=== PATIENT | female | born 1995 | race Caucasian/White ===

== ENCOUNTER → 2019-08-25 16:00 | Outpatient (CLI) | payer OTHER, SELFPAY | PROVIDERS: Visit Provider Obstetrics & Gynecology | DX: Z12.4 Encounter for screening for malignant neoplasm of cervix (principal); Z11.3 Encounter for screening for infections with a predominantly sexual mode of transmission ==

== ENCOUNTER → 2020-02-11 13:24 | Outpatient (CLI) | payer OTHER, SELFPAY | PROVIDERS: Visit Provider Obstetrics & Gynecology | DX: E66.9 Obesity, unspecified (principal) | CPT/HCPCS: 36415; 84144 ==

== ENCOUNTER → 2020-04-28 14:48 | Outpatient (CLI) | payer OTHER, SELFPAY ==
[2020-05-01 03:06] LABS: Chlamydia By Nucleic Acid AMP Negative (Negative)
[2020-05-01 08:27] LABS: Gonococcus By Nucleic Acid AMP Negative (Negative)
== END ==
PROVIDERS: Visit Provider Obstetrics & Gynecology
DX: Z11.3 Encounter for screening for infections with a predominantly sexual mode of transmission (principal)
CPT/HCPCS: 87491; 87591

== ENCOUNTER → 2020-05-12 16:29 | Outpatient (CLI) | payer OTHER, SELFPAY ==
[2020-05-12 17:15] LABS: Color, Urine Yellow (Yellow); Glucose, Dipstick Normal (Normal); Ketone-Dipstick 15 mg/dl (Negative); Leukocyte Esterase-Dipstick Negative /ul (Negative); Nitrite-Dipstick Negative (Negative); Occult Blood-Urine Negative /ul (Negative); Protein-Dipstick Negative (Negative); Specific Gravity, Urine 1.005 (1.002-1.030); Urine Bilirubin Dipstick Negative (Negative); Urine Clarity Clear (Clear); Urine Urobilinogen Normal (Normal)
[2020-05-12 17:26] LABS: Absolute Lymphocyte Count 1.91 X10^3/uL (0.83-4.51); Absolute Neutrophil Count 6.8 X10^3/uL (2.0-7.7); Basophil# 0.03 X10^3/uL; Basophil% 0.3 % (0-1); Eosinophil# 0.02 X10^3/uL; Eosinophils% 0.2 % (0-5); Hematocrit 44.4 % (37-47); Hemoglobin 15.3 g/dL (12.0-15.0); Lymphocyte # 1.91 X10^3/ul (4.0); Lymphocyte % 20.1 % (19-41); Mean Corp Hgb Conc 34.5 g/dL (32-36); Mean Corpuscular Hgb 30.9 pg (27.0-32.0); Mean Corpuscular Volume 89.7 fL (81-99); Mean Platelet Vol. 11.2 fl (6.2-12.0); Monocyte# 0.66 X10^3/uL; NRBC Flagged by Analyzer 0 % (0-5); Neutrophil # 6.84 X10^3/uL (2.7-7.7); Neutrophil % 72.1 % (47-70); Platelet Count 373 K/mm3 (150-450); RBC Distribution Width CV 12.4 % (11.6-14.6); RBC Distribution Width SD 40.6 fl (35.1-43.9); Red Blood Count 4.95 M/mm3 (4.2-5.4); White Blood Count 9.5 K/mm3 (4.4-11.0)
[2020-05-12 17:29] LABS: Amphetamine Urine VISTA NEGATIVE (<1000 ng/mL); Barbiturate Urine VISTA NEGATIVE (< 200 ng/mL); Benzodiazepine Urine VISTA NEGATIVE (< 200 ng/mL); Cocaine Urine VISTA NEGATIVE (< 300 ng/mL); Ecstacy Urine VISTA NEGATIVE (< 500 ng/mL); Methadone Urine VISTA NEGATIVE (< 300 ng/mL); PCP Urine VISTA NEGATIVE (< 25 ng/mL); THC Urine VISTA NEGATIVE (< 50 ng/mL); Vista UDS pH Range 6
[2020-05-12 17:53] LABS: Thyroid Stim Hormone (TSH) 0.79 uIU/mL (0.358-3.74)
[2020-05-13 05:28] LABS: Prenatal RPR NONREACTIVE (NONREACTIVE)
[2020-05-13 11:12] LABS: HIV - WCH Non-Reactive (Nonreactive); Hepatitis B Surface Antigen Non-Reactive (Nonreactive); Hepatitis C Antibody Non-Reactive (Nonreactive); Rubella IgG 166.7 IU/mL
== END ==
PROVIDERS: Visit Provider Obstetrics & Gynecology
DX: Z34.81 Encounter for supervision of other normal pregnancy, first trimester (principal)
CPT/HCPCS: 36415; 80307; 81002; 84443; 85025; 86703; 86762; 86803; 87340

== ENCOUNTER → 2020-09-20 12:59 | Outpatient (CLI) | payer OTHER, SELFPAY ==
[2020-09-20 13:49] LABS: Hematocrit 39.3 % (37-47); Hemoglobin 14.1 g/dL (12.0-15.0); Mean Corp Hgb Conc 35.9 g/dL (32-36); Mean Corpuscular Hgb 33.3 pg (27.0-32.0); Mean Corpuscular Volume 92.7 fL (81-99); Mean Platelet Vol. 11.4 fl (6.2-12.0); Platelet Count 257 K/mm3 (150-450); RBC Distribution Width CV 13.2 % (11.6-14.6); RBC Distribution Width SD 43.4 fl (35.1-43.9); Red Blood Count 4.24 M/mm3 (4.2-5.4); White Blood Count 8.6 K/mm3 (4.4-11.0)
[2020-09-20 14:02] LABS: Glucose Challenge Gest 1H 50g 112 mg/dL (70-140)
== END ==
PROVIDERS: Visit Provider Student in an Organized Health Care Education/Training Program
DX: Z34.82 Encounter for supervision of other normal pregnancy, second trimester (principal)
CPT/HCPCS: 36415; 82950; 85027

== ENCOUNTER 2020-09-30 11:31 | Outpatient (CLI) | payer OTHER, SELFPAY ==
[2020-09-30 11:34] VITALS: BP 121/52; PULSE 102; RESP 18; TEMP 36.6; O2SAT 96; BMI 38.1
--- NOTE | 2020-09-30 11:54 | ED.DCSUM_ITS ---
History of Present Illness Chief Complaint: Fatigue Informant: Patient Onset: Days Current Severity: Mild Maximum Severity: Mild Narrative: Patient presents with increased fatigue and generalized weakness for the past 2 days. Patient is currently 29 weeks . She reportedly was seen by her TREASURY DIRECTOR this morning who wanted her evaluated. I am told that the OB triage unit would not see her without a Covid test so she was therefore sent to the emergency room. She denies fever or chills. She denies pain. She has felt normal movement. She denies urinary symptoms. Past Medical History - Allergies and Home Meds Allergies/Adverse Reactions: Allergies No Known Allergies Allergy (Verified 09/30/20 11:36) Primary Care Physician: [facility] Doctor,Out of [NON-STAFF] - Prior records reviewed: Yes Smoking Status: Never smoker Review of Systems General: Denies: Chills, Fever Eyes: Denies: Visual changes - bilaterally ENT: Denies: Bilateral ear pain Cardiovascular: Denies: Chest pain Respiratory: Denies: Dyspnea, Cough Gastrointestinal: Denies: Abdominal pain, Vomiting, Diarrhea Musculoskeletal: Denies: Swelling, Extremity Pain Skin: Denies: Rash Hematologic: Denies: Easy bruising, Easy bleeding Allergy: Denies: Uticaria Physical Exam Vital Signs/Narrative: Vital Signs Temp Pulse Resp BP Pulse Ox 09/30/20 11:34 98 F 102 H 18 121/52 H 96 Inital Vital Signs reviewed: Yes General: Well nourished, Well developed Head: Normocephalic Eyes: EOMI Neck: Supple Cardiovascular: Regular rate, Regular rhythm Respiratory: No distress, CTA bilaterally Abdomen: Soft, Nontender, Hypoactive bowel sounds Skin: Normal color Neurological: Alert, Oriented x3 Psychological: Normal affect Diagnostic/Tx/Re-eval 09/30/20 12:20 Mucosa - Nose SARS-CoV-2 Antigen (Rapid) - Final Laboratory Results 09/30/20 09/30/20 09/30/20 12:10 12:10 12:10 WBC 10.4 RBC 4.12 L Hgb 13.4 Hct 37.6 MCV 91.3 MCH 32.5 H MCHC 35.6 RDW Std Deviation 41.4 RDW Coeff of Valeri 12.7 Plt Count 255 MPV 11.0 Immature Gran % (Auto) 0.600 Neut % (Auto) 76.6 H Lymph % (Auto) 16.0 L Hendricks % (Auto) 6.0 Eos % (Auto) 0.6 Baso % (Auto) 0.2 Absolute Neuts (auto) 8.0 H Absolute Lymphs (auto) 1.67 Nucleated RBC % 0 Sodium 139 Potassium 3.5 Chloride 110 H Carbon Dioxide 24.0 Anion Gap 5 BUN 3 L Creatinine 0.43 L Estim Creat Clear Calc 205.26 Est GFR (MDRD) Af Amer 232 Est GFR (MDRD) Non-Af 192 BUN/Creatinine Ratio 6.9 L Glucose 89 Calcium 9.0 Total Bilirubin 0.50 Direct Bilirubin 0.15 AST 9 L ALT 23 Alkaline Phosphatase 111 Lactate Dehydrogenase Total Protein 6.6 Albumin 2.6 L Globulin 4.0 Urine Color Urine Clarity Urine pH Ur Specific [place] Urine Protein Urine Glucose (UA) Urine Ketones Urine Occult Blood Urine Nitrite Urine Bilirubin Urine Urobilinogen Ur Leukocyte Esterase Urine RBC Urine WBC Ur Squamous Epith Cells Urine Bacteria Urine Mucus U Random Total Protein Urine Creatinine 09/30/20 09/30/20 09/30/20 12:10 12:30 12:30 WBC RBC Hgb Hct MCV MCH MCHC RDW Std Deviation RDW Coeff of Valeri Plt Count MPV Immature Gran % (Auto) Neut % (Auto) Lymph % (Auto) Hendricks % (Auto) Eos % (Auto) Baso % (Auto) Absolute Neuts (auto) Absolute Lymphs (auto) Nucleated RBC % Sodium Potassium Chloride Carbon Dioxide Anion Gap BUN Creatinine Estim Creat Clear Calc Est GFR (MDRD) Af Amer Est GFR (MDRD) Non-Af BUN/Creatinine Ratio Glucose Calcium Total Bilirubin Direct Bilirubin AST ALT Alkaline Phosphatase Lactate Dehydrogenase 146 Total Protein Albumin Globulin Urine Color Yellow Urine Clarity Sl Cldy Urine pH 7.0 Ur Specific [place] 1.015 Urine Protein Negative Urine Glucose (UA) Normal Urine Ketones Negative Urine Occult Blood Negative Urine Nitrite Negative Urine Bilirubin Negative Urine Urobilinogen Normal Ur Leukocyte Esterase 25 H Urine RBC 0 SEEN Urine WBC 0-5 SEEN Ur Squamous Epith Cells 5-10 SEEN Urine Bacteria 2+ Urine Mucus 0 SEEN U Random Total Protein 21.2 H Urine Creatinine 134.00 - Medical Decision Making Lab work is reviewed. Blood pressure has been in the mid 120 systolic range while here in the emergency room. I did speak with Dr. Sparks who did asked the patient have a nonstress test. Now that the patient's Covid test is negative she should be able to go to OB triage for that. Patient will be given a liter of IV fluid and taken to OB triage for nonstress test. ED Disposition - Plan for ED Patient: Disposition: Home or Assisted Living Diagnosis: Fatigue Instructions: ED Weakness (Uncertain Cause) Referrals: [facility] Doctor,Out of [NON-STAFF] -
[2020-09-30 12:23] LABS: Absolute Lymphocyte Count 1.67 X10^3/uL (0.83-4.51); Basophil# 0.02 X10^3/uL; Basophil% 0.2 % (0-1); Eosinophil# 0.06 X10^3/uL; Eosinophils% 0.6 % (0-5); Hematocrit 37.6 % (37-47); Hemoglobin 13.4 g/dL (12.0-15.0); Lymphocyte # 1.67 X10^3/ul (4.0); Mean Corp Hgb Conc 35.6 g/dL (32-36); Mean Corpuscular Hgb 32.5 pg (27.0-32.0); Mean Corpuscular Volume 91.3 fL (81-99); Monocyte# 0.62 X10^3/uL; NRBC Flagged by Analyzer 0 % (0-5); Neutrophil # 7.99 X10^3/uL (2.7-7.7); Neutrophil % 76.6 % (47-70); Platelet Count 255 K/mm3 (150-450); RBC Distribution Width CV 12.7 % (11.6-14.6); RBC Distribution Width SD 41.4 fl (35.1-43.9); Red Blood Count 4.12 M/mm3 (4.2-5.4); White Blood Count 10.4 K/mm3 (4.4-11.0)
[2020-09-30 12:38] LABS: Mucous, Urine 0 SEEN /hpf (<or=2+); Red Blood Cells-Urine 0 SEEN /hpf (0-5)
[2020-09-30 12:39] LABS: Anion Gap 5 (5-15); BUN 3 mg/dL (7-18); BUN/Creat Ratio 6.9 RATIO (10-20); Chloride 110 mmol/L (98-107); Creatinine, Serum 0.43 mg/dL (0.55-1.02); EST Glomerular Filtration Rate 192 mL/min (>60); Est Glom Filt Rate - Afr Amer 232 mL/min (>60); Estimated Creatinine Clearance 205.26 ml/min; Glucose 89 mg/dL (74-106); Potassium 3.5 mmol/L (3.5-5.1); Sodium Level 139 mmol/L (136-145)
[2020-09-30 12:41] LABS: Glucose, Dipstick Normal (Normal); Ketone-Dipstick Negative (Negative); Leukocyte Esterase-Dipstick 25 /ul (Negative); Nitrite-Dipstick Negative (Negative); Occult Blood-Urine Negative /ul (Negative); Protein-Dipstick Negative (Negative); Specific Gravity, Urine 1.015 (1.002-1.030); Urine Bilirubin Dipstick Negative (Negative); Urine Urobilinogen Normal (Normal)
[2020-09-30 12:43] LABS: Color, Urine Yellow (Yellow); Urine Clarity Sl Cldy (Clear)
[2020-09-30 12:49] VITALS: BP 129/70; PULSE 104; RESP 16; O2SAT 97
[2020-09-30 12:49] LABS: Bacteria 2+ /hpf (None Seen); Squamous Epithelial Cells - UA 5-10 SEEN /hpf (5-10); White Blood Cells 0-5 SEEN /hpf (0-5)
[2020-09-30 12:55] LABS: AST(SGOT) 9 U/L (15-37); Alanine Aminotransfer ALT/SGPT 23 U/L (13-56); Albumin, Serum 2.6 g/dL (3.2-5.0); Alkaline Phosphatase 111 U/L (45-117); Bilirubin, Direct 0.15 mg/dL (0.00-0.30); LDH 146 U/L (84-246); Protein, Total 6.6 g/dL (6.4-8.2)
[2020-09-30 12:57] LABS: Protein, Urine (Random) 21.2 mg/dL (<11.9)
[2020-09-30] MEDS: 0.9% Normal Saline 1,000 ML 999 ML IV (13:45)
[2020-09-30 14:59] VITALS: BP 122/62; PULSE 89; RESP 16; O2SAT 97
[2020-09-30 15:19] VITALS: BP 133/71; PULSE 94; TEMP 36.9; O2SAT 97
--- NOTE | 2020-10-01 08:59 | OB.TRI.NOTE ---
History of Present Illness Date of Service: 09/30/20 Was patient seen by the physician?: No Reason For Visit: NAUSEA,WEAK,LIGHTHEADED/ NST Date of Service: 09/30/20 Final HARRY: 12/18/20 Final HARRY Source: LMP Gestational age: 28 Weeks and 6 Days History of Present Illness: Pt arrived to office with nausea and malaise. Instructed to go to [facility] for evaluation Allergies No Known Allergies Allergy (Verified 09/30/20 11:36) - Pertinent Past Medical History Medical History: Past Medical History (Last Reviewed 09/14/17 @ 09:50 by Ally Westbrook) Anxiety Surgical History: Past Surgical History (Last Updated 09/14/17 @ 09:49 by Ally Westbrook) [place] teeth extracted with molar extraction 10/31/14 Laboratory Studies: Laboratory Tests 09/30/20 09/30/20 09/30/20 Range/Units 12:30 12:30 12:10 WBC (4.4-11.0) K/mm3 RBC (4.2-5.4) M/mm3 Hgb (12.0-15.0) g/dL Hct (37-47) % MCV (81-99) fL MCH (27.0-32.0) pg MCHC (32-36) g/dL RDW Std Deviation (35.1-43.9) fl RDW Coeff of Valeri (11.6-14.6) % Plt Count (150-450) K/mm3 MPV (6.2-12.0) fl Immature Gran % (Auto) (0.0-0.9) % Neut % (Auto) (47-70) % Lymph % (Auto) (19-41) % [place] % (Auto) (0-10) % Eos % (Auto) (0-5) % Baso % (Auto) (0-1) % Absolute Neuts (auto) (2.0-7.7) X10^3/uL Absolute Lymphs (auto) (0.83-4.51) X10^3/uL Nucleated RBC % (0-5) % Sodium (136-145) mmol/L Potassium (3.5-5.1) mmol/L Chloride (98-107) mmol/L Carbon Dioxide (21.0-32.0) mmol/L Anion Gap (5-15) BUN (7-18) mg/dL Creatinine (0.55-1.02) mg/dL Estim Creat Clear Calc ml/min Est GFR (MDRD) Af Amer (>60) mL/min Est GFR (MDRD) Non-Af (>60) mL/min BUN/Creatinine Ratio (10-20) RATIO Glucose (74-106) mg/dL Calcium (8.5-10.1) mg/dL Total Bilirubin (0.20-1.00) mg/dL Direct Bilirubin (0.00-0.30) mg/dL AST (15-37) U/L ALT (13-56) U/L Alkaline Phosphatase (45-117) U/L Lactate Dehydrogenase 146 (84-246) U/L Total Protein (6.4-8.2) g/dL Albumin (3.2-5.0) g/dL Globulin (2.2-4.2) g/dL Urine Color Yellow (Yellow) Urine Clarity Sl Cldy (Clear) Urine pH 7.0 (5.0 - 8.0) Ur Specific [place] 1.015 (1.002-1.030) Urine Protein Negative (Negative) mg/dl Urine Glucose (UA) Normal (Normal) mg/dl Urine Ketones Negative (Negative) mg/dl Urine Occult Blood Negative (Negative) /ul Urine Nitrite Negative (Negative) Urine Bilirubin Negative (Negative) mg/dL Urine Urobilinogen Normal (Normal) mg/dl Ur Leukocyte Esterase 25 H (Negative) /ul Urine RBC 0 SEEN (0-5) /hpf Urine WBC 0-5 SEEN (0-5) /hpf Ur Squamous Epith Cells 5-10 SEEN (5-10) /hpf Urine Bacteria 2+ (None Seen) /hpf Urine Mucus 0 SEEN (<or=2+) /hpf U Random Total Protein 21.2 H (<11.9) mg/dL Urine Creatinine 134.00 (NO RANGE EST.) mg/dL 09/30/20 09/30/20 09/30/20 Range/Units 12:10 12:10 12:10 WBC 10.4 (4.4-11.0) K/mm3 RBC 4.12 L (4.2-5.4) M/mm3 Hgb 13.4 (12.0-15.0) g/dL Hct 37.6 (37-47) % MCV 91.3 (81-99) fL MCH 32.5 H (27.0-32.0) pg MCHC 35.6 (32-36) g/dL RDW Std Deviation 41.4 (35.1-43.9) fl RDW Coeff of Valeri 12.7 (11.6-14.6) % Plt Count 255 (150-450) K/mm3 MPV 11.0 (6.2-12.0) fl Immature Gran % (Auto) 0.600 (0.0-0.9) % Neut % (Auto) 76.6 H (47-70) % Lymph % (Auto) 16.0 L (19-41) % [place] % (Auto) 6.0 (0-10) % Eos % (Auto) 0.6 (0-5) % Baso % (Auto) 0.2 (0-1) % Absolute Neuts (auto) 8.0 H (2.0-7.7) X10^3/uL Absolute Lymphs (auto) 1.67 (0.83-4.51) X10^3/uL Nucleated RBC % 0 (0-5) % Sodium 139 (136-145) mmol/L Potassium 3.5 (3.5-5.1) mmol/L Chloride 110 H (98-107) mmol/L Carbon Dioxide 24.0 (21.0-32.0) mmol/L Anion Gap 5 (5-15) BUN 3 L (7-18) mg/dL Creatinine 0.43 L (0.55-1.02) mg/dL Estim Creat Clear Calc 205.26 ml/min Est GFR (MDRD) Af Amer 232 (>60) mL/min Est GFR (MDRD) Non-Af 192 (>60) mL/min BUN/Creatinine Ratio 6.9 L (10-20) RATIO Glucose 89 (74-106) mg/dL Calcium 9.0 (8.5-10.1) mg/dL Total Bilirubin 0.50 (0.20-1.00) mg/dL Direct Bilirubin 0.15 (0.00-0.30) mg/dL AST 9 L (15-37) U/L ALT 23 (13-56) U/L Alkaline Phosphatase 111 (45-117) U/L Lactate Dehydrogenase (84-246) U/L Total Protein 6.6 (6.4-8.2) g/dL Albumin 2.6 L (3.2-5.0) g/dL Globulin 4.0 (2.2-4.2) g/dL Urine Color (Yellow) Urine Clarity (Clear) Urine pH (5.0 - 8.0) Ur Specific [place] (1.002-1.030) Urine Protein (Negative) mg/dl Urine Glucose (UA) (Normal) mg/dl Urine Ketones (Negative) mg/dl Urine Occult Blood (Negative) /ul Urine Nitrite (Negative) Urine Bilirubin (Negative) mg/dL Urine Urobilinogen (Normal) mg/dl Ur Leukocyte Esterase (Negative) /ul Urine RBC (0-5) /hpf Urine WBC (0-5) /hpf Ur Squamous Epith Cells (5-10) /hpf Urine Bacteria (None Seen) /hpf Urine Mucus (<or=2+) /hpf U Random Total Protein (<11.9) mg/dL Urine Creatinine (NO RANGE EST.) mg/dL Physical Exam Vitals: Vital Signs Temp Pulse Resp BP Pulse Ox 98.4 F 94 16 133/71 H 97 09/30/20 15:19 09/30/20 15:19 09/30/20 14:59 09/30/20 15:19 09/30/20 15:19 NST - FHR Rate Baby A Baseline: 150 Variability:: Moderate Accelerations:: 10 x 10 Decelerations:: None NST Reactive:: Yes Uterine Activity:: quiet Impression/Plan Pt with negative COVID test and negative HELLP labs in the ER. Given IV hydration in ER. NST reactive. All reassuring. Okay to d/c home and follow up in office
== END 2020-09-30 15:45 | disposition home or self-care (01) ==
LOC: ED 13:36 → WPOUT 15:04 → WP 15:05
PROVIDERS: Emergency Medicine; PCP Family Medicine; Visit Provider Obstetrics & Gynecology
DX: O26.893 Other specified pregnancy related conditions, third trimester (principal); R11.0 Nausea; R42 Dizziness and giddiness; R53.1 Weakness; Z3A.28 28 weeks gestation of pregnancy
CPT/HCPCS: 59025; 59050; 80048; 80076; 81001; 82570; 83615; 84156; 85025; 87426; 99218; J7030; A4216; G0378

== ENCOUNTER 2020-10-29 20:35 | Outpatient (CLI) | payer OTHER, SELFPAY ==
[2020-10-29 20:43] VITALS: BMI 38.0
[2020-10-29 20:52] VITALS: BP 137/75; PULSE 104; TEMP 37.3; O2SAT 98
[2020-10-29 21:38] LABS: Bacteria 0 SEEN /hpf (None Seen); Mucous, Urine 0 SEEN /hpf (<or=2+); White Blood Cells 0 SEEN /hpf (0-5)
[2020-10-29 21:50] LABS: Color, Urine Yellow (Yellow); Glucose, Dipstick Normal (Normal); Ketone-Dipstick 50 mg/dl (Negative); Leukocyte Esterase-Dipstick 25 /ul (Negative); Nitrite-Dipstick Negative (Negative); Occult Blood-Urine 250 /ul (Negative); Protein-Dipstick 15 mg/dl (Negative); Specific Gravity, Urine 1.015 (1.002-1.030); Urine Bilirubin Dipstick Negative (Negative); Urine Clarity Sl. Cloudy (Clear); Urine Urobilinogen Normal (Normal); Urine pH 6.5 (5.0 - 8.0)
[2020-10-29 22:02] LABS: Red Blood Cells-Urine 50-100 SEEN /hpf (0-5); Squamous Epithelial Cells - UA 10-25 SEEN /hpf (5-10)
[2020-10-29 22:15] LABS: Fetal Fibronectin POSITIVE
--- NOTE | 2020-10-29 23:56 | OB.TRI.NOTE ---
- Problem List (1) False labor Status: Acute (2) 32 weeks gestation of Status: Acute History of Present Illness Date of Service: 10/29/20 Reason For Visit: RULE OUT LABOR Date of Service: 10/29/20 Final HARRY: 12/18/20 Final HARRY Source: US <20 weeks Gestational age: 32 Weeks and 6 Days History of Present Illness: 25yo G1 @ 32 6/7 weeks gestation presenting with painful contraction q6-7 minutes. Allergies No Known Allergies Allergy (Verified 10/29/20 20:44) - Pertinent Past Medical History Medical History: Past Medical History (Last Reviewed 09/14/17 @ 09:50 by Ally Westbrook) Anxiety Surgical History: Past Surgical History (Last Updated 09/14/17 @ 09:49 by Ally Westbrook) [place] teeth extracted with molar extraction 10/31/14 Laboratory Studies: Laboratory Tests 10/29/20 10/29/20 Range/Units 21:23 21:17 Urine Color Yellow (Yellow) Urine Clarity Sl. Cloudy (Clear) Urine pH 6.5 (5.0 - 8.0) Ur Specific [place] 1.015 (1.002-1.030) Urine Protein 15 H (Negative) mg/dl Urine Glucose (UA) Normal (Normal) mg/dl Urine Ketones 50 H (Negative) mg/dl Urine Occult Blood 250 H (Negative) /ul Urine Nitrite Negative (Negative) Urine Bilirubin Negative (Negative) mg/dL Urine Urobilinogen Normal (Normal) mg/dl Ur Leukocyte Esterase 25 H (Negative) /ul Urine RBC 50-100 SEEN (0-5) /hpf Urine WBC 0 SEEN (0-5) /hpf Ur Squamous Epith Cells 10-25 SEEN (5-10) /hpf Urine Bacteria 0 SEEN (None Seen) /hpf Urine Mucus 0 SEEN (<or=2+) /hpf Fibronectin POSITIVE H Physical Exam Vitals: Vital Signs Temp Pulse BP Pulse Ox 99.1 F 104 H 137/75 H 98 10/29/20 20:52 10/29/20 20:52 10/29/20 20:52 10/29/20 20:52 General: Alert, Oriented x3, Cooperative, No apparent distress HEENT: Atraumatic, Normocephalic Lungs: Normal air movement Abdomen: Soft, Non Tender, Gravid Neurological: Neuro grossly intact NST - FHR Rate Baby A Baseline: 140 Variability:: Moderate Accelerations:: 15 x 15 Decelerations:: None NST Reactive:: Yes FHR Category:: Category I Uterine Activity:: 0-09/26 Impression/Plan 25yo G1 @ 32 6/7wga with contractions -Patient observed over more than 2 hours time with pt reporting contractions spacing out to q15-20 min with PO hydration -FFN positive, thus TVUS performed with CL >=36mm with no funneling or shortening with Valsalva -SVE unchanged x 2 -U/A ?vaginal fluid contamination however blood and leuks present. Ucx sent. -Findings reviewed with pt, overall low risk < 5% for PTL given no cervical shortening (<30mm) thus steroid deferred -d/c home. PTL precautions reviewed. -f/u in office on 11/01 as scheduled Office Visits / Consults: [id number] OV L3 Est
== END 2020-10-29 23:40 | disposition home or self-care (01) ==
LOC: WPOUT 20:42 → OBT 20:43
PROVIDERS: PCP Family Medicine; Visit Provider Obstetrics & Gynecology
DX: O47.03 False labor before 37 completed weeks of gestation, third trimester (principal); Z3A.32 32 weeks gestation of pregnancy
CPT/HCPCS: 59025; 59050; 81001; 82731; 87086; 87088; 99218; G0378

== ENCOUNTER 2020-11-09 20:05 | Outpatient (CLI) | payer OTHER, SELFPAY ==
[2020-11-09 20:13] VITALS: BP 133/68; PULSE 115; TEMP 36.4; O2SAT 97
[2020-11-09 20:14] VITALS: BMI 38.3
--- NOTE | 2020-11-15 11:49 | PCM.PN.BLA ---
Progress Note 34/3w visit for decreased movement. Patient began feeling movement in triage. NST reactive. F/u in office. Kick counts reviewed.
== END 2020-11-09 21:50 | disposition home or self-care (01) ==
LOC: WPOUT 20:09 → OBT 20:10
PROVIDERS: PCP Family Medicine; Visit Provider Student in an Organized Health Care Education/Training Program
DX: O36.8130 Decreased fetal movements, third trimester, not applicable or unspecified (principal); Z3A.34 34 weeks gestation of pregnancy
CPT/HCPCS: 59025; 59050; 99218; G0378

== ENCOUNTER → 2020-11-25 10:32 | Outpatient (CLI) | payer OTHER, SELFPAY ==
[2020-11-09 20:14] VITALS: BMI 38.3
== END ==
PROVIDERS: PCP Family Medicine; Visit Provider Student in an Organized Health Care Education/Training Program
DX: Z36.85 Encounter for antenatal screening for Streptococcus B (principal)
CPT/HCPCS: 87077; 87081; 87186

== ENCOUNTER 2020-12-05 07:35 | Outpatient (CLI) | payer OTHER, SELFPAY ==
[2020-12-05 07:44] VITALS: BP 119/58; PULSE 94
[2020-12-05 07:45] VITALS: TEMP 36.6
[2020-12-05 07:48] VITALS: PULSE 88; O2SAT 98
[2020-12-05 07:52] VITALS: BMI 38.4
--- NOTE | 2020-12-05 09:59 | OB.TRI.NOTE ---
History of Present Illness Date of Service: 12/05/20 Was patient seen by the physician?: No Reason For Visit: RULE OUT LABOR Date of Service: 12/05/20 Final HARRY: 12/18/20 Final HARRY Source: US <20 weeks Gestational age: 38 Weeks and 1 Days History of Present Illness: 38+ week intrauterine presents with some contractions. Concerned that she may be in labor. Allergies No Known Allergies Allergy (Verified 11/09/20 20:16) - Pertinent Past Medical History Medical History: Past Medical History (Last Reviewed 09/14/17 @ 09:50 by Ally Westbrook) Anxiety Surgical History: Past Surgical History (Last Updated 09/14/17 @ 09:49 by Ally Westbrook) [place] teeth extracted with molar extraction 10/31/14 Physical Exam Vitals: Vital Signs Temp Pulse BP Pulse Ox 97.9 F 88 119/58 L 98 12/05/20 07:45 12/05/20 07:48 12/05/20 07:44 12/05/20 07:48 NST - FHR Rate Baby A NST Reactive:: Yes FHR Category:: Category I Impression/Plan 38+ week intrauterine with some false labor. No change after observation of the cervix. Reactive nonstress test. Recommend routine follow-up in the office later this week.
== END 2020-12-05 08:55 | disposition home or self-care (01) ==
LOC: WPOUT 07:36 → WP 07:36
PROVIDERS: PCP Family Medicine; Visit Provider Obstetrics & Gynecology
DX: O47.1 False labor at or after 37 completed weeks of gestation (principal); Z3A.38 38 weeks gestation of pregnancy
CPT/HCPCS: 59025; 59050; 99218; G0378

== ENCOUNTER 2020-12-05 22:50 | Outpatient (CLI) | payer OTHER, SELFPAY ==
[2020-12-05 07:52] VITALS: BMI 38.4
[2020-12-05 23:04] VITALS: BP 135/84; PULSE 93; TEMP 36.5; O2SAT 98
[2020-12-05 23:17] VITALS: BP 129/66; PULSE 90
[2020-12-05 23:19] VITALS: BMI 38.4
[2020-12-06 01:27] VITALS: BP 125/58; PULSE 91; TEMP 36.5; O2SAT 99
[2020-12-06] MEDS: morphine 10 MG/ML Syringe 8 MG IM (01:42)
[2020-12-06 04:29] VITALS: BP 140/71; PULSE 100
[2020-12-06 04:30] VITALS: BP 147/67; PULSE 99
[2020-12-06 04:31] VITALS: BP 145/65; PULSE 101
[2020-12-06 04:59] VITALS: BP 137/79; PULSE 113
--- NOTE | 2020-12-08 09:28 | OB.TRI.HP_ITS ---
History of Present Illness Date of Service: 12/06/20 Was patient seen by the physician?: No Reason For Visit: RULE OUT LABOR Date of Service: 12/06/20 Final HARRY: 12/18/20 Final HARRY Source: US <20 weeks Gestational age: 38 Weeks and 1 Days History of Present Illness: 38+ week intrauterine presents with some contractions. Concerned that she may be in labor. Allergies No Known Allergies Allergy (Verified 12/05/20 23:35) - Pertinent Past Medical History Medical History: Past Medical History (Last Reviewed 09/14/17 @ 09:50 by Ally Westbrook) Anxiety Surgical History: Past Surgical History (Last Updated 09/14/17 @ 09:49 by Ally Westbrook) [place] teeth extracted with molar extraction 10/31/14 Physical Exam Vitals: Vital Signs Temp Pulse BP Pulse Ox 97.7 F L 113 H 137/79 H 99 12/06/20 01:27 12/06/20 04:59 12/06/20 04:59 12/06/20 01:27 NST - FHR Rate Baby A NST Reactive:: Yes FHR Category:: Category I Impression/Plan 38+ week intrauterine with false labor. NST reactive. To return if labor symptoms increase.
== END 2020-12-06 06:50 | disposition home or self-care (01) ==
LOC: OBT 22:53 → WP 12-06 01:15
PROVIDERS: PCP Family Medicine; Referring Provider Obstetrics & Gynecology; Visit Provider Obstetrics & Gynecology
DX: O47.1 False labor at or after 37 completed weeks of gestation (principal); Z3A.38 38 weeks gestation of pregnancy
CPT/HCPCS: 59025; 59050; 96372; 99218; G0378

== ENCOUNTER 2020-12-09 19:50 | Outpatient (CLI) | payer OTHER, SELFPAY ==
[2020-12-09 20:17] VITALS: BP 135/81; PULSE 75; TEMP 36.7; O2SAT 98
[2020-12-09 20:21] VITALS: PULSE 86; O2SAT 93; O2SAT 99
[2020-12-09 20:22] VITALS: BP 135/76; PULSE 84; TEMP 36.9
[2020-12-09 20:31] VITALS: BP 135/81; PULSE 75
[2020-12-09 20:34] VITALS: BMI 38.8
[2020-12-09 21:06] LABS: ROM Internal Control Test YES-OK TO RESULT pt. (Internal QC); ROM Patient Test Negative (Negative)
[2020-12-10 00:34] VITALS: BP 129/80; PULSE 96
--- NOTE | 2020-12-15 08:34 | OB.TRI.NOTE ---
History of Present Illness Date of Service: 12/09/20 Was patient seen by the physician?: No Reason For Visit: RULE OUT LABOR Date of Service: 12/09/20 Final HARRY: 12/18/20 Final HARRY Source: US <20 weeks Gestational age: 38 Weeks and 5 Days History of Present Illness: 38+ week intrauterine presents with some contractions and leaking of fluid. Concerned that her water might be broke and that she might be in labor. Allergies No Known Allergies Allergy (Verified 12/09/20 20:34) - Pertinent Past Medical History Medical History: Past Medical History (Last Reviewed 09/14/17 @ 09:50 by Ally Westbrook) Anxiety Surgical History: Past Surgical History (Last Updated 09/14/17 @ 09:49 by Ally Westbrook) [place] teeth extracted with molar extraction 10/31/14 Laboratory Studies: Laboratory Tests 12/09/20 Range/Units 20:30 Vag Amniotic Fld Detect Negative (Negative) Physical Exam Vitals: Vital Signs Temp Pulse BP Pulse Ox 98.4 F 96 129/80 H 99 12/09/20 20:22 12/10/20 00:34 12/10/20 00:34 12/09/20 20:21 NST - FHR Rate Baby A NST Reactive:: Yes FHR Category:: Category I Impression/Plan 38+ week intrauterine with false labor. Rupture of membrane test negative. No cervical change after monitoring. Will discharge to home with routine labor instructions and follow-up in the office.
== END 2020-12-09 21:30 | disposition home or self-care (01) ==
LOC: WPOUT 19:58 → WP 20:03
PROVIDERS: PCP Family Medicine; Visit Provider Obstetrics & Gynecology
DX: O47.1 False labor at or after 37 completed weeks of gestation (principal); Z3A.38 38 weeks gestation of pregnancy
CPT/HCPCS: 59025; 59050; 84112; 99218; G0378

== ENCOUNTER 2020-12-13 07:40 | Outpatient (CLI) | payer OTHER, SELFPAY ==
[2020-12-13 08:12] VITALS: BP 131/64; PULSE 73
[2020-12-13 09:04] VITALS: BMI 38.5
--- NOTE | 2020-12-13 17:50 | OB.TRI.HP_ITS ---
History of Present Illness Date of Service: 12/13/20 Was patient seen by the physician?: No Reason For Visit: R/O LABOR Date of Service: 12/13/20 Final HARRY: 12/18/20 Final HARRY Source: US <20 weeks Gestational age: 39 Weeks and 2 Days History of Present Illness: Patient arrives to triage with contractions. One time with vomiting and one time with diarrhea at home Allergies No Known Allergies Allergy (Verified 12/09/20 20:34) - Pertinent Past Medical History Medical History: Past Medical History (Last Reviewed 09/14/17 @ 09:50 by Ally Westbrook) Anxiety Surgical History: Past Surgical History (Last Updated 09/14/17 @ 09:49 by Ally Westbrook) [place] teeth extracted with molar extraction 10/31/14 Physical Exam Vitals: Vital Signs Pulse BP 73 131/64 H 12/13/20 08:12 12/13/20 08:12 NST - FHR Rate Baby A Baseline: 130 Variability:: Moderate Accelerations:: 15 x 15 Decelerations:: None NST Reactive:: Yes Uterine Activity:: few contractions Impression/Plan Patient with contractions cervical exam unchanged from office x2, 2 hours apart. Was scheduled to get IV fluids but IV access was difficult to obtain, DC IV fluid order. Okay to discharge home with no signs of labor, labor precautions and follow-up at scheduled appointments.
== END 2020-12-13 10:40 | disposition home or self-care (01) ==
LOC: WPOUT 07:55 → WP 07:57
PROVIDERS: PCP Family Medicine; Visit Provider Student in an Organized Health Care Education/Training Program
DX: O47.1 False labor at or after 37 completed weeks of gestation (principal); Z3A.39 39 weeks gestation of pregnancy
CPT/HCPCS: 59025; 59050; 99218; G0378

== ENCOUNTER 2020-12-16 11:09 | Outpatient (CLI) | payer OTHER, SELFPAY ==
[2020-12-16] VITALS (8 sets, daily range): BP systolic 125–143; BP diastolic 63–81; PULSE 83–107; TEMP 37.1; O2SAT 97; BMI 39.2
[2020-12-16 12:14] LABS: Mucous, Urine 0 SEEN /hpf (<or=2+); Red Blood Cells-Urine 0 SEEN /hpf (0-5); White Blood Cells 0 SEEN /hpf (0-5)
[2020-12-16 12:18] LABS: Hemoglobin 14.3 g/dL (12.0-15.0); Mean Corpuscular Hgb 31.2 pg (27.0-32.0); Mean Corpuscular Volume 91.5 fL (81-99); Mean Platelet Vol. 11.7 fl (6.2-12.0); Platelet Count 258 K/mm3 (150-450); RBC Distribution Width CV 12.6 % (11.6-14.6); RBC Distribution Width SD 42.2 fl (35.1-43.9); Red Blood Count 4.59 M/mm3 (4.2-5.4); White Blood Count 8.2 K/mm3 (4.4-11.0)
[2020-12-16 12:23] LABS: Color, Urine Yellow (Yellow); Glucose, Dipstick Normal (Normal); Ketone-Dipstick Negative (Negative); Leukocyte Esterase-Dipstick Negative /ul (Negative); Nitrite-Dipstick Negative (Negative); Occult Blood-Urine Negative /ul (Negative); Protein-Dipstick Negative (Negative); Urine Bilirubin Dipstick Negative (Negative); Urine Clarity Sl. Cloudy (Clear); Urine Urobilinogen Normal (Normal)
[2020-12-16 12:32] LABS: AST(SGOT) 14 U/L (15-37); Alanine Aminotransfer ALT/SGPT 15 U/L (13-56); Creatinine, Serum 0.48 mg/dL (0.55-1.02); EST Glomerular Filtration Rate 170 mL/min (>60); Est Glom Filt Rate - Afr Amer 206 mL/min (>60); LDH 185 U/L (84-246); Uric Acid 4.5 mg/dL (2.6-6.0)
[2020-12-16 12:33] LABS: Squamous Epithelial Cells - UA 0-5 SEEN /hpf (5-10)
[2020-12-16 12:34] LABS: Bacteria 1+ /hpf (None Seen)
[2020-12-16 12:37] LABS: ALB/GLOB Ratio 0.6 RATIO (0.9-2.4); AST(SGOT) 13 U/L (15-37); Alanine Aminotransfer ALT/SGPT 15 U/L (13-56); Albumin, Serum 2.5 g/dL (3.2-5.0); Alkaline Phosphatase 234 U/L (45-117); Anion Gap 7 (5-15); BUN 4 mg/dL (7-18); BUN/Creat Ratio 8.4 RATIO (10-20); Chloride 108 mmol/L (98-107); Creatinine, Serum 0.48 mg/dL (0.55-1.02); EST Glomerular Filtration Rate 170 mL/min (>60); Est Glom Filt Rate - Afr Amer 206 mL/min (>60); Globulin 3.9 g/dL (2.2-4.2); Glucose 90 mg/dL (74-106); Protein, Total 6.4 g/dL (6.4-8.2); Sodium Level 139 mmol/L (136-145)
[2020-12-16 12:40] LABS: Protein, Urine (Random) 12.6 mg/dL (<11.9); Protein:Creat Ratio 219 mg/g CRE (0-200)
--- NOTE | 2020-12-23 07:38 | OB.TRI.NOTE ---
History of Present Illness Date of Service: 12/16/20 Was patient seen by the physician?: No Reason For Visit: R/O LABOR Date of Service: 12/16/20 Final HARRY: 12/18/20 Final HARRY Source: US <20 weeks Gestational age: 39 Weeks and 5 Days History of Present Illness: Patient arrives with elevated blood pressures in office. Allergies No Known Allergies Allergy (Verified 12/20/20 19:34) - Pertinent Past Medical History Medical History: Past Medical History (Last Reviewed 09/14/17 @ 09:50 by Ally Westbrook) Anxiety Surgical History: Past Surgical History (Last Updated 09/14/17 @ 09:49 by Ally Westbrook) [place] teeth extracted with molar extraction 10/31/14 Laboratory Studies: Laboratory Tests 12/16/20 12/16/20 12/16/20 Range/Units 12:05 12:05 12:05 WBC (4.4-11.0) K/mm3 RBC (4.2-5.4) M/mm3 Hgb (12.0-15.0) g/dL Hct (37-47) % MCV (81-99) fL MCH (27.0-32.0) pg MCHC (32-36) g/dL RDW Std Deviation (35.1-43.9) fl RDW Coeff of Valeri (11.6-14.6) % Plt Count (150-450) K/mm3 MPV (6.2-12.0) fl Sodium 139 (136-145) mmol/L Potassium 4.0 (3.5-5.1) mmol/L Chloride 108 H (98-107) mmol/L Carbon Dioxide 24.0 (21.0-32.0) mmol/L Anion Gap 7 (5-15) BUN 4 L (7-18) mg/dL Creatinine 0.48 L 0.48 L (0.55-1.02) mg/dL Estim Creat Clear Calc 190.50 190.50 ml/min Est GFR (MDRD) Af Amer 206 206 (>60) mL/min Est GFR (MDRD) Non-Af 170 170 (>60) mL/min BUN/Creatinine Ratio 8.4 L (10-20) RATIO Glucose 90 (74-106) mg/dL Uric Acid 4.5 (2.6-6.0) mg/dL Calcium 9.0 (8.5-10.1) mg/dL Total Bilirubin 0.50 (0.20-1.00) mg/dL AST 13 L 14 L (15-37) U/L ALT 15 15 (13-56) U/L Alkaline Phosphatase 234 H (45-117) U/L Lactate Dehydrogenase 185 (84-246) U/L Total Protein 6.4 (6.4-8.2) g/dL Albumin 2.5 L (3.2-5.0) g/dL Globulin 3.9 (2.2-4.2) g/dL Albumin/Globulin Ratio 0.6 L (0.9-2.4) RATIO Urine Color (Yellow) Urine Clarity (Clear) Urine pH (5.0 - 8.0) Ur Specific [place] (1.002-1.030) Urine Protein (Negative) mg/dl Urine Glucose (UA) (Normal) mg/dl Urine Ketones (Negative) mg/dl Urine Occult Blood (Negative) /ul Urine Nitrite (Negative) Urine Bilirubin (Negative) mg/dL Urine Urobilinogen (Normal) mg/dl Ur Leukocyte Esterase (Negative) /ul Urine RBC (0-5) /hpf Urine WBC (0-5) /hpf Ur Squamous Epith Cells (5-10) /hpf Urine Bacteria (None Seen) /hpf Urine Mucus (<or=2+) /hpf U Random Total Protein (<11.9) mg/dL Urine Creatinine (NO RANGE EST.) mg/dL Protein/Creatinin Ratio (0-200) mg/g CRE Blood Type A POSITIVE Antibody Screen NEGATIVE 12/16/20 12/16/20 12/16/20 Range/Units 12:05 12:00 12:00 WBC 8.2 (4.4-11.0) K/mm3 RBC 4.59 (4.2-5.4) M/mm3 Hgb 14.3 (12.0-15.0) g/dL Hct 42.0 (37-47) % MCV 91.5 (81-99) fL MCH 31.2 (27.0-32.0) pg MCHC 34.0 (32-36) g/dL RDW Std Deviation 42.2 (35.1-43.9) fl RDW Coeff of Valeri 12.6 (11.6-14.6) % Plt Count 258 (150-450) K/mm3 MPV 11.7 (6.2-12.0) fl Sodium (136-145) mmol/L Potassium (3.5-5.1) mmol/L Chloride (98-107) mmol/L Carbon Dioxide (21.0-32.0) mmol/L Anion Gap (5-15) BUN (7-18) mg/dL Creatinine (0.55-1.02) mg/dL Estim Creat Clear Calc ml/min Est GFR (MDRD) Af Amer (>60) mL/min Est GFR (MDRD) Non-Af (>60) mL/min BUN/Creatinine Ratio (10-20) RATIO Glucose (74-106) mg/dL Uric Acid (2.6-6.0) mg/dL Calcium (8.5-10.1) mg/dL Total Bilirubin (0.20-1.00) mg/dL AST (15-37) U/L ALT (13-56) U/L Alkaline Phosphatase (45-117) U/L Lactate Dehydrogenase (84-246) U/L Total Protein (6.4-8.2) g/dL Albumin (3.2-5.0) g/dL Globulin (2.2-4.2) g/dL Albumin/Globulin Ratio (0.9-2.4) RATIO Urine Color Yellow (Yellow) Urine Clarity Sl. Cloudy (Clear) Urine pH 8.0 (5.0 - 8.0) Ur Specific [place] 1.010 (1.002-1.030) Urine Protein Negative (Negative) mg/dl Urine Glucose (UA) Normal (Normal) mg/dl Urine Ketones Negative (Negative) mg/dl Urine Occult Blood Negative (Negative) /ul Urine Nitrite Negative (Negative) Urine Bilirubin Negative (Negative) mg/dL Urine Urobilinogen Normal (Normal) mg/dl Ur Leukocyte Esterase Negative (Negative) /ul Urine RBC 0 SEEN (0-5) /hpf Urine WBC 0 SEEN (0-5) /hpf Ur Squamous Epith Cells 0-5 SEEN (5-10) /hpf Urine Bacteria 1+ (None Seen) /hpf Urine Mucus 0 SEEN (<or=2+) /hpf U Random Total Protein 12.6 H (<11.9) mg/dL Urine Creatinine 57.50 (NO RANGE EST.) mg/dL Protein/Creatinin Ratio 219 H (0-200) mg/g CRE Blood Type Antibody Screen Physical Exam Vitals: Vital Signs Temp Pulse BP Pulse Ox 98.8 F 88 125/68 H 97 12/16/20 11:33 12/16/20 12:51 12/16/20 12:51 12/16/20 11:33 NST - FHR Rate Baby A Baseline: 125 Variability:: Moderate Accelerations:: 15 x 15 Decelerations:: None NST Reactive:: Yes Uterine Activity:: quiet Impression/Plan Patient with elevated blood pressures in office. Blood pressures in triage within normal limits. HELLP labs negative. Ruled out preeclampsia. Will discharge home to follow-up at scheduled appointments
== END 2020-12-16 12:55 | disposition home or self-care (01) ==
PROVIDERS: Student in an Organized Health Care Education/Training Program; PCP Family Medicine; Referring Provider Obstetrics & Gynecology; Visit Provider Obstetrics & Gynecology
DX: O47.1 False labor at or after 37 completed weeks of gestation (principal); Z3A.39 39 weeks gestation of pregnancy
CPT/HCPCS: 59025; 59050; 80053; 81001; 82565; 82570; 83615; 84156; 84450; 84460; 84550; 85027; 86850; 86900; 86901

== ENCOUNTER 2020-12-20 18:54 | Inpatient (IN) | payer OTHER, SELFPAY ==
[2020-12-16 12:06] VITALS: BMI 39.2
[2020-12-20] MEDS: Lactated Ringers 1,000 ML 50 ML IV (19:36)
[2020-12-20 19:38] VITALS: BMI 39.2
[2020-12-20 19:48] VITALS: PULSE 81; O2SAT 98
[2020-12-20 19:49] VITALS: BP 141/77; PULSE 85; TEMP 36.8
[2020-12-20 19:51] LABS: Absolute Lymphocyte Count 1.35 X10^3/uL (0.83-4.51); Absolute Neutrophil Count 9.3 X10^3/uL (2.0-7.7); Basophil# 0.01 X10^3/uL; Basophil% 0.1 % (0-1); Eosinophil# 0.06 X10^3/uL; Eosinophils% 0.5 % (0-5); Hematocrit 39.6 % (37-47); Hemoglobin 13.8 g/dL (12.0-15.0); Lymphocyte # 1.35 X10^3/ul (4.0); Lymphocyte % 11.8 % (19-41); Mean Corp Hgb Conc 34.8 g/dL (32-36); Mean Corpuscular Hgb 31.9 pg (27.0-32.0); Mean Corpuscular Volume 91.5 fL (81-99); Monocyte# 0.65 X10^3/uL; Monocyte% 5.7 % (0-10); NRBC Flagged by Analyzer 0 % (0-5); Neutrophil # 9.28 X10^3/uL (2.7-7.7); Neutrophil % 81.4 % (47-70); Platelet Count 276 K/mm3 (150-450); RBC Distribution Width CV 12.5 % (11.6-14.6); RBC Distribution Width SD 41.7 fl (35.1-43.9); Red Blood Count 4.33 M/mm3 (4.2-5.4); White Blood Count 11.4 K/mm3 (4.4-11.0)
[2020-12-20] MEDS: miSOPROStol 25 MCG TABLET VAGINAL (20:16)
[2020-12-21] VITALS (37 sets, daily range): BP systolic 117–198; BP diastolic 66–87; PULSE 73–109; TEMP 36.8–37.3; O2SAT 81–99
[2020-12-21] MEDS: miSOPROStol 25 MCG TABLET VAGINAL ×4 (00:18→12:35)
[2020-12-21] MEDS: Acetaminophen 500 MG Tablet PO ×4 (00:19→20:21)
--- NOTE | 2020-12-21 08:27 | HP.PCM_ITS ---
History and Physical Date of Admission: 12/21/20 HPI: 25-year-old G1, P0 at 40/3 weeks, HARRY 12/18/20 by LMP, admitted for term induction of labor. Denies regular contractions, leaking of fluid, vaginal bleeding. + FM This is complicated by: Obesity, history of depression had taken herself off of Celexa Obstetrical History G1 Past Medical History Depression, obesity Medications PNV Past Surgical History Laparoscopy, impacted wisdom tooth extraction Social History Tobacco use: Denies Alcohol use: Denies Illicit drug use: Denies Labs Blood type: A+ Rubella: Immune Hep B/C: neg/neg HIV: Negative RPR: Nonreactive GBS: Positive Allergies No known drug allergies Review of Systems General: alert and oriented HEENT: _denies change of vision Heart/lungs: _denies CP, SOB GI: _denies nausea, vomiting, dysuria, diarrhea MSK: _denies calf pain, tenderness Physical Exam Vital Signs Temp Pulse BP Pulse Ox 12/21/20 07:22 76 136/72 H 12/21/20 07:21 98 12/21/20 07:18 98.3 F 76 136/72 H 98 12/21/20 04:20 98.6 F 12/21/20 04:19 92 147/72 H 99 12/21/20 00:13 85 137/76 H 12/21/20 00:10 98.5 F 85 159/69 H 98 General: a&o x3, NAD HEENT: normocephalic, atraumatic Cardio: no JVD Resp: no increased work in breathing Abdomen: soft, gravid, nontender Extremities: _minimal-moderate edema CE: cl/th/high per RN FHT: 135/mod valeri/+accel/no decel [place]: rare Labs Laboratory Results - last 24 hr 12/20/20 12/20/20 19:35 19:35 WBC 11.4 H RBC 4.33 Hgb 13.8 Hct 39.6 MCV 91.5 MCH 31.9 MCHC 34.8 RDW Std Deviation 41.7 RDW Coeff of Valeri 12.5 Plt Count 276 MPV 12.0 Immature Gran % (Auto) 0.500 Neut % (Auto) 81.4 H Lymph % (Auto) 11.8 L [place] % (Auto) 5.7 Eos % (Auto) 0.5 Baso % (Auto) 0.1 Absolute Neuts (auto) 9.3 H Absolute Lymphs (auto) 1.35 Nucleated RBC % 0 Blood Type A POSITIVE Antibody Screen NEGATIVE Assessment & Plan 25-year-old G1, P0 at 40/3 weeks, HARRY 12/18/20 by LMP, admitted for term induction of labor. This is complicated by: Obesity, history of depression had taken herself off of Celexa Admit to L&D - Routine labor orders - cytotec induction - GBS positive. To start PCN when switching to pitocin. - CEFM - Anesthesia to see
[2020-12-21] MEDS: Oxytocin 30 units/NS 500 ml 30 UNITS/500 ML IV.SOLN IV (13:52)
[2020-12-21] MEDS: Lactated Ringers 1,000 ML 50 ML IV (13:57)
[2020-12-21] MEDS: Ondansetron 4 MG/2 ML Vial IV (18:03)
--- NOTE | 2020-12-21 18:30 | PN_ITS ---
Progress Note Patient seen and examined. Uncomfortable with contractions but able to rest between. Reports throbbing headache at the top of her skull, no vision changes, normal chest pain shortness of breath, no right upper quadrant pain. Cranial nerves grossly intact, patellar reflexes 1/4, no clonus. Patient was up on birthing ball and had elevated blood pressure with repeat shortly after return to bed. Since that time blood pressures have been in the 130s/80s. She has had occasional 140 systolic blood pressures throughout the labor process. We will get preeclampsia labs at this time. No need for IV medications or magnesium at this time as blood pressures have improved since being back in bed. Discussed possibility of magnesium with patient and her . Patient okay to get epidural at any time she desires. Will be moving patient room to room 14 so that portable monitors work better. All questions answered. heart rate: 135/moderate variability/+ accelerations/negative sign decelerations [place]:q1-3 Plan: cat I tracing, continue titrating pitocin. Pre-e labs, Start PCN for GBS prophylaxis STROKE Vital Signs/Narrative: Vital Signs Temp Pulse BP Pulse Ox 12/21/20 18:18 89 139/84 H 12/21/20 18:03 91 139/73 H 12/21/20 17:49 80 164/76 H 12/21/20 17:32 87 98 12/21/20 17:31 82 198/86 H 12/21/20 17:29 99.2 F H 12/21/20 16:27 88 153/74 H 97 12/21/20 15:34 88 138/71 H 97 12/21/20 15:33 98.3 F
[2020-12-21 19:04] LABS: Bacteria 0 SEEN /hpf (None Seen); Mucous, Urine 0 SEEN /hpf (<or=2+); Red Blood Cells-Urine 0 SEEN /hpf (0-5)
[2020-12-21 19:18] LABS: Protein, Urine (Random) 11.9 mg/dL (<11.9); Protein:Creat Ratio 195 mg/g CRE (0-200)
[2020-12-21 19:23] LABS: Color, Urine Yellow (Yellow); Glucose, Dipstick Normal (Normal); Ketone-Dipstick 5 mg/dl (Negative); Leukocyte Esterase-Dipstick Negative /ul (Negative); Nitrite-Dipstick Negative (Negative); Occult Blood-Urine Negative /ul (Negative); Protein-Dipstick Negative (Negative); Specific Gravity, Urine 1.005 (1.002-1.030); Urine Bilirubin Dipstick Negative (Negative); Urine Clarity Clear (Clear); Urine Urobilinogen Normal (Normal)
[2020-12-21 19:30] LABS: ALB/GLOB Ratio 0.6 RATIO (0.9-2.4); AST(SGOT) 15 U/L (15-37); Alanine Aminotransfer ALT/SGPT 19 U/L (13-56); Albumin, Serum 2.5 g/dL (3.2-5.0); Alkaline Phosphatase 246 U/L (45-117); Anion Gap 6 (5-15); BUN 5 mg/dL (7-18); BUN/Creat Ratio 9.4 RATIO (10-20); Calcium,Total 9.1 mg/dL (8.5-10.1); Chloride 108 mmol/L (98-107); Creatinine, Serum 0.53 mg/dL (0.55-1.02); EST Glomerular Filtration Rate 150 mL/min (>60); Est Glom Filt Rate - Afr Amer 182 mL/min (>60); Estimated Creatinine Clearance 172.53 ml/min; Glucose 80 mg/dL (74-106); LDH 181 U/L (84-246); Potassium 3.9 mmol/L (3.5-5.1); Protein, Total 6.5 g/dL (6.4-8.2); Sodium Level 137 mmol/L (136-145)
[2020-12-21 19:38] LABS: Renal Epithelial Cells 0-5 SEEN /hpf (0-5); Squamous Epithelial Cells - UA 0-5 SEEN /hpf (5-10); White Blood Cells 0-5 SEEN /hpf (0-5)
[2020-12-22] VITALS (55 sets, daily range): BP systolic 113–166; BP diastolic 55–87; PULSE 78–157; RESP 18; TEMP 36.4–37.6; O2SAT 95–99
[2020-12-22] MEDS: Lactated Ringers 500 ML 999 ML IV (00:38)
[2020-12-22] MEDS: proCHLORPERazine 10 MG/2 ML Vial IV ×2 (01:14→08:31)
[2020-12-22] MEDS: fentaNYL-bupivacaine (epidural) 100 ML BAG EPIDURAL ×3 (01:35→11:12)
[2020-12-22 02:59] LABS: ROM Internal Control Test YES-OK TO RESULT pt. (Internal QC)
[2020-12-22 03:00] LABS: ROM Patient Test POSITIVE (Negative)
[2020-12-22] MEDS: Lactated Ringers 1,000 ML 200 ML IV ×2 (03:25→09:38)
[2020-12-22] MEDS: Ondansetron 4 MG/2 ML Vial IV ×2 (08:01)
[2020-12-22] MEDS: Mag Hydrox/Al Hydrox/Simeth 30 ML UDC PO (08:08)
--- NOTE | 2020-12-22 09:03 | PCM.PN.OB ---
Subjective: Pain well controlled with epidural in place. Cervix now 4 cm. Adequate contractions. Occasional variable deceleration but reassuring heart tones. - Physical Exam Vitals/I&O's: Vital Signs Temp Pulse BP Pulse Ox 98.9 F 109 H 132/72 H 97 12/22/20 08:05 12/22/20 08:05 12/22/20 08:05 12/22/20 08:05 Weight: 265 lb 3.2 oz Body Mass Index (BMI) 39.2 Intake and Output for Last 24 Hours 12/20/20 12/21/20 12/22/20 23:59 23:59 23:59 Intake Total 1544.30 / 1594.30 1458.50 / 1458.50 Output Total 850 / 850 Balance 1544.30 / 1594.30 608.50 / 608.50 Microbiology Past 72 Hours 12/20/20 19:50 Mucosa - Nose SARS-CoV-2 Antigen (Rapid) - Final Laboratory Results 12/21/20 18:40: Urine Color Yellow, Urine Clarity Clear, Urine pH 7.0, Ur Specific [place] 1.005, Urine Protein Negative, Urine Glucose (UA) Normal, Urine Ketones 5 H, Urine Occult Blood Negative, Urine Nitrite Negative, Urine Bilirubin Negative, Urine Urobilinogen Normal, Ur Leukocyte Esterase Negative, Urine RBC 0 SEEN, Urine WBC 0-5 SEEN, Ur Squamous Epith Cells 0-5 SEEN, Ur Renal Epithelial Cell 0-5 SEEN, Urine Bacteria 0 SEEN, Urine Mucus 0 SEEN 12/21/20 18:40: U Random Total Protein 11.9 H, Urine Creatinine 60.90, Protein/Creatinin Ratio 195 12/21/20 18:40: Sodium 137, Potassium 3.9, Chloride 108 H, Carbon Dioxide 23.0, Anion Gap 6, BUN 5 L, Creatinine 0.53 L, Estim Creat Clear Calc 172.53, Est GFR (MDRD) Af Amer 182, Est GFR (MDRD) Non-Af 150, BUN/Creatinine Ratio 9.4 L, Glucose 80, Calcium 9.1, Total Bilirubin 0.70, AST 15, ALT 19, Alkaline Phosphatase 246 H, Lactate Dehydrogenase 181, Total Protein 6.5, Albumin 2.5 L, Globulin 4.0, Albumin/Globulin Ratio 0.6 L 12/22/20 02:51: Vag Amniotic Fld Detect POSITIVE H Current Medications Acetaminophen (Acetaminophen 500 Mg Tablet) 500 - 1,000 mg PO Q6H PRN PRN PRN Reason: Pain Score 1-3 Last Admin: 12/21/20 20:21 Dose: 1,000 mg Documented by: Al Hydroxide/Mg Hydroxide (Mag Hydrox/Al Hydrox/Simeth 30 Ml Udc) 15 - 30 ml PO Q4H PRN PRN PRN Reason: INDIGESTION Last Admin: 12/22/20 08:08 Dose: 30 ml Documented by: Citric Acid/Sodium Citrate (Sodium Citrate/Citric Acid 30 Ml Udc) 30 ml PO X1 PRN PRN Reason: Section Ephedrine Sulfate (Ephedrine Sulfate 50 Mg/Ml Ampul) 10 mg IV Q10M PRN PRN Reason: hypotension Ephedrine Sulfate (Ephedrine Sulfate 50 Mg/Ml Ampul) 10 mg IM Q30M PRN PRN Reason: hypotension Ephedrine Sulfate (Ephedrine Sulfate 50 Mg/Ml Ampul) 10 mg IV Q10M PRN PRN Reason: hypotension Ephedrine Sulfate (Ephedrine Sulfate 50 Mg/Ml Ampul) 10 mg IM Q30M PRN PRN Reason: hypotension Fentanyl Citrate (Fentanyl 100 Mcg/2 Ml Ampul) 25 - 50 mcg IV Q2H PRN PRN PRN Reason: Pain Score 4-10 Fentanyl/Bupivacaine/Sodium Chlor (Fentanyl-Bupivacaine (Epidural) 100 Ml Bag) 0 ml EPIDURAL UD [facility]; Protocol Last Admin: 12/22/20 05:46 Dose: 100 ml Documented by: Lactated Ringer's () 500 mls @ 999 mls/hr IV .Q31M PRN PRN Reason: Epidural Last Infusion: 12/22/20 01:09 Dose: Infused Documented by: Lactated Ringer's () 500 mls @ 999 mls/hr IV .Q31M PRN PRN Reason: Corrective Measures Lactated Ringer's () 1,000 mls @ 50 mls/hr IV .Q20H [facility] Last Infusion: 12/22/20 04:41 Dose: 200 mls/hr Documented by: Oxytocin/Sodium Chloride () 30 units in 500 mls @ 2 mls/hr IV .Q250H [facility] Last Infusion: 12/22/20 07:30 Dose: 18 mls/hr Documented by: Penicillin G Potassium/Dextrose (Penicillin G Potassium) 3 mu in 50 mls @ 100 mls/hr IV Q4H [facility] Last Infusion: 12/22/20 08:28 Dose: Infused Documented by: Nalbuphine HCl (Nalbuphine 10 Mg/Ml Ampul) 5 mg IV Q3H PRN PRN PRN Reason: ITCHING Nalbuphine HCl (Nalbuphine 10 Mg/Ml Ampul) 5 mg IV Q3H PRN PRN PRN Reason: ITCHING Naloxone HCl (Naloxone 0.4 Mg/Ml Syringe) 0.02 mg IV Q1M PRN PRN Reason: RR <10 and pt unresponsive Naloxone HCl (Naloxone 0.4 Mg/Ml Syringe) 0.02 mg IV Q1M PRN PRN Reason: RR <10 and pt unresponsive Ondansetron HCl (Ondansetron 4 Mg/2 Ml Vial) 4 mg IV Q4H PRN PRN PRN Reason: NAUSEA Last Admin: 12/22/20 08:01 Dose: 4 mg Documented by: Prochlorperazine Edisylate (Prochlorperazine 10 Mg/2 Ml Vial) 10 mg IV Q6H PRN PRN PRN Reason: NAUSEA Last Admin: 12/22/20 08:31 Dose: 10 mg Documented by: Sodium Chloride (0.9% Saline Lock 10 Ml Syringe) 10 - 40 ml IV X1 PRN PRN Reason: SALINE FLUSH Medical Necessity - Tobacco Use Smoking Status: Never smoker Assessment/Plan All Active Problems (Last Reviewed 09/14/17 @ 09:50 by Ally Westbrook) Fatigue (Acute) False labor (Acute) 32 weeks gestation of (Acute) Radiculopathy of lumbar region (Acute) Other tear of medial meniscus, current injury, left knee, initial encounter (Acute)
[2020-12-22] MEDS: Oxytocin 30 units/NS 500 ml 30 UNITS/500 ML IV.SOLN 334 UNITS IV (14:58)
[2020-12-22] MEDS: Methylergonovine 0.2 MG/ML Ampul IM (15:00)
[2020-12-22] MEDS: miSOPROStol 200 MCG Tablet 1000 MCG RC (15:04)
[2020-12-22] MEDS: Carboprost Tromethamine 250 MCG/ML Ampul IM (15:06)
--- NOTE | 2020-12-22 15:26 | PCM.OPRPT ---
Vaginal Delivery Maternal Presentation: Elective Induction Method of Induction: Pitocin, Amniotomy, Cytotec Amniotic Membrane Rupture Type: Artificial Amniotic Fluid Description: Clear Final HARRY: 12/18/20 Final HARRY Source: US <20 weeks Gestational age: 40 Weeks and 4 Days Date of Procedure: 12/22/20 Pre-Operative Diagnosis: IUP Post-Operative Diagnosis: IUP Surgery/ Procedure Performed: Spontaneous Vaginal Delivery Type of Anesthesia: Epidural Description of Procedure: Spontaneous vaginal delivery of a viable male with Apgars of 8/9 from an occiput anterior presentation with clear amniotic fluid and normal three-vessel placenta. Cord around the neck x1 loose. No episiotomy or laceration. Sponges okay. Patient had uterine atony with resultant hemorrhage of approximately 1000 cc relieved with IV Pitocin, IM Methergine, IM Hemabate, rectal Cytotec at 1000 mg, examination of the cervix and vagina for tears (none noted) , and gentle banjo curette of the uterus with minimal tissue noted. Delivery physician: Sylvain Jones MD. Presentation: Vertex Placental Delivery Description: Spontaneous Placenta Disposition: [facility] Cord Vessel Description: 3 Vessels Cord Entanglement: Around neck x 1, loose Estimated Blood Loss: 1000 cc A gender: Male (1 minute): 8 (5 minute): 9 Episiotomy Description: None Laceration: None Medications given after delivery: IV Pitocin, IM Methergin, IM Hemabate, - - Cytotec per rectum Complications: - - hemorrhage due to uterine atony
--- NOTE | 2020-12-22 15:30 | DCINST_ITS ---
<Sylvain Jones - Last Filed: 12/22/20 15:30> Discharge Diet: No Restrictions Discharge Activity: May Shower, May Take a Tub Bath May resume sexual activity in: 4-6 weeks Additional Activity Instructions:: Nothing in the vagina for 4-6 weeks. You may return to work/school in 6 weeks. Call your doctor if you observe: Fever of 101 or Higher, Inability to urinate, Inability to have a bowel movement, Using more than one pad per hour Additional Instructions: If you experience any of the following, contact your healthcare provider. * Bleeding that soaks a pad every hour for 2 hours * Fever 100.4 or higher * Unrelieved incision or abdominal pain * Swelling, redness, discharge or bleeding from your incision or episiotomy site * Your incision begins to separate * Problems urinating (including inability to urinate or burning while urinating). * Visual changes * Severe headache * Flu-like symptoms * Pain or redness in one of both of your breasts * Pain, warmth, tenderness or swelling in your legs, especially the calf area * Frequent nausea and vomiting * Symptoms of depression or anxiety If you experience any of the following, call 911 or go to the nearest Emergency Room. * Chest pain * Problems breathing * Seizure activity * Partial or complete paralysis of a body part, slurred speech, weakness or drooping of the face, or a sudden inability to walk or hold your balance Allergies/Adverse Reactions: Allergies No Known Allergies Allergy (Verified 12/20/20 19:34) Medications to take at Discharge [id number]/Iron/Folic/Dha [ Formula-Dha Softgel] 1 tab PO DAILY 09/30/20 Ondansetron [Zofran Odt] 4 mg PO Q8H PRN PRN 12/13/20 Calcium Carbonate [Tums] 200 mg PO PRN PRN 12/20/20 Famotidine [Pepcid] 20 mg PO DAILY 12/20/20 Please Follow Up With: Liz Sparks, - [phone] When: Call to make an appointment with your doctor in 6 weeks. Primary Care Physician: Tressa Shannon PA-C [Primary Care Provider] - Test Results: Test results from this visit will be discussed in further detail at your follow- up appointment, if applicable. <Liz Sparks - Last Filed: 12/23/20 07:35> Additional Instructions: If you experience any of the following, contact your healthcare provider. * Bleeding that soaks a pad every hour for 2 hours * Fever 100.4 or higher * Unrelieved incision or abdominal pain * Swelling, redness, discharge or bleeding from your incision or episiotomy site * Your incision begins to separate * Problems urinating (including inability to urinate or burning while urinating). * Visual changes * Severe headache * Flu-like symptoms * Pain or redness in one of both of your breasts * Pain, warmth, tenderness or swelling in your legs, especially the calf area * Frequent nausea and vomiting * Symptoms of depression or anxiety If you experience any of the following, call 911 or go to the nearest Emergency Room. * Chest pain * Problems breathing * Seizure activity * Partial or complete paralysis of a body part, slurred speech, weakness or drooping of the face, or a sudden inability to walk or hold your balance When: 1 week nurse visit for BP check Test Results: Test results from this visit will be discussed in further detail at your follow- up appointment, if applicable.
[2020-12-22] MEDS: Cefazolin 2 GM in 0.9% Normal Saline 100 ML IV (16:06)
[2020-12-22] MEDS: Ibuprofen 600 MG Tablet PO (16:07)
[2020-12-23] VITALS (9 sets, daily range): BP systolic 118–148; BP diastolic 56–65; PULSE 100–124; RESP 16–18; TEMP 36.7–37.1; O2SAT 98
[2020-12-23] MEDS: 0.9% Saline Lock 10 ML Syringe IV (04:39)
[2020-12-23 05:01] LABS: Hematocrit 28.3 % (37-47); Hemoglobin 9.7 g/dL (12.0-15.0); Mean Corp Hgb Conc 34.3 g/dL (32-36); Mean Corpuscular Hgb 31.4 pg (27.0-32.0); Mean Corpuscular Volume 91.6 fL (81-99); Mean Platelet Vol. 11.6 fl (6.2-12.0); Platelet Count 240 K/mm3 (150-450); RBC Distribution Width CV 12.5 % (11.6-14.6); RBC Distribution Width SD 41.6 fl (35.1-43.9); Red Blood Count 3.09 M/mm3 (4.2-5.4); White Blood Count 13.8 K/mm3 (4.4-11.0)
[2020-12-23] MEDS: Ibuprofen 600 MG Tablet PO (05:01)
--- NOTE | 2020-12-23 07:33 | PCM.PN.OB ---
Subjective: day 1. Feeling well. Lochia minimal. Breast-feeding. - Physical Exam Vitals/I&O's: Vital Signs Temp Pulse Resp BP Pulse Ox 98.3 F 118 H 18 148/65 H 98 12/23/20 04:34 12/23/20 04:36 12/23/20 04:34 12/23/20 04:36 12/23/20 04:34 Oxygen Delivery Method Room Air Weight: 120.293 kg Body Mass Index (BMI) 39.2 Intake and Output for Last 24 Hours 12/21/20 12/22/20 12/23/20 23:59 23:59 23:59 Intake Total 1544.30 / 1594.30 4099.57 / 4099.57 Output Total 1550 / 1550 Balance 1544.30 / 1594.30 2549.57 / 2549.57 General: Alert, Oriented x3, No apparent distress HEENT: Atraumatic, Normocephalic Neck: Supple Lungs: Clear to auscultation, Normal air movement Cardiovascular: Regular rate Abdomen: Soft - Uterus 2 cm below umbilicus Extremities: Edema - +1 pedal edema Neurological: Cranial nerves II-XII grossly intact Psych/Mental Status: Normal Affect, Appropriate Microbiology Past 72 Hours 12/20/20 19:50 Mucosa - Nose SARS-CoV-2 Antigen (Rapid) - Final Laboratory Results 12/23/20 04:49: WBC 13.8 H, RBC 3.09 L, Hgb 9.7 L, Hct 28.3 L, MCV 91.6, MCH 31.4, MCHC 34.3, RDW Std Deviation 41.6, RDW Coeff of Valeri 12.5, Plt Count 240, MPV 11.6 Current Medications Acetaminophen (Acetaminophen 500 Mg Tablet) 1,000 mg PO Q8H PRN PRN PRN Reason: Pain Score 1-3 Bisacodyl (Bisacodyl 10 Mg Suppository) 10 mg RC UD PRN PRN Reason: If no BM Dibucaine (Dibucaine 30 Gm Tube) 1 applic TOPICAL TID PRN PRN; Protocol PRN Reason: Discomfort Famotidine (Famotidine 20 Mg Tablet) 20 mg PO DAILY [facility]UREANO Hydrocortisone (Hydrocortisone 2.5% Crm) 1 applic TOPICAL TID PRN PRN; Protocol PRN Reason: Discomfort Ibuprofen (Ibuprofen 600 Mg Tablet) 600 mg PO Q6H PRN PRN PRN Reason: Pain Score 1-3 Last Admin: 12/23/20 05:01 Dose: 600 mg Documented by: Measles/Mumps/Rubella Vaccine Live (Measles,Mumps&Rubella Vaccine 0.5 Ml Vial) 0.5 ml SC .ONCE ONE Stop: 12/23/20 10:01 Last Admin: 12/22/20 18:39 Dose: Not Given Documented by: Methylergonovine Maleate (Methylergonovine 0.2 Mg/Ml Ampul) 0.2 mg IM X1 PRN PRN Reason: Excess bleeding/uterine atony Last Admin: 12/22/20 15:00 Dose: 0.2 mg Documented by: Ondansetron HCl (Ondansetron 4 Mg/2 Ml Vial) 4 mg IV Q4H PRN PRN PRN Reason: Nausea Oxycodone HCl (Oxycodone 5 Mg Tablet) 5 - 10 mg PO Q4H PRN PRN PRN Reason: Pain Score 4-10 Senna/Docusate Sodium (Senna/Docusate Sodium 1 Tablet) 1 - 2 tablet PO DAILY PRN PRN PRN Reason: Constipation Simethicone (Simethicone 80 Mg Tablet) 80 mg PO PCHS PRN PRN Reason: Indigestion/Stomach pain Sodium Chloride (0.9% Saline Lock 10 Ml Syringe) 5 - 15 ml IV UD PRN PRN Reason: SALINE FLUSH Last Admin: 12/23/20 04:39 Dose: 6 ml Documented by: Zolpidem Tartrate (Zolpidem Tartrate 5 Mg Tablet) 5 mg PO QHS PRN PRN PRN Reason: Insomnia Medical Necessity - Tobacco Use Smoking Status: Never smoker Assessment/Plan All Active Problems (Last Reviewed 09/14/17 @ 09:50 by Ally Westbrook) Fatigue (Acute) False labor (Acute) 32 weeks gestation of (Acute) Radiculopathy of lumbar region (Acute) Other tear of medial meniscus, current injury, left knee, initial encounter (Acute) 25-year-old day 1 status post . Complicated by hemorrhage. Acute blood loss anemia secondary to delivery. Iron 3 times weekly at home. Breast-feeding, should see today. Encouraged follow-up after discharge. Desires home-going today. 1 week follow-up with nurse for blood pressure check.
[2020-12-23] MEDS: Famotidine 20 MG Tablet PO (10:10)
== END 2020-12-23 17:20 | disposition home or self-care (01) | DRG 806 ==
PROVIDERS: Admitting Provider Obstetrics & Gynecology; PCP Family Medicine; Referring Provider Student in an Organized Health Care Education/Training Program; Visit Provider Obstetrics & Gynecology
DX: O69.81X0 Labor and delivery complicated by cord around neck, without compression, not applicable or unspecified (principal); O72.1 Other immediate postpartum hemorrhage; Z37.0 Single live birth; O99.214 Obesity complicating childbirth; E66.9 Obesity, unspecified; O99.824 Streptococcus B carrier state complicating childbirth; O76 Abnormality in fetal heart rate and rhythm complicating labor and delivery; Z3A.40 40 weeks gestation of pregnancy
CPT/HCPCS: 59025; 59050; 80053; 81001; 82570; 83615; 84112; 84156; 85025; 85027; 86850; 86900; 86901; 87426; 99218; J7120; A4216; G0378; J2405

== ENCOUNTER → 2020-12-28 11:58 | Outpatient (CLI) | payer OTHER, SELFPAY ==
[2020-12-20 19:38] VITALS: BMI 39.2
[2020-12-28 14:05] LABS: Hematocrit 31.5 % (37-47); Hemoglobin 10.6 g/dL (12.0-15.0); Mean Corp Hgb Conc 33.7 g/dL (32-36); Mean Corpuscular Hgb 31.4 pg (27.0-32.0); Mean Corpuscular Volume 93.2 fL (81-99); Mean Platelet Vol. 10.6 fl (6.2-12.0); Platelet Count 468 K/mm3 (150-450); RBC Distribution Width CV 12.8 % (11.6-14.6); RBC Distribution Width SD 43.1 fl (35.1-43.9); Red Blood Count 3.38 M/mm3 (4.2-5.4); White Blood Count 7.4 K/mm3 (4.4-11.0)
[2020-12-28 14:09] LABS: ALB/GLOB Ratio 0.7 RATIO (0.9-2.4); AST(SGOT) 14 U/L (15-37); Alanine Aminotransfer ALT/SGPT 28 U/L (13-56); Alkaline Phosphatase 203 U/L (45-117); Anion Gap 6 (5-15); BUN 7 mg/dL (7-18); Calcium,Total 9.2 mg/dL (8.5-10.1); Chloride 106 mmol/L (98-107); Creatinine, Serum 0.64 mg/dL (0.55-1.02); EST Glomerular Filtration Rate 122 mL/min (>60); Est Glom Filt Rate - Afr Amer 148 mL/min (>60); Globulin 4.3 g/dL (2.2-4.2); Glucose 105 mg/dL (74-106); LDH 191 U/L (84-246); Potassium 3.6 mmol/L (3.5-5.1); Protein, Total 7.3 g/dL (6.4-8.2); Sodium Level 137 mmol/L (136-145)
== END ==
PROVIDERS: PCP Family Medicine; Visit Provider Obstetrics & Gynecology
DX: O16.5 Unspecified maternal hypertension, complicating the puerperium (principal)
CPT/HCPCS: 36415; 80053; 83615; 85027

== ENCOUNTER → 2021-02-01 | Outpatient (CLI) | payer OTHER, SELFPAY | END | disposition home or self-care (01) | LOC: LABSPEC 15:18 | PROVIDERS: PCP Family Medicine; Visit Provider Obstetrics & Gynecology | DX: Z12.4 Encounter for screening for malignant neoplasm of cervix (principal) | CPT/HCPCS: 88175; G0145 ==

== ENCOUNTER 2024-05-04 14:50 | Outpatient (CLI) | payer OTHER, SELFPAY ==
[2024-05-04] VITALS (7 sets, daily range): BP systolic 118–139; BP diastolic 60–93; PULSE 74–90; RESP 16; TEMP 37.1; BMI 40.3
--- NOTE | 2024-05-04 16:23 | OB.TRI.NOTE ---
HPI - General General Date of Service: 05/04/24 HPI Narrative GENE KEN, is a 28 F who presents at 27w1d with complaint of lower back pain. Woke up with headache, some blurry vision but no scotoma. No RUQ abdominal pain. Having lower back pain that is more constant. No contractions, lof, or vaginal bleeding. No urinary complaints. PFSH PFSH Medical History (Updated 05/04/24 @ 17:38 by Nahomi Bellamy CNM) Anxiety Home Medications ?Medication ?Instructions ?Recorded ?Last Taken ?Type vit no.116-iron 28 1 tab PO DAILY Check with primary 09/30/20 05/03/24 History mg-folic acid 800 mcg-dha 200 mg doctor capsule sertraline 50 mg tablet mg 05/04/24 05/03/24 22:00 History 50 mg Allergy/AdvReac Type Severity Reaction Status Date / Time No Known Allergies Allergy Verified 05/04/24 15:31 Family History (Updated 09/14/17 @ 09:50 by Ally Westbrook) Grandfather Myocardial infarction Grandmother Myocardial infarction Surgical History (Updated 09/14/17 @ 09:49 by Ally Westbrook) [place] teeth extracted Social History Smoking Status: Never smoker History Elective abortions Hx Para 0 Spontaneous abortions Hx # Term Pregnancies Ectopic pregnancies Hx # Pregnancies Multiple births # of living children Physical Exam Const alert and oriented x3 General Appearance: cooperative Orientation / Consciousness: awake, oriented to person, oriented to place and oriented to time Exam Limitations: no limitations HEENT normocephalic Head and Scalp: normal to inspection, normocephalic and atraumatic Face and Sinus: normal facial exam Eyes General Eye: normal appearance of both eyes Neck full ROM Chest Chest: symmetrical chest wall rise Resp normal respiratory effort and normal air movement Auscultation: clear to auscultation bilaterally Cardio regular rate, regular rhythm, S1 normal heart sound, S2 normal heart sound, no murmurs, no rub, no gallops and no clicks GI normal to inspection, nondistended, normoactive bowel sounds and non-tender appearance of the vagina normal Bladder / Kidney Exam: no CVA tenderness Back/Spine normal ROM Extremity normal to inspection and full ROM Skin no rashes or lesions noted Neuro oriented x3, CN's II-XII intact bilaterally and moves all extremities Sensorium / Orientation: awake, alert and oriented to person Motor Exam: clonus absent Deep Tendon Reflexes: Rt Patellar (L4): 2+ and Lt Patellar (L4): 2+ NST FHR Rate Baby A Baseline: 150 Variability:: Moderate Accelerations:: 15 x 15 Decelerations:: None NST Reactive:: Yes Uterine Activity:: None Assessment & Plan (1) 27 weeks gestation of : (2) Back pain affecting : (3) Elevated blood pressure reading without diagnosis of hypertension: PLAN: Plan 1) BP mildly elevated, Preeclampsia labs normal 2) No signs of PTL 3) D/C home and follow up outpatient
[2024-05-04 16:45] LABS: Bacteria 0 SEEN /hpf (None Seen); Mucous, Urine 0 SEEN /hpf (<or=2+); Red Blood Cells-Urine 0 SEEN /hpf (0-5); White Blood Cells 0 SEEN /hpf (0-5)
[2024-05-04 16:46] LABS: Hemoglobin 13.6 g/dL (12.0-15.0); Mean Corp Hgb Conc 34.9 g/dL (32-36); Mean Corpuscular Hgb 31.8 pg (27.0-32.0); Mean Corpuscular Volume 91.1 fL (81-99); Mean Platelet Vol. 10.8 fl (6.2-12.0); Platelet Count 271 K/mm3 (150-450); RBC Distribution Width CV 12.7 % (11.6-14.6); RBC Distribution Width SD 42.1 fl (35.1-43.9); Red Blood Count 4.28 M/mm3 (4.2-5.4); White Blood Count 9.7 K/mm3 (4.4-11.0)
[2024-05-04 16:48] LABS: Color, Urine Yellow (Yellow); Glucose, Dipstick Normal (Normal); Ketone-Dipstick 15 mg/dl (Negative); Leukocyte Esterase-Dipstick Negative /ul (Negative); Nitrite-Dipstick Negative (Negative); Occult Blood-Urine Negative /ul (Negative); Protein-Dipstick Negative (Negative); Urine Bilirubin Dipstick Negative (Negative); Urine Clarity Sl. Cloudy (Clear); Urine Urobilinogen Normal (Normal); Urine pH 6.5 (5.0 - 8.0)
[2024-05-04 16:56] LABS: Protein, Urine (Random) 14.6 mg/dL (<11.9); Protein:Creat Ratio 153 mg/g CRE (0-200)
[2024-05-04 17:01] LABS: AST(SGOT) 12 U/L (15-37); Alanine Aminotransfer ALT/SGPT 20 U/L (13-56); Creatinine, Serum 0.36 mg/dL (0.55-1.02); EST Glomerular Filtration Rate 231 mL/min (>60); Est Glom Filt Rate - Afr Amer 279 mL/min (>60); Estimated Creatinine Clearance 333.66 ml/min; Uric Acid 3.5 mg/dL (2.6-6.0)
[2024-05-04 17:03] LABS: Squamous Epithelial Cells - UA 5-10 SEEN /hpf (5-10)
== END 2024-05-04 17:40 | disposition home or self-care (01) ==
LOC: WPOUT 14:59 → WP 14:59
PROVIDERS: PCP Family Medicine; Referring Provider Advanced Practice Midwife; Visit Provider Advanced Practice Midwife
DX: O99.891 Other specified diseases and conditions complicating pregnancy (principal); M54.50 Low back pain, unspecified; Z3A.27 27 weeks gestation of pregnancy; O99.342 Other mental disorders complicating pregnancy, second trimester; F41.9 Anxiety disorder, unspecified; Z79.899 Other long term (current) drug therapy; R03.0 Elevated blood-pressure reading, without diagnosis of hypertension
CPT/HCPCS: 59050; 81001; 82565; 82570; 84156; 84450; 84460; 84550; 85027; 87086; 87088; 99221; G0378

== ENCOUNTER 2024-06-09 17:00 | Outpatient (CLI) | payer OTHER, SELFPAY ==
[2024-05-07 07:20] VITALS: RESP 16; TEMP 37.2
[2024-06-09 17:20] VITALS: BMI 41.0
[2024-06-09 17:26] VITALS: BP 122/69; PULSE 101; RESP 18; TEMP 36.8
[2024-06-09 17:34] VITALS: PULSE 100; O2SAT 97
[2024-06-09] MEDS: Lactated Ringers 1,000 ML 999 ML IV (18:00)
[2024-06-09 18:09] LABS: Absolute Lymphocyte Count 1.71 X10^3/uL (0.83-4.51); Absolute Neutrophil Count 8.3 X10^3/uL (2.0-7.7); Basophil# 0.02 X10^3/uL; Basophil% 0.2 % (0-1); Eosinophil# 0.07 X10^3/uL; Eosinophils% 0.6 % (0-5); Hematocrit 37.5 % (37-47); Hemoglobin 12.9 g/dL (12.0-15.0); Lymphocyte # 1.71 X10^3/ul (0.83-4.51); Lymphocyte % 15.8 % (19-41); Mean Corp Hgb Conc 34.4 g/dL (32-36); Mean Corpuscular Hgb 30.8 pg (27.0-32.0); Mean Corpuscular Volume 89.5 fL (81-99); Mean Platelet Vol. 10.9 fl (6.2-12.0); Monocyte# 0.68 X10^3/uL; Monocyte% 6.3 % (0-10); NRBC Flagged by Analyzer 0 % (0-5); Neutrophil # 8.29 X10^3/uL (2.7-7.7); Neutrophil % 76.5 % (47-70); Platelet Count 281 K/mm3 (150-450); RBC Distribution Width CV 12.6 % (11.6-14.6); RBC Distribution Width SD 40.7 fl (35.1-43.9); Red Blood Count 4.19 M/mm3 (4.2-5.4); White Blood Count 10.8 K/mm3 (4.4-11.0)
[2024-06-09 18:30] LABS: ALB/GLOB Ratio 0.6 RATIO (0.9-2.4); AST(SGOT) 10 U/L (15-37); Alanine Aminotransfer ALT/SGPT 14 U/L (13-56); Albumin, Serum 2.5 g/dL (3.2-5.0); Alkaline Phosphatase 118 U/L (45-117); Anion Gap 7 (5-15); BUN 3 mg/dL (7-18); BUN/Creat Ratio 5.5 RATIO (10-20); Calcium,Total 9.3 mg/dL (8.5-10.1); Chloride 108 mmol/L (98-107); Creatinine, Serum 0.55 mg/dL (0.55-1.02); EST Glomerular Filtration Rate 142 mL/min (>60); Est Glom Filt Rate - Afr Amer 172 mL/min (>60); Estimated Creatinine Clearance 220.62 ml/min; Globulin 3.9 g/dL (2.2-4.2); Glucose 108 mg/dL (74-106); Potassium 3.2 mmol/L (3.5-5.1); Protein, Total 6.4 g/dL (6.4-8.2); Sodium Level 137 mmol/L (136-145)
--- NOTE | 2024-06-09 18:37 | OB.TRI.NOTE ---
HPI - General HPI Narrative GENE KEN, is a 28 F who presents 32w2d sent from office with tachycardia on NST. Positive for Covid about a week ago. Dry cough, afebrile, no other complaints. Feels she is staying hydrated. Good movement, no cramping, contractions, vaginal bleeding, or other concerns. Maternal Data Information HARRY Calculator Estimated Delivery Date Method Current WG Current Estimate 08/02/24 Manual 33w 3d Gestational age: 32w2d PFSH PFSH Medical History (Updated 06/13/24 @ 20:54 by Renu Moore CNM) Anxiety Home Medications ?Medication ?Instructions ?Recorded ?Last Taken ?Type vit no.116-iron 28 1 tab PO DAILY Check with primary 09/30/20 06/13/24 08:00 History mg-folic acid 800 mcg-dha 200 mg doctor 1 tab capsule sertraline 50 mg tablet 50 mg PO DAILY 05/04/24 06/12/24 21:00 History 50 mg acetaminophen 500 mg capsule 1,000 mg PO Q6H PRN pain headache 06/13/24 06/16/24 08:00 History famotidine 20 mg tablet (Acid 20 mg PO DAILY 06/13/24 06/13/24 08:00 History Controller) 20 mg ondansetron HCl 8 mg tablet 4 mg (1/2 x 8 mg) PO Q8H PRN PRN 06/13/24 Unknown Rx NAUSEA #30 tabs Allergy/AdvReac Type Severity Reaction Status Date / Time No Known Allergies Allergy Verified 06/16/24 15:10 Family History (Updated 09/14/17 @ 09:50 by Ally Westbrook) Grandfather Myocardial infarction Grandmother Myocardial infarction Surgical History (Updated 09/14/17 @ 09:49 by Ally Westbrook) [place] teeth extracted Social History Smoking Status: Never smoker History Elective abortions Hx Para 0 Spontaneous abortions Hx # Term Pregnancies Ectopic pregnancies Hx # Pregnancies Multiple births # of living children NST FHR Rate Baby A Baseline: 155 Variability:: Moderate Accelerations:: 15 x 15 Decelerations:: Variable NST Reactive:: Yes Uterine Activity:: None Assessment & Plan (1) COVID-19 affecting in third trimester: (2) tachycardia: PLAN: Plan 1) Afebrile, vitals stable 2) Labs overall normal 3) K 3.2, Kdur 20meq PO once 4) 1 Liter LR 5) Prolonged monitoring, tachycardia resolved 6) D/C home, follow up outpatient.
[2024-06-09 18:47] LABS: Mucous, Urine 0 SEEN /hpf (<or=2+); Red Blood Cells-Urine 0 SEEN /hpf (0-5)
[2024-06-09] MEDS: Potassium Chloride Oral Tablet 20 MEQ PO (18:51)
[2024-06-09 18:54] LABS: Color, Urine Yellow (Yellow); Glucose, Dipstick Normal (Normal); Ketone-Dipstick 5 mg/dl (Negative); Leukocyte Esterase-Dipstick 25 /ul (Negative); Nitrite-Dipstick Negative (Negative); Occult Blood-Urine Negative /ul (Negative); Protein-Dipstick 15 mg/dl (Negative); Specific Gravity, Urine 1.015 (1.002-1.030); Urine Bilirubin Dipstick Negative (Negative); Urine Clarity Clear (Clear); Urine Urobilinogen Normal (Normal)
[2024-06-09 19:15] LABS: Squamous Epithelial Cells - UA 10-25 SEEN /hpf (5-10); White Blood Cells 0-5 SEEN /hpf (0-5)
[2024-06-09 19:16] LABS: Renal Epithelial Cells 0-5 SEEN /hpf (0-5)
[2024-06-09 19:35] VITALS: BP 137/64; PULSE 95; RESP 16; TEMP 36.7; O2SAT 99
[2024-06-09 19:37] VITALS: BP 137/64; PULSE 101
== END 2024-06-09 21:00 | disposition home or self-care (01) ==
LOC: WPOUT 17:14 → WP 17:15
PROVIDERS: PCP Family Medicine; Referring Provider Advanced Practice Midwife; Visit Provider Advanced Practice Midwife
DX: O98.513 Other viral diseases complicating pregnancy, third trimester (principal); O99.343 Other mental disorders complicating pregnancy, third trimester; U07.1 COVID-19; F41.9 Anxiety disorder, unspecified; Z3A.33 33 weeks gestation of pregnancy; Z79.899 Other long term (current) drug therapy
CPT/HCPCS: 96365; 59025; 59050; 80053; 81001; 85025; 87077; 87086; 87088; 87186; 99221; J7120; G0378

== ENCOUNTER 2024-06-13 17:45 | Outpatient (CLI) | payer OTHER, SELFPAY ==
--- NOTE | 2024-06-13 18:04 | OB.TRI.NOTE ---
HPI - General HPI Narrative GENE KEN, is a 29 Fat 32.6 weeks gestation who presents to triage with nausea, diarrhea and back pain. She is recently recovered from COVID. Maternal Data Information HARRY Calculator Estimated Delivery Date Method Current WG Current Estimate 08/02/24 Manual 32w 6d PFSH PFSH Medical History (Updated 06/13/24 @ 20:54 by Renu Moore CNM) Anxiety Home Medications ?Medication ?Instructions ?Recorded ?Last Taken ?Type vit no.116-iron 28 1 tab PO DAILY Check with primary 09/30/20 06/13/24 08:00 History mg-folic acid 800 mcg-dha 200 mg doctor 1 tab capsule sertraline 50 mg tablet 50 mg PO DAILY 05/04/24 06/12/24 21:00 History 50 mg metoclopramide HCl 5 mg tablet 5 mg PO DAILY 06/09/24 06/13/24 08:00 History (Reglan) 5 mg acetaminophen 500 mg capsule 1,000 mg PO Q6H PRN pain headache 06/13/24 06/13/24 12:00 History 1,000 mg famotidine 20 mg tablet (Acid 20 mg PO DAILY 06/13/24 06/13/24 08:00 History Controller) 20 mg Allergy/AdvReac Type Severity Reaction Status Date / Time No Known Allergies Allergy Verified 06/13/24 18:10 Family History (Updated 09/14/17 @ 09:50 by Ally Westbrook) Grandfather Myocardial infarction Grandmother Myocardial infarction Surgical History (Updated 09/14/17 @ 09:49 by Ally Westbrook) [place] teeth extracted Social History Smoking Status: Never smoker History Elective abortions Hx Para 0 Spontaneous abortions Hx # Term Pregnancies Ectopic pregnancies Hx # Pregnancies Multiple births # of living children ROS Eyes Eyes: Denies blurry vision Cardiovascular Cardiovascular: Reports none; Denies chest pain at rest, chest pain with activity or dizziness Respiratory/Chest Respiratory/Chest: Denies cough or dyspnea Gastrointestinal Gastrointestinal: Reports none and other; Denies diarrhea or vomiting Genitourinary Genitourinary: Denies dysuria Musculoskeletal Musculoskeletal: Reports none Integumentary Integumentary: Reports none; Denies rash Neurologic Neurologic: Denies dizziness, headache(s) or other visual disturbances Psychiatric Psychiatric: Reports none Physical Exam Const alert and no apparent distress General Appearance: cooperative Orientation / Consciousness: awake Exam Limitations: no limitations HEENT normocephalic Eyes General Eye: normal appearance of both eyes Neck full ROM Chest inspection of chest normal Resp normal respiratory effort and normal air movement Effort and Inspection: symmetric chest movement Auscultation: clear to auscultation bilaterally Cardio regular rate GI soft to palpation, non-tender and non-distended Inspection: and other Back/Spine normal ROM Extremity full ROM, normal capillary refill and no calf tenderness Skin no rashes or lesions noted Neuro oriented x3 and CN's II-XII intact bilaterally Psych mental status grossly normal NST FHR Rate Baby A Baseline: 155 Variability:: Moderate Accelerations:: 15 x 15 Decelerations:: None NST Reactive:: Yes Uterine Activity:: 1-3 palpate mild and relaxed in between Assessment & Plan (1) Nausea: (2) Diarrhea: (3) Back pain affecting : (4) Uterine cramping: (5) Dehydration during : PLAN: Plan Start IV and give 1000 liter bolus Zofran 4 mg PO x 1 now CE- closed CBC/ CMP and UA show dehydration Discussed above assessment and findings with Dr. Lala- Will give patient another 1000 liter fluid bolus and sent home with PO Zofran Patient to follow up with PCP/Urgent care as needed
[2024-06-13 18:08] VITALS: BP 145/69; PULSE 81
[2024-06-13 18:09] VITALS: BP 133/60; PULSE 87; RESP 16; TEMP 36.3; O2SAT 97
[2024-06-13 18:13] VITALS: BMI 42.0
[2024-06-13] MEDS: Lactated Ringers 1,000 ML 999 ML IV ×2 (18:26→20:42)
[2024-06-13 18:43] LABS: Absolute Lymphocyte Count 1.65 X10^3/uL (0.83-4.51); Absolute Neutrophil Count 7.2 X10^3/uL (2.0-7.7); Basophil# 0.02 X10^3/uL; Basophil% 0.2 % (0-1); Eosinophil# 0.07 X10^3/uL; Eosinophils% 0.7 % (0-5); Hematocrit 38.9 % (37-47); Hemoglobin 13.2 g/dL (12.0-15.0); Lymphocyte # 1.65 X10^3/ul (0.83-4.51); Lymphocyte % 16.8 % (19-41); Mean Corp Hgb Conc 33.9 g/dL (32-36); Mean Corpuscular Hgb 30.8 pg (27.0-32.0); Mean Corpuscular Volume 90.9 fL (81-99); Mean Platelet Vol. 11.1 fl (6.2-12.0); Monocyte# 0.81 X10^3/uL; Monocyte% 8.2 % (0-10); NRBC Flagged by Analyzer 0 % (0-5); Neutrophil # 7.24 X10^3/uL (2.7-7.7); Neutrophil % 73.5 % (47-70); Platelet Count 295 K/mm3 (150-450); RBC Distribution Width CV 12.7 % (11.6-14.6); RBC Distribution Width SD 41.4 fl (35.1-43.9); Red Blood Count 4.28 M/mm3 (4.2-5.4); White Blood Count 9.9 K/mm3 (4.4-11.0)
[2024-06-13 18:58] LABS: ALB/GLOB Ratio 0.6 RATIO (0.9-2.4); AST(SGOT) 14 U/L (15-37); Alanine Aminotransfer ALT/SGPT 19 U/L (13-56); Albumin, Serum 2.6 g/dL (3.2-5.0); Alkaline Phosphatase 124 U/L (45-117); Anion Gap 5 (5-15); BUN 3 mg/dL (7-18); BUN/Creat Ratio 6.5 RATIO (10-20); Calcium,Total 9.3 mg/dL (8.5-10.1); Chloride 110 mmol/L (98-107); Creatinine, Serum 0.46 mg/dL (0.55-1.02); EST Glomerular Filtration Rate 172 mL/min (>60); Est Glom Filt Rate - Afr Amer 208 mL/min (>60); Estimated Creatinine Clearance 265.07 ml/min; Glucose 85 mg/dL (74-106); Potassium 3.4 mmol/L (3.5-5.1); Protein, Total 6.6 g/dL (6.4-8.2); Sodium Level 140 mmol/L (136-145)
[2024-06-13 19:32] VITALS: RESP 22; TEMP 36.6; O2SAT 98
[2024-06-13 19:33] VITALS: BP 131/73; PULSE 79
[2024-06-13 19:53] LABS: Color, Urine Yellow (Yellow); Glucose, Dipstick Normal (Normal); Ketone-Dipstick Negative (Negative); Leukocyte Esterase-Dipstick Negative /ul (Negative); Nitrite-Dipstick Negative (Negative); Occult Blood-Urine Negative /ul (Negative); Protein-Dipstick Negative (Negative); Urine Bilirubin Dipstick Negative (Negative); Urine Clarity Clear (Clear); Urine Urobilinogen Normal (Normal)
[2024-06-13] MEDS: Ondansetron ODT 4 MG Tablet PO (21:15)
== END 2024-06-13 22:00 | disposition home or self-care (01) ==
LOC: WPOUT 17:50 → WP 17:51
PROVIDERS: PCP Family Medicine; Referring Provider Advanced Practice Midwife; Visit Provider Advanced Practice Midwife
DX: O99.891 Other specified diseases and conditions complicating pregnancy (principal); O99.343 Other mental disorders complicating pregnancy, third trimester; O99.283 Endocrine, nutritional and metabolic diseases complicating pregnancy, third trimester; R11.0 Nausea; F41.9 Anxiety disorder, unspecified; R19.7 Diarrhea, unspecified; M54.9 Dorsalgia, unspecified; E86.0 Dehydration; Z79.899 Other long term (current) drug therapy; Z3A.32 32 weeks gestation of pregnancy; Z86.16 Personal history of COVID-19
CPT/HCPCS: 96365; 96366; 36415; 59025; 59050; 80053; 81002; 85025; 99221; J7120; G0378

== ENCOUNTER 2024-06-16 14:20 | Outpatient (CLI) | payer OTHER, SELFPAY ==
[2024-06-16 14:41] VITALS: BP 131/76; PULSE 85; RESP 16; TEMP 37.1
[2024-06-16 15:11] VITALS: BMI 41.7
[2024-06-16 15:58] LABS: Fetal Fibronectin Negative; Record Kit Lot#, fFN A4033
--- NOTE | 2024-06-17 01:23 | OB.TRI.NOTE ---
HPI - General General Date of Service: 06/16/24 HPI Narrative GENE KEN, is a 29 F who presents at 33w3d for complaints of contractions. Seen in office this morning for follow up L&D visit. Irregular contractions no closer together than every 30 minutes. Started to have contractions more frequent every 15minutes and uncomfortable, presented to labor and delivery. Maternal Data Information HARRY Calculator Estimated Delivery Date Method Current WG Current Estimate 08/02/24 Manual 33w 3d PFSH PFS Medical History (Updated 06/17/24 @ 01:26 by Nahomi Bellamy CNM) Anxiety Home Medications ?Medication ?Instructions ?Recorded ?Last Taken ?Type vit no.116-iron 28 1 tab PO DAILY Check with primary 09/30/20 06/13/24 08:00 History mg-folic acid 800 mcg-dha 200 mg doctor 1 tab capsule sertraline 50 mg tablet 50 mg PO DAILY 05/04/24 06/12/24 21:00 History 50 mg acetaminophen 500 mg capsule 1,000 mg PO Q6H PRN pain headache 06/13/24 06/16/24 08:00 History famotidine 20 mg tablet (Acid 20 mg PO DAILY 06/13/24 06/13/24 08:00 History Controller) 20 mg ondansetron HCl 8 mg tablet 4 mg (1/2 x 8 mg) PO Q8H PRN PRN 06/13/24 Unknown Rx NAUSEA #30 tabs Allergy/AdvReac Type Severity Reaction Status Date / Time No Known Allergies Allergy Verified 06/16/24 15:10 Family History (Updated 09/14/17 @ 09:50 by Ally Westbrook) Grandfather Myocardial infarction Grandmother Myocardial infarction Surgical History (Updated 09/14/17 @ 09:49 by Ally Westbrook) [place] teeth extracted Social History Smoking Status: Never smoker History Elective abortions Hx Para 0 Spontaneous abortions Hx # Term Pregnancies Ectopic pregnancies Hx # Pregnancies Multiple births # of living children NST FHR Rate Baby A Baseline: 145 Variability:: Moderate Accelerations:: 15 x 15 Decelerations:: Variable NST Reactive:: Yes Uterine Activity:: Irregular every 2-3 minutes then to every 15 minutes Assessment & Plan (1) Uterine cramping: (2) 33 weeks gestation of : PLAN: Plan 1) Cervical exam unchanged, contractions decreased in frequency 2) FFN negative 3) No signs of labor, D/C home
== END 2024-06-16 17:45 | disposition home or self-care (01) ==
LOC: WPOUT 14:23 → WP 14:23
PROVIDERS: PCP Family Medicine; Referring Provider Advanced Practice Midwife; Visit Provider Advanced Practice Midwife
DX: O99.891 Other specified diseases and conditions complicating pregnancy (principal); N94.89 Other specified conditions associated with female genital organs and menstrual cycle; Z79.899 Other long term (current) drug therapy; Z3A.33 33 weeks gestation of pregnancy
CPT/HCPCS: 59025; 59050; 82731; 99221; G0378

== ENCOUNTER 2024-06-28 21:38 | Outpatient (CLI) | payer OTHER, SELFPAY ==
[2024-06-28 21:40] VITALS: BP 147/80; PULSE 90; RESP 16; TEMP 36.8; O2SAT 97; BMI 42.5
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
--- NOTE | 2024-06-28 22:27 | RAD_ITS ---
INDICATION: injury -- shield for EXAMINATION/TECHNIQUE: X-RAY - LEFT XR Knee 3 Views 3 VIEWS COMPARISON: FINDINGS: SOFT TISSUES: No soft tissue swelling or gas. No radiopaque foreign body. BONES/JOINTS: No acute fracture or subluxation.. Normal alignment. Preservation of the joint space.. No sclerotic or destructive changes observed. RAD/Knee 3 Views IMPRESSION: Negative. Electronically Signed: Anirudh Lopez DO at 23:04 EDT ,
[2024-06-28 22:32] VITALS: BP 156/65; PULSE 86; RESP 16; TEMP 36.6; O2SAT 98
[2024-06-28 22:42] VITALS: BP 143/77; PULSE 93
[2024-06-28 22:50] LABS: Absolute Lymphocyte Count 1.97 X10^3/uL (0.83-4.51); Absolute Neutrophil Count 8.1 X10^3/uL (2.0-7.7); Basophil# 0.03 X10^3/uL; Basophil% 0.3 % (0-1); Eosinophil# 0.07 X10^3/uL; Eosinophils% 0.6 % (0-5); Hematocrit 39.4 % (37-47); Hemoglobin 13.3 g/dL (12.0-15.0); Lymphocyte # 1.97 X10^3/ul (0.83-4.51); Lymphocyte % 17.8 % (19-41); Mean Corp Hgb Conc 33.8 g/dL (32-36); Mean Corpuscular Hgb 30.7 pg (27.0-32.0); Monocyte# 0.78 X10^3/uL; Monocyte% 7.1 % (0-10); NRBC Flagged by Analyzer 0 % (0-5); Neutrophil # 8.14 X10^3/uL (2.7-7.7); Neutrophil % 73.7 % (47-70); Platelet Count 309 K/mm3 (150-450); RBC Distribution Width CV 12.5 % (11.6-14.6); RBC Distribution Width SD 41.3 fl (35.1-43.9); Red Blood Count 4.33 M/mm3 (4.2-5.4); White Blood Count 11.1 K/mm3 (4.4-11.0)
[2024-06-28] MEDS: LACTATED RINGERS 500 ML 999 ML IV (23:00)
[2024-06-28 23:02] LABS: Prothrombin Time (Protime)PT. 13.5 SECONDS (11.7-14.9)
[2024-06-28 23:03] LABS: Partial Thromboplast Time 28.4 Seconds (24.1-36.2)
[2024-06-28 23:04] LABS: Fibrinogen 497 mg/dl (203-444)
[2024-06-28 23:08] LABS: ALB/GLOB Ratio 0.7 RATIO (0.9-2.4); AST(SGOT) 12 U/L (15-37); Alanine Aminotransfer ALT/SGPT 12 U/L (13-56); Albumin, Serum 2.7 g/dL (3.2-5.0); Alkaline Phosphatase 160 U/L (45-117); Anion Gap 7 (5-15); BUN 6 mg/dL (7-18); Calcium,Total 9.9 mg/dL (8.5-10.1); Chloride 106 mmol/L (98-107); EST Glomerular Filtration Rate 127 mL/min (>60); Est Glom Filt Rate - Afr Amer 154 mL/min (>60); Estimated Creatinine Clearance 204.55 ml/min; Globulin 4.1 g/dL (2.2-4.2); Glucose 83 mg/dL (74-106); Potassium 3.5 mmol/L (3.5-5.1); Protein, Total 6.8 g/dL (6.4-8.2); Sodium Level 140 mmol/L (136-145)
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
[2024-06-28 23:16] LABS: ROM Internal Control Test YES-OK TO RESULT pt. (Internal QC); ROM Patient Test Negative (Negative)
[2024-06-28 23:20] VITALS: BP 142/69; PULSE 85
[2024-06-28 23:25] LABS: Syphilis Antibodies Non-reactive
[2024-06-28] MEDS: Betamethasone/Betamethasone 30 MG/5 ML Vial 12 MG IM (23:27)
[2024-06-28] MEDS: Metoclopramide 10 MG/2 ML Vial 5 MG IV (23:34)
[2024-06-28] MEDS: Ondansetron 4 MG/2 ML Vial IV (23:34)
[2024-06-28] MEDS: LACTATED RINGERS 500 ML 100 ML IV (23:40)
[2024-06-28 23:44] VITALS: BMI 42.6
[2024-06-29] MEDS: Acetaminophen 500 MG Tablet 1000 MG PO (00:56)
[2024-06-29 01:09] LABS: Protein, Urine (Random) 7.6 mg/dL (<11.9); Protein:Creat Ratio 190 mg/g CRE (0-200)
[2024-06-29 03:13] VITALS: BP 137/61; PULSE 94; RESP 16; TEMP 36.9; O2SAT 95
[2024-06-29 03:21] LABS: Absolute Lymphocyte Count 1.06 X10^3/uL (0.83-4.51); Absolute Neutrophil Count 11.9 X10^3/uL (2.0-7.7); Basophil# 0.02 X10^3/uL; Basophil% 0.1 % (0-1); Eosinophil# 0.03 X10^3/uL; Eosinophils% 0.2 % (0-5); Hematocrit 36.2 % (37-47); Hemoglobin 12.3 g/dL (12.0-15.0); Lymphocyte # 1.06 X10^3/ul (0.83-4.51); Lymphocyte % 7.8 % (19-41); Mean Corpuscular Hgb 30.6 pg (27.0-32.0); Monocyte# 0.41 X10^3/uL; NRBC Flagged by Analyzer 0 % (0-5); Neutrophil # 11.93 X10^3/uL (2.7-7.7); Neutrophil % 88.3 % (47-70); Platelet Count 298 K/mm3 (150-450); RBC Distribution Width CV 12.4 % (11.6-14.6); RBC Distribution Width SD 40.5 fl (35.1-43.9); Red Blood Count 4.02 M/mm3 (4.2-5.4); White Blood Count 13.5 K/mm3 (4.4-11.0)
[2024-06-29 03:31] LABS: International Normalized Ratio 1.1; Prothrombin Time (Protime)PT. 13.7 SECONDS (11.7-14.9)
[2024-06-29 03:32] LABS: Fibrinogen 440 mg/dl (203-444)
== END 2024-06-29 04:00 | disposition home or self-care (01) ==
LOC: ED 22:31 → WPOUT 22:34 → WP 22:35
PROVIDERS: Emergency Provider Emergency Medicine; PCP Family Medicine; Visit Provider Obstetrics & Gynecology
DX: O47.03 False labor before 37 completed weeks of gestation, third trimester (principal); O99.891 Other specified diseases and conditions complicating pregnancy; R03.0 Elevated blood-pressure reading, without diagnosis of hypertension; Z79.899 Other long term (current) drug therapy; Z3A.35 35 weeks gestation of pregnancy
CPT/HCPCS: 96365; 96375 ×2; 96376 ×2; 36415; 59025; 59050; 73562; 76815; 80053; 82570; 84112; 84156; 84550; 85025; 85384; 85610; 85730; 86780; 96372; 99221; 99284; J7120; G0378; J0702; J2405

== ENCOUNTER 2024-07-08 23:55 | Outpatient (CLI) | payer OTHER, SELFPAY ==
[2024-07-09] VITALS (15 sets, daily range): BP systolic 130–160; BP diastolic 67–76; PULSE 93–118; O2SAT 98; BMI 42.3
[2024-07-09 01:35] LABS: Color, Urine Yellow (Yellow); Glucose, Dipstick Normal (Normal); Ketone-Dipstick Negative (Negative); Leukocyte Esterase-Dipstick Negative /ul (Negative); Nitrite-Dipstick Negative (Negative); Occult Blood-Urine Negative /ul (Negative); Protein-Dipstick Negative (Negative); Urine Bilirubin Dipstick Negative (Negative); Urine Clarity Sl. Cloudy (Clear); Urine Urobilinogen Normal (Normal)
[2024-07-09 01:52] LABS: Protein:Creat Ratio 200 mg/g CRE (0-200)
[2024-07-09 02:15] LABS: Hematocrit 36.3 % (37-47); Mean Corp Hgb Conc 35.8 g/dL (32-36); Mean Corpuscular Hgb 31.9 pg (27.0-32.0); Mean Corpuscular Volume 89.2 fL (81-99); Mean Platelet Vol. 11.2 fl (6.2-12.0); Platelet Count 303 K/mm3 (150-450); RBC Distribution Width CV 12.4 % (11.6-14.6); RBC Distribution Width SD 40.6 fl (35.1-43.9); Red Blood Count 4.07 M/mm3 (4.2-5.4); White Blood Count 11.8 K/mm3 (4.4-11.0)
[2024-07-09 02:30] LABS: AST(SGOT) 11 U/L (15-37); Alanine Aminotransfer ALT/SGPT 16 U/L (13-56); Creatinine, Serum 0.55 mg/dL (0.55-1.02); EST Glomerular Filtration Rate 141 mL/min (>60); Est Glom Filt Rate - Afr Amer 170 mL/min (>60); Estimated Creatinine Clearance 222.38 ml/min; Uric Acid 3.9 mg/dL (2.6-6.0)
[2024-07-09] MEDS: Acetaminophen 500 MG Tablet 1000 MG PO (04:53)
[2024-07-09] MEDS: Metoclopramide 5 MG TABLET PO (04:53)
--- NOTE | 2024-07-10 08:30 | OB.TRI.NOTE ---
HPI - General General Date of Admission: 07/08/24 Date of Service: 07/08/24 Chief Complaint: contractions HPI Narrative GENE KEN, is a 29 F 2 para 1 who presented on 07/08/2024 at 36-3/7 gestational weeks complaining contractions. She also was found to have some elevated blood pressure. Maternal Data Information HARRY Calculator Estimated Delivery Date Method Current WG Current Estimate 08/02/24 Manual 36w 5d PFSH PFSH Medical History (Updated 07/10/24 @ 08:[address] Evelyn Rushing MD) Polyhydramnios Endometriosis Cysts of both ovaries Anxiety Home Medications ?Medication ?Instructions ?Recorded ?Last Taken ?Type vit no.116-iron 28 1 tab PO DAILY Check with primary 09/30/20 06/13/24 08:00 History mg-folic acid 800 mcg-dha 200 mg doctor 1 tab capsule sertraline 50 mg tablet 50 mg PO DAILY 05/04/24 07/08/24 22:00 History famotidine 20 mg tablet (Acid 20 mg PO DAILY 06/13/24 06/13/24 08:00 History Controller) 20 mg metoclopramide HCl 5 mg tablet 5 mg PO DAILY 07/09/24 07/08/24 08:00 History (Reglan) Allergy/AdvReac Type Severity Reaction Status Date / Time No Known Allergies Allergy Verified 07/09/24 00:34 Family History Grandfather Myocardial infarction Grandmother Myocardial infarction Surgical History [place] teeth extracted Social History Smoking Status: Never smoker History Elective abortions Hx Para 1 Spontaneous abortions Hx # Term Pregnancies Ectopic pregnancies Hx # Pregnancies Multiple births # of living children NST FHR Rate Baby A Baseline: 145 Variability:: Moderate Accelerations:: 15 x 15 Decelerations:: None NST Reactive:: Yes Uterine Activity:: irreg ctxs Assessment & Plan (1) Threatened labor: PLAN: No evidence of active labor. Patient was discharged home to return as needed. Follow-up in the office as scheduled or as needed. No evidence of preeclampsia. Gestational hypertension diagnosed. Monitor for signs or symptoms of preeclampsia. (2) High-risk in third trimester: (3) 36 weeks gestation of : (4) Gestational hypertension:
== END 2024-07-09 05:48 | disposition home or self-care (01) ==
LOC: WPOUT 23:57 → WP 23:57
PROVIDERS: PCP Family Medicine; Referring Provider Obstetrics & Gynecology; Visit Provider Obstetrics & Gynecology
DX: O47.03 False labor before 37 completed weeks of gestation, third trimester (principal); O99.343 Other mental disorders complicating pregnancy, third trimester; F41.9 Anxiety disorder, unspecified; Z3A.36 36 weeks gestation of pregnancy; Z79.899 Other long term (current) drug therapy
CPT/HCPCS: 36415; 59025; 59050; 81002; 82565; 82570; 84156; 84450; 84460; 84550; 85027; 99221; G0378

== ENCOUNTER 2024-07-10 19:25 | Inpatient (IN) | payer OTHER, SELFPAY ==
[2024-07-10] VITALS (23 sets, daily range): BP systolic 91–143; BP diastolic 51–102; PULSE 84–120; RESP 16–20; TEMP 36.3–36.7; O2SAT 90–99; BMI 41.8
--- OUTSIDE RECORDS SUMMARY | 2024-07-10 19:18 | XMS RPT_ITS | CCD ---
Author Organization [facility] CliniSyar Care Team Providers Care Muck Farmer Name Role Phone Unavailable Primary Care Provider Unavailabl e HILLS, DAYO Primary Care Unavailable ALTO, DAYO Admitting Unavailable HILLS, DAYO Attending Unavailable HILLS, DAYO Consulting Unavailable PROVIDER, UNKNOWN Consulting Unavailable ALTO, DAYO Consulting Unavailable MIRELES, DAYO CNM Admitting Unavailable MIRELES, DAYO CNM Attending Unavailable MIRELES, DAYO CNM Primary Care Unavailable PROVIDER, UNKNOWN Consulting Unavailable ALTO, DAYO Consulting Unavailable SENA GARCIA DO Admitting Unavailable DIDSENA CASILLAS DO Attending Unavailable SENA GARCIA DO Primary Care Unavailable ALTO, DAYO Referring Unavailable PROVIDER, UNKNOWN Consulting Unavailable ZULEYKAMARY Admitting Unavailable ZULEYKA, MARY Bush Attending Unavailable ZULEYKA, MARY Rachelle Primary Care Unavailable ALTO, DAYO Referring Unavailable HILLS, DAYO Consulting Unavailable PROVIDER, UNKNOWN Consulting Unavailable ALTO, DAYO Primary Care Unavailable ALTO, DAYO Admitting Unavailable HILLS, DAYO Attending Unavailable HILLS, DAYO Consulting Unavailable PROVIDER, UNKNOWN Consulting Unavailable FOURNIER, JER Admitting Unavailable FOURNIER, JER Attending Unavailable FOURNIER, JER Primary Care Unavailable HILLS, DAYO Consulting Unavailable PROVIDER, UNKNOWN Consulting Unavailable Unavailable Primary Care Provider Unavailabl e CATIE MUNOZ Referring Unavail able TRESSA LE Attending Unavailable SELF Referring Unavailable KARL ROMEO Attending Unavailable SELF Referring Unavailable KARL ROMEO Referring Unavailable HAELMIRA SANTILLAN Referring Unavailable SELF Referring Unavailable DORI WALKER Attending Unavailable SELF Referring Unavailable DORI WALKER Referring Unavailable CATIE MUNOZ Referring Unavail able TRESSA LE Attending Unavailable KARL ROMEO Referring Unavailable ELMIRA SCHMITZ Attending Unavailable SELF Referring Unavailable JOSE RAPHAEL Attending Unavailable KARL ROMEO Referring Unavailable HAURYELMIRA Attending Unavailable KARL ROMEO Referring Unavailable HAURY, ELMIRA Attending Unavailable SELF Referring Unavailable PLOTTS, RENU Attending Unavailable PLOTTS, RENU Referring Unavailable PLOTTS, RENU Referring Unavailable CATIE MUNOZ Attending Unavail able PLOTTS, RENU Referring Unavailable HAURY, ELMIRA Attending Unavailable SELF Referring Unavailable DORI WALKER Attending Unavailable SELF Referring Unavailable HAURY, ELMIRA Referring Unavailable SELF Referring Unavailable TRESSA LE Attending Unavailable HAURY, ELMIRA Attending Unavailable HAURY, ELMIRA Referring Unavailable NESRINIVAS SMITH, CATIE Attending Unavail able SELF Referring Unavailable HAURY, ELMIRA Referring Unavailable BELLAMY, NAHOMI Attending Unavailable BELLAMY, NAHOMI Attending Unavailable Medications Current Medications Medication Drug Class(es) Dates Sig (Normalized) Sig (Original) acetaminophen 325 mg / butalbital 50 mg / caffeine 40 mg oral tablet (2 sources) Barbiturate, Central Nervous System Stimulant, Methylxanthine Start: 04-15-2024 End: 05-15-2024 take 1 tablet by mouth every six hours as needed for headache acetaminophen 325 mg-caffeine 40 mg-butalbital 50 mg (FIORICET) per tablet Indications: 24 weeks gestation of , Obesity affecting in second trimester, unspecified obesity type , Encounter for supervision of high risk in second trimester, antepartum , Headache in , antepartum, second trimester Take 1 tablet by mouth every 6 hours as needed for headache for up to 30 days. 30 tablet 1 04/15/2024 05/15/2024 Active betamethasone 3 mg/ml / betamethasone acetate 3 mg/ml injectable suspension (3 sources) Corticosteroid Start: 06-30-2024 End: 07-02-2024 12 mg, INTRAMUSCULAR, EVERY 24 HOURS, 2 doses, First dose on Sun06/30/24 at 1200, Last dose on Sun07/01/24 at 1200, Protect From Light. metoclopramide 5 mg oral tablet (20 sources) Dopamine-2 Receptor Antagonist Start: 04-15-2024 take 1 tablet by mouth every six hours as needed metoclopramide HCl (REGLAN) 5 mg tablet Take 1 tablet by mouth four times a day as needed (headache or nausea). 30 tablet 1 04/15/2024 Active Start: 03-12-2024 End: 03-20-2024 take 1 tablet by mouth four times daily metoclopramide HCl (REGLAN) 5 mg tablet Take 1 tablet by mouth four times daily for 30 doses. 30 tablet 1 03/12/2024 03/20/2024 Active Iphyahcg-Bt-Ybv-Fe-FA tab (20 sources) Start: 07-17-2023 take 1 tablet by mouth once daily Iqhckauz-Da-Wxw-Fe-FA tab Take 1 tablet by mouth once daily. 07/17/2023 Active Start: 07-17-2023 take 1 tablet by demond th once daily Fbidwtks-Lg-Ntq-Fe-FA tab Take 1 tablet by mouth once daily. 0 07/17/2023 Active Comment on above: Take 1 tablet by demond th once daily. sertraline 50 mg oral tablet (20 sources) Serotonin Reuptake Inhibitor take 1 tablet by mouth once daily sertraline (ZOLOFT) 50 mg tablet Take 50 mg by mouth once daily. Active Comment on above: Take 50 mg by mouth once daily. Completed/Discontinued Medications Medication Drug Class(es) Dates Sig (Normalized) Sig (Original) 24 hr buPROPion hydrochloride 300 mg extended release oral tablet (2 sources) Aminoketone End: 12-20-2023 take 1 tablet by mouth once daily buPROPion XL (WELLBUTRIN XL) 300 mg 24 hr tablet Take 300 mg by mouth once daily. 0 12/20/2023 Discontinued (Course of therapy completed) Comment on above: Take 300 mg by mouth once daily. fexofenadine (5 sources) Histamine-1 Receptor Antagonist End: 02-13-2024 fexofenadine HCl (DEVIN ORAL) Take by mouth. 0 02/13/2024 Discontinued fexofenadine HCl (DEVIN ORAL) Take by mouth. 0 Active Comment on above: Take by mouth. letrozole 2.5 mg oral tablet (2 sources) Aromatase Inhibitor Start: 11-27-2023 End: 12-20-2023 letrozole (FEMARA) 2.5 mg tablet Take 1 tablet by mouth once daily. Days 3-7 of menstrual cycle. 5 tablet 0 11/27/2023 12/20/2023 Discontinued (Course of therapy completed) Start: 07-17-2023 letrozole (FEM MAREN) 2.5 mg tablet Take 1 tablet by mouth once daily. Days 3-7 of menstrual cycle. 5 tablet 0 07/17/2023 Active Comment on above: Take 1 tablet by demond th once daily. Days 3-7 of menstrual cycle. promethazine hydrochloride 12.5 mg oral tablet (2 sources) Phenothiazine Start: 02-25-20 End: 03-12-20 take 1 tablet by mouth every six hours as needed promethazine (PHENERGAN) 12.5 mg tablet Indications: Nausea and vomiting during Take 1 tablet by mouth every 6 hours as needed. 6 tablet 0 02/25/2024 03/12/2024 Discontinued (Course of therapy completed) Problems Active Problems Problem Classification Problem Date Documented Date Episodic/Chronic Anxiety disorders (20 sources) Mixed anxiety and depressive disorder; Translations: [Anxiety disorder, unspecified] Onset: 12-20-2023 12-20-2023 Chronic Bacterial infection; unspecified site (19 sources) Bacteria present; Translations: [Streptococcus, group B, as the cause of diseases classified elsewhere] Onset: 06-12-2024 06-12-2024 Episodic Early or threatened labor (1 source) Premature uterine contraction; Translations: [False labor before 37 completed weeks of gestation, unspecified trimester] 06-30-2024 Episodic Female infertility (1 source) Anovulation; Translations: [Female infertility associated with anovulation] 07-17-2023 Chronic Headache; including migraine (1 source) Headache; including migraine; Translations: [Headache in , antepartum, second trimester] Onset: 04-15-2024 Immunizations and screening for infectious disease (2 sources) Vaccination needed; Translations: [Encounter for immunization] 05-12-2024 Episodic Menstrual disorders (1 source) Amenorrhea, unspecified; Translations: [Amenorrhea, unspecified] Onset: 08-21-2023 Chronic Mood disorders (1 source) Mood disorders; Translations: [Anxiety and depression] Onset: 12-20-2023 Nutritional deficiencies (1 source) Vitamin D deficiency, unspecified; Translations: [Vitamin D deficiency, unspecified] Onset: 03-07-2024 Chronic Other complications of (20 sources) Maternal obesity complicating , childbirth and the puerperium, antepartum; Translations: [Obesity complicating , first trimester] Onset: 12-20-2023 12-20-2023 Chronic Other complications of (2 sources) Obesity; Translations: [Obesity complicating , unspecified trimester] 01-16-2024 Chronic Other complications of (1 source) Obesity complicating , third trimester; Translations: [Obesity affecting in third trimester, unspecified obesity type] Onset: 05-12-2024 Chronic Other complications of (1 source) Obesity complicating , second trimester; Translations: [Obesity affecting in second trimester, unspecified obesity type] Onset: 02-13-2024 Chronic Other complications of (1 source) Obesity complicating , unspecified trimester; Translations: [Obesity in ] Onset: 03-12-2024 Chronic Other complications of (20 sources) High risk ; Translations: [Supervision of high risk , unspecified, second trimester] Onset: 12-20-2023 02-13-2024 Episodic Other complications of (10 sources) Nausea and vomiting; Translations: [Vomiting of , unspecified] Onset: 02-13-2024 02-13-2024 Episodic Other complications of (17 sources) Disease caused by 2019-nCoV; Translations: [Other viral diseases complicating , third trimester] Onset: 06-09-2024 06-09-2024 Episodic Other complications of (11 sources) tachycardia affecting management of mother; Translations: [Maternal care for abnormalities of the heart rate or rhythm, unspecified trimester, not applicable or unspecified] Onset: 06-23-2024 06-23-2024 Episodic Other complications of (13 sources) Swelling of lower limb; Translations: [Gestational edema, third trimester] Onset: 06-23-2024 06-23-2024 Episodic Other complications of (1 source) Gestational edema, third trimester; Translations: [Swelling of lower extremity during in third trimester] Onset: 06-23-2024 Episodic Other complications of (1 source) Supervision of high risk , unspecified, third trimester; Translations: [Encounter for supervision of high risk in third trimester, antepartum] Onset: 06-30-2024 Episodic Other complications of (1 source) Other viral diseases complicating , third trimester; Translations: [COVID-19 affecting in third trimester] Onset: 06-09-2024 Episodic Other complications of (1 source) Supervision of high risk , unspecified, second trimester; Translations: [Encounter for supervision of high risk in second trimester, antepartum] Onset: 04-15-2024 Episodic Other complications of (1 source) Other specified related conditions, second trimester; Translations: [Headache in , antepartum, second trimester] Onset: 04-15-2024 Episodic Other endocrine disorders (1 source) Polycystic ovary syndrome; Translations: [Polycystic ovarian syndrome] 07-17-2023 Chronic Other female genital disorders (1 source) Vaginal discharge; Translations: [Other specified noninflammatory disorders of vagina] 06-20-2024 Episodic Other female genital disorders (1 source) Other specified noninflammatory disorders of vagina; Translations: [Vaginal discharge] Onset: 06-20-2024 Episodic Other screening for suspected conditions (not mental disorders or infectious disease) (4 sources) Patient encounter status; Translations: [Encounter for screening for nuchal translucency] 01-16-2024 Episodic Polyhydramnios and other problems of amniotic cavity (20 sources) Polyhydramnios; Translations: [Polyhydramnios, third trimester, not applicable or unspecified] Onset: 06-23-2024 06-23-2024 Episodic Residual codes; unclassified (1 source) Gestation period, 7 weeks; Translations: [Less than 8 weeks gestation of ] 12-13-2023 Episodic Residual codes; unclassified (2 sources) Gestation period, 11 weeks; Translations: [11 weeks gestation of ] 01-16-2024 Episodic Residual codes; unclassified (1 source) Gestation period, 15 weeks; Translations: [15 weeks gestation of ] 02-13-2024 Episodic Residual codes; unclassified (1 source) Gestation period, 19 weeks; Translations: [19 weeks gestation of ] 03-12-2024 Episodic Residual codes; unclassified (1 source) Gestation period, 21 weeks; Translations: [21 weeks gestation of ] 03-27-2024 Episodic Residual codes; unclassified (1 source) Gestation period, 24 weeks; Translations: [24 weeks gestation of ] 04-15-2024 Episodic Residual codes; unclassified (1 source) Gestation period, 28 weeks; Translations: [28 weeks gestation of ] 05-12-2024 Episodic Residual codes; unclassified (1 source) Gestation period, 30 weeks; Translations: [30 weeks gestation of ] 05-26-2024 Episodic Residual codes; unclassified (1 source) Gestation period, 32 weeks; Translations: [32 weeks gestation of ] 06-09-2024 Episodic Residual codes; unclassified (3 sources) Gestation period, 33 weeks; Translations: [33 weeks gestation of ] 06-16-2024 Episodic Residual codes; unclassified (2 sources) Gestation period, 34 weeks; Translations: [34 weeks gestation of ] 06-23-2024 Episodic Residual codes; unclassified (3 sources) Gestation period, 35 weeks; Translations: [35 weeks gestation of ] 06-30-2024 Episodic Residual codes; unclassified (2 sources) Gestation period, 36 weeks; Translations: [36 weeks gestation of ] 07-07-2024 Episodic Residual codes; unclassified (1 source) 35 weeks gestation of ; Translations: [35 weeks gestation of ] Onset: 07-03-2024 Episodic Residual codes; unclassified (1 source) 34 weeks gestation of ; Translations: [34 weeks gestation of ] Onset: 06-30-2024 Episodic Residual codes; unclassified (1 source) 33 weeks gestation of ; Translations: [33 weeks gestation of ] Onset: 06-20-2024 Episodic Residual codes; unclassified (1 source) 32 weeks gestation of ; Translations: [32 weeks gestation of ] Onset: 06-09-2024 Episodic Residual codes; unclassified (1 source) 30 weeks gestation of ; Translations: [30 weeks gestation of ] Onset: 05-26-2024 Episodic Residual codes; unclassified (1 source) 28 weeks gestation of ; Translations: [28 weeks gestation of ] Onset: 05-12-2024 Episodic Residual codes; unclassified (1 source) 24 weeks gestation of ; Translations: [24 weeks gestation of ] Onset: 04-15-2024 Episodic Unclassified (20 sources) [facility] - COMMON Onset: 12-13-2023 12-13-2023 Unclassified (20 sources) Education - [place] Onset: 12-13-2023 12-13-2023 Viral infection (1 source) COVID-19; Translations: [COVID-19 affecting in third trimester] Onset: 06-09-2024 Past or Other Problems Problem Classification Problem Date Documented Da te Episodic/Chronic Abdominal pain (1 source) Unspecified abdominal pain; Translations: [Unspecified abdominal pain] Onset: 12-27-2023 Episodic Other aftercare (20 sources) 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; Translations: [detention (current) use of aromatase inhibitors] Onset: 12-20-2023 12-20-2023 Episodic Other complications of (20 sources) Headache; Translations: [Other specified related conditions, second trimester] Onset: 02-13-2024 02-13-2024 Episodic Other complications of (19 sources) Vomiting of , unspecified; Translations: [Unspecified vomiting of , unspecified as to episode of care or not applicable] Onset: 02-13-2024 02-13-2024 Episodic Other and delivery including normal (20 sources) Normal ; Translations: [Encounter for supervision of normal first , first trimester] Onset: 12-20-2023 12-13-2023 Episodic Residual codes; unclassified (1 source) Less than 8 weeks gestation of ; Translations: [7 weeks gestation of ] Onset: 12-20-2023 Episodic Results Test Name Value Interpretation Reference Range Facil ity Biophysical profile.melecio dy movement USon 07-07-2024 [facility] Radiology Study observation (narrative) [facility] URINE OB DIP B/Oon Glucose Ql (U) Negative Neg mg/dL [facility] Interpretation and review of laboratory results Normal [facility] Protein.monoclonal (U) [Mass/Vol] Negative Neg mg/dL [facility] CBC panel Auto (Bld)on 07-03 Erythrocyte distribution width (RBC) [Ratio] 12.4 % 11.5 - 15.0 % [facility] Hematocrit (Bld) [Volume fraction] 39.5 % 36.0 - 46.0 % [facility] Hemoglobin (Bld) [Mass/Vol] 13.4 g/dL 11.5 - 15.5 g/dL [facility] Interpretation and review of laboratory results Abnormal [facility] MCH (RBC) [Entitic mass] 30.9 pg 26.0 - 34.0 pg [facility] MCHC (RBC) [Mass/Vol] 33.9 g/dL 30.5 - 36.0 g/dL [facility] MCV (RBC) [Entitic vol] 91.2 fL 80.0 - 100.0 fL [facility] Nucleated RBC (Bld) [#/Vol] NINF [facility] Platelet mean volume (Bld) [Entitic vol] 11.6 fL 9.0 - 12.7 fL [facility] Platelets (Bld) [#/Vol] 324 10*3/uL [facility] RBC (Bld) [#/Vol] 4.33 10*6/uL 3.90 - 5.20 m/uL [facility] WBC (Bld) [#/Vol] 11.10 10*3/uL [facility] Erythrocyte distribution width (RBC) [Ratio] 12.4 % Normal 11.5-15.0 [place] Comment on above: Order Comment: Speci men Type: BLOOD SPECIMEN Ordering Facility: [facility] Address: [address] [place] [address] Performed By: #### 5 195-3, 29723-3, 26308-5 #### [facility] CLIA [id number] [address] [place] [address] [place] Hematocrit (Bld) [Volume fraction] 39.5 % Normal 36.0-46.0 [place] Comment on above: Order Comment: Speci men Type: BLOOD SPECIMEN Ordering Facility: [facility] Address: [address] [place] [address] Performed By: #### 5 195-3, 44969-1, 83888-3 #### [facility] CLIA [id number] [address] [place] [address] [place] Hemoglobin (Bld) [Mass/Vol] 13.4 g/dL Normal 11.5-15.5 [place] Comment on above: Order Comment: Speci men Type: BLOOD SPECIMEN Ordering Facility: [facility] Address: [address] [place] [address] Performed By: #### 5 195-3, 96008-8, 58954-5 #### [facility] CLIA [id number] [address] [place] [address] [place] MCH (RBC) [Entitic mass] 30.9 pg Normal 26.0-34.0 [place] Comment on above: Order Comment: Speci men Type: BLOOD SPECIMEN Ordering Facility: [facility] Address: [address] [place] [address] Performed By: #### 5 195-3, 13856-6, 51022-9 #### [facility] CLIA [id number] [address] [place] [address] [place] MCHC (RBC) [Mass/Vol] 33.9 g/dL Normal 30.5-36.0 [place] Comment on above: Order Comment: Speci men Type: BLOOD SPECIMEN Ordering Facility: [facility] Address: [address] [place] [address] Performed By: #### 5 195-3, 38047-8, 02381-7 #### [facility] CLIA [id number] [address] [place] [address] [place] MCV (RBC) [Entitic vol] 91.2 fL Normal 80.0-100.0 [place] Comment on above: Order Comment: Speci men Type: BLOOD SPECIMEN Ordering Facility: [facility] Address: [address] [place] [address] Performed By: #### 5 195-3, 27376-1, 82489-4 #### [facility] CLIA [id number] [address] [place] [address] [place] Nucleated RBC (Bld) [#/Vol] 10*3/uL Normal <0.01 [place] Comment on above: Order Comment: Speci men Type: BLOOD SPECIMEN Ordering Facility: [facility] Address: [address] [place] [address] Performed By: #### 5 195-3, 43397-0, 15074-6 #### [facility] CLIA [id number] [address] [place] [address] [place] Platelet mean volume (Bld) [Entitic vol] 11.6 fL Normal 9.0-12.7 [place] Comment on above: Order Comment: Speci men Type: BLOOD SPECIMEN Ordering Facility: [facility] Address: [address] [place] [address] Performed By: #### 5 195-3, 29084-5, 38037-5 #### [facility] CLIA [id number] [address] [place] [address] [place] Platelets (Bld) [#/Vol] 324 10*3/uL Normal 150-400 [place] Comment on above: Order Comment: Speci men Type: BLOOD SPECIMEN Ordering Facility: [facility] Address: [address] [place] [address] Performed By: #### 5 195-3, 86328-9, 68972-8 #### [facility] CLIA [id number] [address] [place] [address] [place] RBC (Bld) [#/Vol] 4.33 10*6/uL Normal 3.90-5.20 [facility] Comment on above: Order Comment: Speci men Type: BLOOD SPECIMEN Ordering Facility: [facility] Address: [address] [place] [address] Performed By: #### 5 195-3, 29701-2, 30347-2 #### [facility] CLIA [id number] [address] [place] [address] [place] WBC (Bld) [#/Vol] 11.10 10*3/uL High 3.70-11.00 [facility] Comment on above: Order Comment: Speci men Type: BLOOD SPECIMEN Ordering Facility: [facility] Address: [address] [place] [address] Performed By: #### 5 195-3, 01074-9, 74366-2 #### [facility] CLIA [id number] [address] [place] [address] [place] CREATININE BLDon 07-03-2024 Creatinine [Mass/Vol] 0.46 mg/dL Low 0.58-0.96 [place] Comment on above: Order Comment: Tejas marquez Type: BLOOD SPECIMEN Ordering Facility: [facility] Address: [address] [place] [address] Performed By: #### 5 195-3, 39302-8, 83693-4 #### [facility] CLIA [id number] [address] [place] [address] [place] Creatinine and Glomerular filtration rate.predicted panel (S/P/Bld) 135 mL/min/1.73m??? Normal >=60 [place] Comment on above: Order Comment: Tejas marquez Type: BLOOD SPECIMEN Ordering Facility: [facility] Address: [address] [place] [address] Result Comment: Suri mated Glomerular Filtration Rate (eGFR) is calculated using the 2020 CKD-EPI creatinine equation. This equation utilizes serum creatinine, sex, and age as parameters. The creatinine assay has traceable calibration to isotope dilution-mass spectrometry. Refer to KDIGO guidelines for clinical interpretation. In patients with unstable renal function, e.g. those with acute kidney injury, the eGFR may not accurately reflect actual GFR. Performed By: #### 5 195-3, 13631-1, 68752-7 #### [facility] CLIA [id number] [address] [place] [address] [place] Hepatic function 2000 panelo n 07-03-2024 Albumin [Mass/Vol] 3.3 g/dL Low 3.9-4.9 [facility] Comment on above: Order Comment: Tejas marquez Type: BLOOD SPECIMEN Ordering Facility: [facility] Address: [address] [place] [address] Performed By: #### 5 195-3, 68335-9, 65807-1 #### [facility] CLIA [id number] [address] [place] [address] [place] ALP [Catalytic activity/Vol] 139 U/L High 34-123 [place] Comment on above: Order Comment: Speci men Type: BLOOD SPECIMEN Ordering Facility: [facility] Address: [address] [place] [address] Performed By: #### 5 195-3, 72542-6, 49455-6 #### [facility] CLIA [id number] [address] [place] [address] [place] ALT [Catalytic activity/Vol] 13 U/L Normal 7-38 [place] Comment on above: Order Comment: Speci men Type: BLOOD SPECIMEN Ordering Facility: [facility] Address: [address] [place] [address] Performed By: #### 5 195-3, 70540-6, 83022-6 #### [facility] CLIA [id number] [address] [place] [address] [place] AST [Catalytic activity/Vol] 15 U/L Normal 13-35 [place] Comment on above: Order Comment: Speci men Type: BLOOD SPECIMEN Ordering Facility: [facility] Address: [address] [place] [address] Performed By: #### 5 195-3, 87749-1, 41807-4 #### [facility] CLIA [id number] [address] [place] [address] [place] Bilirubin [Mass/Vol] 0.3 mg/dL Normal 0.2-1.3 [place] Comment on above: Order Comment: Speci men Type: BLOOD SPECIMEN Ordering Facility: [facility] Address: [address] [place] [address] Performed By: #### 5 195-3, 80415-8, 66634-2 #### [facility] CLIA [id number] [address] [place] [address] [place] Bilirubin.conjugate d [Mass/Vol] mg/dL Normal <0.2 [place] Comment on above: Order Comment: Speci men Type: BLOOD SPECIMEN Ordering Facility: [facility] Address: [address] [place] [address] Performed By: #### 5 195-3, 30271-7, 87963-8 #### [facility] CLIA [id number] [address] [place] [address] [place] Protein [Mass/Vol] 6.3 g/dL Normal 6.3-8.0 [facility] Comment on above: Order Comment: Speci men Type: BLOOD SPECIMEN Ordering Facility: [facility] Address: [address] [place] [address] Performed By: #### 5 195-3, 51892-3, 32173-9 #### [facility] CLIA [id number] [address] [place] [address] [place] Prot/Creat Uron 07-03-2024 Protein/Creatinine (U) [Mass ratio] 0.17 mg/mg High <0.15 [place] Comment on above: Order Comment: Speci men Type: BLOOD SPECIMEN Ordering Facility: [facility] Address: [address] [place] [address] Result Comment: Adul t Proteinuria Categories: <0.15 mg/mg is considered normal to mildly increased 0.15 - 0.50 mg/mg is considered moderately increased >0.50 mg/mg is considered severely increased KDIGO. (2013). KDIGO 2012 Clinical Practice Guideline for the Evaluation and Management of Chronic Kidney Disease. Official Journal of the International Society of Nephrology, 3(1), 1-150. Performed By: #### 5 195-3, 22160-0, 18829-7 #### [facility] CLIA [id number] [address] [place] [address] [place] Protein/Creatinine (U) [Mass ratio]on 07-03-2024 Creatinine (U) [Mass/Vol] 29.5 mg/dL Normal 20.0-300.0 [place] Comment on above: Order Comment: Speci men Type: BLOOD SPECIMEN Ordering Facility: [facility] Address: [address] [place] [address] Performed By: #### 5 195-3, 74496-7, 47588-1 #### [facility] CLIA [id number] [address] [place] [address] [place] Protein (U) [Mass/Vol] 5 mg/dL Normal 0-20 [place] Comment on above: Order Comment: Speci men Type: BLOOD SPECIMEN Ordering Facility: [facility] Address: [address] [place] [address] Performed By: #### 5 195-3, 06293-5, 57613-9 #### [facility] CLIA [id number] [address] [place] [address] [place] URINE OB DIP B/Oon 4 Glucose Ql (U) Negative Neg mg/dL [facility] Interpretation and review of laboratory results Normal [facility] Protein.monoclonal (U) [Mass/Vol] Negative Neg mg/dL [facility] Urate SerPl-mCncon 4 Urate [Mass/Vol] 3.5 mg/dL Normal 2.5-6.6 [facility] Comment on above: Order Comment: Speci men Type: BLOOD SPECIMEN Ordering Facility: [facility] Address: [address] [place] [address] Performed By: #### 5 195-3, 63064-9, 16578-4 #### [facility] CLIA [id number] [address] [place] [address] [place] Biophysical profile.melecio dy movement USon 06-30-2024 [facility] Radiology Study observation (narrative) [facility] URINE OB DIP B/Oon 4 Glucose Ql (U) Negative Neg mg/dL [facility] Protein.monoclonal (U) [Mass/Vol] Negative Neg mg/dL [facility] CNPNon 06-26-2024 CNPN Telephone (OBGYWM) ---- GINGER KEN ([id number]) 1995 F Date Time Provider Department 06/26/24 RENU MOORE OBGYW During your visit today, we recorded the following information about you: Shellie Alcantar RN 06/26/2024 2:09 PM Signed Patient 34w5d calling with concerns of multiple symptoms and not feeling well. Since yesterday patient has had a headache. She took Tylenol at 8 am and at 1 pm and it has not helped at all. Patient has had stomach cramps and diarrhea since yesterday. Pain is noted on her right side from her hip to the bottom of her rib cage along with back ache. Patient is extremely nauseated but has not vomited. Patient states she is drinking water, but not eating much. Denies any fever, bleeding, leaking or decreased FM. She currently rates her pain at a 6 out of 10. 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 Please address. ALIYA Coello Courtney, APRN.CNM 06/26/2024 2:15 PM Signed Symptoms similar to flu/virus. She was seen in office yesterday. Please continue to increase hydration, add in electrolytes. Take Tylenol Extra Strength 1000 mg every 8 hours and rest. Keep scheduled appointment. JIMMY Dent Trisha, RN 06/26/2024 2:32 PM Signed Patient notified. Jennifer Saavedra RN Allergies As of Date: 06/26/2024 (No Known Allergies) Date Reviewed: 06/25/2024 Reviewed by: Elmira Schmitz APRN.CNP - Fully Assessed Reason for Visit: ob concerns [Other] Prescriptions as of 06/26/2024 - metoclopramide HCl (REGLAN) 5 mg tablet Take 1 tablet by mouth four times a day as needed (headache or nausea). - sertraline (ZOLOFT) 50 mg tablet Take 50 mg by mouth once daily. - Flacttdp-Mi-Gks-Fe- FA tab Take 1 tablet by mouth once daily. Problem List As Of Date 06/26/2024 Noted Resolved Supervision of high risk in third tri*12/20/2023 Use of letrozole (Femara) [Z79.811] 12/20/2023 Obesity affecting in third trimester *12/20/2023 Anxiety and depression [F41.9, F32.A] 12/20/2023 Nausea and vomiting during [O21.9] 02/13/2024 headache in second trimester [O26.892*02/13/2024 COVID-19 affecting in third trimester* Group beta Strep positive [B95.1] 06/12/2024 Antepartum tachycardia affecting care of *06/23/2024 Swelling of lower extremity during in*06/23/2024 Polyhydramnios in third trimester [O40.3XX0] 06/23/2024 Polyhydramnios affecting in third tri*06/23/2024 Encounter Status:Closed by RENU MOORE on 06/26/24 Normal [facility] 06-25-2024 CNCO Letter Text Normal [place] URINE OB DIP B/Oon 4 Glucose Ql (U) Negative Neg mg/dL [facility] Interpretation and review of laboratory results Normal [facility] Protein.monoclonal (U) [Mass/Vol] Negative Neg mg/dL [facility] 06-23-2024 CNCO Letter Text Normal [place] Examination level ultrasound on 06-23-2024 [facility] Radiology Study observation (narrative) [facility] URINE OB DIP B/Oon 4 Glucose Ql (U) Negative Neg mg/dL [facility] Interpretation and review of laboratory results Normal [facility] Protein.monoclonal (U) [Mass/Vol] nge Neg mg/dL [facility] CNPNon 06-20-2024 CNPN Telephone (OBGYWM) ---- GINGER KEN ([id number]) 1995 F Date Time Provider Department 06/20/24 TRESSA LE During your visit today, we recorded the following information about you: Onel Hogan MA 06/20/2024 1:17 PM Signed Received FMLA paperwork for patients . MARISELA Maldonado Morgan, MA 06/20/2024 2:54 PM Signed FMLA paperwork completed and on providers desk for signature. MARISELA Maldonado Morgan, MA 06/23/2024 1:27 PM Signed FMLA papers completed and picked up by patient at her appointment on 06/20. Onel Hogan MA Allergies As of Date: 06/20/2024 (No Known Allergies) Date Reviewed: 06/20/2024 Reviewed by: Sharla Lopez MA - Fully Assessed Reason for Visit: FMLA Paperwork [4185] Prescriptions as of 06/23/2024 - metoclopramide HCl (REGLAN) 5 mg tablet Take 1 tablet by mouth four times a day as needed (headache or nausea). - sertraline (ZOLOFT) 50 mg tablet Take 50 mg by mouth once daily. - Yzoymmsr-Qm-Kry-Fe- FA tab Take 1 tablet by mouth once daily. Problem List As Of Date 06/20/2024 Noted Resolved Supervision of high risk in third tri*12/20/2023 Use of letrozole (Femara) [Z79.811] 12/20/2023 Obesity affecting in third trimester *12/20/2023 Anxiety and depression [F41.9, F32.A] 12/20/2023 Nausea and vomiting during [O21.9] 02/13/2024 headache in second trimester [O26.892*02/13/2024 COVID-19 affecting in third trimester* Group beta Strep positive [B95.1] 06/12/2024 Encounter Status:Closed by ONEL HOGAN on 06/23/24 [facility] 06-16-2024 CNPN Telephone (OBGYWM) ---- GINGER KEN ([id number]) 1995 F Date Time Provider Department 06/16/24 NAHOMI BELLAMY OBGYWM During your visit today, we recorded the following information about you: Jennifer Saavedra RN 06/16/2024 2:02 PM Signed 33w2d Patient calling with update. Stated contractions went from about every 30 minutes this morning to every 16 minutes the last 1-2 hours. Unable to walk or talk through them. No bleeding or leaking fluid. Good movement. I spoke to BROCK and she advised to have patient go to [facility] since she just saw her in office this morning already. Patient and [facility] notified. Jennifer Saavedra RN Allergies As of Date: 06/16/2024 (No Known Allergies) Date Reviewed: 06/16/2024 Reviewed by: Onel Hogan MA - Fully Assessed Reason for Visit: Contractions [1575] Prescriptions as of 06/16/2024 - metoclopramide HCl (REGLAN) 5 mg tablet Take 1 tablet by mouth four times a day as needed (headache or nausea). - sertraline (ZOLOFT) 50 mg tablet Take 50 mg by mouth once daily. - Qpssylen-Wu-Phh-Fe- FA tab Take 1 tablet by mouth once daily. Problem List As Of Date 06/16/2024 Noted Resolved Supervision of high risk in third tri*12/20/2023 Use of letrozole (Femara) [Z79.811] 12/20/2023 Obesity affecting in third trimester *12/20/2023 Anxiety and depression [F41.9, F32.A] 12/20/2023 Nausea and vomiting during [O21.9] 02/13/2024 headache in second trimester [O26.892*02/13/2024 COVID-19 affecting in third trimester* 4 Group beta Strep positive [B95.1] 06/12/2024 Encounter Status:Closed by JENNIFER SAAVEDRA on 06/16/24 Normal [place] UA DIP, URINE (POC)on 2023 BILIRUBIN UA (POCT) Negative Negative [facility] CLARITY UA (POCT) Clear [facility] COLOR UA (POCT) Yellow [facility] GLUCOSE UA (POCT) Negative Negative mg/dL [facility] Hemoglobin Ql (U) Negative Negative [facility] KETONE UA (POCT) Negative Negative mg/dL [facility] LEUKOCYTES UA (POCT) Negative Negative [facility] NITRITE UA (POCT) Negative Negative [facility] PH UA (POCT) 7.0 4.5 - 8.0 [facility] Protein Ql (U) Negative Negative mg/dL [facility] SPECIFIC GRAVITY UA (POCT) 1.015 1.005 - 1.030 [facility] UROBILINOGEN UA (POCT) 0.2 Normal E.U./dL [facility] Location:[facility], [address] , [place], [address] [facility] POINT OF CARE [facility] 06-09-2024 KWASI Telephone (OBGYWM) ---- GINGER KEN ([id number]) 1995 F Date Time Provider Department 06/09/24 ELMIRA SCHMITZ During your visit today, we recorded the following information about you: Elmira Schmitz APRN.CNP 06/09/2024 4:48 PM Signed Patient going to [facility] for further eval after appt today. Please call her tomorrow to get her scheduled for a growth and OB visit next week. Needs weekly NSTs rest of after that. ELMER Mobley Trisha, RN 06/10/2024 9:58 AM Signed Left message for patient to call office. ALIYA Bedoya Lindsey, RN 06/12/2024 10:34 AM Signed Urine culture results with sensitivities from [facility] to provider to review. ALIYA Coello Emily, APRN.CNP 06/12/2024 11:08 AM Signed If no availability, can schedule growth out 1-2 weeks. Recommend at least weekly NST starting at 32 weeks. Have not received C+S Elmira Schmitz APRN.Elmira Dillard APRN.CNP 06/12/2024 11:40 AM Signed [place] count low, is patient symptomatic with urinary symptoms? If so, recommend treatment ELMER Mobley Jennifer, RN 06/12/2024 12:03 PM Addendum Left message for patient to call the office. See messages below. If patient needs after 3:00 PM for US there is a 3:30 PM on 06/25 (placed on hold). Patient will need NST and visit next week if she can't do the US on 06/18. Please inquire if she is still having urinary symptoms. ALIYA Arana Jennifer, RN 06/12/2024 2:34 PM Signed Patient returned call. Scheduled patient 06/18 for NST and OB visit. 06/25 for Growth US. Does patient need an office visit this day? She's scheduled on 06/23 already and we would just move it if needed. She is not having any urinary symptoms. ALIYA Arana Emily, APRN.CNP 06/13/2024 1:41 PM Signed Can move OB appointment to be on 06/25 with growth ELMER Mobley Emily, APRN.CNP 06/13/2024 1:42 PM Signed If no urinary symptoms, will not treat at this time. [facility] C+S to Olvin Bellamy's desk ELMER Mobley Trisha, RN 06/13/2024 3:45 PM Signed Left message for patient to call office. See both notes below. Moved her 06/23 appt to 06/25 after her u/s. ALIYA Bedoya Annalee, LPN 06/13/2024 4:03 PM Signed Ob patient is 32w6d and c/o lower back pain and cramping that began yesterday and started to lose mucus plug on Sunday. Lose stools began on Sunday. Baby is active. Denies Lof, no VB. Patient is at work at 4:30 pm. Can leave a detailed message. Jose Raphael MD 06/13/2024 4:12 PM Signed If needs seen should go to [facility]. She can try to rest AND hydrate to see if symtoms improve. MD Jay Grullon Tara, RN 06/13/2024 4:35 PM Signed Pt denies dysuria. Advised to go to [facility] if feeling need to be seen/if feeling dehydrated from loose stools, decreased movement, if leaking fluid/vaginal bleeding. Advised to stay hydrated and rest and Pt voiced understanding. Aware of appts changed. Denies additional questions/concerns. ALIYA Murray Jessica, APRN.RYAN 06/16/2024 8:16 AM Signed I can see patient today for repeat culture and follow up how she is doing. May just treat based on symptoms. Can she come at 1030 please. Thanks, Nahomi Bellamy APRN.Tressa Bajwa RN 06/16/2024 8:21 AM Signed Left message for patient to call office. ALIYA Arana Lindsey, RN 06/16/2024 9:14 AM Signed Patient called back and appointment given for today. Shellie Alcantar RN Allergies As of Date: 06/09/2024 (No Known Allergies) Date Reviewed: 06/09/2024 Reviewed by: Elmira Schmitz APRN.VIDEOGAME DESIGNER - Fully Assessed Reason for Visit: Appointment [186] Prescriptions as of 06/16/2024 - metoclopramide HCl (REGLAN) 5 mg tablet Take 1 tablet by mouth four times a day as needed (headache or nausea). - sertraline (ZOLOFT) 50 mg tablet Take 50 mg by mouth once daily. - Fzfxhrdt-Yy-Etn-Fe- FA tab Take 1 tablet by mouth once daily. Problem List As Of Date 06/09/2024 Noted Resolved Supervision of high risk in third tri*12/20/2023 Use of letrozole (Femara) [Z79.811] 12/20/2023 Obesity affecting in third trimester *12/20/2023 Anxiety and depression [F41.9, F32.A] 12/20/2023 Nausea and vomiting during [O21.9] 02/13/2024 headache in second trimester [O26.892*02/13/2024 COVID-19 affecting in third trimester* Encounter Status:Closed by CHUCK ESPAÑA on 06/13/24 Normal [place] URINE OB DIP B/OOrdered By: Zahra David on 06-09-2024 Glucose Ql (U) Negative Neg mg/dL [facility] Interpretation and review of laboratory results Normal [facility] Protein.monoclonal (U) [Mass/Vol] trace Neg mg/dL [facility] CBC W Auto Differential pane l (Bld)on 05-12-2024 Basophils (Bld) [#/Vol] 10*3/uL Normal <0.11 [place] Comment on above: Order Comment: Speci men Type: BLOOD SPECIMEN Ordering Facility: [facility] Address: [address] [place] [address] Performed By: #### 5 195-3, 68823-6, 18388-2 #### [facility] CLIA [id number] [address] [place] [address] [place] Basophils/100 WBC (Bld) 0.2 % Normal [place] Comment on above: Order Comment: Speci men Type: BLOOD SPECIMEN Ordering Facility: [facility] Address: [address] [place] [address] Performed By: #### 5 195-3, 77613-8, 64105-9 #### [facility] CLIA [id number] [address] [place] [address] [place] Differential cell count method Nom (Bld) Auto Normal [place] Comment on above: Order Comment: Speci men Type: BLOOD SPECIMEN Ordering Facility: [facility] Address: [address] [place] [address] Performed By: #### 5 195-3, 58058-3, 68185-6 #### [facility] CLIA [id number] [address] [place] [address] [place] Eosinophils (Bld) [#/Vol] 0.07 10*3/uL Normal <0.46 [place] Comment on above: Order Comment: Speci men Type: BLOOD SPECIMEN Ordering Facility: [facility] Address: [address] [place] [address] Performed By: #### 5 195-3, 64107-2, 04316-2 #### [facility] CLIA [id number] [address] [place] [address] [place] Eosinophils/100 WBC (Bld) 0.7 % Normal [place] Comment on above: Order Comment: Speci men Type: BLOOD SPECIMEN Ordering Facility: [facility] Address: [address] [place] [address] Performed By: #### 5 195-3, 26961-4, 02304-1 #### [facility] CLIA [id number] [address] [place] [address] [place] Erythrocyte distribution width (RBC) [Ratio] 12.5 % Normal 11.5-15.0 [place] Comment on above: Order Comment: Speci men Type: BLOOD SPECIMEN Ordering Facility: [facility] Address: [address] [place] [address] Performed By: #### 5 195-3, 71897-6, 28543-9 #### [facility] CLIA [id number] [address] [place] [address] [place] Hematocrit (Bld) [Volume fraction] 38.6 % Normal 36.0-46.0 [place] Comment on above: Order Comment: Speci men Type: BLOOD SPECIMEN Ordering Facility: [facility] Address: [address] [place] [address] Performed By: #### 5 195-3, 11060-3, 02558-5 #### [facility] CLIA [id number] [address] [place] [address] [place] Hemoglobin (Bld) [Mass/Vol] 13.7 g/dL Normal 11.5-15.5 [place] Comment on above: Order Comment: Speci men Type: BLOOD SPECIMEN Ordering Facility: [facility] Address: [address] [place] [address] Performed By: #### 5 195-3, 12971-8, 34701-5 #### [facility] CLIA [id number] [address] [place] [address] [place] Immature granulocytes (Bld) [#/Vol] 0.06 10*3/uL Normal <0.10 [place] Comment on above: Order Comment: Speci men Type: BLOOD SPECIMEN Ordering Facility: [facility] Address: [address] [place] [address] Performed By: #### 5 195-3, 64402-5, 93623-9 #### [facility] CLIA [id number] [address] [place] [address] [place] Immature granulocytes/100 WBC (Bld) 0.6 % Normal [place] Comment on above: Order Comment: Speci men Type: BLOOD SPECIMEN Ordering Facility: [facility] Address: [address] [place] [address] Performed By: #### 5 195-3, 85780-7, 71100-0 #### [facility] CLIA [id number] [address] [place] [address] [place] Lymphocytes (Bld) [#/Vol] 1.47 10*3/uL Normal 1.00-4.00 [place] Comment on above: Order Comment: Speci men Type: BLOOD SPECIMEN Ordering Facility: [facility] Address: [address] [place] [address] Performed By: #### 5 195-3, 17392-6, 42975-8 #### [facility] CLIA [id number] [address] [place] [address] [place] Lymphocytes/100 WBC (Bld) 14.2 % Normal [place] Comment on above: Order Comment: Speci men Type: BLOOD SPECIMEN Ordering Facility: [facility] Address: [address] [place] [address] Performed By: #### 5 195-3, 35305-9, 72650-8 #### [facility] CLIA [id number] [address] [place] [address] [place] MCH (RBC) [Entitic mass] 31.8 pg Normal 26.0-34.0 [place] Comment on above: Order Comment: Speci men Type: BLOOD SPECIMEN Ordering Facility: [facility] Address: [address] [place] [address] Performed By: #### 5 195-3, 55570-8, 32009-5 #### [facility] CLIA [id number] [address] [place] [address] [place] MCHC (RBC) [Mass/Vol] 35.5 g/dL Normal 30.5-36.0 [place] Comment on above: Order Comment: Speci men Type: BLOOD SPECIMEN Ordering Facility: [facility] Address: [address] [place] [address] Performed By: #### 5 195-3, 20477-5, 09152-2 #### [facility] CLIA [id number] [address] [place] [address] [place] MCV (RBC) [Entitic vol] 89.6 fL Normal 80.0-100.0 [place] Comment on above: Order Comment: Speci men Type: BLOOD SPECIMEN Ordering Facility: [facility] Address: [address] [place] [address] Performed By: #### 5 195-3, 26074-0, 72469-7 #### [facility] CLIA [id number] [address] [place] [address] [place] Monocytes (Bld) [#/Vol] 0.58 10*3/uL Normal <0.87 [place] Comment on above: Order Comment: Speci men Type: BLOOD SPECIMEN Ordering Facility: [facility] Address: [address] [place] [address] Performed By: #### 5 195-3, 80479-3, 97516-4 #### [facility] CLIA [id number] [address] [place] [address] [place] Monocytes/100 WBC (Bld) 5.6 % Normal [place] Comment on above: Order Comment: Speci men Type: BLOOD SPECIMEN Ordering Facility: [facility] Address: [address] [place] [address] Performed By: #### 5 195-3, 31222-2, 08448-4 #### [facility] CLIA [id number] [address] [place] [address] [place] Neutrophils (Bld) [#/Vol] 8.15 10*3/uL High 1.45-7.50 [place] Comment on above: Order Comment: Speci men Type: BLOOD SPECIMEN Ordering Facility: [facility] Address: [address] [place] [address] Performed By: #### 5 195-3, 63135-4, 52072-0 #### [facility] CLIA [id number] [address] [place] [address] [place] Neutrophils/100 WBC (Bld) 78.7 % Normal [place] Comment on above: Order Comment: Speci men Type: BLOOD SPECIMEN Ordering Facility: [facility] Address: [address] [place] [address] Performed By: #### 5 195-3, 09582-5, 03606-6 #### [facility] CLIA [id number] [address] [place], [place] [id number] [place] Nucleated RBC (Bld) [#/Vol] 10*3/uL Normal <0.01 [place] Comment on above: Order Comment: Speci men Type: BLOOD SPECIMEN Ordering Facility: [facility] Address: [address] [place] [address] Performed By: #### 5 195-3, 78053-2, 79724-9 #### [facility] CLIA [id number] [address] [place] [address] [place] Nucleated RBC/100 WBC (Bld) [Ratio] 0.0 /100 WBC Normal [place] Comment on above: Order Comment: Speci men Type: BLOOD SPECIMEN Ordering Facility: [facility] Address: [address] [place] [address] Performed By: #### 5 195-3, 49305-7, 21995-0 #### [facility] CLIA [id number] [address] [place] [address] [place] Platelet mean volume (Bld) [Entitic vol] 10.7 fL Normal 9.0-12.7 [place] Comment on above: Order Comment: Speci men Type: BLOOD SPECIMEN Ordering Facility: [facility] Address: [address] [place] [address] Performed By: #### 5 195-3, 47257-2, 93418-8 #### [facility] CLIA [id number] [address] [place] [address] [place] Platelets (Bld) [#/Vol] 290 10*3/uL Normal 150-400 [place] Comment on above: Order Comment: Speci men Type: BLOOD SPECIMEN Ordering Facility: [facility] Address: [address] [place] [address] Performed By: #### 5 195-3, 43900-2, 20234-0 #### [facility] CLIA [id number] [address] [place] [address] [place] RBC (Bld) [#/Vol] 4.31 10*6/uL Normal 3.90-5.20 [facility] Comment on above: Order Comment: Speci men Type: BLOOD SPECIMEN Ordering Facility: [facility] Address: [address] [place] [address] Performed By: #### 5 195-3, 46654-1, 90722-9 #### [facility] CLIA [id number] [address] [place] [address] [place] WBC (Bld) [#/Vol] 10.35 10*3/uL Normal 3.70-11.00 [facility] Comment on above: Order Comment: Speci men Type: BLOOD SPECIMEN Ordering Facility: [facility] Address: [address] [place] [address] Performed By: #### 5 195-3, 16304-7, 05642-2 #### [facility] CLIA [id number] [address] [place] [address] [place] GESTATIONAL GLUCOSE SCREEN, 1-HOUR, 50 GRAM, NON-FASTINGon 05-12-2024 Glucose [Mass/Vol] 107 mg/dL Normal 74-134 [facility] Comment on above: Order Comment: Speci men Type: BLOOD SPECIMEN Ordering Facility: [facility] Address: [address] [place] [address] Result Comment: [facility] Congress of Obstetricians and Gynecologists (Mayer/Richy) guidelines state a gestational diabetes mellitus positive screen is made, in women not previously diagnosed with overt diabetes, when the 1 hr plasma glucose level is equal to or above 140 mg/dL. The [facility] [employer] and [facility] [place] recommends a 135 mg/dL cutoff. Performed By: #### 5 195-3, 55760-2, 53346-0 #### [facility] CLIA [id number] [address] [place] [address] [place] Reagin and Treponema pallidu m IgG and IgM [Interp]on 05-12-2024 T. pallidum IgG+IgM IA Ql (S) Non-Reactive Normal Nonreactive [place] Comment on above: Order Comment: Speci men Type: BLOOD SPECIMEN Ordering Facility: [facility] Address: [address] [place] [address] Performed By: #### 5 195-3, 66116-6, 95203-5 #### [facility] CLIA [id number] [address] [place] [address] [place] Reagin+T pallidum IgG+IgM Se rPl-Impon 05-12-2024 Reagin and Treponema pallidum IgG and IgM [Interp] Cannot exclude recent Treponemal infection if specimen collected within 7-10 days after appearance of suspect lesions or 2-3 weeks after an exposure. Clinical correlation is required. Normal [place] Comment on above: Order Comment: Speci men Type: BLOOD SPECIMEN Ordering Facility: [facility] Address: [address] [place] [address] Performed By: #### 5 195-3, 50046-9, 15103-0 #### [facility] CLIA [id number] [address] [place] [address] [place] CBC W Auto Differential pane l (Bld)on 04-17-2024 Basophils (Bld) [#/Vol] 10*3/uL Normal <0.11 [place] Comment on above: Order Comment: Speci men Type: BLOOD SPECIMEN Ordering Facility: [facility] Address: [address] [place] [address] Performed By: #### 5 195-3, 10721-3, 73905-3 #### [facility] CLIA [id number] [address] [place] [address] [place] Basophils/100 WBC (Bld) 0.2 % Normal [place] Comment on above: Order Comment: Speci men Type: BLOOD SPECIMEN Ordering Facility: [facility] Address: [address] [place], [place] [id number] Performed By: #### 5 195-3, 09706-3, 46275-4 #### [facility] CLIA [id number] [address] [place] [address] [place] Differential cell count method Nom (Bld) Auto Normal [place] Comment on above: Order Comment: Speci men Type: BLOOD SPECIMEN Ordering Facility: [facility] Address: [address] [place] [address] Performed By: #### 5 195-3, 31272-2, 69609-7 #### [facility] CLIA [id number] [address] [place] [address] [place] Eosinophils (Bld) [#/Vol] 0.10 10*3/uL Normal <0.46 [place] Comment on above: Order Comment: Speci men Type: BLOOD SPECIMEN Ordering Facility: [facility] Address: [address] [place] [address] Performed By: #### 5 195-3, 21793-2, 87783-7 #### [facility] CLIA [id number] [address] [place] [address] [place] Eosinophils/100 WBC (Bld) 0.9 % Normal [place] Comment on above: Order Comment: Speci men Type: BLOOD SPECIMEN Ordering Facility: [facility] Address: [address] [place] [address] Performed By: #### 5 195-3, 06781-4, 73510-0 #### [facility] CLIA [id number] [address] [place] [address] [place] Erythrocyte distribution width (RBC) [Ratio] 13.1 % Normal 11.5-15.0 [place] Comment on above: Order Comment: Speci men Type: BLOOD SPECIMEN Ordering Facility: [facility] Address: [address] [place] [address] Performed By: #### 5 195-3, 36221-7, 33865-6 #### [facility] CLIA [id number] [address] [place] [address] [place] Hematocrit (Bld) [Volume fraction] 40.2 % Normal 36.0-46.0 [place] Comment on above: Order Comment: Speci men Type: BLOOD SPECIMEN Ordering Facility: [facility] Address: [address] [place] [address] Performed By: #### 5 195-3, 09605-0, 74071-3 #### [facility] CLIA [id number] [address] [place] [address] [place] Hemoglobin (Bld) [Mass/Vol] 13.6 g/dL Normal 11.5-15.5 [place] Comment on above: Order Comment: Speci men Type: BLOOD SPECIMEN Ordering Facility: [facility] Address: [address] [place] [address] Performed By: #### 5 195-3, 50799-3, 39681-2 #### [facility] CLIA [id number] [address] [place] [address] [place] Immature granulocytes (Bld) [#/Vol] 0.05 10*3/uL Normal <0.10 [place] Comment on above: Order Comment: Speci men Type: BLOOD SPECIMEN Ordering Facility: [facility] Address: [address] [place] [address] Performed By: #### 5 195-3, 45637-4, 58684-9 #### [facility] CLIA [id number] [address] [place] [address] [place] Immature granulocytes/100 WBC (Bld) 0.5 % Normal [place] Comment on above: Order Comment: Speci men Type: BLOOD SPECIMEN Ordering Facility: [facility] Address: [address] [place] [address] Performed By: #### 5 195-3, 30258-3, 69353-2 #### [facility] CLIA [id number] [address] [place] [address] [place] Lymphocytes (Bld) [#/Vol] 1.92 10*3/uL Normal 1.00-4.00 [place] Comment on above: Order Comment: Speci men Type: BLOOD SPECIMEN Ordering Facility: [facility] Address: [address] [place] [address] Performed By: #### 5 195-3, 19669-4, 52985-9 #### [facility] CLIA [id number] [address] [place] [address] [place] Lymphocytes/100 WBC (Bld) 17.8 % Normal [place] Comment on above: Order Comment: Speci men Type: BLOOD SPECIMEN Ordering Facility: [facility] Address: [address] [place] [address] Performed By: #### 5 195-3, 42775-3, 15150-2 #### [facility] CLIA [id number] [address] [place] [address] [place] MCH (RBC) [Entitic mass] 31.9 pg Normal 26.0-34.0 [place] Comment on above: Order Comment: Speci men Type: BLOOD SPECIMEN Ordering Facility: [facility] Address: [address] [place] [address] Performed By: #### 5 195-3, 38260-2, 91228-2 #### [facility] CLIA [id number] [address] [place] [address] [place] MCHC (RBC) [Mass/Vol] 33.8 g/dL Normal 30.5-36.0 [place] Comment on above: Order Comment: Speci men Type: BLOOD SPECIMEN Ordering Facility: [facility] Address: [address] [place] [address] Performed By: #### 5 195-3, 05592-1, 39205-7 #### [facility] CLIA [id number] [address] [place] [address] [place] MCV (RBC) [Entitic vol] 94.1 fL Normal 80.0-100.0 [place] Comment on above: Order Comment: Speci men Type: BLOOD SPECIMEN Ordering Facility: [facility] Address: [address] [place] [address] Performed By: #### 5 195-3, 49824-2, 93275-8 #### [facility] CLIA [id number] [address] [place] [address] [place] Monocytes (Bld) [#/Vol] 0.76 10*3/uL Normal <0.87 [place] Comment on above: Order Comment: Speci men Type: BLOOD SPECIMEN Ordering Facility: [facility] Address: [address] [place] [address] Performed By: #### 5 195-3, 12134-3, 21416-8 #### [facility] CLIA [id number] [address] [place] [address] [place] Monocytes/100 WBC (Bld) 7.1 % Normal [place] Comment on above: Order Comment: Speci men Type: BLOOD SPECIMEN Ordering Facility: [facility] Address: [address] [place] [address] Performed By: #### 5 195-3, 88713-2, 25228-8 #### [facility] CLIA [id number] [address] [place] [address] [place] Neutrophils (Bld) [#/Vol] 7.92 10*3/uL High 1.45-7.50 [place] Comment on above: Order Comment: Speci men Type: BLOOD SPECIMEN Ordering Facility: [facility] Address: [address] [place] [address] Performed By: #### 5 195-3, 67952-1, 89261-7 #### [facility] CLIA [id number] [address] [place] [address] [place] Neutrophils/100 WBC (Bld) 73.5 % Normal [place] Comment on above: Order Comment: Speci men Type: BLOOD SPECIMEN Ordering Facility: [facility] Address: [address] [place] [address] Performed By: #### 5 195-3, 06064-4, 21309-9 #### [facility] CLIA [id number] [address] [place] [address] [place] Nucleated RBC (Bld) [#/Vol] 10*3/uL Normal <0.01 [place] Comment on above: Order Comment: Speci men Type: BLOOD SPECIMEN Ordering Facility: [facility] Address: [address] [place] [address] Performed By: #### 5 195-3, 43247-7, 22756-6 #### [facility] CLIA [id number] [address] [place] [address] [place] Nucleated RBC/100 WBC (Bld) [Ratio] 0.0 /100 WBC Normal [place] Comment on above: Order Comment: Speci men Type: BLOOD SPECIMEN Ordering Facility: [facility] Address: [address] [place] [address] Performed By: #### 5 195-3, 47591-5, 71246-7 #### [facility] CLIA [id number] [address] [place] [address] [place] Platelet mean volume (Bld) [Entitic vol] 11.5 fL Normal 9.0-12.7 [place] Comment on above: Order Comment: Speci men Type: BLOOD SPECIMEN Ordering Facility: [facility] Address: [address] [place] [address] Performed By: #### 5 195-3, 95603-0, 05302-0 #### [facility] CLIA [id number] [address] [place] [address] [place] Platelets (Bld) [#/Vol] 292 10*3/uL Normal 150-400 [place] Comment on above: Order Comment: Speci men Type: BLOOD SPECIMEN Ordering Facility: [facility] Address: [address] [place] [address] Performed By: #### 5 195-3, 92205-0, 98464-2 #### [facility] CLIA [id number] [address] [place] [address] [place] RBC (Bld) [#/Vol] 4.27 10*6/uL Normal 3.90-5.20 [facility] Comment on above: Order Comment: Speci men Type: BLOOD SPECIMEN Ordering Facility: [facility] Address: [address] [place] [address] Performed By: #### 5 195-3, 47142-6, 09241-4 #### [facility] CLIA [id number] [address] [place] [address] [place] WBC (Bld) [#/Vol] 10.77 10*3/uL Normal 3.70-11.00 [facility] Comment on above: Order Comment: Speci men Type: BLOOD SPECIMEN Ordering Facility: [facility] Address: [address] [place] [address] Performed By: #### 5 195-3, 37629-4, 91062-4 #### [facility] CLIA [id number] [address] [place] [address] [place] Comprehensive metabolic 2000 panelon 04-17-2024 Albumin [Mass/Vol] 3.8 g/dL Low 3.9-4.9 [facility] Comment on above: Order Comment: Speci men Type: BLOOD SPECIMEN Ordering Facility: [facility] Address: [address] [place] [address] Performed By: #### 2 4323-8 #### [facility] CLIA [id number] [address] [place] [address] [place] ALP [Catalytic activity/Vol] 80 U/L Normal 34-123 [place] Comment on above: Order Comment: Speci men Type: BLOOD SPECIMEN Ordering Facility: [facility] Address: [address] [place] [id number] Performed By: #### 2 4323-8 #### [facility] CLIA [id number] [address] [place] [address] [place] ALT [Catalytic activity/Vol] 12 U/L Normal 7-38 [place] Comment on above: Order Comment: Speci men Type: BLOOD SPECIMEN Ordering Facility: [facility] Address: [address] [place] [address] Performed By: #### 2 4323-8 #### [facility] CLIA [id number] [address] [place] [address] [place] Anion gap [Moles/Vol] 15 mmol/L Normal 8-15 [place] Comment on above: Order Comment: Speci men Type: BLOOD SPECIMEN Ordering Facility: [facility] Address: [address] [place] [address] Performed By: #### 2 4323-8 #### [facility] CLIA [id number] [address] [place] [address] [place] AST [Catalytic activity/Vol] 15 U/L Normal 13-35 [place] Comment on above: Order Comment: Speci men Type: BLOOD SPECIMEN Ordering Facility: [facility] Address: [address] [id number] Performed By: #### 2 4323-8 #### [facility] CLIA [id number] [address] [place] [address] [place] Bilirubin [Mass/Vol] 0.2 mg/dL Normal 0.2-1.3 [place] Comment on above: Order Comment: Speci men Type: BLOOD SPECIMEN Ordering Facility: [facility] Address: [address] [id number] Performed By: #### 2 4323-8 #### [facility] CLIA [id number] [address] [place] [address] [place] Calcium [Mass/Vol] 10.0 mg/dL Normal 8.5-10.2 [facility] Comment on above: Order Comment: Speci men Type: BLOOD SPECIMEN Ordering Facility: [facility] Address: [address] [place] [address] Performed By: #### 2 4323-8 #### [facility] CLIA [id number] [address] [place] [address] [place] Chloride [Moles/Vol] 103 mmol/L Normal 98-107 [place] Comment on above: Order Comment: Speci men Type: BLOOD SPECIMEN Ordering Facility: [facility] Address: [address] [place] [address] Performed By: #### 2 4323-8 #### [facility] CLIA [id number] [address] [place] [address] [place] CO2 [Moles/Vol] 19 mmol/L Low 22-30 [place] Comment on above: Order Comment: Speci men Type: BLOOD SPECIMEN Ordering Facility: [facility] Address: [address] [place] [address] Performed By: #### 2 4323-8 #### [facility] CLIA [id number] [address] [place] [address] [place] Creatinine [Mass/Vol] 0.66 mg/dL Normal 0.58-0.96 [place] Comment on above: Order Comment: Speci men Type: BLOOD SPECIMEN Ordering Facility: [facility] Address: [address] [place] [address] Performed By: #### 2 4323-8 #### [facility] CLIA [id number] [address] [place] [address] [place] Creatinine and Glomerular filtration rate.predicted panel (S/P/Bld) 124 mL/min/1.73m??? Normal >=60 [place] Comment on above: Order Comment: Tejas marquez Type: BLOOD SPECIMEN Ordering Facility: [facility] Address: [address] [place] [address] Result Comment: Suri mated Glomerular Filtration Rate (eGFR) is calculated using the 2020 CKD-EPI creatinine equation. This equation utilizes serum creatinine, sex, and age as parameters. The creatinine assay has traceable calibration to isotope dilution-mass spectrometry. Refer to KDIGO guidelines for clinical interpretation. In patients with unstable renal function, e.g. those with acute kidney injury, the eGFR may not accurately reflect actual GFR. Performed By: #### 2 4323-8 #### [facility] CLIA [id number] [address] [place] [address] [place] Glucose [Mass/Vol] 66 mg/dL Low 74-99 [facility] Comment on above: Order Comment: Tejas marquez Type: BLOOD SPECIMEN Ordering Facility: [facility] Address: [address] [place] [address] Result Comment: The [place] Diabetes Association (ADA) provides guidance for cutoff values for fasting glucose and random glucose. The ADA defines fasting as no caloric intake for at least 8 hours. Fasting plasma glucose results between 100 to 125 mg/dL indicate increased risk for diabetes (prediabetes). Fasting plasma glucose results greater than or equal to 126 mg/dL meet the criteria for diagnosis of diabetes. In the absence of unequivocal hyperglycemia, results should be confirmed by repeat testing. In a patient with classic symptoms of hyperglycemia or hyperglycemic crisis, random plasma glucose results greater than or equal to 200 mg/dL meet the criteria for diagnosis of diabetes. Reference: Standards of Medical Care in Diabetes 2016, [place] Diabetes Association. Diabetes Care. 2016.39(Suppl 1). Performed By: #### 2 4323-8 #### [facility] CLIA [id number] [address] [place] [address] [place] Potassium [Moles/Vol] 4.3 mmol/L Normal 3.7-5.1 [place] Comment on above: Order Comment: Tejas marquez Type: BLOOD SPECIMEN Ordering Facility: [facility] Address: [address] [place] [address] Performed By: #### 2 4323-8 #### [facility] CLIA [id number] [address] [place] [address] [place] Protein [Mass/Vol] 6.6 g/dL Normal 6.3-8.0 [facility] Comment on above: Order Comment: Speci men Type: BLOOD SPECIMEN Ordering Facility: [facility] Address: [address] [place] [address] Performed By: #### 2 4323-8 #### [facility] CLIA [id number] [address] [place] [address] [place] Sodium [Moles/Vol] 137 mmol/L Normal 136-144 [facility] Comment on above: Order Comment: Speci men Type: BLOOD SPECIMEN Ordering Facility: [facility] Address: [address] [place] [address] Performed By: #### 2 4323-8 #### [facility] CLIA [id number] [address] [place] [address] [place] Urea nitrogen [Mass/Vol] 5 mg/dL Low 7-21 [place] Comment on above: Order Comment: Speci men Type: BLOOD SPECIMEN Ordering Facility: [facility] Address: [address] [place] [address] Performed By: #### 2 4323-8 #### [facility] CLIA [id number] [address] [place] [address] [place] Prot/Creat Uron 04-17-2024 Protein/Creatinine (U) [Mass ratio] mg/g Normal <0.15 [place] Comment on above: Order Comment: Speci men Type: BLOOD SPECIMEN Ordering Facility: [facility] Address: [address] [place] [address] Result Comment: Adul t Proteinuria Categories: <0.15 mg/mg is considered normal to mildly increased 0.15 - 0.50 mg/mg is considered moderately increased >0.50 mg/mg is considered severely increased KDIGO. (2013). KDIGO 2012 Clinical Practice Guideline for the Evaluation and Management of Chronic Kidney Disease. Official Journal of the International Society of Nephrology, 3(1), 1-150. Performed By: #### 5 195-3, 62666-8, 49719-4 #### [facility] CLIA [id number] [address] [place] [address] [place] Protein/Creatinine (U) [Mass ratio]on 04-17-2024 Creatinine (U) [Mass/Vol] 79.2 mg/dL Normal 20.0-300.0 [place] Comment on above: Order Comment: Speci men Type: BLOOD SPECIMEN Ordering Facility: [facility] Address: [address] [place] [address] Performed By: #### 5 195-3, 32519-4, 75147-9 #### [facility] CLIA [id number] [address] [place] [address] [place] Protein (U) [Mass/Vol] mg/dL Normal 0-20 [place] Comment on above: Order Comment: Speci men Type: BLOOD SPECIMEN Ordering Facility: [facility] Address: [address] [place] [address] Performed By: #### 5 195-3, 56940-8, 31571-4 #### [facility] CLIA [id number] [address] [place] [address] [place] Examination level ultrasound on 03-27-2024 [facility] Radiology Study observation (narrative) [facility] Thomas 03-13-2024 CNPN Telephone (OBGYWM) ---- GINGER KEN ([id number]) 1995 F Date Time Provider Department 03/13/24 KARL ROMEOGYWJayme During your visit today, we recorded the following information about you: Tressa Packer RN 03/13/2024 4:13 PM Signed ----- Message from Karl Romeo MD sent at 03/13/2024 3:30 PM EDT ----- Anatomy ultrasound reviewed. No abnormalities identified. F/u scan as recommended in 2-3 weeks please contact her to schedule. Please place copy in ob chart. MD Birdie Wade Jennifer, RN 03/13/2024 4:14 PM Signed Left message for patient to call office. ALIYA Arana Jennifer, RN 03/17/2024 3:55 PM Signed Patient notified. Appointment given. Tressa Packer RN Allergies As of Date: 03/13/2024 (No Known Allergies) Date Reviewed: 03/12/2024 Reviewed by: Shaniqua Ferrell MA - Fully Assessed Reason for Visit: Future Appointment [256] Results [95] Prescriptions as of 03/17/2024 - metoclopramide HCl (REGLAN) 5 mg tablet Take 1 tablet by mouth four times daily for 30 doses. - sertraline (ZOLOFT) 50 mg tablet Take 50 mg by mouth once daily. - Amecfrmg-Uf-Wuz-Fe- FA tab Take 1 tablet by mouth once daily. Problem List As Of Date 03/13/2024 Noted Resolved Encounter for care in second trimester* 4 Use of letrozole (Femara) [Z79.811] 12/20/2023 Obesity affecting in second trimester* 4 Anxiety and depression [F41.9, F32.A] 12/20/2023 Nausea and vomiting during [O21.9] 02/13/2024 headache in second trimester [O26.892*02/13/2024 Encounter Status:Closed by TRESSA PACKER on 03/17/24 Normal [place] BB ABO RHon 02-02-2024 ABO A Normal [facility] Comment on above: Performed By: #### 2 27497 #### [facility],[address] [place], [place] [id number] ABO and Rh group Nom (Bld) Normal [facility] Comment on above: Result Comment: BLOO D GROUP Performed By: #### 2 62920 #### [facility],[address] [place] [address] Rh Nom (Bld) Positive Normal [facility] Comment on above: Performed By: #### 2 01589 #### [facility],[address] [place] [address] CBC + DIFFon 02-02-2024 Baso # 0.03 x10EE3/UL Normal 0.00 - 0.10 [facility] Comment on above: Performed By: #### 2 07632 #### [facility],[address] [place], [place] [id number] Basophils/100 WBC (Bld) 0.3 % Normal 0.0 - 2.0 [facility] Comment on above: Performed By: #### 2 97711 #### [facility],[address] [place] [address] CBC + DIFF Normal [facility] Comment on above: Result Comment: CBC- COMPLETE BLOOD COUNT Performed By: #### 2 78850 #### [facility],[address] [place] [address] 46130 EO # 0.06 x10EE3/UL Normal 0.00 - 0.50 [facility] Comment on above: Performed By: #### 2 76399 #### [facility],[address] [place] [address] 29981 Eosinophils/100 WBC (Bld) 0.6 % Normal 0.0 - 7.0 [facility] Comment on above: Performed By: #### 2 62331 #### [facility],[address] [place], [place] [phone] Erythrocyte distribution width (RBC) [Ratio] 12.7 % Normal 12.0 - 15.6 [facility] Comment on above: Performed By: #### 2 88477 #### [facility],[address] [place] [address] 08649 Hematocrit (Bld) [Volume fraction] 45.9 % Normal 34.0 - 46.0 [facility] Comment on above: Performed By: #### 2 18134 #### [facility],[address] [place] [address] 19723 Hemoglobin (Bld) [Mass/Vol] 16.2 g/dL High 12.0 - 16.0 [facility] Comment on above: Performed By: #### 2 02633 #### [facility],[address] [place] [address] 33993 Lymph # 2.05 x10EE3/UL Normal 0.80 - 2.80 [facility] Comment on above: Performed By: #### 2 07498 #### [facility],[address] [place] [address] 89808 Lymphocytes/100 WBC (Bld) 20.6 % Normal 20.0 - 45.0 [facility] Comment on above: Performed By: #### 2 80348 #### [facility],[address] [place] [address] 05429 MANUAL DIFF N/A Normal [facility] Comment on above: Performed By: #### 2 60000 #### [facility],[address] [place] [address] 21230 MCH (RBC) [Entitic mass] 32 pg Normal 27 - 33 [facility] Comment on above: Performed By: #### 2 66214 #### [facility],[address] [place] [address] 59408 MCHC 35 X10 3 Normal 32 - 36 [facility] Comment on above: Performed By: #### 2 23387 #### [facility],[address] [place] [address] 53049 MCV (RBC) [Entitic vol] 91 fL Normal 80 - 99 [facility] Comment on above: Performed By: #### 2 81211 #### [facility],[address] [place] [address] 79751 Blair # 0.61 x10EE3/UL Normal 0.20 - 1.00 [facility] Comment on above: Performed By: #### 2 41386 #### [facility],[address] [place] [address] 98434 MONOS % 6.2 % Normal 0.0 - 10.0 [facility] Comment on above: Performed By: #### 2 03131 #### [facility],[address] [place] [address] 34602 Morphology Alex (Bld) [Interp] N/A Normal [facility] Comment on above: Performed By: #### 2 41829 #### [facility],[address] [place] [address] 41919 Neut # 7.21 x10EE3/UL High 1.50 - 7.10 [facility] Comment on above: Performed By: #### 2 30894 #### [facility],[address] [place] [address] 06695 Neutrophils/100 WBC (Bld) 72.3 % Normal 46.0 - 76.0 [facility] Comment on above: Performed By: #### 2 52267 #### [facility],[address] [place] [address] 00909 PLATELET 294 x10EE3/UL Normal 150 - 450 [facility] Comment on above: Performed By: #### 2 04462 #### [facility],[address] [place] [address] 02042 Platelet mean volume (Bld) [Entitic vol] 9.5 fL Normal 6.6 - 10.5 [facility] Comment on above: Result Comment: AUTO MATED DIFFERENTIAL Performed By: #### 2 20484 #### [facility],[address] [place] [address] 81156 RBC 5.06 x 10EE6/UL Normal 4.10 - 5.30 [facility] Comment on above: Performed By: #### 2 44236 #### [facility],[address] [place] [address] 86122 WBC 10.0 x 10EE3/UL Normal 4.5 - 10.8 [facility] Comment on above: Performed By: #### 2 52240 #### [facility],[address] [place] [address] 12796 CMP with eGFRon 02-02-2024 AGE 28 years Normal [facility] Comment on above: Performed By: #### 2 36962 #### [facility],[address] [place] [address] 79369 Albumin [Mass/Vol] 3.3 g/dL Low 3.4 - 5.0 [facility] Comment on above: Performed By: #### 2 83845 #### [facility],[address] [place] [address] 56957 Albumin/Globulin [Mass ratio] 0.9 {ratio} Normal 0.9 - 1.6 [facility] Comment on above: Performed By: #### 2 67692 #### [facility],[address] [place] [address] 67623 ALK PHOS 76 U/L Normal 46 - 116 [facility] Comment on above: Performed By: #### 2 16691 #### [facility],[address] [place] [address] 49998 ALT [Catalytic activity/Vol] 22 U/L Normal 16 - 63 [facility] Comment on above: Performed By: #### 2 65388 #### [facility],[address] [place] [address] 00548 Anion gap [Moles/Vol] 16 mmol/L Normal 10 - 20 [facility] Comment on above: Performed By: #### 2 18228 #### [facility],[address] [place] [address] 90845 AST [Catalytic activity/Vol] 12 U/L Low 13 - 39 [facility] Comment on above: Performed By: #### 2 68029 #### [facility],[address] [place] [address] 35279 B/C RATIO 14 ratio Normal 0 - 30 [facility] Comment on above: Performed By: #### 2 23072 #### [facility],[address] [place] [address] 33509 Bilirubin [Mass/Vol] 0.6 mg/dL Normal 0.2 - 1.0 [facility] Comment on above: Performed By: #### 2 98540 #### [facility],[address] [place] [address] 86321 Calcium [Mass/Vol] 9.3 mg/dL Normal 8.5 - 10.1 [facility] Comment on above: Performed By: #### 2 83715 #### [facility],[address] [place] [address] 66566 Chloride [Moles/Vol] 104 mmol/L Normal 98 - 107 [facility] Comment on above: Performed By: #### 2 02364 #### [facility],[address] [place] [address] 28159 CMP with eGFR Normal [facility] Comment on above: Result Comment: COMP REHENSIVE METABOLIC PANEL Performed By: #### 2 51008 #### [facility],[address] [place] [address] 46145 CO2 [Moles/Vol] 23.6 mmol/L Normal 21.0 - 32.0 [facility] Comment on above: Performed By: #### 2 35788 #### [facility],[address] [place] [address] 11447 Creatinine [Mass/Vol] 0.56 mg/dL Normal 0.55 - 1.02 [facility] Comment on above: Performed By: #### 2 85563 #### [facility],[address] [place] [address] 81794 GFR/1.73 sq M.predicted among non-blacks MDRD (S/P/Bld) [Vol rate/Area] mL/min/{1.73_m2} Normal 60 - 999 [facility] Comment on above: Performed By: #### 2 27354 #### [facility],[address] [place] [address] Result Comment: ACCO RDING TO THE NATIONAL KIDNEY DISEASE EDUCATION PROGRAM(NKDE), A NORMAL eGFR IS A VALUE GREATER THAN OR EQUAL TO 60 ML/MIN/1.73 SQ METERS. CHRONIC KIDNEY DISEASE: <60mL/MIN/1.73 SQ METERS KIDNEY FAILURE: <15mL/MIN/1.73 SQ METERS THIS TEST SHOULD ONLY BE USED FOR PATIENTS 18 YEARS OF AGE AND OLDER. Globulin (S) [Mass/Vol] 3.5 g/dL Normal 1.5 - 3.8 [facility] Comment on above: Performed By: #### 2 63390 #### [facility],[address] [place] [address] Glucose [Mass/Vol] 79 mg/dL Normal 74 - 106 [facility] Comment on above: Performed By: #### 2 86948 #### [place] [id number] Potassium [Moles/Vol] 3.8 mmol/L Normal 3.5 - 5.1 [facility] Comment on above: Performed By: #### 2 88990 #### [facility],[address] [place], [place] [phone] Protein [Mass/Vol] 6.8 g/dL Normal 6.4 - 8.2 [facility] Comment on above: Performed By: #### 2 13290 #### [address] [address] Sodium [Moles/Vol] 140 mmol/L Normal 136 - 145 [facility] Comment on above: Performed By: #### 2 18278 #### [facility],[address] [place] [address] 11409 Urea nitrogen [Mass/Vol] 8 mg/dL Normal 7 - 18 [facility] Comment on above: Performed By: #### 2 90683 #### [facility],[address] [place] [address] 85777 PREG SERUM QUANTon HCG QUANTITATIVE 94900 mIU/mL High 0 - 6 [facility] Comment on above: Result Comment: Refe rennavid Range: Male: <5 Female: Non: <5 1 - 7 days : 5 - 50 1 - 2 weeks: 50 - 500 2 - 3 weeks: 100 - 5000 3 - 4 weeks: 500 - 10,000 4 - 5 weeks: 1000 - 50,000 5 - 6 weeks: 10,000 - 100,000 6 - 8 weeks: 15,000 - 200,000 2 - 3 months: 10,000 - 100,000 2ND TRIMESTER 3000-50,000 3RD TRIMESTER 1000-50,000 Performed By: #### 2 36368 #### [facility],[address] [place], [place] [phone] URINALYSIS WITH MICROSCOPYon 02-02-2024 Amorphous NONE Normal [facility] Comment on above: Performed By: #### 2 48883 #### [facility],[address] [place] [address] 53575 Bacteria NONE Normal [facility] Comment on above: Performed By: #### 2 71602 #### [facility],[address] [place] [address] 39585 Bilirubin Ql (U) Negative Normal NORMAL: NEGATIVE [facility] Comment on above: Performed By: #### 2 05173 #### [facility],[address] [place] [address] 48187 Casts NONE Normal [facility] Comment on above: Performed By: #### 2 35503 #### [facility],[address] [place] [address] 78707 Clarity (U) clear Normal NORMAL: CLEAR [facility] Comment on above: Performed By: #### 2 24345 #### [facility],[address] [place] [address] 03792 Color (U) yellow Normal NORMAL: YELLOW [facility] Comment on above: Performed By: #### 2 90923 #### [facility],[address] [place] [address] 57910 Crystals LM Nom (Urine sed) NONE Normal [facility] Comment on above: Performed By: #### 2 12585 #### [facility],[address] [place] [address] 64891 Epi Cells FEW Normal [facility] Comment on above: Performed By: #### 2 54054 #### [facility],[address] [place] [address] 33613 Glucose Ql (U) NORM Normal NORMAL: NORMAL [facility] Comment on above: Performed By: #### 2 09045 #### [facility],[address] [place] [address] 61682 Hemoglobin Ql (U) Negative Normal NORMAL: NEGATIVE [facility] Comment on above: Performed By: #### 2 68631 #### [facility],[address] [place] [address] 54410 Ketone Negative Normal NORMAL: NEGATIVE [facility] Comment on above: Performed By: #### 2 37579 #### [facility],[address] [place] [address] 56630 Leukocytes Negative Normal NORMAL: NEGATIVE [facility] Comment on above: Result Comment: URIN E MICROSCOPIC Performed By: #### 2 29449 #### [facility],[address] [place] [address] 76887 Mucous NONE Normal [facility] Comment on above: Performed By: #### 2 95076 #### [facility],[address] [place] [address] 03756 Nitrite Ql (U) Negative Normal NORMAL: NEGATIVE [facility] Comment on above: Performed By: #### 2 71098 #### [facility],[address] [place] [address] pH (U) 6 [pH] Normal NORMAL: 5.0-8.0 [facility] Comment on above: Performed By: #### 2 40741 #### [facility],[address] [place] [address] Protein Ql (U) 15 Abnormal NORMAL: NEGATIVE [facility] Comment on above: Performed By: #### 2 82437 #### [facility],[address] [place] [address] Rbc 0-5 Normal 0-3 / hpf [facility] Comment on above: Performed By: #### 2 58388 #### [facility],[address] [place] [address] Sp Marks 1.020 Normal NORMAL: 1.010-1.030 [facility] Comment on above: Performed By: #### 2 88464 #### [facility],[address] [place] [address] Specimen Type R Normal [facility] Comment on above: Performed By: #### 2 87646 #### [facility],[address] [place] [address] URINALYSIS WITH MICROSCOPY Normal [facility] Comment on above: Result Comment: URIN ALYSIS Performed By: #### 2 66385 #### [facility],[address] [place] [address] Urobilinog NORM Normal NORMAL: NORMAL [facility] Comment on above: Performed By: #### 2 68934 #### [facility],[address] [place] [address] Wbc 1-5 Normal 0-5 / hpf [facility] Comment on above: Performed By: #### 2 92442 #### [facility],[address] [place] [address] Yeast NONE Normal [facility] Comment on above: Performed By: #### 2 21745 #### [facility],[address] OB INITIAL< 14 WEEKS; 1st GESTATIONon 02-02-2024 US OB INITIAL< 14 WEEKS; 1st GESTATION [facility] [address] [place], [place] [address] Patient: GINGER KEN Phone#: : [phone] Age: 28 Gender: F Pt. Type: ER Account: [id number] Location: [facility] Ordering: MARY GARDINER Exam Date: 02/02/2024/19:26 Family Phys: DAYO CEBALLOS Charge Code: 175331 Physician: [place] Order #: [id number] Dose#: PROCEDURE: OB INITIAL <14 WEEKS ULTRASOUND, TRANSABDOMINAL COMPARISON: None this . INDICATIONS: Threatened AB. TECHNIQUE: Transabdominal pelvic ultrasound examinations were performed. FINDINGS: GESTATIONAL SAC: Present and normal appearing. POLE: Present and normal appearing. Apollo-rump length measuring 7.0 cm, 13 weeks 1 day YOLK SAC: Not visualized CARDIAC ACTIVITY: Present. 169-175 beats per minute UTERUS: Normal. ADNEXAE/OVARIES: Not visualized CUL-DE-SAC: Normal. CLINICAL AGE: 14 weeks 0 days, estimated date of delivery 08/02/2024. SONOGRAPHIC AGE: 13 weeks 1 day, estimated date of delivery 08/08/2024. PLACENTA: Anterior AMNIOTIC FLUID VOLUME: Normal for age. OTHER: Negative. CONCLUSION: Single live intrauterine gestation measuring 13 weeks 1 day with estimated date of delivery of 08/08/2024 Dictated by: Sheila Dumont MD on 02/03/2024 at 0:49 Approved by: Sheila Dumont MD on 02/03/2024 at 0:52 Normal [facility] CBC panel Auto (Bld)on 01-15 Erythrocyte distribution width (RBC) [Ratio] 12.1 % Normal 11.5-15.0 [place] Comment on above: Order Comment: Speci men Type: BLOOD SPECIMEN Ordering Facility: [facility] Address: [address] [place] [address] Performed By: #### 5 195-3, 60935-3, 65870-0 #### [facility] CLIA [id number] [address] [place] [address] [place] Hematocrit (Bld) [Volume fraction] 43.3 % Normal 36.0-46.0 [place] Comment on above: Order Comment: Speci men Type: BLOOD SPECIMEN Ordering Facility: [facility] Address: [address] [place] [address] Performed By: #### 5 195-3, 60598-3, 89777-4 #### [facility] CLIA [id number] [address] [place] [address] [place] Hemoglobin (Bld) [Mass/Vol] 15.4 g/dL Normal 11.5-15.5 [place] Comment on above: Order Comment: Speci men Type: BLOOD SPECIMEN Ordering Facility: [facility] Address: [address] [place] [address] Performed By: #### 5 195-3, 55851-6, 83637-5 #### [facility] CLIA [id number] [address] [place] [address] [place] MCH (RBC) [Entitic mass] 31.2 pg Normal 26.0-34.0 [place] Comment on above: Order Comment: Speci men Type: BLOOD SPECIMEN Ordering Facility: [facility] Address: [address] [place] [address] Performed By: #### 5 195-3, 60389-1, 99570-6 #### [facility] CLIA [id number] [address] [place] [address] [place] MCHC (RBC) [Mass/Vol] 35.6 g/dL Normal 30.5-36.0 [place] Comment on above: Order Comment: Speci men Type: BLOOD SPECIMEN Ordering Facility: [facility] Address: [address] [place] [address] Performed By: #### 5 195-3, 63611-8, 94366-7 #### [facility] CLIA [id number] [address] [place] [address] [place] MCV (RBC) [Entitic vol] 87.7 fL Normal 80.0-100.0 [place] Comment on above: Order Comment: Speci men Type: BLOOD SPECIMEN Ordering Facility: [facility] Address: [address] [place] [address] Performed By: #### 5 195-3, 63602-1, 54255-1 #### [facility] CLIA [id number] [address] [place] [address] [place] Nucleated RBC (Bld) [#/Vol] 10*3/uL Normal <0.01 [place] Comment on above: Order Comment: Speci men Type: BLOOD SPECIMEN Ordering Facility: [facility] Address: [address] [place] [address] Performed By: #### 5 195-3, 52049-9, 43236-5 #### [facility] CLIA [id number] [address] [place] [address] [place] Platelet mean volume (Bld) [Entitic vol] 10.8 fL Normal 9.0-12.7 [place] Comment on above: Order Comment: Speci men Type: BLOOD SPECIMEN Ordering Facility: [facility] Address: [address] [place] [address] Performed By: #### 5 195-3, 94449-7, 48075-2 #### [facility] CLIA [id number] [address] [place] [address] [place] Platelets (Bld) [#/Vol] 334 10*3/uL Normal 150-400 [place] Comment on above: Order Comment: Speci men Type: BLOOD SPECIMEN Ordering Facility: [facility] Address: [address] [place] [address] Performed By: #### 5 195-3, 78529-3, 19475-1 #### [facility] CLIA [id number] [address] [place] [address] [place] RBC (Bld) [#/Vol] 4.94 10*6/uL Normal 3.90-5.20 [facility] Comment on above: Order Comment: Speci men Type: BLOOD SPECIMEN Ordering Facility: [facility] Address: [address] [place] [address] Performed By: #### 5 195-3, 91300-1, 50469-1 #### [facility] CLIA [id number] [address] [place] [address] [place] WBC (Bld) [#/Vol] 6.70 10*3/uL Normal 3.70-11.00 [facility] Comment on above: Order Comment: Speci men Type: BLOOD SPECIMEN Ordering Facility: [facility] Address: [address] [place] [address] Performed By: #### 5 195-3, 63903-0, 57703-3 #### [facility] CLIA [id number] [address] [place] [address] [place] nuchal translucency me asured by USon 01-16-2024 Indication First trimester screening Obesity, BMI >30 Impression REMOTE READ 1. Single, live, intrauterine . 2. Apollo rump length measurement is consistent with the established gestational age. 3. No gross abnormalities are noted. 4. The nuchal translucency measurement appears within normal limits at 1 mm. Maternal Structures: Left Ovary: Size 23 mm x 20 mm x 20 mm Recommendations Return for anatomy ultrasound Maternal Assessment Height 175 cm Height (ft) 5 ft Height (in) 9 in Physical Exam Initial weight (lb) 271 lb Initial BMI 40.02 kg/m Maternal assessment other: 2 Para 1 Method Transabdominal ultrasound examination Bond . Number of fetuses: 1 Dating LMP on: 10/27/2023 Cycle: regular cycle GA by LMP 11 w + 4 d HARRY by LMP: 08/02/2024 GA by prior assessment 11 w + 4 d HARRY by prior assessment: 08/02/2024 Ultrasound examination on: 01/16/2024 GA by U/S based upon: CRL GA by U/S 11 w + 4 d HARRY by U/S: 08/02/2024 Assigned: based on ultrasound (CRL), selected on 12/20/2023 Assigned GA 11 w + 2 d Assigned HARRY: 08/04/2024 General Evaluation Cardiac activity present Placenta: anterior Cord vessels: 3 vessel cord Amniotic fluid: normal amount Biometry Standard FHR 172 bpm CRL 47.5 mm 11w 4d 50% Hadlock NT 1.00 mm Anatomy The following structures appear normal: Cranium. Face. Abdominal wall. Stomach. Bladder. Arms. Legs. Maternal Structures Uterus / Cervix Uterus: Visualized Uterus length 97 mm Uterus width 86 mm Uterus height 70 mm Uterus Vol 305.1 cm Ovaries / Tubes / Adnexa Rt ovary: Not visualized Lt ovary: Visualized Lt ovary D1 23 mm Lt ovary D2 20 mm Lt ovary D3 20 mm Lt ovary Vol 4.8 cm Performed By: Shellie Monroe RDMS, RVT Read By: Natalya Louise M.D. MATERNAL MEDICINE [facility] Radiology Study observation (narrative) [facility] HBV surface Ag Ser Qlon 05- HBV surface Ag Ql (S) Negative Normal Negative [place] Comment on above: Order Comment: Speci men Type: BLOOD SPECIMEN Ordering Facility: [facility] Address: [address] [place] [address] Performed By: #### 5 195-3, 10823-6, 04130-5 #### [facility] CLIA [id number] [address] [place] [address] [place] HCV Ab Ser Qlon 01-16-2024 HCV Ab Ql (S) Negative Normal Negative [place] Comment on above: Order Comment: Speci men Type: BLOOD SPECIMEN Ordering Facility: [facility] Address: [address] [place] [address] Result Comment: The result suggests no evidence of active infection with Hepatitis C virus. Should recent infection be suspected, repeat testing may be considered 4-6 weeks after this draw. Performed By: #### 5 195-3, 35087-6, 93148-3 #### [facility] CLIA [id number] [address] [place] [address] [place] HIV 1+2 Ab IA Qlon 4 HIV 1 and 2 Ab IA.rapid Nom (S/P/Bld) Normal [place] Comment on above: Order Comment: Speci men Type: BLOOD SPECIMEN Ordering Facility: [facility] Address: [address] [place] [address] Result Comment: Test not indicated. Performed By: #### 5 195-3, 10839-5, 05735-1 #### [facility] CLIA [id number] 57 [place] [address] OF [facility] HIV 1+2 Ab+HIV1 p24 Ag IA Ql Non-Reactive Normal Nonreactive [place] Comment on above: Order Comment: Speci men Type: BLOOD SPECIMEN Ordering Facility: [facility] Address: [address] [place] [address] Performed By: #### 5 195-3, 86270-6, 85374-8 #### [facility] CLIA [id number] [address] [place] [address] [place] HIV immunoassay testing algorithm interpretation (S/P/Bld) [Interp] Normal [place] Comment on above: Order Comment: Speci men Type: BLOOD SPECIMEN Ordering Facility: [facility] Address: [address] [place] [address] Result Comment: No e vidence of HIV-1 or HIV-2 infection. Should recent infection be suspected, repeat testing may be considered 2-3 weeks after this draw. [place] Rev. Code 3701.243(E): This information has been disclosed to you from confidential records protected from disclosure by state law. ???You shall make no further disclosure of this information without the specific, written, and informed release of the individual to whom it pertains or as otherwise permitted by state law. A general authorization for the release of medical or other information is not sufficient for the purpose of the release of HIV test results or diagnoses. Performed By: #### 5 195-3, 00321-9, 45026-5 #### [facility] CLIA [id number] [address] [place] [address] OF [facility] HbA1c (Bld)on 01-16-2024 Average glucose Estimated from glycated hemoglobin (Bld) [Mass/Vol] 85 mg/dL Normal [place] Comment on above: Order Comment: Speci men Type: BLOOD SPECIMEN Ordering Facility: [facility] Address: [address] [place] [address] Result Comment: eAG: (Estimated average glucose) is a calculated value from HgbA1c and is motor vehicle field representative of the average blood glucose level in the last 2-3 month period. Performed By: #### 2 4323-8 #### [facility] CLIA [id number] [address] [place] [address] OF [facility] HbA1c (Bld) [Mass fraction] 4.6 % Normal 4.3-5.6 [place] Comment on above: Order Comment: Richii alma Type: BLOOD SPECIMEN Ordering Facility: [facility] Address: [address] [place] [address] Result Comment: Amer [place] Diabetes Association guidelines indicate that patients with HgbA1c in the range 5.7-6.4% are at increased risk for development of diabetes, and intervention by lifestyle modification may be beneficial. HgbA1c greater or equal to 6.5% is considered diagnostic of diabetes. Performed By: #### 2 4323-8 #### [facility] CLIA [id number] [address] [place] [address] OF [place] RUBELLA IGG ANTIBODYon 01-15 RUBELLA IGG AB, QUAL Positive Normal Positive [place] Comment on above: Order Comment: Tejas marquez Type: BLOOD SPECIMEN Ordering Facility: [facility] Address: [address] [place] [address] Result Comment: The result suggests recent or past exposure to Rubella virus or history of Rubella vaccination. Positive result may also be seen due to presence of passively-transferred antibodies. Please correlate with patient's history. Performed By: #### 5 195-3, 32851-2, 81195-0 #### [facility] CLIA [id number] [address] [place] [address] [place] Reagin and Treponema pallidu m IgG and IgM [Interp]on 01-16-2024 T. pallidum IgG+IgM IA Ql (S) Non-Reactive Normal Nonreactive [place] Comment on above: Order Comment: Speci men Type: BLOOD SPECIMEN Ordering Facility: [facility] Address: [address] [place] [address] Performed By: #### 5 195-3, 06763-5, 41326-1 #### [facility] CLIA [id number] [address] [place] [address] [place] Reagin+T pallidum IgG+IgM Se rPl-Impon 01-16-2024 Reagin and Treponema pallidum IgG and IgM [Interp] Cannot exclude recent Treponemal infection if specimen collected within 7-10 days after appearance of suspect lesions or 2-3 weeks after an exposure. Clinical correlation is required. Normal [place] Comment on above: Order Comment: Speci men Type: BLOOD SPECIMEN Ordering Facility: [facility] Address: [address] [place] [address] Performed By: #### 5 195-3, 13946-7, 01270-6 #### [facility] CLIA [id number] [address] [place] [address] [place] TYPE + SCREEN PRENATALon ABO A Normal [place] Comment on above: Order Comment: Speci men Type: BLOOD SPECIMEN Ordering Facility: [facility] Address: [address] [place] [address] Performed By: #### 5 195-3, 13534-1, 80662-2 #### [facility] CLIA [id number] [address] [place] [address] [place] HISTORICAL AB SCR STATUS Negative Normal [place] Comment on above: Order Comment: Speci men Type: BLOOD SPECIMEN Ordering Facility: [facility] Address: [address] [place] [address] Performed By: #### 5 195-3, 92542-5, 74347-2 #### [facility] CLIA [id number] [address] [place] [address] [place] Rh Nom (Bld) Positive Normal [place] Comment on above: Order Comment: Speci men Type: BLOOD SPECIMEN Ordering Facility: [facility] Address: [address] [place] [address] Performed By: #### 5 195-3, 44827-7, 70222-9 #### [facility] CLIA [id number] [address] [place] [address] [place] TYPE AND SCREEN EXPIRATION 01/19/2024 23:59 Normal [place] Comment on above: Order Comment: Speci men Type: BLOOD SPECIMEN Ordering Facility: [facility] Address: [address] [place] [address] Performed By: #### 5 195-3, 31400-8, 55760-2 #### [facility] CLIA [id number] [address] [place] [address] [place] Bacteria Ur Culton Bacteria identified Cx Nom (U) ORGANISM ID: 1 <10,000 CFU/ml Normal urogenital flako Normal [place] Comment on above: Performed By: #### 2 4323-8 #### [facility] CLIA [id number] [address] [place] [address] [place] C. trachomatis+N. gonorrhoea e DNA MAKEDA+probe Ql (Unsp spec)on 12-20-2023 C. trachomatis rRNA MAKEDA+probe Ql (Unsp spec) Negative Negative for Chlamydia trachomatis by amplificaton [facility] N. gonorrhoeae rRNA MAKEDA+probe Ql (Unsp spec) Negative Negative for Neisseria gonorrhoeae by amplification [facility] C. trachomatis rRNA MAKEDA+probe Ql (Unsp spec) Negative Normal Negative for Chlamydia trachomatis by amplificaton [place] Comment on above: Order Comment: Speci men Type: BLOOD SPECIMEN Ordering Facility: [facility] Address: [address] [place] [address] Performed By: #### 5 195-3, 58098-8, 09132-2 #### [facility] CLIA [id number] [address] [place] [address] N. gonorrhoeae rRNA MAKEDA+probe Ql (Unsp spec) Negative Normal Negative for Neisseria gonorrhoeae by amplification [place] Comment on above: Order Comment: Speci men Type: BLOOD SPECIMEN Ordering Facility: [facility] Address: [address] [place] [address] Performed By: #### 5 195-3, 21732-6, 04983-3 #### [facility] CLIA [id number] [address] [place] [address] [place] POC MAIL LIST PROCESSOR ULTRASOUNDon 12-20-19 24 [facility] PROGESTERONE [CCL]on 023 Progesterone 14.7 ng/mL Normal See comment [facility] Comment on above: Result Comment: Mens trual Cycle Progesterone Reference Ranges: Follicular: <1.0 ng/mL Ovulation: <12.1 ng/mL Luteal: 1.8 to 23.9 ng/mL. Progesterone Reference Ranges vary by gestational period: First Trimester: 11.0 to 44.3 ng/mL Second Trimester: 25.4 to 83.3 ng/mL Third Trimester: 58.7 to 214 ng/mL Post menopausal Progesterone: <0.5 ng/mL Reference: 1. Progesterone (Progesterone III) [package insert V 1.0 Moroccan]. [employer], [place], [place]. June 2015. [facility] [address] [place] [address] Chalino Golden III, M.D. [id number] Performed By: #### 2 83145 #### [facility],[address] [place] [address] Progest SerPl-Excela Healthon 023 Progesterone [Mass/Vol] 14.7 ng/mL Normal See comment [place] Comment on above: Order Comment: Speci men Type: BLOOD SPECIMEN Ordering Facility: [facility] Address: [address] [place] [address] Result Comment: Mens trual Cycle Progesterone Reference Ranges: Follicular: <1.0 ng/mL Ovulation: <12.1 ng/mL Luteal: 1.8 to 23.9 ng/mL. Progesterone Reference Ranges vary by gestational period: First Trimester: 11.0 to 44.3 ng/mL Second Trimester: 25.4 to 83.3 ng/mL Third Trimester: 58.7 to 214 ng/mL Post menopausal Progesterone: <0.5 ng/mL Reference: 1. Progesterone (Progesterone III) [package insert V 1.0 Moroccan]. [employer], [place], [place]. June 2015. Performed By: #### 5 195-3, 87751-0, 09561-6 #### [facility] CLIA [id number] [address] [place] [address] [place] URINEon 07-21-2023 Beta HCG ( test) Ql (U) Negative Normal NEGATIVE [facility] Comment on above: Performed By: #### 2 80821 #### [facility],[address] [place] [address] EXTERNAL QC DONE? YES Normal [facility] Comment on above: Performed By: #### 2 66439 #### [facility],[address] [place] [address] INTERNAL QC PASS Normal [facility] Comment on above: Performed By: #### 2 53186 #### [facility],[address] [place] [address] CBC + DIFFon 07-20-2023 Baso # 0.10 x10EE3/UL Normal 0.00 - 0.10 [facility] Comment on above: Performed By: #### 2 69889 #### [place] [address]1004 Basophils/100 WBC (Bld) 0.6 % Normal 0.0 - 2.0 [facility] Comment on above: Performed By: #### 2 34142 #### [facility],[address] [place] [address] CBC + DIFF Normal [facility] Comment on above: Result Comment: CBC- COMPLETE BLOOD COUNT Performed By: #### 2 04613 #### [facility],[address] [place] [address] EO # 0.10 x10EE3/UL Normal 0.00 - 0.50 [facility] Comment on above: Performed By: #### 2 61921 #### [facility],[address] [place] [address] Eosinophils/100 WBC (Bld) 0.9 % Normal 0.0 - 7.0 [facility] Comment on above: Performed By: #### 2 30628 #### [facility],[address] [place] [address] Erythrocyte distribution width (RBC) [Ratio] 12.4 % Normal 12.0 - 15.6 [facility] Comment on above: Performed By: #### 2 10232 #### [facility],[address] [place] [address] Hematocrit (Bld) [Volume fraction] 42.1 % Normal 34.0 - 46.0 [facility] Comment on above: Performed By: #### 2 45218 #### [facility],[address] [place] [address] Hemoglobin (Bld) [Mass/Vol] 14.5 g/dL Normal 12.0 - 16.0 [facility] Comment on above: Performed By: #### 2 60748 #### [facility],[address] [place] [address] Lymph # 2.20 x10EE3/UL Normal 0.80 - 2.80 [facility] Comment on above: Performed By: #### 2 35814 #### [facility],[address] [place] [address] Lymphocytes/100 WBC (Bld) 23.1 % Normal 20.0 - 45.0 [facility] Comment on above: Performed By: #### 2 60768 #### [facility],[address] [place] [address] MANUAL DIFF N/A Normal [facility] Comment on above: Performed By: #### 2 11100 #### [facility],[address] [place] [address] MCH (RBC) [Entitic mass] 31 pg Normal 27 - 33 [facility] Comment on above: Performed By: #### 2 58664 #### [facility],[address] [place] [address] MCHC 35 X10 3 Normal 32 - 36 [facility] Comment on above: Performed By: #### 2 72334 #### [facility],[address] [place] [address] MCV (RBC) [Entitic vol] 90 fL Normal 80 - 99 [facility] Comment on above: Performed By: #### 2 56732 #### [facility],[address] [place] [address] Blair # 0.60 x10EE3/UL Normal 0.20 - 1.00 [facility] Comment on above: Performed By: #### 2 55315 #### [facility],[address] [place] [address] MONOS % 6.5 % Normal 0.0 - 10.0 [facility] Comment on above: Performed By: #### 2 10428 #### [facility],[address] [place], [place] [address] Morphology Alex (Bld) [Interp] N/A Normal [facility] Comment on above: Performed By: #### 2 99145 #### [facility],[address] [place] [address] Neut # 6.50 x10EE3/UL Normal 1.50 - 7.10 [facility] Comment on above: Performed By: #### 2 28423 #### [facility],[address] [place] [address] 39218 Neutrophils/100 WBC (Bld) 68.9 % Normal 46.0 - 76.0 [facility] Comment on above: Performed By: #### 2 64873 #### [facility],[address] [place] [address] 61287 PLATELET 321 x10EE3/UL Normal 150 - 450 [facility] Comment on above: Performed By: #### 2 91609 #### [facility],[address] [place] [address] 85931 Platelet mean volume (Bld) [Entitic vol] 9.0 fL Normal 6.6 - 10.5 [facility] Comment on above: Result Comment: AUTO MATED DIFFERENTIAL Performed By: #### 2 84499 #### [facility],[address] [place] [address] 54188 RBC 4.66 x 10EE6/UL Normal 4.10 - 5.30 [facility] Comment on above: Performed By: #### 2 44355 #### [facility],[address] [place] [address] 53089 WBC 9.5 x 10EE3/UL Normal 4.5 - 10.8 [facility] Comment on above: Performed By: #### 2 68439 #### [facility],[address] [place] [address] 95187 CMP with eGFRon 07-20-2023 AGE 28 years Normal [facility] Comment on above: Performed By: #### 2 12009 #### [facility],[address] [place] [address] 72057 Albumin [Mass/Vol] 3.3 g/dL Low 3.4 - 5.0 [facility] Comment on above: Performed By: #### 2 66582 #### [facility],[address] [place] [address] 43410 Albumin/Globulin [Mass ratio] 1.0 {ratio} Normal 0.9 - 1.6 [facility] Comment on above: Performed By: #### 2 72365 #### [facility],[address] [place] [address] 75077 ALK PHOS 94 U/L Normal 46 - 116 [facility] Comment on above: Performed By: #### 2 20292 #### [facility],[address] [place] [address] 85904 ALT [Catalytic activity/Vol] 37 U/L Normal 14 - 59 [facility] Comment on above: Performed By: #### 2 86251 #### [facility],[address] [place] [address] 00387 Anion gap [Moles/Vol] 10 mmol/L Normal 10 - 20 [facility] Comment on above: Performed By: #### 2 83780 #### [facility],[address] [place] [address] 48604 AST [Catalytic activity/Vol] 14 U/L Normal 13 - 39 [facility] Comment on above: Performed By: #### 2 11798 #### [facility],[address] [place] [address] 44548 B/C RATIO 6 ratio Normal 0 - 30 [facility] Comment on above: Performed By: #### 2 79334 #### [facility],[address] [place] [address] 71103 Bilirubin [Mass/Vol] 0.4 mg/dL Normal 0.2 - 1.0 [facility] Comment on above: Performed By: #### 2 91231 #### [facility],[address] [place] [address] 40324 Calcium [Mass/Vol] 8.4 mg/dL Low 8.5 - 10.1 [facility] Comment on above: Performed By: #### 2 80404 #### [facility],[address] [place] [address] 96558 Chloride [Moles/Vol] 104 mmol/L Normal 98 - 107 [facility] Comment on above: Performed By: #### 2 99961 #### [facility],[address] [place] [address] 92313 CMP with eGFR Normal [facility] Comment on above: Result Comment: COMP REHENSIVE METABOLIC PANEL Performed By: #### 2 99648 #### [facility],[address] [place] [address] 64691 CO2 [Moles/Vol] 28.7 mmol/L Normal 21.0 - 32.0 [facility] Comment on above: Performed By: #### 2 65071 #### [facility],[address] [place] [address] 44380 Creatinine [Mass/Vol] 0.68 mg/dL Normal 0.55 - 1.02 [facility] Comment on above: Performed By: #### 2 13349 #### [facility],[address] [place] [address] 60320 GFR/1.73 sq M.predicted among non-blacks MDRD (S/P/Bld) [Vol rate/Area] mL/min/{1.73_m2} Normal 60 - 999 [facility] Comment on above: Performed By: #### 2 07276 #### [facility],[address] [place], [place] [address] Result Comment: ACCO RDING TO THE NATIONAL KIDNEY DISEASE EDUCATION PROGRAM(NKDE), A NORMAL eGFR IS A VALUE GREATER THAN OR EQUAL TO 60 ML/MIN/1.73 SQ METERS. CHRONIC KIDNEY DISEASE: <60mL/MIN/1.73 SQ METERS KIDNEY FAILURE: <15mL/MIN/1.73 SQ METERS THIS TEST SHOULD ONLY BE USED FOR PATIENTS 18 YEARS OF AGE AND OLDER. Globulin (S) [Mass/Vol] 3.3 g/dL Normal 1.5 - 3.8 [facility] Comment on above: Performed By: #### 2 09382 #### [facility],[address] [place] [address] 25718 Glucose [Mass/Vol] 78 mg/dL Normal 74 - 106 [facility] Comment on above: Performed By: #### 2 25079 #### [facility],[address] [place] [address] 35958 Potassium [Moles/Vol] 3.4 mmol/L Low 3.5 - 5.1 [facility] Comment on above: Performed By: #### 2 68833 #### [facility],[address] [place] [address] 79477 Protein [Mass/Vol] 6.6 g/dL Normal 6.4 - 8.2 [facility] Comment on above: Performed By: #### 2 66114 #### [facility],[address] [place] [address] 09195 Sodium [Moles/Vol] 139 mmol/L Normal 136 - 145 [facility] Comment on above: Performed By: #### 2 45124 #### [facility],[address] [place] [address] 66469 Urea nitrogen [Mass/Vol] 4 mg/dL Low 7 - 18 [facility] Comment on above: Performed By: #### 2 71240 #### [facility],[address] [place] [address] 16092 CORONAVIRUS (SARS) ANTIGEN T THOon 07-20-2023 EXTERNAL QC DONE? YES Normal [facility] Comment on above: Performed By: #### 2 20790 #### [facility],[address] [place] [address] 45266 INTERNAL CONTROL PASS Normal [facility] Comment on above: Performed By: #### 2 41461 #### [facility],[address] [place] [address] 48966 SARS ANTIGEN Negative Normal NORMAL: NEGATIVE [facility] Comment on above: Performed By: #### 2 07636 #### [facility],[address] [place], [place] [address] SEND TO ? NO Normal [facility] Comment on above: Result Comment: SARS -CoV-2 THIS TEST IS BEING USED UNDER THE FDA EUA PROCEDURE. THIS ASSAY HAS BEEN VALIDATED AT [facility] FOR USE WITH NASAL AND NASOPHARYNGEAL SWAB SPECIMENS. INTERPRETIVE DATA TEST RESULTS SHOULD ALWAYS BE CONSIDERED IN THE CONTEXT OF CLINICAL OBSERVATIONS AND EPIDEMIOLOGICAL DATA IN MAKING FINAL DIAGNOSIS AND PATIENT MANAGEMENT DECISIONS. PATIENT MANAGEMENT SHOULD FOLLOW CURRENT CDC GUIDELINES. THE STEPHAN SARS ANTIGEN LORE DOES NOT DIFFERENTIATE BETWEEN SARS-CoV & SARS-CoV-2. A POSITIVE TEST RESULT INDICATES THE PRESENCE OF SARS-CoV-2 NUCLEOCAPSID PROTEIN ANTIGEN, AND THE PATIENT IS INFECTED WITH THE VIRUS AND PRESUMED TO BE CONTAGIOUS. A NEGATIVE TEST RESULT FOR THIS TEST MEANS THAT SARS-CoV-2 NUCLEOCAPSID PROTEIN ANTIGEN WAS NOT PRESENT IN THE SPECIMEN ABOVE THE LIMIT OF DETECTION. HOWEVER, A NEGATIVE RESULT DOES NOT RULE OUT COVID-19 AND SHOULD NOT BE USED THE SOLE BASIS FOR TREATMENT OR PATIENT MANAGEMENT DECISIONS. A NEGATIVE RESULT DOES NOT EXCLUDE THE POSSIBILITY OF COVID-19. NEGATIVE RESULTS, FROM PATIENTS WITH SYMPTOM ONSET BEYOND FIVE DAYS, SHOULD BE TREATED PRESUMPTIVE AND CONFIRMATION WITH A MOLECULAR ASSAY, IF NECESSARY, FOR PATIENT MANAGEMENT, MAY BE PERFORMED. WHEN DIAGNOSTIC TESTING IS NEGATIVE, THE POSSIBLILTY OF A FALSE NEGATIVE RESULT SHOULD BE CONSIDERED IN THE CONTEXT OF A PATIENT'S RECENT EXPOSURES AND THE PRESENCE OF CLINICAL SIGNS AND SYMPTOMS CONSISTENT WITH COVID-19. THE POSSIBILITY OF A FALSE NEGATIVE RESULT SHOULD ESPECIALLY BE CONSIDERED IF THE PATIENT'S RECENT EXPOSURES OR CLINICAL PRESENTATION INDICATE THAT COVID-19 IS LIKELY, AND DIAGNOSTIC TESTS FOR OTHER CAUSES OF ILLNESS (e.g., OTHER RESPIRATORY ILLNESS) ARE NEGATIVE. IF COVID-19 IS STILL SUSPECTED BASED ON EXPOSURE HISTORY TOGETHER WITH OTHER CLINICAL FINDINGS, RE-TESTING SHOULD BE CONSIDERED BY HEALTHCARE PROVIDERS IN CONSULTATION WITH PUBLIC HEALTH AUTHORITIES. Performed By: #### 2 27645 #### [place] [id number] CT ABDOMEN/PELVIS [facility] 2022 CT ABDOMEN/PELVIS [place] [address] Patient: SUELLENGINGER Phone#: : [phone] Age: 28 Gender: F Pt. Type: ER Account: [id number] Location: 052 Ordering: MARY ZULEYKA Exam Date: 07/20/202319:35 Family Phys: DAYO CEBALLOS Charge Code: [id number] Physician: [place] Order #: [id number] Dose#: [id number] PROCEDURE: CT ABDOMEN/PELVIS WITH CONTRAST COMPARISON: [facility], CT, ABDOMEN/PELVIS W CON, 03/05/2018, 21:04. INDICATIONS: Abdominal pain. TECHNIQUE: After obtaining the patient's consent, CT images were created with non-ionic intravenous contrast material. All CT scans at this facility use dose modulation, iterative reconstruction, and/or weight based dosing when appropriate to reduce radiation dose to as low as reasonably achievable. IV CONTRAST: Omnipaque 350,80ml TOTAL DOSE: 35.20 CTDIvol(mGy) FINDINGS: LIVER: Normal. No enlargement, atrophy, abnormal density, or significant focal lesion. BILIARY: Gallbladder is present PANCREAS: Normal. No lesion, fluid collection, ductal dilatation, or atrophy. SPLEEN: Normal. No enlargement or focal lesion. KIDNEYS: Kidneys enhance and excrete contrast symmetrically. No hydronephrosis. ADRENALS: Normal. No mass or enlargement. AORTA/VASCULAR: No aortic aneurysm. RETROPERITONEUM: Normal. No mass or adenopathy. BOWEL/MESENTERY: No bowel obstruction or dilatation. No significant stool burden. Appendix is unremarkable in size. ABDOMINAL WALL: Fat containing umbilical hernia URINARY BLADDER: Normal. No visible focal wall thickening, lesion, or calculus. PELVIC NODES: Normal. No adenopathy. PELVIC ORGANS: Uterus is present. No adnexal mass BONES: Normal. No bony lesion or fracture. LUNG BASES: There is a right lower lobe infiltrate. OTHER: Negative. Continued Report - Page 2 of 2 Patient: GINGER KEN Phone#: : [phone] Age: 28 Gender: F Pt. Type: ER Account: [id number] Location: 052 Ordering: [facility] Exam Date: 07/20/2023/19:35 Family Phys: DAYO CEBALLOS Charge Code: [id number] Physician: [place] Order #: [id number] Dose#: 35.20 CONCLUSION: Right lower lobe infiltrate/pneumoni a Dictated by: Sheila Dumont MD on 07/21/2023 at 15:16 Approved by: Sheila Dumont MD on 07/21/2023 at 15:23 Normal [facility] LIPASEon 07-20-2023 Lipase [Catalytic activity/Vol] 49.0 U/L Low 73.0 - 393 [facility] Comment on above: Performed By: #### 2 15242 #### [facility],[address] [place] [address] URINALYSISon 07-20-2023 Bilirubin Ql (U) Negative Normal NORMAL: NEGATIVE [facility] Comment on above: Performed By: #### 2 74024 #### [facility],[address] [place] [address] Clarity (U) clear Normal NORMAL: CLEAR [facility] Comment on above: Performed By: #### 2 [id number] #### [facility],[address] [place] [address] Color (U) yellow Normal NORMAL: YELLOW [facility] Comment on above: Performed By: #### 2 [id number] #### [facility],[address] [place] [id number] Glucose Ql (U) NORM Normal NORMAL: NORMAL [facility] Comment on above: Performed By: #### 2 [id number] #### [facility],[address] [place] [id number] Hemoglobin Ql (U) Negative Normal NORMAL: NEGATIVE [facility] Comment on above: Performed By: #### 2 [id number] #### [facility],[address] [place] [address] Ketone Negative Normal NORMAL: NEGATIVE [facility] Comment on above: Performed By: #### 2 79912 #### [facility],[address] [place] [address] 06372 Leukocytes Negative Normal NORMAL: NEGATIVE [facility] Comment on above: Performed By: #### 2 09369 #### [facility],[address] [place] [address] Nitrite Ql (U) Negative Normal NORMAL: NEGATIVE [facility] Comment on above: Performed By: #### 2 14171 #### [facility],[address] [place] [address] pH (U) 6.5 [pH] Normal NORMAL: 5.0-8.0 [facility] Comment on above: Performed By: #### 2 [id number] #### [facility],[address] [place], [place] [id number] Protein Ql (U) Negative Normal NORMAL: NEGATIVE [facility] Comment on above: Performed By: #### 2 [id number] #### [facility],[address] [place] [address] Sp Marks 1.015 Normal NORMAL: 1.010-1.030 [facility] Comment on above: Performed By: #### 2 00005 #### [facility],[address] [place] [address] Specimen Type UNSPECIFIED Normal [facility] Comment on above: Performed By: #### 2 66969 #### [facility],[address] [place] [address] Urinalysis dipstick W Reflex Microscopic panel (U) NOT INDICATED Normal [facility] Comment on above: Performed By: #### 2 27926 #### [facility],[address] [place], [place] [id number] Urobilinog NORM Normal NORMAL: NORMAL [facility] Comment on above: Performed By: #### 2 [id number] #### [facility],[address] [place], [place] [id number] CNOVon 07-17-2023 CNOV Office Visit (OBGYWM) ---- GINGER KEN ([id number]) 1995 F Date Time Provider Department 07/17/23 3:10 PM JOSE RAPHAEL OBGYWM During your visit today, we recorded the following information about you: Blood pressure Weight Height Last Period 132/80 115.3 kg 1.753 m 07/05/23 Jose Raphael MD 07/17/2023 4:08 PM Signed Ginger Ken is a 28 year old [id number] female who presents for problem visit as a new patient referral from [facility]-STOCK DRIVER for family planning discussion and care. HPI: (Flex) and Ginger have been thinking of having another child. Ginger has PCOS and has had to take ovulation-inducing medications prior to conceiving her first child, her son, 2.5 years ago. Hx of anxiety and depression, currently on Wellbutrin 300 mg. Hx of Vitamin D deficiency, felt that the supplementation made her more fatigued so discontinued approx 1 month ago. Last vitamin D 27.4 on 03/06. Was taking 50,000 Ius weekly PO. OB History One , had cyst on umbilical cord which self-resolved. Was induced but not for medical necessity, no hx of preeclampsia, GDM. 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 Previously on Depo shot which helped w/ pain management. Currently having cycles of approx 26 days, she is bleeding for 5 days with onset of bleeding occurring one week earlier than in the past. Some menstrual pain noted. TEACHING PROVIDER (Physician/PA/ADDICTION PSYCHIATRIST) NOTE OF PERSONAL INVOLVEMENT IN CARE: I have personally seen and examined the patient and performed the medical decision-making components. I have reviewed the Medical Student's documentation and verified the findings in the note as written. Any additions or changes are noted in bold/italics. Signature: Jose Raphael Date: 07/17/2023 Time: 4:05 PM Sales And Service Specialist History LMP: 07/05/2023, Having periods Age at Menarche: Age at First : Age at Menopause: Sales And Service Specialist History Comments: Sexual Activity: Yes; Male Contraception: None PAST MEDICAL HISTORY Diagnosis Date Anxiety and depression Endometriosis PCOS (polycystic ovarian syndrome) PAST SURGICAL HISTORY Procedure Laterality Date PAST SURGICAL HISTORY OF 2019 Laparoscopy for Endometriosis at [facility] FAMILY HISTORY Problem Relation Age of Onset [place] Disease Mother Diabetes Father Hypertension Sister Social History Tobacco Use Smoking status: Never Smokeless tobacco: Never Vaping Use Vaping Use: Never used Substance Use Topics Alcohol use: Yes Comment: occasionally Drug use: Never Current Outpatient Medications Medication Sig buPROPion XL (WELLBUTRIN XL) 300 mg 24 hr tablet Take 300 mg by mouth once daily. fexofenadine HCl (DEVIN ORAL) Take by mouth. No current facility-administer ed medications for this visit. Allergies As of Date: 07/17/2023 (No Known Allergies) Fully Assessed 07/17/2023 REVIEW OF SYSTEMS Gen: Endorses fatigue, hx of Vitamin D deficiency Abdomen: No bloating, early satiety, indigestion, or increased flatulence. No abdominal pain, nausea, vomiting, diarrhea, or constipation. Bladder: No dysuria, gross hematuria, urinary frequency, urinary urgency, or incontinence. Breast: No breast lumps, nipple d/c, overlying skin changes, redness or skin retraction. Expanded ROS: N/A Allergies and current medication updated:Yes EXAM: BP 132/80 Ht 5' 9 (1.75m) Wt 254 lb 3.2 oz (115.3kg) LMP 07/05/2023 BMI 37.52 kg/(m2). GENERAL: pleasant, female in no apparent distress ASSESSMENT AND PLAN: 28yo female with anovulation Discussed R/B/A of options and patient wishes to proceed with letrozole. Use reviewed in detail AND all questions answered. Will check a day 21 progesterone level. Advised on preconception folic acid supplementation and patient will take PNV for at least 1 month before starting letrozole. Patient will discussed vitamin D supplementation with her pcp. She also reports thyroid AND diabetes screening with her pcp within the last year. Medical Decision Making: Problems: Low: Stable chronic illness Data: Unique test(s) ordered: 1 Risk: Moderate: Drug management Medical Decision Making Level: 3 - Low MD Spike Grullon Karmon, MD 07/17/2023 3:39 PM Signed LETROZOLE (Femara) INSTRUCTIONS Letrozole: 1 tablet(s) a day, cycle days 3-7 Note: 1st day of full flow is cycle day 1 Have sexual intercourse approximately every other day for 1 week beginning cycle day 11 You don't need temperature charts or LH predictor kits because normal cycle lengths indicate ovulatory cycles. Call office if: cycles longer than 35 days Side effects of Letrozole may include: acne headache hot flushes leg cramps nausea If side effects are severe, alternative medications may be available. Letrozole has a 5% chance of multiple pr (more content not included)... Normal [place] SARS CoV 2 RNA(COVID 19), QU ALITATIVE [facility] 06-13-2020 SARS CoV 2 RNA NOT DETECTED Normal NOT DETECTED [facility] Comment on above: Result Comment: A Not Detected (negative) test result for this test means that SARS- CoV-2 RNA was not present in the specimen above the limit of detection. A negative result does not rule out the possibility of COVID-19 and should not be used as the sole basis for treatment or patient management decisions. If COVID-19 is still suspected, based on exposure history together with other clinical findings, re-testing should be considered in consultation with public health authorities. Laboratory test results should always be considered in the context of clinical observations and epidemiological data in making a final diagnosis and patient management decisions. Please review the Fact Sheets and FDA authorized labeling available for health care providers and patients using the following websites: https://www.AdAdapted.com/home/Covid-19/HCP/NAAT/fact-sheet 2 https://www.[employer].Global Weather/home/Covid-19/Patients/NAAT/ fact-sheet2 This test has been authorized by the FDA under an Emergency Use Authorization (EUA) for use by authorized laboratories. Due to the current public health emergency, [facility] is receiving a high volume of samples from a wide variety of swabs and media for COVID-19 testing. In order to serve patients during this public health crisis, samples from appropriate clinical sources are being tested. Negative test results derived from specimens received in non-commercially manufactured viral collection and transport media, or in media and sample collection kits not yet authorized by FDA for COVID-19 testing should be cautiously evaluated and the patient potentially subjected to extra precautions such as additional clinical monitoring, including collection of an additional specimen. Methodology: Nucleic Acid Amplification Test (NAAT) includes PCR or TMA Additional information about COVID-19 can be found at the [employer] website: www.BeneChill.com/Covid19. Performed By: #### 3 [id number] #### [facility] [address] [facility], [address] [place] [id number] Medical Education Manager: Jalen Williamson MD SARS CoV 2 RNA(COVID 19), CAS [place] 02-07-2020 SARS CoV 2 RNA NOT DETECTED Normal NOT DETECTED [facility] Comment on above: Result Comment: A Not Detected (negative) test result for this test means that SARS- CoV-2 RNA was not present in the specimen above the limit of detection. A negative result does not rule out the possibility of COVID-19 and should not be used as the sole basis for treatment or patient management decisions. If COVID-19 is still suspected, based on exposure history together with other clinical findings, re-testing should be considered in consultation with public health authorities. Laboratory test results should always be considered in the context of clinical observations and epidemiological data in making a final diagnosis and patient management decisions. Please review the Fact Sheets and FDA authorized labeling available for health care providers and patients using the following websites: https://www.AdAdapted.com/home/Covid-19/HCP/NAAT/fact-sheet 2 https://www.[employer].Global Weather/home/Covid-19/Patients/NAAT/ fact-sheet2 This test has been authorized by the FDA under an Emergency Use Authorization (EUA) for use by authorized laboratories. Due to the current public health emergency, [facility] is receiving a high volume of samples from a wide variety of swabs and media for COVID-19 testing. In order to serve patients during this public health crisis, samples from appropriate clinical sources are being tested. Negative test results derived from specimens received in non-commercially manufactured viral collection and transport media, or in media and sample collection kits not yet authorized by FDA for COVID-19 testing should be cautiously evaluated and the patient potentially subjected to extra precautions such as additional clinical monitoring, including collection of an additional specimen. Methodology: Nucleic Acid Amplification Test (NAAT) includes PCR or TMA Additional information about COVID-19 can be found at the [employer] website: www.BeneChill.com/Covid19. Performed By: #### 3 [id number] #### [facility] [address] [facility], [address] [place] [address] Medical Education Manager: Jalen Williamson MD .GFRon 07-12-2018 GFR >60 Normal [facility] ([place]) Comment on above: Result Comment: GFR Population mean for , Non- Americans Ages 20-29 = 116 mL/min/1.73 sq.m. Ages 30-39 = 107 mL/min/1.73 sq.m. Ages 40-49 = 99 mL/min/1.73 sq.m. Ages 50-59 = 93 mL/min/1.73 sq.m. Ages 60-69 = 85 mL/min/1.73 sq.m. Ages 70+ = 75 mL/min/1.73 sq.m.Chronic Kidney Disease: Less than 60 mL/min/1.73 square metersEnd Stage Renal Disease: Less than 15 mL/min/1.73 square meters Performed By: #### C MP, GFR, LIPID ####[address] [address] GFR Non- >60 Normal [facility] ([place]) Comment on above: Result Comment: GFR Population mean for , Non- Americans Ages 20-29 = 116 mL/min/1.73 sq.m. Ages 30-39 = 107 mL/min/1.73 sq.m. Ages 40-49 = 99 mL/min/1.73 sq.m. Ages 50-59 = 93 mL/min/1.73 sq.m. Ages 60-69 = 85 mL/min/1.73 sq.m. Ages 70+ = 75 mL/min/1.73 sq.m.Chronic Kidney Disease: Less than 60 mL/min/1.73 square metersEnd Stage Renal Disease: Less than 15 mL/min/1.73 square meters Performed By: #### C MP, GFR, LIPID ####[address] [address] CMPon 07-12-2018 Albumin/Globulin mass ratio 1.1 {ratio} Normal 0.9-1.6 [facility] ([place]) Comment on above: Performed By: #### C MP, GFR, LIPID ####[address] [address] ALP enzyme act/vol 110 U/L Normal 38-126 [facility] ([place]) Comment on above: Performed By: #### C MP, GFR, LIPID ####[place] [address] ALT enzyme act/vol 34 U/L Normal 10-49 [facility] ([place]) Comment on above: Performed By: #### C MP, GFR, LIPID ####[place] [address] Bili Total 0.4 mg/dL Normal 0.2-1.2 [facility] ([place]) Comment on above: Performed By: #### C MP, GFR, LIPID ####[place] [address] Creatinine mass conc 0.71 mg/dL Normal 0.50-1.20 [facility] ([place]) Comment on above: Performed By: #### C MP, GFR, LIPID ####[place] [address] Globulin Calculated mass conc (S) 3.6 G/dL Normal 1.5-3.8 [facility] ([place]) Comment on above: Performed By: #### C MP, GFR, LIPID ####[place] [address] Protein mass conc 7.7 G/dL Normal 6.0-8.5 [facility] ([place]) Comment on above: Performed By: #### C MP, GFR, LIPID ####[place] [address] Urea nitrogen/Creatinine mass ratio 11.3 ratio Normal 10.0-22.0 [facility] ([place]) Comment on above: Performed By: #### C MP, GFR, LIPID ####[place] [address] Albumin mass conc 4.1 G/dL Normal 3.2-4.8 [facility] ([place]) Comment on above: Performed By: #### C MP, GFR, LIPID ####[place] [address] AST enzyme act/vol 16 U/L Normal 8-34 [facility] ([place]) Comment on above: Performed By: #### C MP, GFR, LIPID ####[address] [address] Calcium mass conc 9.6 mg/dL Normal 8.4-10.1 [facility] ([place]) Comment on above: Performed By: #### C MP, GFR, LIPID ####[address] [address] Chloride molar conc 108 mmol/L Normal 98-110 [facility] ([place]) Comment on above: Performed By: #### C MP, GFR, LIPID ####[address] [address] CO2 molar conc 24 mmol/L Normal 22-32 [facility] ([place]) Comment on above: Performed By: #### C MP, GFR, LIPID ####[place] [address] Electrolyte Balance 9.0 mEq/L Normal 4.0-15.0 [facility] ([place]) Comment on above: Performed By: #### C MP, GFR, LIPID ####[place] [address] Glucose mass conc 82 mg/dL Normal 70-110 [facility] ([place] Comment on above: Performed By: #### C MP, GFR, LIPID ####[place] [address] Potassium molar conc 4.2 mmol/L Normal 3.5-5.0 [facility] ([place] Comment on above: Performed By: #### C MP, GFR, LIPID ####[place] [address] Sodium molar conc 141 mmol/L Normal 136-145 [facility] ([place] Comment on above: Performed By: #### C MP, GFR, LIPID ####[place] [address] Urea nitrogen mass conc 8.0 mg/dL Normal 8.0-22.0 [facility] ([place]) Comment on above: Performed By: #### C MP, GFR, LIPID ####[facility] [place] [address] LIPIDon 07-12-2018 Cholesterol in HDL mass conc 41 mg/dL Normal 40-59 [facility] ([place]) Comment on above: Order Comment: killb uck savings Result Comment: HDL Reference Interval:Less than 40 Low - high risk60 or above Optimal/lowers risk Performed By: #### C MP, GFR, LIPID ####[place] [id number] [place] [address] Cholesterol in LDL mass conc 77 mg/dL Normal 0-129 [facility] ([place]) Comment on above: Order Comment: killb uck savings Result Comment: LDL is a calculated result and requires a 12-hr fast.LDL Reference Interval:Less than 100 [id number] Near or above -366 Borderline high [id number] High [id number] and above Very high risk Performed By: #### C MP, GFR, LIPID ####[address] [address] Cholesterol mass conc 131 mg/dL Normal 50-199 [facility] ([place]) Comment on above: Order Comment: killb uck savings Result Comment: Chol esterol Reference Interval:Less than 200 [id number] Borderline high [id number] and above High risk Performed By: #### C MP, GFR, LIPID ####[place] [id number] [place] [address] Triglyceride mass conc 63 mg/dL Normal 3-149 [facility] ([place]) Comment on above: Order Comment: killb uck savings Result Comment: Trig lyceride Reference Interval:Less than 150 [id number] Borderline high [id number] High [id number] or higher Very high risk Performed By: #### C MP, GFR, LIPID ####[facility] [place] [address] Vital Signs Date Time Vital Sign Value Performing Clinician Facility 07-07-2024 11:16040 Body mass index (BMI) [Ratio] 41.79 kg/m2 Nahomi Bellamy APRN.CNM Work Phone: [facility] 07-07-2024 11:16040 Body weight 128.37 kg Nahomi Bellamy APRN.CNM Work Phone: [facility] 07-07-2024 11:16-0400 Diastolic blood pressure 76 mm[Hg] Nahomi Bellamy ADDICTION PSYCHIATRIST.CNM Work Phone: [facility] 07-07-2024 11:16-0400 Systolic blood pressure 124 mm[Hg] Nahomi Bellamy ADDICTION PSYCHIATRIST.CNM Work Phone: [facility] 07-03-2024 15:10-0400 Body mass index (BMI) [Ratio] 42.53 kg/m2 Dori Walker MD Work Phone: [facility] 07-03-2024 15:10-0400 Body weight 130.64 kg Dori Walker MD Work Phone: [facility] 07-03-2024 15:10-0400 Diastolic blood pressure 82 mm[Hg] Dori Walker MD Work Phone: [facility] 07-03-2024 15:10-0400 Systolic blood pressure 131 mm[Hg] Dori Walker MD Work Phone: [facility] 06-30-2024 11:19-0400 Body mass index (BMI) [Ratio] 41.64 kg/m2 Catie Smith MD Work Phone: [facility] 06-30-2024 11:19-0400 Body weight 127.91 kg Catie Smith MD Work Phone: [facility] 06-30-2024 11:19-0400 Diastolic blood pressure 82 mm[Hg] Catie Smith MD Work Phone: [facility] 06-30-2024 11:19-0400 Systolic blood pressure 130 mm[Hg] Catie Smith MD Work Phone: [facility] 06-25-2024 10:47-0400 Body mass index (BMI) [Ratio] 42.12 kg/m2 Elmira Schmitz APRN.VIDEOGAME DESIGNER Work Phone: [facility] 06-25-2024 10:47-0400 Body weight 129.37 kg Elmira Haury ADDICTION PSYCHIATRIST.VIDEOGAME DESIGNER Work Phone: [facility] 06-25-2024 10:47-0400 Diastolic blood pressure 76 mm[Hg] Elmira Haury ADDICTION PSYCHIATRIST.VIDEOGAME DESIGNER Work Phone: [facility] 06-25-2024 10:47-0400 Systolic blood pressure 122 mm[Hg] Elmira Haury ADDICTION PSYCHIATRIST.VIDEOGAME DESIGNER Work Phone: [facility] 06-23-2024 08:29-0400 Body mass index (BMI) [Ratio] 41.64 kg/m2 Elmira Haury ADDICTION PSYCHIATRIST.VIDEOGAME DESIGNER Work Phone: [facility] 06-23-2024 08:29-0400 Body weight 127.91 kg Elmira Haury ADDICTION PSYCHIATRIST.VIDEOGAME DESIGNER Work Phone: [facility] 06-23-2024 08:29-0400 Diastolic blood pressure 74 mm[Hg] Elmira Haury ADDICTION PSYCHIATRIST.VIDEOGAME DESIGNER Work Phone: [facility] 06-23-2024 08:29-0400 Systolic blood pressure 122 mm[Hg] Elmira Haury ADDICTION PSYCHIATRIST.VIDEOGAME DESIGNER Work Phone: [facility] 06-20-2024 16:08-0400 Body mass index (BMI) [Ratio] 41.94 kg/m2 Dori Walker MD Work Phone: [facility] 06-20-2024 16:08-0400 Body weight 128.82 kg Dori Walker MD Work Phone: [facility] 06-20-2024 16:08-0400 Diastolic blood pressure 74 mm[Hg] Dori Walker MD Work Phone: [facility] 06-20-2024 16:08-0400 Systolic blood pressure 122 mm[Hg] Dori Walker MD Work Phone: [facility] 06-18-2024 15:30-0400 Body mass index (BMI) [Ratio] 41.88 kg/m2 Tressa Le MD Work Phone: [facility] 06-18-2024 15:30-0400 Body weight 128.64 kg Tressa Le MD Work Phone: [facility] 06-18-2024 15:30-0400 Diastolic blood pressure 83 mm[Hg] Tressa Le MD Work Phone: [facility] 06-18-2024 15:30-0400 Systolic blood pressure 138 mm[Hg] Tressa Le MD Work Phone: [facility] 06-16-2024 10:38-0400 Body mass index (BMI) [Ratio] 41.64 kg/m2 Nahomi Bellamy ADDICTION PSYCHIATRIST.CNM Work Phone: [facility] 06-16-2024 10:38-0400 Body weight 127.91 kg Nahomi Bellamy ADDICTION PSYCHIATRIST.CNM Work Phone: [facility] 06-16-2024 10:38-0400 Diastolic blood pressure 72 mm[Hg] Naohmi Bellamy ADDICTION PSYCHIATRIST.CNM Work Phone: [facility] 06-16-2024 10:38-0400 Systolic blood pressure 120 mm[Hg] Nahomi Bellamy ADDICTION PSYCHIATRIST.CNM Work Phone: [facility] 06-09-2024 16:46-0400 Heart rate 96 /min Elmira Schmitz APRN.VIDEOGAME DESIGNER Work Phone: [facility] 06-09-2024 15:56-0400 Body mass index (BMI) [Ratio] 40.91 kg/m2 Elmira Schmitz APRN.VIDEOGAME DESIGNER Work Phone: [facility] 06-09-2024 15:56-0400 Body temperature 98.29 [degF] Elmira Schmitz APRN.VIDEOGAME DESIGNER Work Phone: [facility] Comment on above: oral no tylenol/motrin with viist 06-09-2024 15:56-0400 Body weight 125.65 kg Elmira Schmitz APRN.VIDEOGAME DESIGNER Work Phone: [facility] 06-09-2024 15:56-0400 Diastolic blood pressure 70 mm[Hg] Elmira Schmitz APRN.VIDEOGAME DESIGNER Work Phone: [facility] 06-09-2024 15:56-0400 Respiratory rate 18 /min Elmira Haury ADDICTION PSYCHIATRIST.VIDEOGAME DESIGNER Work Phone: [facility] 06-09-2024 15:56-0400 SaO2% (BldA) [Mass fraction] 96 % Elmira Haury ADDICTION PSYCHIATRIST.VIDEOGAME DESIGNER Work Phone: [facility] 06-09-2024 15:56-0400 Systolic blood pressure 129 mm[Hg] Elmira Haury ADDICTION PSYCHIATRIST.VIDEOGAME DESIGNER Work Phone: [facility] 05-26-2024 15:55-0400 Diastolic blood pressure 78 mm[Hg] Elmira Haury ADDICTION PSYCHIATRIST.VIDEOGAME DESIGNER Work Phone: [facility] 05-26-2024 15:55-0400 Systolic blood pressure 124 mm[Hg] Elmira Haury ADDICTION PSYCHIATRIST.VIDEOGAME DESIGNER Work Phone: [facility] 05-12-2024 13:23-0400 Body mass index (BMI) [Ratio] 40.32 kg/m2 Elmira Haury ADDICTION PSYCHIATRIST.VIDEOGAME DESIGNER Work Phone: [facility] 05-12-2024 13:23-0400 Body weight 123.83 kg Elmira Haury ADDICTION PSYCHIATRIST.VIDEOGAME DESIGNER Work Phone: [facility] 05-12-2024 13:23-0400 Diastolic blood pressure 66 mm[Hg] Elmira Haury ADDICTION PSYCHIATRIST.VIDEOGAME DESIGNER Work Phone: [facility] - [facility] 05-12-2024 13:23-0400 Systolic blood pressure 110 mm[Hg] Elmira Haury ADDICTION PSYCHIATRIST.VIDEOGAME DESIGNER Work Phone: [facility] 04-15-2024 16:30-0400 Body mass index (BMI) [Ratio] 40.76 kg/m2 Karl Romeo MD Work Phone: [facility] 04-15-2024 16:30-0400 Body weight 125.19 kg Karl Romeo MD Work Phone: [facility] 04-15-2024 16:30-0400 Diastolic blood pressure 74 mm[Hg] Karl Romeo MD Work Phone: [facility] 04-15-2024 16:30-0400 Systolic blood pressure 128 mm[Hg] Karl Romeo MD Work Phone: [facility] 03-12-2024 11:28-0400 Body mass index (BMI) [Ratio] 38.84 kg/m2 Tressa Le MD Work Phone: [facility] 03-12-2024 11:28-0400 Body weight 119.3 kg Tressa Le MD Work Phone: [facility] 03-12-2024 11:28-0400 Diastolic blood pressure 74 mm[Hg] Tressa Le MD Work Phone: [facility] 03-12-2024 11:28-0400 Systolic blood pressure 124 mm[Hg] Tressa Le MD Work Phone: [facility] 02-13-2024 15:44-0400 Body mass index (BMI) [Ratio] 39.72 kg/m2 Elmira Haury ADDICTION PSYCHIATRIST.VIDEOGAME DESIGNER Work Phone: [facility] 02-13-2024 15:44-0400 Body weight 122.02 kg Elmira Haury ADDICTION PSYCHIATRIST.VIDEOGAME DESIGNER Work Phone: [facility] 02-13-2024 15:44-0400 Diastolic blood pressure 72 mm[Hg] Elmira Haury ADDICTION PSYCHIATRIST.VIDEOGAME DESIGNER Work Phone: [facility] 02-13-2024 15:44-0400 Systolic blood pressure 122 mm[Hg] Elmira Haury ADDICTION PSYCHIATRIST.VIDEOGAME DESIGNER Work Phone: [facility] 01-16-2024 09:36-0400 Body mass index (BMI) [Ratio] 38.9 kg/m2 Catie Smith MD Work Phone: [facility] 01-16-2024 09:36-0400 Body weight 119.48 kg Catie Smith MD Work Phone: [facility] 01-16-2024 09:36-0400 Diastolic blood pressure 78 mm[Hg] Catie Smith MD Work Phone: [facility] 01-16-2024 09:36-0400 Systolic blood pressure 110 mm[Hg] Catie Smith MD Work Phone: [facility] 12-20-2023 08:46-0400 Body height 175.3 cm Renu Plotts ADDICTION PSYCHIATRIST.CNM Work Phone: [facility] 12-20-2023 08:46-0400 Body weight 122.92 kg Renu Plotts ADDICTION PSYCHIATRIST.CNM Work Phone: [facility] 12-20-2023 08:46-0400 Diastolic blood pressure 66 mm[Hg] Renu Plotts ADDICTION PSYCHIATRIST.CNM Work Phone: [facility] 12-20-2023 08:46-0400 Systolic blood pressure 118 mm[Hg] Renu Plotts ADDICTION PSYCHIATRIST.CNM Work Phone: [facility] 07-17-2023 15:11-0400 Body height 175.3 cm Jose Raphael MD Work Phone: [facility] 07-17-2023 15:11-0400 Body weight 115.3 kg Jose Raphael MD Work Phone: [facility] 07-17-2023 15:11-0400 Diastolic blood pressure 80 mm[Hg] Jose Raphael MD Work Phone: [facility] 07-17-2023 15:11-0400 Systolic blood pressure 132 mm[Hg] oJse Raphale MD Work Phone: [facility] Encounters Encounter Date Encounter Type Care Provider Facility Start: 07-07-2024 End: 07-07-2024 ambulatory ELMIRA SCHMITZ Facility:[facility] Start: 07-07-2024 End: 07-07-2024 Patient encounter procedure 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 [employer] Work Phone: Maternal Medicine Comment on above: Polyhydramnios in th ird trimester complication, single or unspecified fetus (Primary Dx); Obesity affecting in third trimester, unspecified obesity type; 36 weeks gestation of Encounter for superv ision of high risk in third trimester, antepartum (Primary Dx); 36 weeks gestation of ; Polyhydramnios affecting in third trimester; Obesity affecting in third trimester, unspecified obesity type; Group beta Strep positive; Anxiety and depression Start: 07-03-2024 End: 07-03-2024 [facility] Start: 07-03-2024 End: 07-03-2024 Patient encounter procedure Dori Walker MD Work Phone: OB/Gynecology Comment on above: Polyhydramnios affec ting in third trimester (Primary Dx); Encounter for supervision of high risk in third trimester, antepartum; Swelling of lower extremity during in third trimester; Obesity affecting in third trimester, unspecified obesity type; 35 weeks gestation of ; Group beta Strep positive Start: 07-03-2024 End: 07-03-2024 ambulatory DORI WALKER Facility:[facility] Start: 06-30-2024 End: 06-30-2024 [facility] Start: 06-30-2024 End: 06-30-2024 Patient encounter procedure 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 [facility] Work Phone: Maternal Medicine Comment on above: Polyhydramnios in th ird trimester complication, single or unspecified fetus (Primary Dx); Obesity affecting in third trimester, unspecified obesity type; 35 weeks gestation of Encounter for superv ision of high risk in third trimester, antepartum (Primary Dx); Swelling of lower extremity during in third trimester; Polyhydramnios affecting in third trimester; Obesity affecting in third trimester, unspecified obesity type; contractions; Supervision of high risk in third trimester; Need for influenza vaccination; 35 weeks gestation of Start: 06-26-2024 End: 06-26-2024 Telephone encounter Renu Moore APRN.CNM Work Phone: OB/Gynecology Comment on above: ob concerns Start: 06-25-2024 End: 06-25-2024 ambulatory ELMIRA SCHMITZ Facility:[facility] Start: 06-25-2024 End: 06-25-2024 Patient encounter procedure Elmira Nadir MCLEOD.VIDEOGAME DESIGNER Work Phone: OB/Gynecology Comment on above: Encounter for superv ision of high risk in third trimester, antepartum (Primary Dx); 34 weeks gestation of ; Obesity affecting in third trimester, unspecified obesity type; Polyhydramnios affecting in third trimester Start: 06-23-2024 End: 06-23-2024 ambulatory KARL ROMEO Facility:[facility] Start: 06-23-2024 End: 06-23-2024 Patient encounter procedure Elmira Schmitz SHANI.VIDEOGAME DESIGNER Work Phone: OB/Gynecology Comment on above: Encounter for superv ision of high risk in third trimester, antepartum (Primary Dx); 34 weeks gestation of ; Obesity affecting in third trimester, unspecified obesity type; Group beta Strep positive; Antepartum tachycardia affecting care of mother; Swelling of lower extremity during in third trimester; Polyhydramnios in third trimester complication, single or unspecified fetus Encounter for ultras ound to check growth (Primary Dx); Obesity affecting in second trimester, unspecified obesity type; Polyhydramnios in third trimester complication, single or unspecified fetus Start: 06-20-2024 End: 06-20-2024 Patient encounter procedure Dori Walker MD Work Phone: OB/Gynecology Comment on above: Vaginal discharge (P rimary Dx); 33 weeks gestation of ; Obesity affecting in third trimester, unspecified obesity type; Encounter for supervision of high risk in third trimester, antepartum Start: 06-20-2024 End: 06-20-2024 ambulatory DORI WALKER Facility:[facility] Start: 06-20-2024 End: 06-23-2024 Telephone encounter Tressa Le MD Work Phone: OB/Gynecology Comment on above: FMLA Paperwork Start: 06-18-2024 End: 06-18-2024 Patient encounter procedure Tressa Le MD Work Phone: OB/Gynecology Comment on above: 33 weeks gestation o f (Primary Dx); Obesity affecting in third trimester, unspecified obesity type Start: 06-18-2024 End: 06-18-2024 ambulatory TRESSA LE Facility:[facility] Start: 06-16-2024 End: 06-16-2024 Telephone encounter Nahomi Bellamy APRN.CNM Work Phone: OB/Gynecology Comment on above: Contractions Start: 06-16-2024 End: 06-16-2024 ambulatory NAHOMI BELLAMY Facility:[facility] Start: 06-16-2024 End: 06-16-2024 Patient encounter procedure Nahomi Bellamy APRN.CNJayme Work Phone: OB/Gynecology Comment on above: Encounter for superv ision of high risk in third trimester, antepartum (Primary Dx); Obesity affecting in third trimester, unspecified obesity type; 33 weeks gestation of ; Group beta Strep positive Start: 06-09-2024 End: 06-09-2024 Patient encounter procedure Elmira Schmitz APRN.VIDEOGAME DESIGNER Work Phone: OB/Gynecology Comment on above: Encounter for superv ision of high risk in third trimester, antepartum (Primary Dx); 32 weeks gestation of ; Obesity affecting in third trimester, unspecified obesity type; COVID-19 affecting in third trimester Start: 06-09-2024 End: 06-09-2024 ambulatory ELMIRA SCHMITZ Facility:[facility] Start: 06-09-2024 End: 06-13-2024 Telephone encounter Elmira Schmitz APRN.VIDEOGAME DESIGNER Work Phone: OB/Gynecology Comment on above: Appointment Start: 06-03-2024 End: 06-03-2024 ambulatory [facility] Start: 05-26-2024 End: 05-26-2024 ambulatory ELMIRA SCHMITZ Facility:[facility] Start: 05-26-2024 End: 05-26-2024 Patient encounter procedure Elmira Schmitz APRN.VIDEOGAME DESIGNER Work Phone: OB/Gynecology Comment on above: Encounter for superv ision of high risk in third trimester, antepartum (Primary Dx); 30 weeks gestation of ; Obesity affecting in third trimester, unspecified obesity type; Anxiety and depression; Supervision of high risk in third trimester Start: 05-12-2024 End: 05-12-2024 Patient encounter procedure Elmira Schmitz ADDICTION PSYCHIATRISTPerlitaVIDEOGAME DESIGNER Work Phone: OB/Gynecology Comment on above: Encounter for superv ision of high risk in third trimester, antepartum (Primary Dx); 28 weeks gestation of ; Obesity affecting in third trimester, unspecified obesity type; Anxiety and depression; Need for vaccination; Supervision of high risk in third trimester Start: 05-12-2024 End: 05-12-2024 ambulatory ELMIRA SCHMITZ Facility:[facility] Start: 05-12-2024 End: 05-12-2024 ambulatory KARL ROMEO Facility:[facility] Start: 04-17-2024 End: 04-17-2024 ambulatory KARL ROMEO Facility:[facility] Start: 04-15-2024 End: 04-15-2024 ambulatory KARL ROMEO Facility:[facility] Start: 04-15-2024 End: 04-15-2024 Patient encounter procedure Karl Romeo MD Work Phone: OB/Gynecology Comment on above: Encounter for superv ision of high risk in second trimester, antepartum (Primary Dx); 24 weeks gestation of ; Obesity affecting in second trimester, unspecified obesity type; Headache in , antepartum, second trimester Start: 03-27-2024 End: 03-27-2024 ambulatory KARL ROMEO Facility:[facility] Start: 03-27-2024 End: 03-27-2024 Patient encounter procedure 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 [place] [facility] Work Phone: OB/Gynecology Comment on above: Encounter for follow -up ultrasound of anatomy (Primary Dx); Obesity affecting in second trimester, unspecified obesity type; 21 weeks gestation of Start: 03-13-2024 Orders Only Karl farley MD Work Phone: OB/Gynecology Comment on above: Encounter for superv ision of high risk in second trimester, antepartum (Primary Dx); Obesity affecting in second trimester, unspecified obesity type Future Appointment; Results Start: 03-12-2024 End: 03-12-2024 ambulatory CATIE SMITH Facility:[facility] Start: 03-12-2024 End: 03-12-2024 Patient encounter procedure 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 [place] [facility] Work Phone: OB/Gynecology Comment on above: Encounter for anatomic survey (Primary Dx); Encounter for supervision of other normal in second trimester; Obesity in Encounter for superv ision of high risk in second trimester, antepartum (Primary Dx); Nausea and vomiting during ; Obesity affecting in second trimester, unspecified obesity type; 19 weeks gestation of Start: 03-07-[address] [facility] Start: 02-25-2024 ambulatory Jose Phelps Work Phone: OB/Gynecology Comment on above: Nausea Start: 02-13-2024 End: 02-13-2024 ambulatory ELMIRA SCHMITZ Facility:[facility] Start: 02-13-2024 End: 02-13-2024 Patient encounter procedure Elmira Schmitz APRN.CNP Work Phone: OB/Gynecology Comment on above: Encounter for superv ision of high risk in second trimester, antepartum (Primary Dx); 15 weeks gestation of ; Obesity affecting in second trimester, unspecified obesity type; headache in second trimester; Nausea and vomiting during Start: 02-02-2024 End: 02-02-2024 Emergency department patient visit [facility] Start: 01-16-2024 End: 01-16-2024 ambulatory RENU MOORE Facility:[facility] Start: 01-16-2024 End: 01-16-2024 Patient encounter procedure Catie Smith MD Work Phone: OB/Gynecology Comment on above: Obesity in (Primary Dx); Encounter for supervision of normal first in first trimester; Anxiety and depression; Encounter for supervision of other normal in second trimester; Encounter for care in first trimester of first ; 11 weeks gestation of Encounter for (NT) n uchal translucency scan (Primary Dx); 11 weeks gestation of Start: 12-27-2023 [facility] Start: 12-20-2023 End: 12-20-2023 ambulatory RENUJÚNIOR MOORE Facility:[facility] Start: 12-20-2023 End: 12-20-2023 Patient encounter procedure Renu Moore JIMMY Work Phone: OB/Gynecology Comment on above: 7 weeks gestation of (Primary Dx); Encounter for supervision of normal first in first trimester; Use of letrozole (Femara); with uncertain dates, antepartum; Encounter for care in first trimester of first ; Obesity affecting in first trimester, unspecified obesity type; Anxiety and depression Start: 08-21-2023 End: 08-21-2023 ambulatory [facility] Start: 07-20-2023 End: 07-20-2023 Emergency department patient visit MARY Bush ZULEYKA [facility] Start: 07-17-2023 End: 07-17-2023 ambulatory JOSE RAPHAEL Facility:[facility] Start: 07-17-2023 End: 07-17-2023 Patient encounter procedure Jose Raphael MD Work Phone: OB/Gynecology Comment on above: Anovulation (Primary Dx); PCOS (polycystic ovarian syndrome) Procedures Date Procedure Procedure Detail Performing Clinician Start: 07-07-2024 biophysical pr ofile non-stress testing Elmira Schmitz APRN.VIDEOGAME DESIGNER Work Phone: Start: 07-07-2024 Urnls dip stick/tabl et rgnt non-auto w/o micrscp Nahomi Bellamy APRN.CNM Work Phone: Start: 07-03-2024 Urnls dip stick/tabl et rgnt non-auto w/o micrscp Dori Walker MD Work Phone: Start: 06-30-2024 RSV VACCINE, BIVALEN T (ABRYSVO) Catie Smith MD Work Phone: Start: 06-30-2024 biophysical pr ofile non-stress testing Elmira Schmitz APRN.VIDEOGAME DESIGNER Work Phone: Start: 06-30-2024 Urnls dip stick/tabl et rgnt non-auto w/o micrscp Catie Smith MD Work Phone: Start: 06-25-2024 Urnls dip stick/tabl et rgnt non-auto w/o micrscp Tressa Le MD Work Phone: Start: 06-23-2024 Us preg uterus after 1st trimest 09/17 gestation Karl Romeo MD Work Phone: Start: 06-23-2024 Urnls dip stick/tabl et rgnt non-auto w/o micrscp Elmira Schmitz ADDICTION PSYCHIATRIST.VIDEOGAME DESIGNER Work Phone: Start: 06-16-2024 Urnls dip stick/tabl et rgnt auto w/o microscopy Nahomi Bellamy ADDICTION PSYCHIATRIST.CNM Work Phone: Start: 06-09-2024 Urnls dip stick/tabl et rgnt non-auto w/o micrscp Elmira Schmitz ADDICTION PSYCHIATRIST.VIDEOGAME DESIGNER Work Phone: Start: 03-27-2024 Us preg uterus after 1st trimest 09/17 gestation Karl Romeo MD Work Phone: Start: 01-16-2024 Antibody screen CATIE SMITH Comment on above: Order Comment: Speci men Type: BLOOD SPECIMEN Ordering Facility: [facility] Address: [address] [place] [address] Performed By: #### 5 [id number], [id number] #### [facility] CLIA [id number] [address] [place] [address] [place] Start: 01-16-2024 Us nuchal translucency 1st gestation Renu Moore ADDICTION PSYCHIATRIST.CNM Work Phone: Start: 12-20-2023 Iadna chlamydia trachomatis amplified probe tq Renu Moore ADDICTION PSYCHIATRIST.CNM Work Phone: Start: 12-20-2023 Us uterus l imited /> fetuses Renu Moore ADDICTION PSYCHIATRIST.CNM Work Phone: Start: 07-20-2023 Urinalysis DAYO HERNANDEZ Comment on above: Result Comment: URIN ALYSIS Performed By: #### [id number] #### [facility],[address] [place] [id number] Plan of Treatment Date Care Activity Detail Author Start: 05-12-2034 Urine microalbumin profile DTaP,Tdap,Td Vaccine (8 - Td or Tdap) [facility] Start: 11-24-2030 Urine microalbumin profile DTaP,Tdap,Td Vaccine (7 - Td or Tdap) [facility] Start: 07-18-2024 End: 07-18-2024 Patient encounter procedure Maternal Medicine Comment on above: BPP OB Start: 07-17-2024 End: 07-17-2024 Patient encounter procedure OB/Gynecology Comment on above: NST NST/OB Start: 07-16-2024 End: 07-16-2024 Patient encounter procedure Maternal Medicine Comment on above: BPP GULSHAN/BPP Start: 07-14-2024 End: 07-14-2024 Patient encounter procedure 07/14/2024 11:30 AM EDT Routine Office Visit Maternal Medicine [address] [place] [address] BPP Maternal Medicine Comment on above: BPP Start: 07-10-2024 End: 07-10-2024 Patient encounter procedure OB/Gynecology Comment on above: nst NST/OB Start: 07-09-2024 End: 07-09-2024 Patient encounter procedure OB/Gynecology Comment on above: GULSHAN/BPP nst Start: 07-07-2024 End: 07-07-2024 Patient encounter procedure OB/Gynecology Comment on above: GULSHAN/BPP BPP Start: 07-03-2024 End: 07-03-2024 Patient encounter procedure OB/Gynecology Comment on above: OB BPP only NST NST/OB Start: 07-03-2024 End: 10-02-2024 CREATININE BLD [facility] Comment on above: Expected: 07/03/2024 , Expires: 10/02/2024 Start: 07-03-2024 End: 10-02-2024 Hepatic function 2000 panel - Serum or Plasma [facility] Comment on above: Expected: 07/03/2024 , Expires: 10/02/2024 Start: 07-03-2024 End: 10-02-2024 Protein/Creatinine [Mass Ratio] in Urine [facility] Work Phone: Comment on above: Expected: 07/03/2024 , Expires: 10/02/2024 Start: 07-03-2024 End: 10-02-2024 Urate [Mass/volume] in Serum or Plasma [facility] Comment on above: Expected: 07/03/2024 , Expires: 10/02/2024 Start: 07-01-2024 End: 07-01-2024 Nursing evaluation of patient and report 07/01/2024 11:00 AM EDT Nurse Visit OB/Gynecology [address] [place] [id number] Wstr, Nurse Automotive Generator 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 [facility] [address] [place] [address] [facility] OB/Gynecology Comment on above: [facility] Start: 06-30-2024 End: 06-30-2024 Patient encounter procedure OB/Gynecology Comment on above: OB BPP only Start: 06-25-2024 End: 06-25-2024 Patient encounter procedure Maternal Medicine Comment on above: Growth OB Obesity affecting pr egnancy in third trimester, unspecified obesity type [O99.213] Start: 06-25-2024 End: 06-25-2024 Patient encounter procedure 06/25/2024 10:30 AM EDT Routine Office Visit OB/Gynecology [address] [place] [id number] Tressa Le MD [address] [place] [address] OB OB/Gynecology Comment on above: OB Start: 06-23-2024 End: 06-23-2024 Patient encounter procedure OB/Gynecology Comment on above: OB Growth Start: 06-18-2024 End: 06-18-2024 Patient encounter procedure OB/Gynecology Comment on above: NST OB/NST Start: 06-09-2024 End: 06-09-2024 Patient encounter procedure 06/09/2024 3:45 PM EDT Routine Office Visit OB/Gynecology [address] [place] [address] Elmira Schmitz, SHANI.VIDEOGAME DESIGNER [address] [place] [address] OB OB/Gynecology Comment on above: OB Start: 06-07-2024 RSV Vaccine (1 - Ris k 1-dose series) RSV Vaccine (1 - Risk 1-dose series) [facility] Start: 05-26-2024 End: 05-26-2024 Patient encounter procedure 05/26/2024 3:45 PM EDT Routine Office Visit OB/Gynecology [address] [place] [address] Elmira Schmitz APRN.VIDEOGAME DESIGNER [address] [place] [address] OB/$25 copay OB/Gynecology Comment on above: OB/$25 copay Start: 05-18-2024 Covid-19 Vaccine ( season) Covid-19 Vaccine ( season) [facility] Start: 05-18-2024 Covid-19 Vaccine ( season) Covid-19 Vaccine ( season) [facility] Start: 05-18-2024 Influenza vaccination Influenza Vacc ine (#1) [facility] Start: 04-15-2024 End: 07-15-2024 CBC W Auto Differential panel - Blood COMPLETE BLOOD COUNT AND DIFFERENTIAL Lab Routine 24 weeks gestation of Obesity affecting in second trimester, unspecified obesity type Encounter for supervision of high risk in second trimester, antepartum Expected: 04/15/2024, Expires: 07/15/2024 [facility] Comment on above: Expected: 04/15/2024 , Expires: 07/15/2024 Start: 04-15-2024 End: 07-15-2024 Comprehensive metabolic 2000 panel - Serum or Plasma COMPREHENSIVE METABOLIC PANEL Lab Routine 24 weeks gestation of Obesity affecting in second trimester, unspecified obesity type Headache in , antepartum, second trimester Expected: 04/15/2024, Expires: 07/15/2024 [facility] Comment on above: Expected: 04/15/2024 , Expires: 07/15/2024 Start: 04-15-2024 End: 07-15-2024 GESTATIONAL GLUCOSE SCREEN, 1-HOUR, 50 GRAM, NON-FASTING GESTATIONAL GLUCOSE SCREEN, 1-HOUR, 50 GRAM, NON-FASTING Lab Routine 24 weeks gestation of Obesity affecting in second trimester, unspecified obesity type Encounter for supervision of high risk in second trimester, antepartum Expected: 04/15/2024, Expires: 07/15/2024 [facility] Work Phone: Comment on above: Expected: 04/15/2024 , Expires: 07/15/2024 Start: 04-15-2024 End: 07-15-2024 Protein/Creatinine [Mass Ratio] in Urine PROTEIN / CREATININE RATIO Lab Routine 24 weeks gestation of Obesity affecting in second trimester, unspecified obesity type Headache in , antepartum, second trimester Expected: 04/15/2024, Expires: 07/15/2024 [facility] Comment on above: Expected: 04/15/2024 , Expires: 07/15/2024 Start: 04-15-2024 End: 07-15-2024 SYPHILIS TOTAL W/REFLEX SYPHILIS TOTAL W/REFLEX Lab Routine 24 weeks gestation of Obesity affecting in second trimester, unspecified obesity type Encounter for supervision of high risk in second trimester, antepartum Expected: 04/15/2024, Expires: 07/15/2024 [facility] Comment on above: Expected: 04/15/2024 , Expires: 07/15/2024 Start: 04-09-2024 End: 04-09-2024 Patient encounter procedure 04/09/2024 11:10 AM EDT Routine Office Visit OB/Gynecology [address] [place] [address] Karl Romeo MD [address] [place] [address] [phone] (Work) OB OB/Gynecology Comment on above: OB Start: 03-27-2024 End: 03-27-2024 Patient encounter procedure 03/27/2024 1:30 PM EDT Routine Office Visit OB/Gynecology [address] [place] [address] Anatomy f/u OB/Gynecology Comment on above: Anatomy f/u Start: 03-12-2024 End: 03-12-2025 OBSTETRIC ULTRASOUND WHI OBSTETRIC ULTRASOUND WHI Anc Imaging Routine Obesity in Encounter for anatomic survey Expected: 03/12/2024, Expires: 03/12/2025 [facility] Work Phone: Comment on above: Expected: 03/12/2024 , Expires: 03/12/2025 Start: 03-12-2024 End: 03-12-2024 Patient encounter procedure OB/Gynecology Comment on above: Anatomy OB Start: 02-13-2024 End: 02-13-2024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 SCREENINGS The [facility] offers sequential screenings for women who are interested in screenings for chromosomal abnormalities and certain defects during a . The sequential screen combines ultrasound and blood tests to determine the risk of chromosomal abnormalities, including Down's Syndrome (Trisomy 21) and Trisomy 18, as well as open neural tube defects including spina bifida. Ultrasound examination is performed between 11 weeks and 13 weeks gestational age. Blood tests are drawn after the ultrasound and again later in the between 15 and 21 weeks gestational age. Please let your physician know if you are interested in this testing. It will require an appointment with our heat treatment technician. This is not an ultrasound performed by a physician in our office during a routine visit. SIGNS AND SYMPTOMS OF LABOR 1. Contractions every 10 minutes or more often 2. Clear, pink, or brownish fluid (water) leaking from vagina 3. Feeling that baby is pushing down, pressure 4. Low, dull backache 5. Cramps that feel like a period 6. Cramps with or without diarrhea If you notice any of the above symptoms, contact our office at [phone] and ask to speak with a nurse. After hours, you can call doctors registry at [phone] OR call [facility] at [phone] and ask to have the doctor banking consultant paged. If you consider this an emergency, dial 9-1-9 or go to your nearest emergency department. NEED HELP? Are you dealing with a violent or abusive relationship? Are you a victim of rape or sexual assult? Call [facility] [place] [facility] 24 hour Crisis Hotline: 544.461.6668 or 733-936-8762. MANUAL Your Guide to a Healthy manual is now on-line. Visit [email or web address] to download your free copy documented in this encounter [facility] 06-20-2024 Telephone encounter Note FMLA paperwork completed and on providers desk for signature. Onel Hogan MA [facility] 06-20-2024 Telephone encounter Note Received [facility] paperwork for patients . Onel Hogan MA [facility] 06-18-2024 Progress note Formatting of t his note might be different from the original. S: Ginger Ken is a 29 year old female who presents at 08/02/2024, Alternate HARRY Entry for a routine visit. Denies headache, visual changes, chest pain, shortness of breath, vaginal bleeding, leakage of fluid, or dysuria. Feeling well, no complaints. Good movement, No contractions O: See flow sheet Gen: No apparent distress Abd: Gravid, nontender Reactive NST ASSESSMENT/PLAN: 1. 33 weeks gestation of - ICD9: V22.2, ICD10: Z3A.33 (primary diagnosis) 2. Obesity affecting in third trimester, unspecified obesity type - ICD9: 649.13, ICD10: O99.213 NST weekly Tressa Le MD [facility] 06-18-2024 Miscellaneous Notes S: Ginger Ken is a 29 year old female who presents at 08/02/2024, Alternate HARRY Entry for a routine visit. Denies headache, visual changes, chest pain, shortness of breath, vaginal bleeding, leakage of fluid, or dysuria. Feeling well, no complaints. Good movement, No contractions O: See flow sheet Gen: No apparent distress Abd: Gravid, nontender Reactive NST ASSESSMENT/PLAN: 1. 33 weeks gestation of - ICD9: V22.2, ICD10: Z3A.33 (primary diagnosis) 2. Obesity affecting in third trimester, unspecified obesity type - ICD9: 649.13, ICD10: O99.213 NST weekly Tressa Le MD documented in this encounter [facility] 06-18-2024 Note HNO ID: [id number] Author: TRESSA LE MD Service: ? Author Type: Physician Type: Progress Notes Filed: 06/18/2024 21:05 Note Text: NST SUMMARY PROVIDER ASSESSMENT AND INTERPRETATION Indications for NST: Obesity Baseline: 150 Variability: Moderate Accelerations: Present 15 X 15 Decelerations: None Interpretation: Category I SIGNATURE: Tressa Le MD [place] 06-18-2024 History of Presen t illness Narrative NST SUMMARY PROVIDER ASSESSMENT AND INTERPRETATION Indications for NST: Obesity Baseline: 150 Variability: Moderate Accelerations: Present 15 X 15 Decelerations: None Interpretation: Category I SIGNATURE: Tressa Le MD documented in this encounter [facility] 06-18-2024 Instructions Sharla Lopez MA - 06/18/2024 3:30 PM EDT SEQUENTIAL SCREENINGS The [facility] offers sequential screenings for women who are interested in screenings for chromosomal abnormalities and certain defects during a . The sequential screen combines ultrasound and blood tests to determine the risk of chromosomal abnormalities, including Down's Syndrome (Trisomy 21) and Trisomy 18, as well as open neural tube defects including spina bifida. Ultrasound examination is performed between 11 weeks and 13 weeks gestational age. Blood tests are drawn after the ultrasound and again later in the between 15 and 21 weeks gestational age. Please let your physician know if you are interested in this testing. It will require an appointment with our heat treatment technician. This is not an ultrasound performed by a physician in our office during a routine visit. SIGNS AND SYMPTOMS OF LABOR 1. Contractions every 10 minutes or more often 2. Clear, pink, or brownish fluid (water) leaking from vagina 3. Feeling that baby is pushing down, pressure 4. Low, dull backache 5. Cramps that feel like a period 6. Cramps with or without diarrhea If you notice any of the above symptoms, contact our office at [phone] and ask to speak with a nurse. After hours, you can call doctors registry at [phone] OR call [facility] at [phone] and ask to have the doctor banking consultant paged. If you consider this an emergency, dial [phone] or go to your nearest emergency department. NEED HELP? Are you dealing with a violent or abusive relationship? Are you a victim of rape or sexual assult? Call [facility] ([place] 24 hour Crisis Hotline: 635.284.8686 or 546-838-9811. MANUAL Your Guide to a Healthy manual is now on-line. Visit [email or web address] to download your free copy documented in this encounter [facility] 06-16-2024 Telephone encounter Note 33w2d Patient calling with update. Stated contractions went from about every 30 minutes this morning to every 16 minutes the last 1-2 hours. Unable to walk or talk through them. No bleeding or leaking fluid. Good movement. I spoke to BROCK and she advised to have patient go to L&D since she just saw her in office this morning already. Patient and L&D notified. Jennifer Saavedra RN [facility] 06-16-2024 Miscellaneous Notes 33w2d Patient calling with update. Stated contractions went from about every 30 minutes this morning to every 16 minutes the last 1-2 hours. Unable to walk or talk through them. No bleeding or leaking fluid. Good movement. I spoke to BROCK and she advised to have patient go to L&D since she just saw her in office this morning already. Patient and L&D notified. Jennifer Saavedra RN documented in this encounter [facility] 06-16-2024 Progress note Formatting of t his note might be different from the original. BROCK-S: Ginger Ken is a 29 year old female who presents at 33w2d with HARRY:08/02/2024, Alternate HARRY Entry for a problem visit. Denies headache, visual changes, chest pain, shortness of breath, vaginal bleeding, leakage of fluid, or dysuria. Seen in L&D for tachycardia on 06/09/24. D/C home and urine culture showed positive GBS. Patient with complaints end of last week. Brought in today for repeat culture and exam. Denies any cramping today, bleeding, frequent contractions or back pain other than musculoskeletal. O: See flow sheet Gen: No apparent distress Abd: Gravid, nontender,no CVAT ASSESSMENT/PLAN: 1. Encounter for supervision of high risk in third trimester, antepartum 2. Obesity affecting in third trimester, unspecified obesity type 3. 33 weeks gestation of 4. Group beta Strep positive -Repeat ua and negative. No treatment at this time, asymptomatic Keep visit as scheduled PTL precautions reviewed and when to call Nahomi Bellamy APRN.CNM [facility] 06-16-2024 Miscellaneous Notes BROCK-S: Ginger Ken is a 29 year old female who presents at 33w2d with HARRY:08/02/2024, Alternate HARRY Entry for a problem visit. Denies headache, visual changes, chest pain, shortness of breath, vaginal bleeding, leakage of fluid, or dysuria. Seen in L&D for tachycardia on 06/09/24. D/C home and urine culture showed positive GBS. Patient with complaints end of last week. Brought in today for repeat culture and exam. Denies any cramping today, bleeding, frequent contractions or back pain other than musculoskeletal. O: See flow sheet Gen: No apparent distress Abd: Gravid, nontender,no CVAT ASSESSMENT/PLAN: 1. Encounter for supervision of high risk in third trimester, antepartum 2. Obesity affecting in third trimester, unspecified obesity type 3. 33 weeks gestation of 4. Group beta Strep positive -Repeat ua and negative. No treatment at this time, asymptomatic Keep visit as scheduled PTL precautions reviewed and when to call Nahomi Bellamy APRN.CNM documented in this encounter [facility] 06-16-2024 Instructions Onel Hogan MA - 06/16/2024 10:35 AM EDT SEQUENTIAL SCREENINGS The [facility] offers sequential screenings for women who are interested in screenings for chromosomal abnormalities and certain defects during a . The sequential screen combines ultrasound and blood tests to determine the risk of chromosomal abnormalities, including Down's Syndrome (Trisomy 21) and Trisomy 18, as well as open neural tube defects including spina bifida. Ultrasound examination is performed between 11 weeks and 13 weeks gestational age. Blood tests are drawn after the ultrasound and again later in the between 15 and 21 weeks gestational age. Please let your physician know if you are interested in this testing. It will require an appointment with our heat treatment technician. This is not an ultrasound performed by a physician in our office during a routine visit. SIGNS AND SYMPTOMS OF LABOR 1. Contractions every 10 minutes or more often 2. Clear, pink, or brownish fluid (water) leaking from vagina 3. Feeling that baby is pushing down, pressure 4. Low, dull backache 5. Cramps that feel like a period 6. Cramps with or without diarrhea If you notice any of the above symptoms, contact our office at [phone] and ask to speak with a nurse. After hours, you can call doctors registry at [phone] OR call [facility] at [phone] and ask to have the doctor banking consultant paged. If you consider this an emergency, dial 9-1-5 or go to your nearest emergency department. NEED HELP? Are you dealing with a violent or abusive relationship? Are you a victim of rape or sexual assult? Call [facility] ([place]) 24 hour Crisis Hotline: 253.993.4819 or 632-582-2874. MANUAL Your Guide to a Healthy manual is now on-line. Visit [email or web address] to download your free copy documented in this encounter [facility] 06-13-2024 Telephone encounter Note Pt denies dysuria. Advised to go to L&D if feeling need to be seen/if feeling dehydrated from loose stools, decreased movement, if leaking fluid/vaginal bleeding. Advised to stay hydrated and rest and Pt voiced understanding. Aware of appts changed. Denies additional questions/concerns. Chuck España RN [facility] 06-13-2024 Miscellaneous Notes Pt denies dysuria. Advised to go to L&D if feeling need to be seen/if feeling dehydrated from loose stools, decreased movement, if leaking fluid/vaginal bleeding. Advised to stay hydrated and rest and Pt voiced understanding. Aware of appts changed. Denies additional questions/concerns. Chuck España RN If needs seen should go to L&D. She can try to rest & hydrate to see if symtoms improve. Jose Raphael MD Ob patient is 32w6d and c/o lower back pain and cramping that began yesterday and started to lose mucus plug on Sunday. Lose stools began on Sunday. Baby is active. Denies Lof, no VB. Patient is at work at 4:30 pm. Can leave a detailed message. Left message for patient to call office. See both notes below. Moved her 06/23 appt to 06/25 after her u/s. Jennifer Saavedra RN If no urinary symptoms, will not treat at this time. [facility] C+S to Olvin Bellamy's desk Elmira Schmitz APRN.CNP Can move OB appointment to be on 06/25 with growth Elmira Schmitz APRN.CNP Patient returned call. Scheduled patient 06/18 for NST and OB visit. 06/25 for Growth US. Does patient need an office visit this day? She's scheduled on 06/23 already and we would just move it if needed. She is not having any urinary symptoms. Tressa Packer RN Left message for patient to call the office. See messages below. If patient needs after 3:00 PM for US there is a 3:30 PM on 06/25 (placed on hold). Patient will need NST and visit next week if she can't do the US on 06/18. Please inquire if she is still having urinary symptoms. rTessa Packer RN [place] count low, is patient symptomatic with urinary symptoms? If so, recommend treatment Elmira Schmitz APRN.CNP If no availability, can schedule growth out 1-2 weeks. Recommend at least weekly NST starting at 32 weeks. Have not received C+S Elmira Schmitz APRN.CNP Urine culture results with sensitivities from [facility] to provider to review. Shellie Alcantar RN Left message for patient to call office. Jennifer Saavedra RN Patient going to L+D for further eval after appt today. Please call her tomorrow to get her scheduled for a growth and OB visit next week. Needs weekly NSTs rest of after that. Elmira Schmitz APRN.VIDEOGAME DESIGNER documented in this encounter [facility] 06-13-2024 Telephone encounter Note If needs seen should go to L&D. She can try to rest & hydrate to see if symtoms improve. Jose Raphael MD [facility] 06-13-2024 Telephone encounter Note Ob patient is 32w6d and c/o lower back pain and cramping that began yesterday and started to lose mucus plug on Sunday. Lose stools began on Sunday. Baby is active. Denies Lof, no VB. Patient is at work at 4:30 pm. Can leave a detailed message. [facility] 06-13-2024 Telephone encounter Note Left message for patient to call office. See both notes below. Moved her 06/23 appt to 06/25 after her u/s. Jennifer Saavedra RN [facility] 06-13-2024 Telephone encounter Note If no urinary symptoms, will not treat at this time. [facility] C+S to Olvin Bellamy's desk Elmira Schmitz APRN.CNP [facility] 06-13-2024 Telephone encounter Note Can move OB appointment to be on 06/25 with growth Elmira Schmitz APRN.CNP [facility] 06-12-2024 Telephone encounter Note Patient returned call. Scheduled patient 06/18 for NST and OB visit. 06/25 for Growth US. Does patient need an office visit this day? She's scheduled on 06/23 already and we would just move it if needed. She is not having any urinary symptoms. Tressa Packer RN [facility] 06-12-2024 Telephone encounter Note Left message for patient to call the office. See messages below. If patient needs after 3:00 PM for US there is a 3:30 PM on 06/25 (placed on hold). Patient will need NST and visit next week if she can't do the US on 06/18. Please inquire if she is still having urinary symptoms. Tressa Packer RN [facility] 06-12-2024 Telephone encounter Note [place] count low, is patient symptomatic with urinary symptoms? If so, recommend treatment Elmira Schmitz APRN.CNP [facility] 06-12-2024 Telephone encounter Note If no availability, can schedule growth out 1-2 weeks. Recommend at least weekly NST starting at 32 weeks. Have not received C+S Elmira Schmitz APRN.CNP [facility] 06-12-2024 Telephone encounter Note Urine culture results with sensitivities from [facility] to provider to review. Shellie Alcantar RN [facility] 06-10-2024 Telephone encounter Note Left message for patient to call office. Jennifer Saavedra RN [facility] 06-09-2024 Telephone encounter Note Patient going to L+D for further eval after appt today. Please call her tomorrow to get her scheduled for a growth and OB visit next week. Needs weekly NSTs rest of after that. Elmira Schmitz APRN.CNP [facility] 06-09-2024 Note HNO ID: [id number] Author: ELMIRA SCHMITZ APRN.CNP Service: ? Author Type: Nurse Practitioner Type: Procedures Filed: 06/09/2024 16:58 Note Text: NST SUMMARY PROVIDER ASSESSMENT AND INTERPRETATION Indications for NST: Obesity Baseline: 160 Variability: Moderate Accelerations: Present 15 X 15 Decelerations: None Interpretation: Cat 2. - sending to L+D for further eval SIGNATURE: Elmira Schmitz APRN.CNP [place] 06-09-2024 Procedure note NST SUMMARY PROVIDER ASSESSMENT AND INTERPRETATION Indications for NST: Obesity Baseline: 160 Variability: Moderate Accelerations: Present 15 X 15 Decelerations: None Interpretation: Cat 2. - sending to L+D for further eval SIGNATURE: Elmira Schmitz APRN.CNP [facility] 06-09-2024 Procedure note NST SUMMARY PROVIDER ASSESSMENT AND INTERPRETATION Indications for NST: Obesity Baseline: 160 Variability: Moderate Accelerations: Present 15 X 15 Decelerations: None Interpretation: Cat 2. - sending to L+D for further eval SIGNATURE: Elmira Schmitz APRN.CNP documented in this encounter [facility] 06-09-2024 Miscellaneous Notes EH - S: Ginger is a 28 year old female who presents at 32w2d for a routine visit. Feeling movement. Denies headache, visual changes, chest pain, shortness of breath, vaginal bleeding, leakage of fluid, or dysuria. O: See flow sheet Gen: No apparent distress Abd: Gravid, nontender ASSESSMENT/PLAN: 1. Encounter for supervision of high risk in third trimester, antepartum - ICD9: V23.9, ICD10: O09.93 (primary diagnosis) - Has COVID - Denies fever - Report staying hydrated 2. 32 weeks gestation of - ICD9: V22.2, ICD10: Z3A.32 3. Obesity affecting in third trimester, unspecified obesity type - ICD9: 649.13, ICD10: O99.213 - Pre BMI 40 - Plan for growth and then weekly NSTs starting at 32 weeks. - NST reveals tachycardia today. Reviewed with provider banking consultant, Olvin Bellamy CNM, who is sending patient to L+D for fluids and further monitoring. RTO next week for growth and OB visit. Elmira Schmitz APRN.MARIAH documented in this encounter [facility] 06-09-2024 Progress note Formatting of t his note might be different from the original. EH - S: Ginger is a 28 year old female who presents at 32w2d for a routine visit. Feeling movement. Denies headache, visual changes, chest pain, shortness of breath, vaginal bleeding, leakage of fluid, or dysuria. O: See flow sheet Gen: No apparent distress Abd: Gravid, nontender ASSESSMENT/PLAN: 1. Encounter for supervision of high risk in third trimester, antepartum - ICD9: V23.9, ICD10: O09.93 (primary diagnosis) - Has COVID - Denies fever - Report staying hydrated 2. 32 weeks gestation of - ICD9: V22.2, ICD10: Z3A.32 3. Obesity affecting in third trimester, unspecified obesity type - ICD9: 649.13, ICD10: O99.213 - Pre BMI 40 - Plan for growth and then weekly NSTs starting at 32 weeks. - NST reveals tachycardia today. Reviewed with provider banking consultant, Olvin Bellamy CNM, who is sending patient to L+D for fluids and further monitoring. RTO next week for growth and OB visit. Elmira Schmitz APRN.VIDEOGAME DESIGNER [facility] 06-09-2024 Instructions Zahra David LPN - 06/09/2024 3:44 PM EDT SEQUENTIAL SCREENINGS The [facility] offers sequential screenings for women who are interested in screenings for chromosomal abnormalities and certain defects during a . The sequential screen combines ultrasound and blood tests to determine the risk of chromosomal abnormalities, including Down's Syndrome (Trisomy 21) and Trisomy 18, as well as open neural tube defects including spina bifida. Ultrasound examination is performed between 11 weeks and 13 weeks gestational age. Blood tests are drawn after the ultrasound and again later in the between 15 and 21 weeks gestational age. Please let your physician know if you are interested in this testing. It will require an appointment with our heat treatment technician. This is not an ultrasound performed by a physician in our office during a routine visit. SIGNS AND SYMPTOMS OF LABOR 1. Contractions every 10 minutes or more often 2. Clear, pink, or brownish fluid (water) leaking from vagina 3. Feeling that baby is pushing down, pressure 4. Low, dull backache 5. Cramps that feel like a period 6. Cramps with or without diarrhea If you notice any of the above symptoms, contact our office at [phone] and ask to speak with a nurse. After hours, you can call [facility] at [phone] OR call [facility] at [phone] and ask to have the doctor banking consultant paged. If you consider this an emergency, dial or go to your nearest emergency department. NEED HELP? Are you dealing with a violent or abusive relationship? Are you a victim of rape or sexual assult? Call [facility] ([facility] 24 hour Crisis Hotline: 621.413.8608 or 045-604-5073. MANUAL Your Guide to a Healthy manual is now on-line. Visit [email or web address] to download your free copy documented in this encounter [facility] 05-26-2024 Instructions Zahra David LPN - 05/26/2024 3:52 PM EDT SEQUENTIAL SCREENINGS The [facility] offers sequential screenings for women who are interested in screenings for chromosomal abnormalities and certain defects during a . The sequential screen combines ultrasound and blood tests to determine the risk of chromosomal abnormalities, including Down's Syndrome (Trisomy 21) and Trisomy 18, as well as open neural tube defects including spina bifida. Ultrasound examination is performed between 11 weeks and 13 weeks gestational age. Blood tests are drawn after the ultrasound and again later in the between 15 and 21 weeks gestational age. Please let your physician know if you are interested in this testing. It will require an appointment with our heat treatment technician. This is not an ultrasound performed by a physician in our office during a routine visit. SIGNS AND SYMPTOMS OF LABOR 1. Contractions every 10 minutes or more often 2. Clear, pink, or brownish fluid (water) leaking from vagina 3. Feeling that baby is pushing down, pressure 4. Low, dull backache 5. Cramps that feel like a period 6. Cramps with or without diarrhea If you notice any of the above symptoms, contact our office at [phone] and ask to speak with a nurse. After hours, you can call [facility] at [phone] OR call [facility] at [phone] and ask to have the doctor banking consultant paged. If you consider this an emergency, dial 9-1 or go to your nearest emergency department. NEED HELP? Are you dealing with a violent or abusive relationship? Are you a victim of rape or sexual assult? Call [facility] ([place]) 24 hour Crisis Hotline: 852.446.8725 or 119-695-5030. MANUAL Your Guide to a Healthy manual is now on-line. Visit [email or web address] to download your free copy documented in this encounter [facility] 05-26-2024 Miscellaneous Notes EH - S: Ginger is a 28 year old female who presents at 30w2d for a routine visit. Feeling movement. Denies headache, visual changes, chest pain, shortness of breath, vaginal bleeding, leakage of fluid, or dysuria. Feeling well, no complaints. O: See flow sheet Gen: No apparent distress Abd: Gravid, nontender, S=D ASSESSMENT/PLAN: 1. Encounter for supervision of high risk in third trimester, antepartum - ICD9: V23.9, ICD10: O09.93 (primary diagnosis) - Nausea controlled - Birthing preference sheet scanned into chart 2. 30 weeks gestation of - ICD9: V22.2, ICD10: Z3A.30 - Reviewed 28 week labs 3. Obesity affecting in third trimester, unspecified obesity type - ICD9: 649.13, ICD10: O99.213 - Pre BMI 40 - Plan for growth and then weekly NSTs starting at 32 weeks. 4. Anxiety and depression - ICD9: 300.00, 311, ICD10: F41.9, F32.A - Mood stable on 50 mg of Zoloft PTL precautions and kick counts reviewed. RTO in 2 weeks or sooner as needed. Elmira Schmitz APRN.MARIAH documented in this encounter [facility] 05-26-2024 Progress note Formatting of t his note might be different from the original. EH - S: Ginger is a 28 year old female who presents at 30w2d for a routine visit. Feeling movement. Denies headache, visual changes, chest pain, shortness of breath, vaginal bleeding, leakage of fluid, or dysuria. Feeling well, no complaints. O: See flow sheet Gen: No apparent distress Abd: Gravid, nontender, S=D ASSESSMENT/PLAN: 1. Encounter for supervision of high risk in third trimester, antepartum - ICD9: V23.9, ICD10: O09.93 (primary diagnosis) - Nausea controlled - Birthing preference sheet scanned into chart 2. 30 weeks gestation of - ICD9: V22.2, ICD10: Z3A.30 - Reviewed 28 week labs 3. Obesity affecting in third trimester, unspecified obesity type - ICD9: 649.13, ICD10: O99.213 - Pre BMI 40 - Plan for growth and then weekly NSTs starting at 32 weeks. 4. Anxiety and depression - ICD9: 300.00, 311, ICD10: F41.9, F32.A - Mood stable on 50 mg of Zoloft PTL precautions and kick counts reviewed. RTO in 2 weeks or sooner as needed. Elmira Schmitz APRN.VIDEOGAME DESIGNER [facility] 05-12-2024 Miscellaneous Notes EH - S: Ginger is a 28 year old female who presents at 28w2d for a routine visit. Feeling movement. Denies headache, visual changes, chest pain, shortness of breath, vaginal bleeding, leakage of fluid, or dysuria. Struggling with persistent cough since becoming . O: See flow sheet Gen: No apparent distress Abd: Gravid, nontender, S=D ASSESSMENT/PLAN: 1. Encounter for supervision of high risk in third trimester, antepartum - ICD9: V23.9, ICD10: O09.93 (primary diagnosis) - Planning for Depo - Safe medications to take during list provided. Recommend follow up with PCP for persistent cough. 2. 28 weeks gestation of - ICD9: V22.2, ICD10: Z3A.28 - 1 hour GCT, CBC, and RPR today - Rh positive - TDAP today - LARC form reviewed and signed. Declines. - Depression screen negative - Opioid screen negative - plan form discussed and given to Ginger Obesity affecting in third trimester, unspecified obesity type - ICD9: 649.13, ICD10: O99.213 - Pre BMI 40 - Plan for growth and then weekly NSTs starting at 32 weeks. Anxiety and depression - ICD9: 300.00, 311, ICD10: F41.9, F32.A - Mood stable on Zoloft PTL precautions and kick counts reviewed. RTO in 2 weeks or sooner as needed. Elmira Schmitz APRN.MARIAH documented in this encounter [facility] 05-12-2024 Progress note Formatting of t his note might be different from the original. EH - S: Ginger is a 28 year old female who presents at 28w2d for a routine visit. Feeling movement. Denies headache, visual changes, chest pain, shortness of breath, vaginal bleeding, leakage of fluid, or dysuria. Struggling with persistent cough since becoming . O: See flow sheet Gen: No apparent distress Abd: Gravid, nontender, S=D ASSESSMENT/PLAN: 1. Encounter for supervision of high risk in third trimester, antepartum - ICD9: V23.9, ICD10: O09.93 (primary diagnosis) - Planning for Depo - Safe medications to take during list provided. Recommend follow up with PCP for persistent cough. 2. 28 weeks gestation of - ICD9: V22.2, ICD10: Z3A.28 - 1 hour GCT, CBC, and RPR today - Rh positive - TDAP today - LARC form reviewed and signed. Declines. - Depression screen negative - Opioid screen negative - plan form discussed and given to Ginger Obesity affecting in third trimester, unspecified obesity type - ICD9: 649.13, ICD10: O99.213 - Pre BMI 40 - Plan for growth and then weekly NSTs starting at 32 weeks. Anxiety and depression - ICD9: 300.00, 311, ICD10: F41.9, F32.A - Mood stable on Zoloft PTL precautions and kick counts reviewed. RTO in 2 weeks or sooner as needed. Elmira Haury, ADDICTION PSYCHIATRIST.VIDEOGAME DESIGNER [facility] 05-12-2024 Note HNO ID: [id number] Author: ONEL HOGAN MA Service: ? Author Type: Cotton Farmer Type: Progress Notes Filed: 05/12/2024 14:45 Note Text: Patient identified by name and date of . Ginger Ken presents today for a vaccination of Tdap. Patient denies an allergy to latex: yes Patient denies a severe (life-threatening) allergy to a previous dose of Tdap, DTP, DTaP, DT or Td vaccine. Yes Patient denies history of epilepsy or neurological problems: Yes Patient is afebrile and denies being moderately or severely ill: Yes Patient denies history of Guillain-Erath Syndrome (a severe paralytic illness): Yes Tdap Adacel injection was given without incident. See immunizations for details of immunizations administered today. VIS sheet provided: Yes Provider Elmira Schmitz APRN, CNP was present in office at time of injection. Onel Hogan MA [place] 05-12-2024 History of Presen t illness Narrative Patient identified by name and date of . Ginger Ken presents today for a vaccination of Tdap. Patient denies an allergy to latex: yes Patient denies a severe (life-threatening) allergy to a previous dose of Tdap, DTP, DTaP, DT or Td vaccine. Yes Patient denies history of epilepsy or neurological problems: Yes Patient is afebrile and denies being moderately or severely ill: Yes Patient denies history of Guillain-Erath Syndrome (a severe paralytic illness): Yes Tdap Adacel injection was given without incident. See immunizations for details of immunizations administered today. VIS sheet provided: Yes Provider Elmira Schmitz APRN, CNP was present in office at time of injection. Onel Hogan MA documented in this encounter [facility] 05-12-2024 Instructions Onel Hogan MA - 05/12/2024 1:23 PM EDT SEQUENTIAL SCREENINGS The [facility] offers sequential screenings for women who are interested in screenings for chromosomal abnormalities and certain defects during a . The sequential screen combines ultrasound and blood tests to determine the risk of chromosomal abnormalities, including Down's Syndrome (Trisomy 21) and Trisomy 18, as well as open neural tube defects including spina bifida. Ultrasound examination is performed between 11 weeks and 13 weeks gestational age. Blood tests are drawn after the ultrasound and again later in the between 15 and 21 weeks gestational age. Please let your physician know if you are interested in this testing. It will require an appointment with our heat treatment technician. This is not an ultrasound performed by a physician in our office during a routine visit. SIGNS AND SYMPTOMS OF LABOR 1. Contractions every 10 minutes or more often 2. Clear, pink, or brownish fluid (water) leaking from vagina 3. Feeling that baby is pushing down, pressure 4. Low, dull backache 5. Cramps that feel like a period 6. Cramps with or without diarrhea If you notice any of the above symptoms, contact our office at [phone] and ask to speak with a nurse. After hours, you can call [facility] at [phone] OR call [facility] at [phone] and ask to have the doctor banking consultant paged. If you consider this an emergency, dial 9-2-9 or go to your nearest emergency department. NEED HELP? Are you dealing with a violent or abusive relationship? Are you a victim of rape or sexual assult? Call [facility] ([place]) 24 hour Crisis Hotline: 297.250.2606 or 839-347-3042. MANUAL Your Guide to a Healthy manual is now on-line. Visit [email or web address] to download your free copy documented in this encounter [facility] 04-15-2024 Progress note Formatting of t his note might be different from the original. RR- VB No. LOF No. CTXS No. Movement: present. Other c/o: MERCEDES intermittent. Tried dark room and reglan and helps some but still bothersome. Medication list reviewed. Physical Exam See Flow Sheet Abd: soft, nontender, gravid Ext: edema: 1+, symetrical: Yes, DTRS: 2+, clonus: Absent A/P 24w3d Estimated Date of Delivery: 08/02/24 Labs: 28 weeks next visit MERCEDES, no evidence of preeclampsia clinically but check labs maternal obesity and trouble staying awake at night, trial fioricet c/o excessive sleepiness/drowsiness at work, sleeps 8+ hrs. does snore, does feel rested when she wakes up. Will order sleep study as this may be contributing to MERCEDES as well f/u in 4 weeks or prn neck circumference 46 cm Karl Romeo M.D. [facility] 04-15-2024 Miscellaneous Notes RR- VB No. LOF No. CTXS No. Movement: present. Other c/o: MERCEDES intermittent. Tried dark room and reglan and helps some but still bothersome. Medication list reviewed. Physical Exam See Flow Sheet Abd: soft, nontender, gravid Ext: edema: 1+, symetrical: Yes, DTRS: 2+, clonus: Absent A/P 24w3d Estimated Date of Delivery: 08/02/24 Labs: 28 weeks next visit MERCEDES, no evidence of preeclampsia clinically but check labs maternal obesity and trouble staying awake at night, trial fioricet c/o excessive sleepiness/drowsiness at work, sleeps 8+ hrs. does snore, does feel rested when she wakes up. Will order sleep study as this may be contributing to MERCEDES as well f/u in 4 weeks or prn neck circumference 46 cm Karl Romeo M.D. documented in this encounter [facility] 04-15-2024 Instructions Shaniqua Ferrell MA - 04/15/2024 4:30 PM EDT SEQUENTIAL SCREENINGS The [facility] offers sequential screenings for women who are interested in screenings for chromosomal abnormalities and certain defects during a . The sequential screen combines ultrasound and blood tests to determine the risk of chromosomal abnormalities, including Down's Syndrome (Trisomy 21) and Trisomy 18, as well as open neural tube defects including spina bifida. Ultrasound examination is performed between 11 weeks and 13 weeks gestational age. Blood tests are drawn after the ultrasound and again later in the between 15 and 21 weeks gestational age. Please let your physician know if you are interested in this testing. It will require an appointment with our heat treatment technician. This is not an ultrasound performed by a physician in our office during a routine visit. SIGNS AND SYMPTOMS OF LABOR 1. Contractions every 10 minutes or more often 2. Clear, pink, or brownish fluid (water) leaking from vagina 3. Feeling that baby is pushing down, pressure 4. Low, dull backache 5. Cramps that feel like a period 6. Cramps with or without diarrhea If you notice any of the above symptoms, contact our office at [phone] and ask to speak with a nurse. After hours, you can call [employer] registry at [phone] OR call [facility] at [phone] and ask to have the doctor banking consultant paged. If you consider this an emergency, dial 2-8-0 or go to your nearest emergency department. NEED HELP? Are you dealing with a violent or abusive relationship? Are you a victim of rape or sexual assult? Call [facility] [place] ([facility] 24 hour Crisis Hotline: 891.432.7326 or 096-991-5965. MANUAL Your Guide to a Healthy manual is now on-line. Visit [email or web address] to download your free copy documented in this encounter [facility] 03-27-2024 Note Indication Follow-up evaluation to complete anatomic survey Impression - Single, live, intrauterine . - Amniotic fluid volume is normal amount with an MVP of 6.2 cm. - The placenta is anterior. - No malformations visualized on anatomic survey completion as detailed below. Recommendations Growth at 32 weeks Maternal Assessment Height 175 cm Height (ft) 5 ft Height (in) 9 in Physical Exam Initial weight (lb) 271 lb Initial BMI 40.02 kg/m Maternal assessment other: 2 Para 1 Growth Overview Exam date GA BPD (mm) HC (mm) AC (mm) FL (mm) HL (mm) EFW (g) 03/12/2024 19w 4d 46.2 67% 170.9 53% 148.9 65% 32.5 82% 29.6 57% 329 71% Method Transabdominal ultrasound examination. View: Adequate visualization Bond . Number of fetuses: 1 Dating LMP on: 10/27/2023 Cycle: regular cycle GA by LMP 21 w + 5 d HARRY by LMP: 08/02/2024 GA by prior assessment 21 w + 5 d HARRY by prior assessment: 08/02/2024 Assigned: based on stated HARRY, selected on 03/12/2024 Assigned GA 21 w + 5 d Assigned HARRY: 08/02/2024 General Evaluation Cardiac activity present. FHR 161 bpm. movements: present. Presentation: cephalic Placenta: Placental site: anterior Umbilical cord: Cord vessels: 3 vessel cord Amniotic fluid: Amount of AF: normal amount. MVP 6.2 cm Anatomy Lateral ventricles: normal Cavum septi pellucidi: normal Cerebellum: normal Cisterna magna: normal Head / Neck Vermis: normal 4-chamber view: normal RVOT view: normal LVOT view: normal 3-vessel view: normal Heart / Thorax Aortic arch view: normal Ductal arch view: normal SVC: normal IVC: normal Diaphragm: normal Stomach: normal Kidneys: normal Bladder: normal Cervical spine: normal Thoracic spine: normal Lumbar spine: normal Sacral spine: normal Lt hand: normal Lt fingers: normal Lt upper leg: normal Lt lower leg: normal sex: male Wants to know sex: yes Maternal Structures Uterus / Cervix Cervical length 32.6 mm Performed By: Shellie Monroe RDMS, RVT Read By: Natalya Louise M.D. [facility] 03-17-2024 Telephone encounter Note Patient notified. Appointment given. Tressa Packer RN [facility] 03-17-2024 Miscellaneous Notes Patient notified. Appointment given. Tressa Packer RN Left message for patient to call office. Tressa Packer RN ----- Message from Karl Romeo MD sent at 03/13/2024 3:30 PM EDT ----- Anatomy ultrasound reviewed. No abnormalities identified. F/u scan as recommended in 2-3 weeks please contact her to schedule. Please place copy in ob chart. Karl Romeo MD documented in this encounter [facility] 03-13-2024 Telephone encounter Note Left message for patient to call office. Tressa Packer RN [facility] 03-13-2024 Telephone encounter Note ----- Message from Karl Romeo MD sent at 03/13/2024 3:30 PM EDT ----- Anatomy ultrasound reviewed. No abnormalities identified. F/u scan as recommended in 2-3 weeks please contact her to schedule. Please place copy in ob chart. Karl Romeo MD [facility] 03-12-2024 Progress note Formatting of t his note might be different from the original. S: Ginger Ken is a 28 year old female who presents at 08/02/2024, Alternate HARRY Entry for a routine visit. Denies headache, visual changes, chest pain, shortness of breath, vaginal bleeding, leakage of fluid, or dysuria. Feeling well, no complaints. Still with nausea and vomiting. OTC medications not helping. Does have a hx of headache pre . Discussed reglan to help with both. O: See flow sheet Gen: No apparent distress Abd: Gravid, nontender Anatomy today. No issue on prelim ASSESSMENT/PLAN: 1. Encounter for supervision of high risk in second trimester, antepartum - ICD9: V23.9, ICD10: O09.92 (primary diagnosis) 2. Nausea and vomiting during - ICD9: 643.90, ICD10: O21.9 Reglan prn 3. Obesity affecting in second trimester, unspecified obesity type - ICD9: 649.13, ICD10: O99.212 4. 19 weeks gestation of - ICD9: V22.2, ICD10: Z3A.19 Tressa Le MD [facility] 03-12-2024 Miscellaneous Notes S: Ginger Ken is a 28 year old female who presents at 08/02/2024, Alternate HARRY Entry for a routine visit. Denies headache, visual changes, chest pain, shortness of breath, vaginal bleeding, leakage of fluid, or dysuria. Feeling well, no complaints. Still with nausea and vomiting. OTC medications not helping. Does have a hx of headache pre . Discussed reglan to help with both. O: See flow sheet Gen: No apparent distress Abd: Gravid, nontender Anatomy today. No issue on prelim ASSESSMENT/PLAN: 1. Encounter for supervision of high risk in second trimester, antepartum - ICD9: V23.9, ICD10: O09.92 (primary diagnosis) 2. Nausea and vomiting during - ICD9: 643.90, ICD10: O21.9 Reglan prn 3. Obesity affecting in second trimester, unspecified obesity type - ICD9: 649.13, ICD10: O99.212 4. 19 weeks gestation of - ICD9: V22.2, ICD10: Z3A.19 Tressa Le MD documented in this encounter [facility] 03-12-2024 Instructions Shaniqua Ferrell MA - 03/12/2024 11:27 AM EDT SEQUENTIAL SCREENINGS The [facility] offers sequential screenings for women who are interested in screenings for chromosomal abnormalities and certain defects during a . The sequential screen combines ultrasound and blood tests to determine the risk of chromosomal abnormalities, including Down's Syndrome (Trisomy 21) and Trisomy 18, as well as open neural tube defects including spina bifida. Ultrasound examination is performed between 11 weeks and 13 weeks gestational age. Blood tests are drawn after the ultrasound and again later in the between 15 and 21 weeks gestational age. Please let your physician know if you are interested in this testing. It will require an appointment with our heat treatment technician. This is not an ultrasound performed by a physician in our office during a routine visit. SIGNS AND SYMPTOMS OF LABOR 1. Contractions every 10 minutes or more often 2. Clear, pink, or brownish fluid (water) leaking from vagina 3. Feeling that baby is pushing down, pressure 4. Low, dull backache 5. Cramps that feel like a period 6. Cramps with or without diarrhea If you notice any of the above symptoms, contact our office at [phone] and ask to speak with a nurse. After hours, you can call doctors registry at [phone] OR call [facility] at [phone] and ask to have the doctor banking consultant paged. If you consider this an emergency, dial 7-7-9 or go to your nearest emergency department. NEED HELP? Are you dealing with a violent or abusive relationship? Are you a victim of rape or sexual assult? Call [facility] ([place]) 24 hour Crisis Hotline: 293.611.9288 or 151-097-8109. MANUAL Your Guide to a Healthy manual is now on-line. Visit [email or web address] to download your free copy documented in this encounter [facility] 02-25-2024 Telephone encounter Note Rx sent and message sent to pt [facility] 02-25-2024 Miscellaneous Notes Rx sent and message sent to pt 17w2d documented in this encounter [facility] 02-25-2024 Telephone encounter Note 17w2d [facility] 02-13-2024 Progress note Formatting of t his note might be different from the original. EH - S: Ginger is a 28 year old female who presents at 15w4d for a routine visit. Denies headache, visual changes, chest pain, shortness of breath, vaginal bleeding, leakage of fluid, or dysuria. O: See flow sheet Gen: No apparent distress Abd: Gravid, nontender, 2 lb total weight loss ASSESSMENT/PLAN: 1. Encounter for supervision of high risk in second trimester, antepartum - ICD9: V23.9, ICD10: O09.92 (primary diagnosis) - Anatomy ultrasound ordered 2. 15 weeks gestation of - ICD9: V22.2, ICD10: Z3A.15 - Nuchal WNL - Declines AFP 3. Obesity affecting in second trimester, unspecified obesity type - ICD9: 649.13, ICD10: O99.212 - Pre BMI 40 - Plan for growth and then weekly NSTs starting at 32 weeks. 4. headache in second trimester - ICD9: 646.83, 784.0, ICD10: O26.892, R51.9 - No visual changes, RUQ pain - BP WNL - Headaches outside of as well - Recommend Tylenol and Magnesium - Reviewed warning signs of when to call, especially in 3rd trimester 5. Nausea and vomiting during - ICD9: 643.90, ICD10: O21.9 - Has been expereincing throughout - Discussed Vitamin B6 dosages, written info provided PTL precautions reviewed. RTO in 4 weeks or sooner as needed. Elmira Schmitz APRN.VIDEOGAME DESIGNER [facility] 02-13-2024 Miscellaneous Notes EH - S: Ginger is a 28 year old female who presents at 15w4d for a routine visit. Denies headache, visual changes, chest pain, shortness of breath, vaginal bleeding, leakage of fluid, or dysuria. O: See flow sheet Gen: No apparent distress Abd: Gravid, nontender, 2 lb total weight loss ASSESSMENT/PLAN: 1. Encounter for supervision of high risk in second trimester, antepartum - ICD9: V23.9, ICD10: O09.92 (primary diagnosis) - Anatomy ultrasound ordered 2. 15 weeks gestation of - ICD9: V22.2, ICD10: Z3A.15 - Nuchal WNL - Declines AFP 3. Obesity affecting in second trimester, unspecified obesity type - ICD9: 649.13, ICD10: O99.212 - Pre BMI 40 - Plan for growth and then weekly NSTs starting at 32 weeks. 4. headache in second trimester - ICD9: 646.83, 784.0, ICD10: O26.892, R51.9 - No visual changes, RUQ pain - BP WNL - Headaches outside of as well - Recommend Tylenol and Magnesium - Reviewed warning signs of when to call, especially in 3rd trimester 5. Nausea and vomiting during - ICD9: 643.90, ICD10: O21.9 - Has been expereincing throughout - Discussed Vitamin B6 dosages, written info provided PTL precautions reviewed. RTO in 4 weeks or sooner as needed. Elmira Schmitz APRN.CNP documented in this encounter [facility] 02-13-2024 Instructions Elmira Schmitz APRN.CNP - 02/13/2024 3:42 PM EDT MORNING SICKNESS IN by Stacey Elaine M.D. for [employer] As you may already know, morning sickness can often be more appropriately called evening sickness or ksejo-fwqylc-hm-the-day sickness. While there are the vianey few, most women (50-90%) experience some degree of nausea, some have vomiting, and a few develop a severe form of vomiting during called hyperemesis gravidarum. What causes the nausea and vomiting of ? We can't explain why some people feel fine and others are green for months. Even the same woman may feel vastly different in each . There is some relationship between nausea and the level of the hormone hCG. In twin pregnancies, and in other situations where the hCG is greater than expected, nausea and vomiting tend to be worse. In a destined for miscarriage, hCG levels tend to be low, and nausea is often less severe. This being said, a lack of nausea doesn't guarantee that the is destined for miscarriage. The fact that nausea and vomiting are often signs of a healthy can offer a silver lining in the dark cloud of miserable nausea. How long will the nausea last? Fortunately, for most women, nausea and vomiting are a first trimester event, peaking at week 9-10 and waning by week 14-16. When you are feeling bad the weeks can go by slowly but most moms do feel tremendously better by the middle of the . Whether morning sickness is a brief experience or lasts through most of the , there are treatments that can make the weeks or months more tolerable. What can you do about it? Diet: See what works for you. Try eating bland dry foods, and avoid fatty or spicy foods. It is okay to eat a less than perfectly balanced diet in the first trimester. Have your liquids separately from dry foods. Try sports drinks, water, clear juices, Alfie-aid, or non-caffeinated tea. Avoid carbonated beverages that fill up your stomach. Try eating lots of little meals. If you tend to feel sick when you first wake up, leave crackers next to the bed for a quick snack before rising. Keeping healthy snacks with you all day to nibble when you feel queasy can sometimes even prevent nausea from starting. vitamins and nausea: Pre- vitamins can sometimes worsen nausea in . While folate is necessary, especially early in the , it comes as a smaller pill that many people find more tolerable than the complete vitamin pill. Ask your practitioner if it is okay to temporarily replace vitamins and iron with just a folate pill if you find a significant worsening in the level of your nausea from the vitamins. Alternative therapies: Acupressure may be used to treat nausea in , and is not known to have any risks for the fetus. Wristbands (marketed for seasickness) that put pressure on an acupressure point at the wrist are often available at drugstores or travel stores. Remington root is used for nausea in many traditional cultures. Some women take fresh grated remington or remington tablets. It is possible that the pill form contains other ingredients or contaminants, so you may want to try fresh remington first. Medications: Emetrol is the only nausea medication approved for use in . It is available over the counter and is soothing to the stomach. A prescription medication called Bendectin was available in the -1979's and was shown to be safe in , but the company stopped marketing it in the [place] due to the costs of liability coverage. Bendectin contained 10 milligrams of vitamin B6 and 10 milligrams of Doxylamine. Two tablets were given at bedtime and a total of up to 4 tablets could be used in a 24-hour period. Interestingly, Unisom , which contains a higher dose (25 mg.) of the same medication, Doxylamine, is currently marketed as an gfvy-urz-alrrwux sleeping pill. Ask your practitioner if creating a vitamin B6/Doxylamine combination with cexj-ncw-tkgjvjn medications would be safe for you. Prescription medications like Compazine and Phenergan can be used if the benefits outweigh possible risks, but these have not been clearly shown to be safe in . Zofran , an expensive anti-nausea medication often used to treat nausea from chemotherapy, can also be used. Can I throw up so much it harms the baby? The act of vomiting cannot hurt your fetus, which is protected inside the uterus. If you get dehydrated or develop a metabolic imbalance, this can be unhealthy. As long as you can keep down liquids, you and your baby will generally do all right. Eat when you feel able. If you are unable to keep anything down, or if you notice potential signs of dehydration such as lightheadedness, or concentrated and/or infrequent urination, call your practitioner. Some women need brief hospital admission for intravenous fluids and anti-nausea medications if their condition becomes severe. This severe form of nausea and vomiting is called Hyperemesis Gravidarum. As with many symptoms of , remind yourself that this, too, shall pass, and you'll have a wonderful baby to show for it! TREATMENT OPTIONS, SHORT VERSION: Frequent small meals Hydrate throughout day [employer] wrist pressure point applicators Remington root (powdered, in capsules) 250mg four times a day Vitamin B6 25 mg tablet three times a day Also may be taken with half a tablet of Unisom three times a day (Doxylamine 12.5 mg) If severe (weight loss, dehydration), call us and come in for IV hydration and possible medication in the form of injections. Prescription medications such as Phenergan, Compazine, Reglan SEQUENTIAL SCREENINGS The [facility] offers sequential screenings for women who are interested in screenings for chromosomal abnormalities and certain defects during a . The sequential screen combines ultrasound and blood tests to determine the risk of chromosomal abnormalities, including Down's Syndrome (Trisomy 21) and Trisomy 18, as well as open neural tube defects including spina bifida. Ultrasound examination is performed between 11 weeks and 13 weeks gestational age. Blood tests are drawn after the ultrasound and again later in the between 15 and 21 weeks gestational age. Please let your physician know if you are interested in this testing. It will require an appointment with our heat treatment technician. This is not an ultrasound performed by a physician in our office during a routine visit. SIGNS AND SYMPTOMS OF LABOR 1. Contractions every 10 minutes or more often 2. Clear, pink, or brownish fluid (water) leaking from vagina 3. Feeling that baby is pushing down, pressure 4. Low, dull backache 5. Cramps that feel like a period 6. Cramps with or without diarrhea If you notice any of the above symptoms, contact our office at [phone] and ask to speak with a nurse. After hours, you can call doctors registry at [phone] OR call [facility] at [phone] and ask to have the doctor banking consultant paged. If you consider this an emergency, dial [phone]- or go to your nearest emergency department. NEED HELP? Are you dealing with a violent or abusive relationship? Are you a victim of rape or sexual assult? Call [facility] ([place]) 24 hour Crisis Hotline: 251.115.5507 or 918-627-1436. MANUAL Your Guide to a Healthy manual is now on-line. Visit [email or web address] to download your free copy documented in this encounter [facility] 01-16-2024 Progress note Formatting of t his note might be different from the original. DM- Pt doing well today. Denies Vaginal Bleeding, Leaking fluid, or cramping. Pt reports nausea, no vomiting. NT today- declines screening. ASA reviewed. Pregravid BMI 40. Anatomy us ordered. NEW OB labs today. RTO 4 wks. Catie Hernandez MD [facility] 01-16-2024 Miscellaneous Notes DM- Pt doing well today. Denies Vaginal Bleeding, Leaking fluid, or cramping. Pt reports nausea, no vomiting. NT today- declines screening. ASA reviewed. Pregravid BMI 40. Anatomy us ordered. NEW OB labs today. RTO 4 wks. Catie Hernandez MD documented in this encounter [facility] 01-16-2024 Instructions Sharla Lopez MA - 01/16/2024 9:35 AM EDT SEQUENTIAL SCREENINGS The [facility] offers sequential screenings for women who are interested in screenings for chromosomal abnormalities and certain defects during a . The sequential screen combines ultrasound and blood tests to determine the risk of chromosomal abnormalities, including Down's Syndrome (Trisomy 21) and Trisomy 18, as well as open neural tube defects including spina bifida. Ultrasound examination is performed between 11 weeks and 13 weeks gestational age. Blood tests are drawn after the ultrasound and again later in the between 15 and 21 weeks gestational age. Please let your physician know if you are interested in this testing. It will require an appointment with our heat treatment technician. This is not an ultrasound performed by a physician in our office during a routine visit. SIGNS AND SYMPTOMS OF LABOR 1. Contractions every 10 minutes or more often 2. Clear, pink, or brownish fluid (water) leaking from vagina 3. Feeling that baby is pushing down, pressure 4. Low, dull backache 5. Cramps that feel like a period 6. Cramps with or without diarrhea If you notice any of the above symptoms, contact our office at [phone] and ask to speak with a nurse. After hours, you can call doctors registry at [phone] OR call [facility] at [phone] and ask to have the doctor banking consultant paged. If you consider this an emergency, dial 9-1-1 or go to your nearest emergency department. NEED HELP? Are you dealing with a violent or abusive relationship? Are you a victim of rape or sexual assult? Call [facility] ([place]) 24 hour Crisis Hotline: 998.462.3330 or 008-370-1695. MANUAL Your Guide to a Healthy manual is now on-line. Visit [email or web address] to download your free copy documented in this encounter [facility] 12-20-2023 Miscellaneous Notes Patient is here for NOB. TVUS confirms HARRY of 08/02/24. See progress note. Renu Moore APRN.CNM documented in this encounter [facility] 12-13-2023 Note HNO ID: [id number] Author: RENU MOORE APRN.CNM Service: ? Author Type: Post Anesthesia Room Nurse Type: Progress Notes Filed: 12/20/2023 12:52 Note Text: INITIAL OB ASSESSMENT HPI: Ginger is a 28 year old White here to establish Obstetrical Care. Patient's last menstrual period was 10/27/2023. from OB Dating Form. was planned Patient used Letrozole Complaints: Abdominal pain OB History T1 L1 SAB0 IAB0 Ectopic0 Multiple0 Live Births0 Previous history: Prior : never History of 4th degree laceration: No History of shoulder dystocia: No History of Hypertensive disorders including pre-eclampsia or gestational hypertension: No History of gestational diabetes: No Patient's Risk Screening for delivery: Have you had a prior bond between 20w and 36w6d? No How many pregnancies have you had before? 1 Did you have a previous baby with a GBS Infection? No Please select all that apply for any prior : N/A MEDICAL/PSYCHOSOCIAL HISTORY: History of hemorrhage or bleeding concerns: No Thyroid Disease: No History of chronic hypertension: No History of pre-existing diabetes: No No results found for: ABORHD BMI 40.02 kg/(m2) Last Pap: 04/2023 History of abnormal pap: No Prior treatment for cervical dysplasia: none. History of STDs: None Partner History of STDs: None Did you have a partner with Herpes? No Tobacco use: No E-Cigarette/Vaping Use: No Caffeine use: Yes Drug use: No Alcohol use: No Multivitamin with Folic acid: Yes Would refuse blood transfusion if medically necessary: No Social Needs: How often does this describe you? I don't have enough money to pay my bills: Never Within the past 12 months, have you worried that your food would run out before you had money to buy more? Never In the past 12 months, has lack of reliable transportation kept you from going to medical appointments or work, or from getting things needed for daily living? Never In the past 12 months, have you had any concerns about having a place to live, or about the condition or quality of your housing? Never Would you like more information on any of the following (please check all that apply)? Not interested Social History: Do you have any history of depression, anxiety, PTSD, or other mood problems? Yes Do you have a history of abuse or trauma that may impact your experience? No Are you currently employed? Yes Depression/Anxiety Screening: denies, admits to symptoms of depression. OB Depression and Anxiety Screening- This Encounter (since 12/19/2023) Over the past 2 weeks have you felt down, depressed, or hopeless? Negative Over the past two weeks, have you felt little interest or pleasure in doing things?? Negative Feeling nervous, anxious or on edge 0-Not at all Not being able to stop or control worrying 0-Not al all Anxiety Pre-Screening Total (If >/= 3 additional questions will be reviewed) 0 Genetic Screening: Partner present: Yes Patient verbalized knowledge of partner family health history: Yes Do you or your partner have any personal or family history of defects not previously discussed: No Do you have history of a complicated by anomaly, genetic condition, or demise: No ACOG Recommended Screening: Screening for early gestational diabetes testing: Criteria for early testing requires elevated BMI plus one other risk factor: BMI 40.02 kg/(m2) (risk factor if > than 25 or 23 in Americans) Additional risk factors: None She does not meet ACOG criteria for early gestational DM screening. Screening for low dose aspirin use for the prevention of pre-eclampsia: Low dose aspirin should be considered if the patient has one high or two moderate risk factors: High risk factors: None Moderate risk ractors: Obesity (body mass index greater than 30) She does meet criteria for low dose ASA OB Risk Screening: Completed, no positive findings documented. 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 fexofenadine HCl (DEVIN ORAL) Take by mouth. Hdqqaqrb-Mf-Chh-Fe-FA tab Take 1 tablet by mouth once daily. letrozole (FEMARA) 2.5 mg tablet Take 1 tablet by mouth once daily. Days 3-7 of menstrual cycle. (Patient not taking: Reported on 12/13/2023) 5 tablet 0 buPROPion XL (WELLBUTRIN XL) 300 mg 24 hr tablet Take 300 mg by mouth once daily. (Patient not taking: Reported on 12/13/2023) No current faci (more content not included)... [place] 12-13-2023 History of Presen t illness Narrative INITIAL OB ASSESSMENT HPI: Ginger is a 28 year old White here to establish Obstetrical Care. Patient's last menstrual period was 10/27/2023. from OB Dating Form. was planned Patient used Letrozole Complaints: Abdominal pain OB History T1 L1 SAB0 IAB0 Ectopic0 Multiple0 Live Births0 Previous history: Prior : never History of 4th degree laceration: No History of shoulder dystocia: No History of Hypertensive disorders including pre-eclampsia or gestational hypertension: No History of gestational diabetes: No Patient's Risk Screening for delivery: Have you had a prior bond between 20w and 36w6d? No How many pregnancies have you had before? 1 Did you have a previous baby with a GBS Infection? No Please select all that apply for any prior : N/A MEDICAL/PSYCHOSOCIAL HISTORY: History of hemorrhage or bleeding concerns: No Thyroid Disease: No History of chronic hypertension: No History of pre-existing diabetes: No No results found for: ABORHD BMI 40.02 kg/(m^2) Last Pap: 04/2023 History of abnormal pap: No Prior treatment for cervical dysplasia: none. History of STDs: None Partner History of STDs: None Did you have a partner with Herpes? No Tobacco use: No E-Cigarette/Vaping Use: No Caffeine use: Yes Drug use: No Alcohol use: No Multivitamin with Folic acid: Yes Would refuse blood transfusion if medically necessary: No Social Needs: How often does this describe you? I don't have enough money to pay my bills: Never Within the past 12 months, have you worried that your food would run out before you had money to buy more? Never In the past 12 months, has lack of reliable transportation kept you from going to medical appointments or work, or from getting things needed for daily living? Never In the past 12 months, have you had any concerns about having a place to live, or about the condition or quality of your housing? Never Would you like more information on any of the following (please check all that apply)? Not interested Social History: Do you have any history of depression, anxiety, PTSD, or other mood problems? Yes Do you have a history of abuse or trauma that may impact your experience? No Are you currently employed? Yes Depression/Anxiety Screening: denies, admits to symptoms of depression. OB Depression and Anxiety Screening- This Encounter (since 12/19/2023) Over the past 2 weeks have you felt down, depressed, or hopeless? Negative Over the past two weeks, have you felt little interest or pleasure in doing things? Negative Feeling nervous, anxious or on edge 0-Not at all Not being able to stop or control worrying 0-Not al all Anxiety Pre-Screening Total (If >/= 3 additional questions will be reviewed) 0 Genetic Screening: Partner present: Yes Patient verbalized knowledge of partner family health history: Yes Do you or your partner have any personal or family history of defects not previously discussed: No Do you have history of a complicated by anomaly, genetic condition, or demise: No ACOG Recommended Screening: Screening for early gestational diabetes testing: Criteria for early testing requires elevated BMI plus one other risk factor: BMI 40.02 kg/(m^2) (risk factor if > than 25 or 23 in Americans) Additional risk factors: None She does not meet ACOG criteria for early gestational DM screening. Screening for low dose aspirin use for the prevention of pre-eclampsia: Low dose aspirin should be considered if the patient has one high or two moderate risk factors: High risk factors: None Moderate risk ractors: Obesity (body mass index greater than 30) She does meet criteria for low dose ASA OB Risk Screening: Completed, no positive findings documented. 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 fexofenadine HCl (DEVIN ORAL) Take by mouth. Rqdfqhdc-Ea-Fct-Fe-FA tab Take 1 tablet by mouth once daily. letrozole (FEMARA) 2.5 mg tablet Take 1 tablet by mouth once daily. Days 3-7 of menstrual cycle. (Patient not taking: Reported on 12/13/2023) 5 tablet 0 buPROPion XL (WELLBUTRIN XL) 300 mg 24 hr tablet Take 300 mg by mouth once daily. (Patient not taking: Reported on 12/13/2023) No current facility-administered medications for this visit. Allergies As of Date: 12/20/2023 (No Known Allergies) Fully Assessed 12/20/2023 Does patient have penicillin allergy: No REVIEW OF SYSTEMS: GENERAL: Negative for: Fever or Chills and Positive for: Fatigue HEENT: Negative for: Headache, Impaired Vision, Ringing in Ears, Nosebleeds NECK: Negative for: Swelling, Pain, Stiffness RESPIRATORY: Negative for: Cough, Shortness of breath, Wheezing GASTROINTESTINAL: Negative for: Heartburn, Constipation, Diarrhea, Blood in stool, Vomiting, Positive for: Nausea and Vomiting, and Positive for: Heartburn MUSCULOSKELETAL: Negative for: Muscle or joint pain, stiffness, Joint swelling NEUROLOGIC/PSYCHIATRIC: Negative for: Weakness, Paralysis, Numbness, Tingling, Tremor, Anxiety, Depression, Memory loss SKIN: Negative for: Rash, Itching GENITOURINARY: Negative for: vaginal itching, vaginal discharge, hematuria or dysuria and Positive for: urinary frequency PHYSICAL EXAM: BP 118/66 Ht 5' 9 (1.75m) Wt 271 lb (122.9kg) LMP 10/27/2023 BMI 40.00 kg/(m^2). GENERAL: pleasant in no apparent distress DERMATOLOGY: Normal and without lesions NECK: Supple and full range of motion CHEST: Normal inspiratory effort BREAST: deferred ABDOMEN: soft, non-tender, and no masses NEURO: alert and oriented x3,exam grossly non-focal PELVIS: External genitalia normal without lesions. Perineal body intact. No vaginal or cervical lesions. Cervix closed. No adnexal masses or tenderness. Clinical Pelvimetry: Pelvimetry clinically assessed as adequate POC ultrasound exam completed: single intrauterine and positive cardiac activity HARRY confirms 08/02/24 ASSESSMENT/PLAN: 1. 7 weeks gestation of - ICD9: V22.2, ICD10: Z3A.01 (primary diagnosis) 2. Encounter for supervision of normal first in first trimester - ICD9: V22.0, ICD10: Z34.01 3. with uncertain dates, antepartum - ICD9: V22.1, ICD10: Z34.90 4. Encounter for care in first trimester of first - ICD9: V22.0, ICD10: Z34.01 5. Obesity affecting in first trimester, unspecified obesity type - ICD9: 649.13, ICD10: O99.211 6. Anxiety and depression - ICD9: 300.00, 311, ICD10: F41.9, F32.A PLAN: 1) Patient oriented to practice. Discussed nutrition, folic acid supplementation, dietary guidelines, exercise, smoking, alcohol, caffeine, and drug use. Discussed gestational weight gain guidelines. Discussed routine OB labs including STD/HIV. Discussed how to access Your guide to a health and the [employer] Technical [employer]. Discussed aneuploidy screening, nuchal translucency/first trimester early anatomy ultrasound and NIPT. The risks/benefits and limitations of NIPT/aneuploidy screening were reviewed including the potential for false negative and false positive results. The availability of genetic counseling was reviewed. Information on aneuploidy screening was provided. The patient is uncertain. She will call back if she wants to proceed with screening. Pt aware of timing. Discussed myriad carrier screening. We discussed the availability of professional-society guided carrier screening and reviewed the conditions screened and limitations of screening. The availability of genetic counseling was reviewed. Information on carrier screening was provided. The patient Declines Reviewed midwifery and journalism teacher services that are available. 2) Patient offered option of Virtual Visits. Patient prefers in person visits. 3) Obesity (BMI >30), will order early glucose screen or Hemoglobin A1C. PCOS: will order early glucose screen or Hemoglobin A1C. Follow up in 4 weeks or sooner prn. Renu Moore APRN.CNM documented in this encounter [facility] 12-13-2023 Instructions Renu Moore APRN.CNM - 12/13/2023 3:26 PM EDT Pepcid 20 mg PO up to 2 x daily for acid reflux Vit. B6 and Unisom for nausea Please select the following link to access the [facility] Your Guide to a Healthy . [email or web address] Please select the following link to access the [facility] Your Guide to a Healthy . [email or web address] documented in this encounter [facility] 08-22-2023 Note HNO ID: [id number] Author: Tressa Packer RN Service: ? Author Type: Registered Nurse Type: Progress Notes Filed: 08/22/2023 4:49 PM Note Text: Please review lab results Scan on 08/22/2023 3:58 PM by Provider, External, PA-C: Miscellaneous [facility] [place] 07-17-2023 Instructions Jose Raphael MD - 07/17/2023 3:39 PM EDT LETROZOLE (Femara) INSTRUCTIONS Letrozole: 1 tablet(s) a day, cycle days 3-7 Note: 1st day of full flow is cycle day 1 Have sexual intercourse approximately every other day for 1 week beginning cycle day 11 You don't need temperature charts or LH predictor kits because normal cycle lengths indicate ovulatory cycles. Call office if: cycles longer than 35 days Side effects of Letrozole may include: acne headache hot flushes leg cramps nausea If side effects are severe, alternative medications may be available. Letrozole has a 5% chance of multiple (twins or more). Progesterone: May be given to bring on a period if you have not had a period after 40 days and a home test is negative. Continue to take Progesterone if you have light bleeding. Expect to bleed within 2 weeks of finishing Progesterone. documented in this encounter [facility] 07-17-2023 Note HNO ID: [id number] Author: Jose Raphael MD Service: ? Author Type: Physician Type: Progress Notes Filed: 07/17/2023 4:08 PM Note Text: Ginger Ken is a 28 year old [id number] female who presents for problem visit as a new patient referral from [facility] for family planning discussion and care. HPI: (Flex) and Ginger have been thinking of having another child. Ginger has PCOS and has had to take ovulation-inducing medications prior to conceiving her first child, her son, 2.5 years ago. Hx of anxiety and depression, currently on Wellbutrin 300 mg. Hx of Vitamin D deficiency, felt that the supplementation made her more fatigued so discontinued approx 1 month ago. Last vitamin D 27.4 on 03/06. Was taking 50,000 Ius weekly PO. OB History One , had cyst on umbilical cord which self-resolved. Was induced but not for medical necessity, no hx of preeclampsia, GDM. 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 Previously on Depo shot which helped w/ pain management. Currently having cycles of approx 26 days, she is bleeding for 5 days with onset of bleeding occurring one week earlier than in the past. Some menstrual pain noted. TEACHING PROVIDER (Physician/PA/SHANI) NOTE OF PERSONAL INVOLVEMENT IN CARE: I have personally seen and examined the patient and performed the medical decision-making components. I have reviewed the Medical Student's documentation and verified the findings in the note as written. Any additions or changes are noted in bold/italics. Signature: Jose Raphael Date: 07/17/2023 Time: 4:05 PM Sales And Service Specialist History LMP: 07/05/2023, Having periods Age at Menarche: Age at First : Age at Menopause: Sales And Service Specialist History Comments: Sexual Activity: Yes; Male Contraception: None PAST MEDICAL HISTORY Diagnosis Date Anxiety and depression Endometriosis PCOS (polycystic ovarian syndrome) PAST SURGICAL HISTORY Procedure Laterality Date PAST SURGICAL HISTORY OF 2019 Laparoscopy for Endometriosis at [facility] FAMILY HISTORY Problem Relation Age of Onset [place] Disease Mother Diabetes Father Hypertension Sister Social History Tobacco Use Smoking status: Never Smokeless tobacco: Never Vaping Use Vaping Use: Never used Substance Use Topics Alcohol use: Yes Comment: occasionally Drug use: Never Current Outpatient Medications Medication Sig buPROPion XL (WELLBUTRIN XL) 300 mg 24 hr tablet Take 300 mg by mouth once daily. fexofenadine HCl (DEVIN ORAL) Take by mouth. No current facility-administered medications for this visit. Allergies As of Date: 07/17/2023 (No Known Allergies) Fully Assessed 07/17/2023 REVIEW OF SYSTEMS Gen: Endorses fatigue, hx of Vitamin D deficiency Abdomen: No bloating, early satiety, indigestion, or increased flatulence. No abdominal pain, nausea, vomiting, diarrhea, or constipation. Bladder: No dysuria, gross hematuria, urinary frequency, urinary urgency, or incontinence. Breast: No breast lumps, nipple d/c, overlying skin changes, redness or skin retraction. Expanded ROS: N/A Allergies and current medication updated:Yes EXAM: BP 132/80 Ht 5' 9 (1.75m) Wt 254 lb 3.2 oz (115.3kg) LMP 07/05/2023 BMI 37.52 kg/(m2). GENERAL: pleasant, female in no apparent distress ASSESSMENT AND PLAN: 28yo female with anovulation Discussed R/B/A of options and patient wishes to proceed with letrozole. Use reviewed in detail AND all questions answered. Will check a day 21 progesterone level. Advised on preconception folic acid supplementation and patient will take PNV for at least 1 month before starting letrozole. Patient will discussed vitamin D supplementation with her pcp. She also reports thyroid AND diabetes screening with her pcp within the last year. Medical Decision Making: Problems: Low: Stable chronic illness Data: Unique test(s) ordered: 1 Risk: Moderate: Drug management Medical Decision Making Level: 3 - Low Jose Raphael MD [place] 07-17-2023 History of Presen t illness Narrative Ginger Ken is a 28 year old [id number] female who presents for problem visit as a new patient referral from [facility] for family planning discussion and care. HPI: (Flex) and Ginger have been thinking of having another child. Ginger has PCOS and has had to take ovulation-inducing medications prior to conceiving her first child, her son, 2.5 years ago. Hx of anxiety and depression, currently on Wellbutrin 300 mg. Hx of Vitamin D deficiency, felt that the supplementation made her more fatigued so discontinued approx 1 month ago. Last vitamin D 27.4 on 03/06. Was taking 50,000 Ius weekly PO. OB History One , had cyst on umbilical cord which self-resolved. Was induced but not for medical necessity, no hx of preeclampsia, GDM. 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 Previously on Depo shot which helped w/ pain management. Currently having cycles of approx 26 days, she is bleeding for 5 days with onset of bleeding occurring one week earlier than in the past. Some menstrual pain noted. TEACHING PROVIDER (Physician/PA/ADDICTION PSYCHIATRIST) NOTE OF PERSONAL INVOLVEMENT IN CARE: I have personally seen and examined the patient and performed the medical decision-making components. I have reviewed the Medical Student's documentation and verified the findings in the note as written. Any additions or changes are noted in bold/italics. Signature: Jose Raphael Date: 07/17/2023 Time: 4:05 PM Sales And Service Specialist History LMP: 07/05/2023, Having periods Age at Menarche: Age at First : Age at Menopause: Sales And Service Specialist History Comments: Sexual Activity: Yes; Male Contraception: None PAST MEDICAL HISTORY Diagnosis Date Anxiety and depression Endometriosis PCOS (polycystic ovarian syndrome) PAST SURGICAL HISTORY Procedure Laterality Date PAST SURGICAL HISTORY OF 2019 Laparoscopy for Endometriosis at [facility] FAMILY HISTORY Problem Relation Age of Onset [place] Disease Mother Diabetes Father Hypertension Sister Social History Tobacco Use Smoking status: Never Smokeless tobacco: Never Vaping Use Vaping Use: Never used Substance Use Topics Alcohol use: Yes Comment: occasionally Drug use: Never Current Outpatient Medications Medication Sig buPROPion XL (WELLBUTRIN XL) 300 mg 24 hr tablet Take 300 mg by mouth once daily. fexofenadine HCl (DEVIN ORAL) Take by mouth. No current facility-administered medications for this visit. Allergies As of Date: 07/17/2023 (No Known Allergies) Fully Assessed 07/17/2023 REVIEW OF SYSTEMS Gen: Endorses fatigue, hx of Vitamin D deficiency Abdomen: No bloating, early satiety, indigestion, or increased flatulence. No abdominal pain, nausea, vomiting, diarrhea, or constipation. Bladder: No dysuria, gross hematuria, urinary frequency, urinary urgency, or incontinence. Breast: No breast lumps, nipple d/c, overlying skin changes, redness or skin retraction. Expanded ROS: N/A Allergies and current medication updated:Yes EXAM: BP 132/80 Ht 5' 9 (1.75m) Wt 254 lb 3.2 oz (115.3kg) LMP 07/05/2023 BMI 37.52 kg/(m^2). GENERAL: pleasant, female in no apparent distress ASSESSMENT AND PLAN: 28yo female with anovulation Discussed R/B/A of options and patient wishes to proceed with letrozole. Use reviewed in detail & all questions answered. Will check a day 21 progesterone level. Advised on preconception folic acid supplementation and patient will take PNV for at least 1 month before starting letrozole. Patient will discussed vitamin D supplementation with her pcp. She also reports thyroid & diabetes screening with her pcp within the last year. Medical Decision Making: Problems: Low: Stable chronic illness Data: Unique test(s) ordered: 1 Risk: Moderate: Drug management Medical Decision Making Level: 3 - Low Jose Raphael MD documented in this encounter [facility] Evaluation note Diagnosis Anovulation- Primary Female infertility associated with anovulation PCOS (polycystic ovarian syndrome) Polycystic ovaries [facility] Diagnosis 7 weeks gestation of - Primary state, incidental Encounter for supervision of normal first in first trimester Supervision of normal first Use of letrozole (Femara) Use of aromatase inhibitors with uncertain dates, antepartum state, incidental Encounter for care in first trimester of first Obesity affecting in first trimester, unspecified obesity type Anxiety and depression Dysthymic disorder [facility] Diagnosis Obesity in - Primary Obesity complicating , childbirth, or the puerperium, unspecified as to episode of care or not applicable Encounter for supervision of other normal in second trimester Anxiety and depression Dysthymic disorder Encounter for care in first trimester of first 11 weeks gestation of state, incidental [facility] Diagnosis Encounter for (NT) nuchal translucency scan- Primary Other specified screening 11 weeks gestation of state, incidental [facility] Diagnosis Encounter for supervision of high risk in second trimester, antepartum- Primary 15 weeks gestation of state, incidental Obesity affecting in second trimester, unspecified obesity type headache in second trimester Nausea and vomiting during [facility] Diagnosis Nausea and vomiting during - Primary [facility] Diagnosis Encounter for anatomic survey- Primary Encounter for supervision of other normal in second trimester Obesity in Obesity complicating , childbirth, or the puerperium, unspecified as to episode of care or not applicable [facility] Diagnosis Encounter for supervision of high risk in second trimester, antepartum- Primary Nausea and vomiting during Obesity affecting in second trimester, unspecified obesity type 19 weeks gestation of state, incidental documented in this encounter [facility] note* Diagnosis Encounter for supervision of high risk in second trimester, antepartum- Primary Obesity affecting in second trimester, unspecified obesity type documented in this encounter [facility] note* Diagnosis Encounter for follow-up ultrasound of anatomy- Primary Obesity affecting in second trimester, unspecified obesity type 21 weeks gestation of state, incidental documented in this encounter [facility] note* Diagnosis Encounter for supervision of high risk in second trimester, antepartum- Primary 24 weeks gestation of state, incidental Obesity affecting in second trimester, unspecified obesity type Headache in , antepartum, second trimester documented in this encounter [facility] note* Diagnosis Encounter for supervision of high risk in third trimester, antepartum- Primary 28 weeks gestation of state, incidental Obesity affecting in third trimester, unspecified obesity type Anxiety and depression Dysthymic disorder Need for vaccination Need for prophylactic vaccination and inoculation against unspecified single disease Supervision of high risk in third trimester Unspecified high-risk documented in this encounter [facility] note* Diagnosis Encounter for supervision of high risk in third trimester, antepartum- Primary 30 weeks gestation of state, incidental Obesity affecting in third trimester, unspecified obesity type Anxiety and depression Dysthymic disorder Supervision of high risk in third trimester Unspecified high-risk documented in this encounter [facility] note* Diagnosis Encounter for supervision of high risk in third trimester, antepartum- Primary 32 weeks gestation of state, incidental Obesity affecting in third trimester, unspecified obesity type COVID-19 affecting in third trimester documented in this encounter [facility] note* Diagnosis Encounter for supervision of high risk in third trimester, antepartum- Primary Obesity affecting in third trimester, unspecified obesity type 33 weeks gestation of state, incidental Group beta Strep positive documented in this encounter [facility] note* Diagnosis 33 weeks gestation of - Primary state, incidental Obesity affecting in third trimester, unspecified obesity type documented in this encounter [facility] note* Diagnosis Vaginal discharge- Primary Leukorrhea, not specified as infective 33 weeks gestation of state, incidental Obesity affecting in third trimester, unspecified obesity type Encounter for supervision of high risk in third trimester, antepartum [facility]* Diagnosis Encounter for supervision of high risk in third trimester, antepartum- Primary 34 weeks gestation of state, incidental Obesity affecting in third trimester, unspecified obesity type Group beta Strep positive Antepartum tachycardia affecting care of mother Abnormality in heart rate/rhythm, antepartum condition or complication Swelling of lower extremity during in third trimester Polyhydramnios in third trimester complication, single or unspecified fetus documented in this encounter [facility] note* Diagnosis Encounter for ultrasound to check growth- Primary Encounter for routine screening for malformation using ultrasonics Obesity affecting in second trimester, unspecified obesity type Polyhydramnios in third trimester complication, single or unspecified fetus documented in this encounter [facility] note* Diagnosis Encounter for supervision of high risk in third trimester, antepartum- Primary 34 weeks gestation of state, incidental Obesity affecting in third trimester, unspecified obesity type Polyhydramnios affecting in third trimester documented in this encounter [facility] note* Diagnosis Polyhydramnios in third trimester complication, single or unspecified fetus- Primary Obesity affecting in third trimester, unspecified obesity type 35 weeks gestation of state, incidental Encounter for supervision of high risk in third trimester, antepartum- Primary Swelling of lower extremity during in third trimester Polyhydramnios affecting in third trimester Obesity affecting in third trimester, unspecified obesity type contractions Threatened premature labor, antepartum Supervision of high risk in third trimester Unspecified high-risk Need for influenza vaccination Need for prophylactic vaccination and inoculation against influenza 35 weeks gestation of state, incidental documented in this encounter [facility] note* Diagnosis Encounter for supervision of high risk in third trimester, antepartum- Primary Swelling of lower extremity during in third trimester Polyhydramnios affecting in third trimester Obesity affecting in third trimester, unspecified obesity type contractions Threatened premature labor, antepartum Supervision of high risk in third trimester Unspecified high-risk Need for influenza vaccination Need for prophylactic vaccination and inoculation against influenza 35 weeks gestation of state, incidental * Assessment & Plan Note - Catie Munoz MD - 06/30/2024 12:03 PM EDTAssociated Problem(s): Swelling of lower extremity during in third trimester * Assessment & Plan Note - Catie Munoz MD - 06/30/2024 12:03 PM EDTAssociated Problem(s): Polyhydramnios affecting in third trimester * Assessment & Plan Note - Catie Munoz MD - 06/30/2024 12:03 PM EDTAssociated Problem(s): Obesity affecting in third trimester * Assessment & Plan Note - Catie Munoz MD - 06/30/2024 12:03 PM EDTAssociated Problem(s): Supervision of high risk in third trimester Orders: URINE OB DIP B/O documented in this encounter [facility] note* Diagnosis Encounter for supervision of high risk in third trimester, antepartum- Primary Swelling of lower extremity during in third trimester Polyhydramnios affecting in third trimester Obesity affecting in third trimester, unspecified obesity type contractions Threatened premature labor, antepartum Supervision of high risk in third trimester Unspecified high-risk Need for influenza vaccination Need for prophylactic vaccination and inoculation against influenza 35 weeks gestation of state, incidental Polyhydramnios affecting in third trimester- Primary Encounter for supervision of high risk in third trimester, antepartum Swelling of lower extremity during in third trimester Obesity affecting in third trimester, unspecified obesity type 35 weeks gestation of state, incidental Group beta Strep positive documented [facility] encounter [facility]* Diagnosis Encounter for supervision of high risk in third trimester, antepartum- Primary Swelling of lower extremity during in third trimester Polyhydramnios affecting in third trimester Obesity affecting in third trimester, unspecified obesity type contractions Threatened premature labor, antepartum Supervision of high risk in third trimester Unspecified high-risk Need for influenza vaccination Need for prophylactic vaccination and inoculation against influenza 35 weeks gestation of state, incidental Polyhydramnios in third trimester complication, single or unspecified fetus- Primary Obesity affecting in third trimester, unspecified obesity type 36 weeks gestation of state, incidental [facility] Diagnosis Encounter for supervision of high risk in third trimester, antepartum- Primary Swelling of lower extremity during in third trimester Polyhydramnios affecting in third trimester Obesity affecting in third trimester, unspecified obesity type contractions Threatened premature labor, antepartum Supervision of high risk in third trimester Unspecified high-risk Need for influenza vaccination Need for prophylactic vaccination and inoculation against influenza 35 weeks gestation of state, incidental Encounter for supervision of high risk in third trimester, antepartum- Primary 36 weeks gestation of state, incidental Polyhydramnios affecting in third trimester Obesity affecting in third trimester, unspecified obesity type Group beta Strep positive Anxiety and depression Dysthymic disorder [facility] Diagnostic Procedure Only (Routine) - Authorized Specialty Diagnoses / Procedures Referred By Neno bass Referred To Contact [facility] Diagnoses 7 weeks gestation of Procedures NUCHAL TRANSLUCENCY WHI US NUCHAL TRANSLUCENCY GESTATION Renu Moore APRN.CNM [address] [place] [address] [address] Referral ID Status Reason Start Date Expiration Date Visits Requested Visits Authorized [id number] Authorized Auto-Generat ed Referral 12/20/2023 12/19/2024 1 1 * Diagnostic Procedure Only (Routine) - Pending Review Specialty Diagnoses / Procedures Referred By Neno bass Referred To Contact [facility] Diagnoses 7 weeks gestation of Procedures OBSTETRIC ULTRASOUND WHI US PREG UTERUS AFTER 1ST TRIMEST GESTATION Renu Moore APRN.CNM [address] [place] [address] [address] Referral ID Status Reason Start Date Expiration Date Visits Requested Visits Authorized [id number] Pending Review Auto-Generat ed Referral 12/20/2023 12/19/2024 1 1 T [facility] for referral (narrative)* Diagnostic Procedure Only (Routine) - Authorized Specialty Diagnoses / Procedures Referred By Contac t Referred To Contact [facility] Diagnoses Encounter for supervision of other normal in second trimester Obesity in Procedures OBSTETRIC ULTRASOUND WHI US PREG UTERUS AFTER 1ST TRIMEST GESTATION Catie Munoz MD [address] [place] [address] [address] Referral ID Status Reason Start Date Expiration Date Visits Requested Visits Authorized [id number] Authorized Auto-Generat ed Referral 01/16/2024 01/15/2025 1 1 T [facility] for referral (narrative)* Diagnostic Procedure Only (Routine) - Pending Review Specialty Diagnoses / Procedures Referred By Contac t Referred To Contact [facility] Diagnoses Obesity in Encounter for anatomic survey Procedures OBSTETRIC ULTRASOUND WHI US PREG UTERUS AFTER 1ST [place] [id number] [address] [address] Referral ID Status Reason Start Date Expiration Date Visits Requested Visits Authorized [id number] Pending Review Auto-Generat ed Referral 03/12/2024 03/12/2025 1 1 [facility] for referral (narrative)* Diagnostic Procedure Only (Routine) - Pending Review Specialty Diagnoses / Procedures Referred By Neno t Referred To Contact [facility] Diagnoses Encounter for supervision of high risk in second trimester, antepartum Obesity affecting in second trimester, unspecified obesity type Procedures OBSTETRIC ULTRASOUND WHI US PREG UTERUS AFTER 1ST TRIMEST GESTATION Karl Romeo MD [address] [place] [address] [place] [id number] Referral ID Status Reason Start Date Expiration Date Visits Requested Visits Authorized [id number] Pending Review Auto-Generat ed Referral 03/13/2024 03/13/2025 3 1 [facility] for referral (narrative)* Outpatient Procedure (Routine) - New Request Specialty Diagnoses / Procedures Referred By Neno t Referred To Contact [facility] Diagnoses Encounter for supervision of high risk in third trimester, antepartum 30 weeks gestation of Procedures NON-STRESS TEST NON-STRESS TEST Elmira Schmitz APRN.CNP [address] [place] [address] [address] Referral ID Status Reason Start Date Expiration Date Visits Requested Visits Authorized [id number] New Request Auto-Generat ed Referral 05/26/2024 05/26/2025 1 1 [facility] for referral (narrative)* Outpatient Procedure (Routine) - Authorized Specialty Diagnoses / Procedures Referred By Neno t Referred To Contact [facility] Diagnoses Obesity affecting in third trimester, unspecified obesity type Procedures NON-STRESS TEST NON-STRESS TEST Elmira Schmitz APRN.CNP [address] [address] [id number] [place] [address] Referral ID Status Reason Start Date Expiration Date Visits Requested Visits Authorized [id number] Authorized Auto-Generat ed Referral 06/23/2024 06/23/2025 1 1 * Diagnostic Procedure Only (Routine) - Authorized Specialty Diagnoses / Procedures Referred By Neno t Referred To Contact [facility] Diagnoses Encounter for supervision of high risk in third trimester, antepartum 34 weeks gestation of Obesity affecting in third trimester, unspecified obesity type Procedures BIOPHYSICAL PROFILE US I BIOPHYSICAL PROFILE NON-STRESS TESTING Elmira Schmitz APRN.CNP [address] [place] [address] [address] Referral ID Status Reason Start Date Expiration Date Visits Requested Visits Authorized [id number] Authorized Auto-Generat ed Referral 06/23/2024 06/23/2025 10 1 [facility] Summary Purpose Family History No Family History Records FoundNo Family History Records FoundNo Family History Records FoundNo Family History Records Found Advance Directives No Advanced Directives Records FoundNo Advanced Directives Records FoundNo Advanced Directives Records FoundNo Advanced Directives Records Found Health Concerns Active Problems Noted Date Diagnosed Date [facility] Education - [facility] 12/13/2023 Education - [place] 12/13/2023 Additional Source Comments INFORMATION SOURCE (unrecogn ized section and content) DATE CREATED AUTHOR 08/11/2018 [facility] ([place]) DATE CREATED AUTHOR AUTHOR'S ORGANIZ ATION 06/13/2020 [facility] DATE CREATED AUTHOR AUTHOR'S ORGANIZ ATION 06/05/2024 [facility] DATE CREATED AUTHOR AUTHOR'S ORGANIZ ATION 07/08/2024 [place] Source Comments (unrecognize d section and content) In the event this informatio n is protected by the Federal Confidentiality of Alcohol and Drug Abuse Patient Records regulations: The Federal rules restrict any use of the information to criminally investigate or prosecute any alcohol or drug abuse patient.[facility] the event this information is protected by the Federal Confidentiality of Alcohol and Drug Abuse Patient Records regulations: The Federal rules restrict any use of the information to criminally investigate or prosecute any alcohol or drug abuse patient.[facility] the event this information is protected by the Federal Confidentiality of Alcohol and Drug Abuse Patient Records regulations: The Federal rules restrict any use of the information to criminally investigate or prosecute any alcohol or drug abuse patient.[facility] the event this information is protected by the Federal Confidentiality of Alcohol and Drug Abuse Patient Records regulations: The Federal rules restrict any use of the information to criminally investigate or prosecute any alcohol or drug abuse patient.[facility] Center[facility] the event this information is protected by the Federal Confidentiality of Alcohol and Drug Abuse Patient Records regulations: The Federal rules restrict any use of the information to criminally investigate or prosecute any alcohol or drug abuse patient.[facility] Center[facility] the event this information is protected by the Federal Confidentiality of Alcohol and Drug Abuse Patient Records regulations: The Federal rules restrict any use of the information to criminally investigate or prosecute any alcohol or drug abuse patient.[facility] Center[facility] the event this information is protected by the Federal Confidentiality of Alcohol and Drug Abuse Patient Records regulations: The Federal rules restrict any use of the information to criminally investigate or prosecute any alcohol or drug abuse patient.[facility] Center[facility] the event this information is protected by the Federal Confidentiality of Alcohol and Drug Abuse Patient Records regulations: The Federal rules restrict any use of the information to criminally investigate or prosecute any alcohol or drug abuse patient.[facility] Center[facility] the event this information is protected by the Federal Confidentiality of Alcohol and Drug Abuse Patient Records regulations: The Federal rules restrict any use of the information to criminally investigate or prosecute any alcohol or drug abuse patient.[facility] Center[facility] the event this information is protected by the Federal Confidentiality of Alcohol and Drug Abuse Patient Records regulations: The Federal rules restrict any use of the information to criminally investigate or prosecute any alcohol or drug abuse patient.[facility] Center[facility] the event this information is protected by the Federal Confidentiality of Alcohol and Drug Abuse Patient Records regulations: The Federal rules restrict any use of the information to criminally investigate or prosecute any alcohol or drug abuse patient.[facility] CenterIn the event this information is protected by the Federal Confidentiality of Alcohol and Drug Abuse Patient Records regulations: The Federal rules restrict any use of the information to criminally investigate or prosecute any alcohol or drug abuse patient.[facility] Center[facility] the event this information is protected by the Federal Confidentiality of Alcohol and Drug Abuse Patient Records regulations: The Federal rules restrict any use of the information to criminally investigate or prosecute any alcohol or drug abuse patient.[facility] CenterIn the event this information is protected by the Federal Confidentiality of Alcohol and Drug Abuse Patient Records regulations: The Federal rules restrict any use of the information to criminally investigate or prosecute any alcohol or drug abuse patient.[facility] CenterIn the event this information is protected by the Federal Confidentiality of Alcohol and Drug Abuse Patient Records regulations: The Federal rules restrict any use of the information to criminally investigate or prosecute any alcohol or drug abuse patient.[facility] Center[facility] the event this information is protected by the Federal Confidentiality of Alcohol and Drug Abuse Patient Records regulations: The Federal rules restrict any use of the information to criminally investigate or prosecute any alcohol or drug abuse patient.[facility] CenterIn the event this information is protected by the Federal Confidentiality of Alcohol and Drug Abuse Patient Records regulations: The Federal rules restrict any use of the information to criminally investigate or prosecute any alcohol or drug abuse patient.[facility] CenterIn the event this information is protected by the Federal Confidentiality of Alcohol and Drug Abuse Patient Records regulations: The Federal rules restrict any use of the information to criminally investigate or prosecute any alcohol or drug abuse patient.[facility] CenterIn the event this information is protected by the Federal Confidentiality of Alcohol and Drug Abuse Patient Records regulations: The Federal rules restrict any use of the information to criminally investigate or prosecute any alcohol or drug abuse patient.[facility] CenterIn the event this information is protected by the Federal Confidentiality of Alcohol and Drug Abuse Patient Records regulations: The Federal rules restrict any use of the information to criminally investigate or prosecute any alcohol or drug abuse patient.[facility] CenterIn the event this information is protected by the Federal Confidentiality of Alcohol and Drug Abuse Patient Records regulations: The Federal rules restrict any use of the information to criminally investigate or prosecute any alcohol or drug abuse patient.[facility] CenterIn the event this information is protected by the Federal Confidentiality of Alcohol and Drug Abuse Patient Records regulations: The Federal rules restrict any use of the information to criminally investigate or prosecute any alcohol or drug abuse patient.[facility] CenterIn the event this information is protected by the Federal Confidentiality of Alcohol and Drug Abuse Patient Records regulations: The Federal rules restrict any use of the information to criminally investigate or prosecute any alcohol or drug abuse patient.[facility] CenterIn the event this information is protected by the Federal Confidentiality of Alcohol and Drug Abuse Patient Records regulations: The Federal rules restrict any use of the information to criminally investigate or prosecute any alcohol or drug abuse patient.[facility] CenterIn the event this information is protected by the Federal Confidentiality of Alcohol and Drug Abuse Patient Records regulations: The Federal rules restrict any use of the information to criminally investigate or prosecute any alcohol or drug abuse patient.[facility] CenterIn the event this information is protected by the Federal Confidentiality of Alcohol and Drug Abuse Patient Records regulations: The Federal rules restrict any use of the information to criminally investigate or prosecute any alcohol or drug abuse patient.[facility] CenterIn the event this information is protected by the Federal Confidentiality of Alcohol and Drug Abuse Patient Records regulations: The Federal rules restrict any use of the information to criminally investigate or prosecute any alcohol or drug abuse patient.[facility] CenterIn the event this information is protected by the Federal Confidentiality of Alcohol and Drug Abuse Patient Records regulations: The Federal rules restrict any use of the information to criminally investigate or prosecute any alcohol or drug abuse patient.[facility] CenterIn the event this information is protected by the Federal Confidentiality of Alcohol and Drug Abuse Patient Records regulations: The Federal rules restrict any use of the information to criminally investigate or prosecute any alcohol or drug abuse patient.[facility] CenterIn the event this information is protected by the Federal Confidentiality of Alcohol and Drug Abuse Patient Records regulations: The Federal rules restrict any use of the information to criminally investigate or prosecute any alcohol or drug abuse patient.[facility] Reason for Visit (unrecogniz ed section and content) Reason Onset Date Comments Care 07/07/2024 Specialty Diagnoses / Procedures Referred By Contac t Referred To Contact Automotive Generator Repairer / DIGITAL SPECIALIST Diagnoses Follow-up examination OB/$25 copay Procedures OFFICE/OUTPATIENT ESTABLISHED HIGH MDM 40 MIN OFFICE/OUTPATIENT EST PT MAY NOT REQ PHYS/QHP EST WHI OB Self Elmira Schmitz APRN.VIDEOGAME DESIGNER [address] [place] [address] Referral ID Status Reason Start Date Expiration Date V isits Requested Visits Authorized [id number] Authorized 05/26/2024 09/16/2024 99 99 Reason Onset Date Comments Care 07/03/2024 Reason Onset Date Comments Care 06/30/2024 Immunizations 06/30/2024 Flu vaccination Reason Onset Date Comments Care 06/25/2024 Reason Onset Date Comments Care 06/23/2024 Specialty Diagnoses / Procedures Referred By Contac t Referred To Contact Automotive Generator Repairer / DIGITAL SPECIALIST Diagnoses Follow-up examination OB/$25 copay Procedures OFFICE/OUTPATIENT ESTABLISHED HIGH MDM 40 MIN OFFICE/OUTPATIENT EST PT MAY NOT REQ PHYS/QHP EST WHI OB Self Elmira Schmitz, ADDICTION PSYCHIATRIST.VIDEOGAME DESIGNER [address] [place] [address] Reason Onset Date Comments Care 06/20/2024 Specialty Diagnoses / Procedures Referred By Contac t Referred To Contact Automotive Generator Repairer / DIGITAL SPECIALIST Diagnoses Encounter for supervision of high risk in third trimester, antepartum Obesity affecting in third trimester, unspecified obesity type 33 weeks gestation of Group beta Strep positive OB-Repeat urine culture Procedures OFFICE/OUTPATIENT EST PT MAY NOT REQ PHYS/QHP OFFICE/OUTPATIENT ESTABLISHED HIGH MDM 40 MIN EST WHI OB Self Nahomi Bellamy, ADDICTION PSYCHIATRIST.CNM [address] [place] [address] Referral ID Status Reason Start Date Expiration Date V isits Requested Visits Authorized [id number] Authorized 06/16/2024 09/16/2024 99 99 Reason Onset Date Comments Care 06/18/2024 Reason Comments Discussion Family Planning Reason Comments Initial OB Visit Reason Onset Date Comments Care 01/16/2024 Reason Comments US Specialty Diagnoses / Procedures Referred By Contac t Referred To Contact [facility] Diagnoses 7 weeks gestation of Procedures NUCHAL TRANSLUCENCY WHI US NUCHAL TRANSLUCENCY 1ST GESTATION Renu Moore, ADDICTION PSYCHIATRIST.CNM [address] [place] [address] [facility] [address] [place] [address] Referral ID Status Reason Start Date Expiration Date V isits Requested Visits Authorized [id number] Closed Auto-Generate d Referral 12/20/2023 12/19/2024 1 1 Reason Onset Date Comments Care 02/13/2024 Reason Comments US Specialty Diagnoses / Procedures Referred By Contac t Referred To Contact [facility] Diagnoses Encounter for supervision of other normal in second trimester Obesity in Procedures OBSTETRIC ULTRASOUND WHI US PREG UTERUS AFTER 1ST TRIMEST GESTATION Catie Munoz MD [address] [place] [address] [address] Referral ID Status Reason Start Date Expiration Date V isits Requested Visits Authorized [id number] Closed Auto-Generate d Referral 01/16/2024 01/15/2025 1 1 Reason Onset Date Comments Care 03/12/2024 Reason Comments Future Appointment Results Specialty Diagnoses / Procedures Referred By Contac t Referred To Contact [facility] Diagnoses Encounter for supervision of high risk in second trimester, antepartum Obesity affecting in second trimester, unspecified obesity type Procedures OBSTETRIC ULTRASOUND WHI US PREG UTERUS AFTER 1ST TRIMEST GESTATION Karl Romeo MD [address] [place] [address] [address] Referral ID Status Reason Start Date Expiration Date V isits Requested Visits Authorized [id number] Closed Auto-Generate d Referral 03/13/2024 03/13/2025 3 1 Reason Onset Date Comments Care 04/15/2024 Specialty Diagnoses / Procedures Referred By Contac t Referred To Contact Automotive Generator Repairer / DIGITAL SPECIALIST Diagnoses Anovulation OB Procedures OFFICE/OUTPATIENT ESTABLISHED HIGH MDM 40 MIN OFFICE/OUTPATIENT EST PT MAY NOT REQ PHYS/QHP EST WHI OB Self Karl Romeo MD [address] [place] [address] Referral ID Status Reason Start Date Expiration Date V isits Requested Visits Authorized [id number] Denied Patient Cleared - Admin/Chairm an/Director advise to proceed or did not respond 04/09/2024 07/08/2024 1 1 Reason Onset Date Comments Care 05/12/2024 Reason Onset Date Comments Care 05/26/2024 Reason Onset Date Comments Care 06/09/2024 Reason Comments Appointment Reason Onset Date Comments Care 06/16/2024 Reason Comments Contractions Referral ID Status Reason Start Date Expiration Date Visits Requested Visits Authorized [id number] Authorized Auto-Generat ed Referral 06/17/2024 09/16/2024 20 20 Reason Comments FMLA Paperwork Reason Comments ob concerns Specialty Diagnoses / Procedures Referred By Contac t Referred To Contact [facility] Diagnoses Encounter for supervision of high risk in third trimester, antepartum 34 weeks gestation of Obesity affecting in third trimester, unspecified obesity type Procedures BIOPHYSICAL PROFILE US WHI BIOPHYSICAL PROFILE NON-STRESS TESTING Elmira Schmitz APRN.VIDEOGAME DESIGNER [address] [place] [address] [facility] [address] [id number] Referral ID Status Reason Start Date Expiration Date V isits Requested Visits Authorized [id number] Closed Auto-Generate d Referral 06/23/2024 06/23/2025 10 1 FOR RECORDS PERTAINING TO PATIENTS WHO ARE OR HAVE BEEN ENROLLED IN A CHEMICAL DEPENDENCY/SUBSTANCEABUSE PROGRAM, SOME INFORMATION MAY BE OMITTED. This clinical summary was aggregated from multiple sources. Caution should be exercised in using it in the provision of clinical care. This summary normalizes information from multiple sources, and as a consequence, information in this document may materially change the coding, format and clinical context of patient data. In addition, data may be omitted in some cases. CLINICAL DECISIONS SHOULD BE BASED ON THE PRIMARY CLINICAL RECORDS. [facility] [employer] provides no warranty or guarantee of the accuracy or completeness of information in this document.
[2024-07-10] MEDS: Lactated Ringers 1,000 ML 50 ML IV (20:01)
[2024-07-10 20:16] LABS: Absolute Lymphocyte Count 1.91 X10^3/uL (0.83-4.51); Absolute Neutrophil Count 9.8 X10^3/uL (2.0-7.7); Basophil# 0.02 X10^3/uL; Basophil% 0.2 % (0-1); Eosinophil# 0.05 X10^3/uL; Eosinophils% 0.4 % (0-5); Hematocrit 37.9 % (37-47); Hemoglobin 13.3 g/dL (12.0-15.0); Lymphocyte # 1.91 X10^3/ul (0.83-4.51); Lymphocyte % 15.2 % (19-41); Mean Corp Hgb Conc 35.1 g/dL (32-36); Mean Corpuscular Hgb 31.3 pg (27.0-32.0); Mean Corpuscular Volume 89.2 fL (81-99); Mean Platelet Vol. 11.2 fl (6.2-12.0); Monocyte# 0.75 X10^3/uL; NRBC Flagged by Analyzer 0 % (0-5); Neutrophil # 9.81 X10^3/uL (2.7-7.7); Neutrophil % 77.8 % (47-70); Platelet Count 339 K/mm3 (150-450); RBC Distribution Width CV 12.7 % (11.6-14.6); RBC Distribution Width SD 41.1 fl (35.1-43.9); Red Blood Count 4.25 M/mm3 (4.2-5.4); White Blood Count 12.6 K/mm3 (4.4-11.0)
--- NOTE | 2024-07-10 21:01 | PCM.HP.OB ---
HPI - General General Date of Admission: 07/10/24 HPI Narrative GENE KEN, is a 29 F at 36.5 weeks gestation who presents for induction of labor for preeclampsia. Recent gestational hypertension diagnosis. Seen in office today for NST. Elevated blood pressure in office and patient is symptomatic with headache and blurred vision. Maternal Data Information HARRY Calculator Estimated Delivery Date Method Current WG Current Estimate 08/02/24 Manual 36w 5d PFSH PFSH Medical History (Updated 07/10/24 @ 21:02 by Renu Moore CNM) Polyhydramnios Endometriosis Cysts of both ovaries Anxiety Home Medications ?Medication ?Instructions ?Recorded ?Last Taken ?Type vit no.116-iron 28 1 tab PO DAILY Check with primary 09/30/20 06/13/24 08:00 History mg-folic acid 800 mcg-dha 200 mg doctor 1 tab capsule sertraline 50 mg tablet 50 mg PO DAILY 05/04/24 07/08/24 22:00 History famotidine 20 mg tablet (Acid 20 mg PO DAILY 06/13/24 06/13/24 08:00 History Controller) 20 mg metoclopramide HCl 5 mg tablet 5 mg PO DAILY 07/09/24 07/08/24 08:00 History (Reglan) Allergy/AdvReac Type Severity Reaction Status Date / Time No Known Allergies Allergy Verified 07/09/24 00:34 Family History Grandfather Myocardial infarction Grandmother Myocardial infarction Surgical History (Updated 07/10/24 @ 20:43 by Martha Rendon) History of surgery [place] teeth extracted Social History Smoking Status: Never smoker History Elective abortions Hx Para 1 Spontaneous abortions Hx # Term Pregnancies Ectopic pregnancies Hx # Pregnancies Multiple births # of living children ROS Eyes Eyes: Denies blurry vision or change in vision ENT HEENT: Denies dizziness Cardiovascular Cardiovascular: Denies abdominal pain, chest pain or dyspnea Respiratory/Chest Respiratory/Chest: Denies cough, dyspnea, shortness of breath at rest or shortness of breath with exertion Gastrointestinal Gastrointestinal: Denies abdominal pain, diarrhea or vomiting Genitourinary Genitourinary: Denies change in urinary stream, difficulty urinating or dysuria Musculoskeletal Musculoskeletal: Reports none Integumentary Integumentary: Denies rash Neurologic Neurologic: Reports headache(s); Denies memory loss or weakness Psychiatric Psychiatric: Reports none Vital Signs Vital Signs Vital Signs: 07/10/24 19:45 07/10/24 19:45 07/10/24 19:45 Temperature Temperature Source Pulse Rate 101 H 105 H Respiratory Rate Blood Pressure 138/82 H BP Systolic 138 BP Diastolic 82 Pulse Ox 07/10/24 19:45 07/10/24 19:45 07/10/24 19:45 Temperature Temperature Source Temporal Pulse Rate Respiratory Rate 16 Blood Pressure BP Systolic BP Diastolic Pulse Ox 96 07/10/24 19:45 07/10/24 20:18 07/10/24 20:18 Temperature 98.0 F Temperature Source Pulse Rate 101 H Respiratory Rate Blood Pressure BP Systolic BP Diastolic Pulse Ox 98 07/10/24 20:23 07/10/24 20:23 07/10/24 20:28 Temperature Temperature Source Pulse Rate 95 96 Respiratory Rate Blood Pressure BP Systolic BP Diastolic Pulse Ox 97 07/10/24 20:28 07/10/24 20:33 07/10/24 20:33 Temperature Temperature Source Pulse Rate 91 Respiratory Rate Blood Pressure BP Systolic BP Diastolic Pulse Ox 97 97 07/10/24 20:38 07/10/24 20:38 07/10/24 20:43 Temperature Temperature Source Pulse Rate 92 97 Respiratory Rate Blood Pressure BP Systolic BP Diastolic Pulse Ox 98 07/10/24 20:43 07/10/24 20:48 07/10/24 20:48 Temperature Temperature Source Pulse Rate 95 Respiratory Rate Blood Pressure BP Systolic BP Diastolic Pulse Ox 97 98 07/10/24 20:50 07/10/24 20:50 07/10/24 20:53 Temperature Temperature Source Pulse Rate 103 H 102 H Respiratory Rate Blood Pressure BP Systolic BP Diastolic Pulse Ox 90 07/10/24 20:53 07/10/24 20:56 07/10/24 20:56 Temperature Temperature Source Pulse Rate 109 H Respiratory Rate Blood Pressure 143/87 H BP Systolic 143 BP Diastolic 87 Pulse Ox 98 07/10/24 20:58 07/10/24 20:58 Temperature Temperature Source Pulse Rate 120 H Respiratory Rate Blood Pressure BP Systolic BP Diastolic Pulse Ox 96 Weight Weight: 283 lb Body Mass Index (BMI) 41.8 Physical Exam Const alert, oriented x3 and no apparent distress General Appearance: cooperative Orientation / Consciousness: awake Exam Limitations: no limitations HEENT normocephalic Head and Scalp: normal to inspection Eyes General Eye: normal appearance of both eyes Neck full ROM and no lymphadenopathy Lymph Lymphatic: no lymphadenopathy noted Chest inspection of chest normal Resp normal respiratory effort, normal air movement and clear to auscultation bilaterally Effort and Inspection: able to speak in complete sentences and symmetric chest movement Cardio regular rate and regular rhythm GI normal to inspection, nondistended, normoactive bowel sounds Manual OB Exam: presentation cephalic Back/Spine normal ROM Extremity full ROM and no calf tenderness Skin no rashes or lesions noted General Skin Exam: no breakdown Neuro oriented x3 and CN's II-XII intact bilaterally Psych mental status grossly normal and thought process normal Labs Labs Labs: Blood Type A POSITIVE Antibody Screen NEGATIVE Hct 37.9 % (37-47) Hgb 13.3 g/dL (12.0-15.0) Syphilis Total Ab Non-reactive Rubella IgG Antibody 166.7 IU/mL Hep Bs Antigen Non-Reactive (Nonreactive) Hepatitis C Antibody Non-Reactive (Nonreactive) Chlamydia DNA (MAKEDA) Negative (Negative) N.gonorrhoeae DNA (MAKEDA) Negative (Negative) HIV 1&2 Antibody Non-Reactive (Nonreactive) Glucose 1 Hr 50 gm 112 mg/dL (70-140) Rhogam given: No Miscellaneous Test GBS positive Assessment & Plan (1) Gestational hypertension: (2) 36 weeks gestation of : (3) High-risk in third trimester: (4) Polyhydramnios: (5) Anxiety: (6) Obesity affecting : (7) Mild preeclampsia: PLAN: Plan Admit to labor and delivery GBS positive- Start PCN IV Activate hypertension protocol CE /-3 Placement of ovalles bulb with AROM for copious amount of light meconium fluid Immediately after AROM, FHT began decelerating- would recover with continuous position changes CE to confirm no cord prolapse Difficult to trace at times due to maternal size Dr. Rushing notified of assessment and in route to hospital for evaluation
[2024-07-10] MEDS: Sodium Citrate/Citric Acid 30 ML UDC PO (21:04)
[2024-07-10] MEDS: Acetaminophen 500 MG Tablet PO (21:04)
[2024-07-10] MEDS: 0.9% Saline Lock 10 ML Syringe IV (21:05)
--- NOTE | 2024-07-10 21:11 | EX.PCM.OBRPT ---
Assessment & Plan (1) Mild preeclampsia: (2) Obesity affecting : (3) High-risk in third trimester: (4) 36 weeks gestation of : (5) Brow presentation of fetus: (6) Variable heart rate decelerations, antepartum: Maternal Data Information HARRY Calculator Estimated Delivery Date Method Current WG Current Estimate 08/02/24 Manual 36w 5d Final HARRY: 08/02/24 Gestational age: 36 5/7 Operative Report (OB) Cecarean Details Procedure Type: low transverse Surgeon: Evelyn Rushing Date of Procedure: 07/10/24 Procedure Start Time: 21:42 Procedure Stop Time: 22:18 Time of Delivery: 21:45 Pre-Operative Diagnosis: Other Other Pre-Operative diagnosis: decelerations remote from delivery, extended head w/ face/brow presentation unengaged Post-Operative Diagnosis: Same as Pre-operative diagnosis Classification: TYRA Type of Anesthesia: Spinal Special Medications: duramorph Antibiotic Given: Ancef 3 grams IV x1 and Zithromax 500 mg/5 mL X1 Drain: Peterson to straight drain Estimated Blood Loss: 700 Fluids Replaced: 1000 Findings Description of surgery: The patient was admitted for induction of labor due to preeclampsia without severe features. Patient had a headache today but it was more like a migraine headache and she is prone to those. When she was admitted a Peterson catheter was placed by Renu Moore CNM. There was incidental rupture of membrane with return of large amount of fluid. The Peterson catheter was left in place but she began having deep variables. I was called to assess the patient. When I arrived I remove the Peterson and she is 1.5 cm dilated. I could feel the forehead and brow in the nose. I could not safely place a scalp electrode on the vertex. The head was extended rather than flexed. I discussed with the patient and her that being remote from delivery with mL presentation and variable decelerations that I would recommend proceeding with section. They agreed. heart tones were stable in a to allow for prepping the room and the patient to get a spinal anesthetic. She did continue to have variables during this time within normal baseline and moderate variability. The patient was taken to the operating room. She was prepped and draped in the dorsal supine position with a leftward tilt. A Pfannenstiel skin incision was made approximately 2 cm above the symphysis pubis and carried through to underlying layer fascia with the scalpel. The fascia was incised incised in the midline and extended laterally with the Alvarado scissors. The fascia was dissected off the rectus muscles with blunt and sharp dissection. The rectus muscles were in the midline and the peritoneum was entered bluntly. The peritoneal incision was stretched and the the Prabhakar O retractor was placed ensuring no bowel was trapped underneath it. The uterine incision was made in a low transverse fashion with the scalpel and extended superiorly and inferiorly with blunt dissection. The amniotic membranes were ruptured bluntly and light meconium stained fluid returned. The 's head was brought to the incision in the flexed position and delivered without difficulty. The remainder of the was delivered with gentle traction and fundal pressure in the standard fashion. The mouth and nares were bulb suctioned. The cord was clamped and cut as the infant was stimulated. Cord clamping was not delayed. It was noted that the umbilical cord had a purpleish hue and appears somewhat bruised or as if it may have some thrombosis. The was handed off to the waiting nursing staff. The placenta was delivered with fundal massage and gentle traction in the standard fashion. The uterus was exteriorized and cleared of all clots and debris. The uterine incision was closed with #1 Vicryl in a running locked fashion. 2-0 Vicryl [id number] sutures were placed to bleeding sinuses to obtain hemostasis. The incision was examined and was found to be hemostatic. The uterus was placed back into the peritoneal cavity and hemostasis was again confirmed. The rectus muscles were examined and any bleeding was Bovie cauterized. The parietal peritoneum and rectus muscles were closed en bloc with an 0 Vicryl running suture. The rectus fascia was examined and any bleeding was Bovie cauterized and the rectus fascia was closed with #1 PDS suture in a running standard fashion. The subcutaneous tissue was examining and any bleeding was Bovie cauterized. The subcutaneous tissue was reapproximated with 3-0 Vicryl suture. The skin was closed in a subcuticular fashion by the MANAGER OF COMPENSATION with me present in the labor and delivery suite. I performed the remainder of the procedure with assistance. All sponge, lap, and needle counts were correct. The patient was taken to her room for recovery in a stable condition. Surgical findings: Normal uterus tubes and ovaries. presentation was brow presentation without flexion of the head. Amniotic Membrane Rupture Type: Artificial Amniotic Fluid Description: Lightly stained meconium Placental Delivery Description: Expressed Placenta Disposition: Sent to Pathology Specimen collected: Yes Description of specimen(s) removed: placenta Cord Vessel Description: 3 Vessels Cord Entanglement: None Cord Gases: ABG and VBG Infant A gender: Male (1 minute): 8 (5 minute): 9 Delayed Cord Clamping: No Test Operator hospital receiving clerk: Yes Heel Padder: Chad Monroy Tasks completed by first breaker feeder: Closing, Altering tissue and Retracting Additional assistant family teacher?: No Complications Complications: No Admit VTE Documentation VTE Present on Admission: No VTE Mechan Device Prophylaxis: SCD's VTE Pharm Prophylaxis Ordered: No
[2024-07-10 21:18] LABS: Syphilis Antibodies Non-reactive
[2024-07-10] MEDS: Cefazolin 3 GM in Syringe 1 EACH IV (21:20)
[2024-07-10] MEDS: TRANEXAMIC ACID 1,000 MG in 0.9% Normal Saline (100mL Bag) 100 ML 440 MG IV (21:38)
[2024-07-10] MEDS: Oxytocin 15 Units/NS 250ml 15 UNITS/250 ML IV.SOLN 83 UNITS IV (22:50)
--- NOTE | 2024-07-10 22:58 | PLAC_PTH ---
PATHOLOGY RESULTS PATIENT: GENE KEN LOC: [facility] U#:[id number] AGE/SX: 29/F ROOM: WP009 RE07/10/[address]: Renu Moore CNM : 1995 BED: 1 DIS: 07/12/2024 SPEC #: [id number] RECD: 07/11/24 00:09 STATUS: FRANCIA SABRINA #: [id number] DELBERT: 07/10/24 22:[address]: Evelyn Rushing DEPT: SURGICAL PATHOLOGY RECD BY: Gely Pittman ENTERED: 07/11/24 07:39 SP TYPE: PLACENTA OTHR DR: Renu Moore [facility] Tressa Shannon PA-C Tissues: Placenta, NOS Procedures: Surgery Specimen Level V HEADER OPERATION: Primary section PRE-OP DIAGNOSIS: Gestational hypertension, decelerations TISSUE SUBMITTED: Placenta MICROSCOPIC DIAGNOSIS Placenta: Placental disc - third trimester placenta (407 gm). - Focal area of infarction (measuring 1.5cm in greatest dimension). Membranes - no pathologic diagnosis. Umbilical cord - focal acute funusitis. SJ: 07/14/2024 MICROSCOPIC DESCRIPTION Slides are reviewed. GROSS DESCRIPTION SPECIMEN: PLACENTA / CLINICAL INFORMATION: A. Weight: 2.805 kg B. Gestational Age:36 weeks C. Sex: Male PLACENTAL WEIGHT (POST FIXATION): 407 gm PLACENTAL DIMENSIONS: 20.0 x 17.0 x 3.0cm PLACENTAL SHAPE: Usual ovoid PLACENTAL WEIGHT FOR GESTATIONAL AGE: Within 10-99th percentile MEMBRANES - Present A. Insertion: Marginal B. Site of rupture from edge: at edge of placental disc C. Color of membrane: Choi-rush D. Abnormalities: None UMBILICAL CORD - Present A. Color: Choi-rush B. Insertion: Eccentric C. Length: 33.0 cm D. Diameter: 1.2 cm E. Number of vessels: Three F. Abnormalities: vessels are congested. Sections reveal congested cut surfaces. PLACENTAL DISC - Present A. Color of surface: Cohi-rush B. surface abnormalities: None C. Maternal cotyledons: Intact with minimal tears D. Attached retro placental clot: No clot E. Cut surface: Dark red and spongy F. Lesions: one choi indurated area measuring 1.5 cm in greatest dimension. G. Separate clot: Absent SECTIONS SUBMITTED: (6 cassettes) Dr. Ruano 1. Umbilical cord ( end notched) 2. Umbilical cord, placental end 3. Membrane roll 4. Placental disc, and maternal surfaces 5. Placental disc, and maternal surfaces, lesion 6. Placental disc, and maternal surfaces AM.mr 07/11/2024 More sections are submitted as follows: 7 - lesion, 8 - umbilical cord. / 07/14/24 TC:2 CPT: 15928
[2024-07-10] MEDS: Ketorolac 30 MG/ML Syringe IV (23:10)
[2024-07-10] MEDS: Azithromycin 500 MG in Dextrose 5%-Water (250mL Bag) 250 ML 250 MG IV (23:13)
[2024-07-11] VITALS (14 sets, daily range): BP systolic 111–143; BP diastolic 46–95; PULSE 72–93; RESP 16–18; TEMP 36.1–36.6; O2SAT 95–100
[2024-07-11] MEDS: Lactated Ringers 1,000 ML 100 ML IV
[2024-07-11 00:21] LABS: Pathology Specimen OB SEE PATHOLOGY REPORT
[2024-07-11] MEDS: Ondansetron 4 MG/2 ML Vial IV (02:01)
--- OUTSIDE RECORDS SUMMARY | 2024-07-11 02:05 | XMS RPT_ITS | CCD ---
Author Organization [facility] CliniSywv Care Team Providers Care Javascript Engineer Name Role Phone Unavailable Primary Care Provider Unavailabl e HILLS, DAYO Primary Care Unavailable LAND O'LAKES, DAYO Admitting Unavailable HILLS, DAYO Attending Unavailable HILLS, DAYO Consulting Unavailable PROVIDER, UNKNOWN Consulting Unavailable LAND O'LAKES, DAYO Consulting Unavailable MIRELES, DAYO CNM Admitting Unavailable MIRELES, DAYO CNM Attending Unavailable MIRELES, DAYO CNM Primary Care Unavailable PROVIDER, UNKNOWN Consulting Unavailable LAND O'LAKES, DAYO Consulting Unavailable SENA GARCIA DO Admitting Unavailable DIDSENA CASILLAS DO Attending Unavailable SENA GARCIA DO Primary Care Unavailable LAND O'LAKES, DAYO Referring Unavailable PROVIDER, UNKNOWN Consulting Unavailable ZULEYKAMARY Admitting Unavailable ZULEYKA, MARY Bush Attending Unavailable ZULEYKA, MARY Rachelle Primary Care Unavailable LAND O'LAKES, DAYO Referring Unavailable HILLS, DAYO Consulting Unavailable PROVIDER, UNKNOWN Consulting Unavailable LAND O'LAKES, DAYO Primary Care Unavailable LAND O'LAKES, DAYO Admitting Unavailable HILLS, DAYO Attending Unavailable [...] doses. 30 tablet 1 03/12/2024 03/20/2024 Active Npalggtu-Za-Xbs-Fe-FA tab (20 sources) Start: 07-17-2023 take 1 tablet by mouth once daily Cqdzvzjv-Zt-Xff-Fe-FA tab Take 1 tablet by mouth once daily. 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) Bacteria present; Translations: [Streptococcus, group B, [...] in , antepartum, second trimester] Onset: 04-15-2024 Hypertension complicating ; childbirth and the puerperium (1 source) Mild pre-eclampsia; Translations: [Mild to moderate pre-eclampsia, third trimester] 07-10-2024 Episodic Immunizations and screening for infectious disease (2 [...] Onset: 02-13-2024 02-13-2024 Episodic Other complications of (18 sources) Disease caused by 2019-nCoV; Translations: [Other viral diseases complicating , third trimester] Onset: 06-09-2024 06-09-2024 Episodic Other complications of (12 sources) tachycardia affecting management of mother; Translations: [Maternal care for abnormalities of the heart rate or rhythm, unspecified trimester, not applicable or unspecified] Onset: 06-23-2024 06-23-2024 Episodic Other complications of (15 sources) Swelling of lower limb; Translations: [Gestational [...] of ] 06-30-2024 Episodic Residual codes; unclassified (3 sources) Gestation period, 36 weeks; Translations: [36 [...] Other aftercare (20 sources) 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; 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] Onset: 12-20-2023 12-20-2023 Episodic Other complications of (20 sources) Headache; Translations: [Other specified related conditions, second trimester] Onset: 02-13-2024 02-13-2024 Episodic Other complications of (20 sources) Vomiting of , unspecified; Translations: [Unspecified [...] Name Value Interpretation Reference Range Facil ity URINE OB DIP B/Oon 4 Glucose Ql (U) Negative Neg mg/dL [facility] Interpretation and review of laboratory results Normal [facility] Protein.monoclonal (U) [Mass/Vol] Negative Neg mg/dL [facility] Biophysical profile.melecio dy movement USon 07-07-2024 [facility] Radiology Study observation (narrative) [facility] URINE OB DIP B/Oon 4 Glucose Ql (U) Negative Neg mg/dL [facility] Interpretation and review of laboratory results Normal [facility] Protein.monoclonal (U) [Mass/Vol] Negative Neg mg/dL [facility] CBC panel Auto (Bld)on 07-03 Erythrocyte distribution width (RBC) [Ratio] 12.4 % 11.5 - 15.0 % [facility] Hematocrit (Bld) [Volume fraction] 39.5 % 36.0 - 46.0 % [facility] Hemoglobin (Bld) [Mass/Vol] 13.4 g/dL 11.5 - 15.5 g/dL [facility] Interpretation and review of laboratory results Abnormal [facility] MCH (RBC) [Entitic mass] 30.9 pg 26.0 - 34.0 pg [facility] MCHC (RBC) [Mass/Vol] 33.9 g/dL 30.5 - 36.0 g/dL [facility] MCV (RBC) [Entitic vol] 91.2 fL 80.0 - 100.0 fL [facility] Nucleated RBC (Bld) [#/Vol] NINF [facility] Platelet mean volume (Bld) [Entitic vol] 11.6 fL 9.0 - 12.7 fL [facility] Platelets (Bld) [#/Vol] 324 10*3/uL [facility] RBC (Bld) [#/Vol] 4.33 10*6/uL 3.90 - 5.20 m/uL [facility] WBC (Bld) [#/Vol] 11.10 10*3/uL [facility] Erythrocyte distribution width (RBC) [Ratio] 12.4 % Normal 11.5-15.0 [facility] Comment on above: Order Comment: Tejas marquez Type: BLOOD SPECIMEN Ordering Facility: [facility] Address: [address] [place] [address] Performed By: #### 5 195-3, 25842-8, 32987-1 #### [facility] CLIA [id number] [address] [place] [address] [place] [facility] Hematocrit (Bld) [Volume fraction] 39.5 % Normal 36.0-46.0 [facility] Comment on above: Order Comment: Speci alma Type: BLOOD SPECIMEN Ordering Facility: [facility] Address: [address] [place] [address] Performed By: #### 5 195-3, 04024-3, 54184-5 #### [facility] CLIA [id number] [address] [place] [address] [place] Hemoglobin (Bld) [Mass/Vol] 13.4 g/dL Normal 11.5-15.5 [facility] Comment on above: Order Comment: Speci men Type: BLOOD SPECIMEN Ordering Facility: [facility] Address: [address] [place] [address] Performed By: #### 5 195-3, 74287-0, 72482-0 #### [facility] CLIA [id number] [address] [place] [address] [place] MCH (RBC) [Entitic mass] 30.9 pg Normal 26.0-34.0 [facility] Comment on above: Order Comment: Speci men Type: BLOOD SPECIMEN Ordering Facility: [facility] Address: [address] [place] [address] Performed By: #### 5 195-3, 57880-1, 68925-9 #### [facility] CLIA [id number] [address] [place] [address] [place] MCHC (RBC) [Mass/Vol] 33.9 g/dL Normal 30.5-36.0 [facility] Comment on above: Order Comment: Speci men Type: BLOOD SPECIMEN Ordering Facility: [facility] Address: [address] [place] [address] Performed By: #### 5 195-3, 29430-5, 84470-3 #### [facility] CLIA [id number] [address] [place] [address] [place] MCV (RBC) [Entitic vol] 91.2 fL Normal 80.0-100.0 [facility] Comment on above: Order Comment: Speci men Type: BLOOD SPECIMEN Ordering Facility: [facility] Address: [address] [place] [address] Performed By: #### 5 195-3, 28611-8, 81348-2 #### [facility] CLIA [id number] [address] [place] [address] [place] Nucleated RBC (Bld) [#/Vol] 10*3/uL Normal <0.01 [facility] Comment on above: Order Comment: Speci men Type: BLOOD SPECIMEN Ordering Facility: [facility] Address: [address] [place] [address] Performed By: #### 5 195-3, 28654-3, 25202-3 #### [facility] CLIA [id number] [address] [place] [address] [place] Platelet mean volume (Bld) [Entitic vol] 11.6 fL Normal 9.0-12.7 [facility] Comment on above: Order Comment: Speci men Type: BLOOD SPECIMEN Ordering Facility: [facility] Address: [address] [place] [address] Performed By: #### 5 195-3, 32130-8, 83837-3 #### [facility] CLIA [id number] [address] [place] [address] [place] Platelets (Bld) [#/Vol] 324 10*3/uL Normal 150-400 [facility] Comment on above: Order Comment: Speci men Type: BLOOD SPECIMEN Ordering Facility: [facility] Address: [address] [place] [address] Performed By: #### 5 195-3, 45447-0, 26200-1 #### [facility] CLIA [id number] [address] [place] [address] [place] RBC (Bld) [#/Vol] 4.33 10*6/uL Normal 3.90-5.20 [facility] Comment on above: Order Comment: Speci men Type: BLOOD SPECIMEN Ordering Facility: [facility] Address: [address] [place] [address] Performed By: #### 5 195-3, 38610-0, 56376-6 #### [facility] CLIA [id number] [address] [place] [address] [place] WBC (Bld) [#/Vol] 11.10 10*3/uL High 3.70-11.00 [facility] Comment on above: Order Comment: Speccollin marquez Type: BLOOD SPECIMEN Ordering Facility: [facility] Address: [address] [place] [address] Performed By: #### 5 195-3, 24069-6, 78353-1 #### [facility] CLIA [id number] [address] [place] [address] [place] CREATININE BLDon 07-03-2024 Creatinine [Mass/Vol] 0.46 mg/dL Low 0.58-0.96 [facility] Comment on above: Order Comment: Tejas marquez Type: BLOOD SPECIMEN Ordering Facility: [facility] Address: [address] [place] [address] Performed By: #### 5 195-3, 27128-1, 52610-3 #### [facility] CLIA [id number] [address] [place] [address] [place] Creatinine and Glomerular filtration rate.predicted panel (S/P/Bld) 135 mL/min/1.73m??? Normal >=60 [facility] Comment on above: Order Comment: Tejas marquez Type: BLOOD SPECIMEN Ordering Facility: [facility] Address: [address] [place] [address] Result Comment: Suri mated Glomerular Filtration Rate [...] actual GFR. Performed By: #### 5 195-3, 68377-9, 11794-5 #### [facility] CLIA [id number] [address] [place] [address] [place] Hepatic function 2000 panelo n 07-03-2024 Albumin [Mass/Vol] 3.3 g/dL Low 3.9-4.9 [facility] Comment on above: Order Comment: Speci men Type: BLOOD SPECIMEN Ordering Facility: [facility] Address: [address] [place] [address] Performed By: #### 5 195-3, 26498-4, 81566-7 #### [facility] CLIA [id number] [address] [place] [address] [place] ALP [Catalytic activity/Vol] 139 U/L High 34-123 [facility] Comment on above: Order Comment: Speci men Type: BLOOD SPECIMEN Ordering Facility: [facility] Address: [address] [place] [address] Performed By: #### 5 195-3, 33845-8, 02092-1 #### [facility] CLIA [id number] [address] [place] [address] [place] ALT [Catalytic activity/Vol] 13 U/L Normal 7-38 [facility] Comment on above: Order Comment: Speci men Type: BLOOD SPECIMEN Ordering Facility: [facility] Address: [address] [place] [address] Performed By: #### 5 195-3, 67154-7, 36552-0 #### [facility] CLIA [id number] [address] [place] [address] [place] AST [Catalytic activity/Vol] 15 U/L Normal 13-35 [facility] Comment on above: Order Comment: Speci men Type: BLOOD SPECIMEN Ordering Facility: [facility] Address: [address] [place] [address] Performed By: #### 5 195-3, 46643-7, 52882-4 #### [facility] CLIA [id number] [address] [place] [address] [place] Bilirubin [Mass/Vol] 0.3 mg/dL Normal 0.2-1.3 [facility] Comment on above: Order Comment: Speci men Type: BLOOD SPECIMEN Ordering Facility: [facility] Address: [address] [place], [place] [address] Performed By: #### 5 195-3, 01596-5, 18851-5 #### [facility] CLIA [id number] [address] [place] [address] [place] Bilirubin.conjugate d [Mass/Vol] mg/dL Normal <0.2 [facility] Comment on above: Order Comment: Speci men Type: BLOOD SPECIMEN Ordering Facility: [facility] Address: [address] [place] [address] Performed By: #### 5 195-3, 91278-7, 02411-1 #### [facility] CLIA [id number] [address] [place] [address] [place] Protein [Mass/Vol] 6.3 g/dL Normal 6.3-8.0 [facility] Comment on above: Order Comment: Speci men Type: BLOOD SPECIMEN Ordering Facility: [facility] Address: [address] [place] [address] Performed By: #### 5 195-3, 59939-8, 91702-6 #### [facility] CLIA [id number] [address] [place] [address] [place] Prot/Creat Uron 07-03-2024 Protein/Creatinine (U) [Mass ratio] 0.17 mg/mg High <0.15 [facility] Comment on above: Order Comment: Speci men Type: BLOOD SPECIMEN Ordering Facility: [facility] Address: [address] [place] [address] Result Comment: Adul t Proteinuria Categories: <0.15 mg/mg is considered normal to mildly increased 0.15 - 0.50 mg/mg is considered moderately increased >0.50 mg/mg is considered severely increased KDIGO. (2013). KDIGO 2012 Clinical Practice Guideline for the Evaluation and Management of Chronic Kidney Disease. Official Journal of the International Society of Nephrology, 3(1), 1-150. Performed By: #### 5 195-3, 44606-3, 76255-6 #### [facility] CLIA [id number] [address] [place] [address] [place] Protein/Creatinine (U) [Mass ratio]on 07-03-2024 Creatinine (U) [Mass/Vol] 29.5 mg/dL Normal 20.0-300.0 [facility] Comment on above: Order Comment: Speci men Type: BLOOD SPECIMEN Ordering Facility: [facility] Address: [address] [place] [address] Performed By: #### 5 195-3, 99139-8, 49481-1 #### [facility] CLIA [id number] [address] [place] [address] [place] Protein (U) [Mass/Vol] 5 mg/dL Normal 0-20 [facility] Comment on above: Order Comment: Speci men Type: BLOOD SPECIMEN Ordering Facility: [facility] Address: [address] [place] [address] Performed By: #### 5 195-3, 21410-6, 45486-9 #### [facility] CLIA [id number] [address] [place] [address] [place] URINE OB DIP B/Oon 4 Glucose Ql (U) Negative Neg mg/dL [facility] Interpretation and review of laboratory results Normal [facility] Protein.monoclonal (U) [Mass/Vol] Negative Neg mg/dL [facility] Urate SerPl-mCncon 4 Urate [Mass/Vol] 3.5 mg/dL Normal 2.5-6.6 [facility] Comment on above: Order Comment: Speci men Type: BLOOD SPECIMEN Ordering Facility: [facility] Address: [address] [place] [address] Performed By: #### 5 195-3, 88806-9, 07018-0 #### [facility] CLIA [id number] [address] [place], [place] [id number] [place] Biophysical profile.melecio dy movement USon 06-30-2024 [facility] Radiology Study observation (narrative) [facility] URINE OB DIP B/Oon Glucose Ql (U) Negative Neg mg/dL [facility] Protein.monoclonal (U) [Mass/Vol] Negative Neg mg/dL [facility] CNPNon 06-26-2024 CNPN Telephone (OBGYWM) ---- GINGER KEN ([id number]) 1995 F Date Time Provider Department 06/26/24 RENU MOORE OBGYWM During your visit today, we recorded [...] Date Reviewed: 06/25/2024 Reviewed by: Elmira Schmitz APRN.[employer] - Fully Assessed Reason for Visit: ob concerns [Other] Prescriptions as of 06/26/2024 - metoclopramide HCl (REGLAN) 5 mg tablet Take 1 tablet by mouth four times a day as needed (headache or nausea). - sertraline (ZOLOFT) 50 mg tablet Take 50 mg by mouth once daily. - Wiomfyyw-Nf-Ush-Fe- FA tab Take 1 tablet by mouth [...] 4 Group beta Strep positive [B95.1] 06/12/2024 Antepartum tachycardia affecting care of *06/23/2024 Swelling of lower extremity during in*06/23/2024 Polyhydramnios in third trimester [O40.3XX0] 06/23/2024 Polyhydramnios affecting in third tri*06/23/2024 Encounter Status:Closed by RENU MOORE [facility]/24 [facility] Text Normal [facility] URINE OB DIP B/Oon 4 Glucose Ql (U) Negative Neg mg/dL [facility] Interpretation and review of laboratory results Normal [facility] Protein.monoclonal (U) [Mass/Vol] Negative Neg mg/dL [facility] CNCOon 06-23-2024 CNCO Letter Text Normal [facility] Examination level ultrasound on 06-23-2024 [facility] Radiology Study observation (narrative) [facility] URINE OB DIP B/Oon 4 Glucose Ql (U) Negative Neg mg/dL [facility] Interpretation and review of laboratory results Normal [facility] Protein.monoclonal (U) [Mass/Vol] nge Neg mg/dL [facility] Thomas 06-20-2024 CNPN Telephone (OBGYWM) ---- GINGER KEN ([id number]) 1995 F Date Time Provider Department 06/20/24 [...] 50 mg by mouth once daily. - [place]-Nu-Pvj-Fe- FA tab Take 1 tablet by mouth [...] Encounter Status:Closed by ONEL HOGAN on 06/23/24 [facility] 06-16-2024 CNPN Telephone (OBGYWM) ---- GINGER KEN ([id number]) 1995 F Date Time Provider Department 06/16/24 NAHOMI BELLAMY OBGYWJayme During your visit today, we recorded the [...] 50 mg by mouth once daily. - Mjdnghjo-Fe-Czx-Fe- FA tab Take 1 tablet by mouth [...] Status:Closed by JENNIFER SAAVEDRA on 06/16/24 Normal [facility] UA DIP, URINE (POC)on 2023 BILIRUBIN UA (POCT) Negative Negative [facility] CLARITY UA (POCT) Clear [facility] COLOR UA (POCT) Yellow [facility] GLUCOSE UA (POCT) Negative Negative mg/dL [facility] Hemoglobin Ql (U) Negative Negative [facility] KETONE UA (POCT) Negative Negative mg/dL [facility] LEUKOCYTES UA (POCT) Negative Negative [facility] NITRITE UA (POCT) Negative Negative [facility] PH UA (POCT) 7.0 4.5 - 8.0 [facility] Protein Ql (U) Negative Negative mg/dL [facility] SPECIFIC GRAVITY UA (POCT) 1.015 1.005 - 1.030 [facility] UROBILINOGEN UA (POCT) 0.2 Normal E.U./dL [facility] Location:[facility], [address], [place], [address] [facility] Thomas 06-09-2024 CNPN Telephone (OBGYWM) ---- GINGER KEN ([id number]) 1995 F Date Time Provider Department 06/09/24 ELMIRA SCHMITZ OBGYWM During your visit today, we recorded [...] Signed Urine culture results with sensitivities from [facility] to provider to review. ALIYA Coello Emily, APRN.CNP 06/12/2024 11:08 AM Signed If no availability, can schedule growth out 1-2 weeks. Recommend at least weekly NST starting at 32 weeks. Have not received C+S ELMER Mobley Emily, APRN.CNP 06/12/2024 11:40 AM Signed Plain count low, is patient symptomatic with urinary [...] be on 06/25 with growth Elmira Schmitz APRN.Elmira Dillard APRN.MARIAH 06/13/2024 1:42 PM Signed If no urinary symptoms, will not treat at this time. [facility] C+S to Olvin Bellamy's desk Elmira Schmitz APRN.Jennifer Soto RN 06/13/2024 3:45 PM Signed Left message [...] Signed If needs seen should go to [facility]. She can try to rest AND hydrate to see if symtoms improve. MD Jay Grullon Tara, RN 06/13/2024 4:35 PM Signed Pt denies dysuria. [facility] feeling need to be seen/if feeling dehydrated from loose stools, decreased movement, if leaking fluid/vaginal bleeding. Advised to stay hydrated and rest and Pt voiced understanding. Aware of appts changed. Denies additional questions/concerns. ALIYA Murray Jessica, APRN.CNM 06/16/2024 8:16 AM Signed I can see [...] Date Reviewed: 06/09/2024 Reviewed by: Elmira Schmitz APRN.[employer] - Fully Assessed Reason for Visit: Appointment [186] Prescriptions as of 06/16/2024 - metoclopramide HCl (REGLAN) 5 mg tablet Take 1 tablet by mouth four times a day as needed (headache or nausea). - sertraline (ZOLOFT) 50 mg tablet Take 50 mg by mouth once daily. - Mycontjl-Nw-Gqr-Fe- FA tab Take 1 tablet by mouth [...] Status:Closed by CHUCK ESPAÑA on 06/13/24 Normal [facility] URINE OB DIP B/OOrdered By: Zahra David on 06-09-2024 Glucose Ql (U) Negative Neg mg/dL [facility] Interpretation and review of laboratory results Normal [facility] Protein.monoclonal (U) [Mass/Vol] trace Neg mg/dL [facility] CBC W Auto Differential pane l (Bld)on 05-12-2024 Basophils (Bld) [#/Vol] 10*3/uL Normal <0.11 [facility] Comment on above: Order Comment: Speci men Type: BLOOD SPECIMEN Ordering Facility: [facility] Address: [address] [place] [address] Performed By: #### 5 195-3, 50067-8, 18902-2 #### [facility] CLIA [id number] [address] [place] [address] [place] [address] [place] Basophils/100 WBC (Bld) 0.2 % Normal [facility] Comment on above: Order Comment: Speci men Type: BLOOD SPECIMEN Ordering Facility: [facility] Address: [address] [place] [address] Performed By: #### 5 195-3, 63529-4, 52256-3 #### [facility] CLIA [id number] [address] [place] [address] [place] Differential cell count method Nom (Bld) Auto Normal [facility] Comment on above: Order Comment: Speci men Type: BLOOD SPECIMEN Ordering Facility: [facility] Address: [address] [place] [address] Performed By: #### 5 195-3, 32327-0, 05357-0 #### [facility] CLIA [id number] [address] [place] [address] [place] Eosinophils (Bld) [#/Vol] 0.07 10*3/uL Normal <0.46 [facility] Comment on above: Order Comment: Speci men Type: BLOOD SPECIMEN Ordering Facility: [facility] Address: [address] [place] [address] Performed By: #### 5 195-3, 92679-9, 33059-1 #### [facility] CLIA [id number] [address] [place] [address] [place] Eosinophils/100 WBC (Bld) 0.7 % Normal [facility] Comment on above: Order Comment: Speci men Type: BLOOD SPECIMEN Ordering Facility: [facility] Address: [address] [place] [address] Performed By: #### 5 195-3, 33562-0, 30148-9 #### [facility] CLIA [id number] [address] [place] [address] [place] Erythrocyte distribution width (RBC) [Ratio] 12.5 % Normal 11.5-15.0 [facility] Comment on above: Order Comment: Speci men Type: BLOOD SPECIMEN Ordering Facility: [facility] Address: [address] [place] [address] Performed By: #### 5 195-3, 85919-8, 51050-2 #### [facility] CLIA [id number] [address] [place] [address] [place] Hematocrit (Bld) [Volume fraction] 38.6 % Normal 36.0-46.0 [facility] Comment on above: Order Comment: Speci men Type: BLOOD SPECIMEN Ordering Facility: [facility] Address: [address] [place] [address] Performed By: #### 5 195-3, 11842-5, 53849-3 #### [facility] CLIA [id number] [address] [place] [address] [place] Hemoglobin (Bld) [Mass/Vol] 13.7 g/dL Normal 11.5-15.5 [facility] Comment on above: Order Comment: Speci men Type: BLOOD SPECIMEN Ordering Facility: [facility] Address: [address] [place] [address] Performed By: #### 5 195-3, 13716-4, 38814-2 #### [facility] CLIA [id number] [address] [place] [address] [place] Immature granulocytes (Bld) [#/Vol] 0.06 10*3/uL Normal <0.10 [facility] Comment on above: Order Comment: Speci men Type: BLOOD SPECIMEN [facility]ing Facility: [facility] Address: [address] [place] [address] Performed By: #### 5 195-3, 63017-3, 58471-1 #### [facility] CLIA [id number] [address] [place] [address] [place] Immature granulocytes/100 WBC (Bld) 0.6 % Normal [facility] Comment on above: Order Comment: Speci men Type: BLOOD SPECIMEN Ordering Facility: [facility] Address: [address] [place] [address] Performed By: #### 5 195-3, 48507-2, 21155-5 #### [facility] CLIA [id number] [address] [place] [address] [place] Lymphocytes (Bld) [#/Vol] 1.47 10*3/uL Normal 1.00-4.00 [facility] Comment on above: Order Comment: Speci men Type: BLOOD SPECIMEN Ordering Facility: [facility] Address: [address] [place] [address] Performed By: #### 5 195-3, 59343-5, 28239-7 #### [facility] CLIA [id number] [address] [place] [address] [place] Lymphocytes/100 WBC (Bld) 14.2 % Normal [facility] Comment on above: Order Comment: Speci men Type: BLOOD SPECIMEN Ordering Facility: [facility] Address: [address] [place] [address] Performed By: #### 5 195-3, 06330-1, 79589-9 #### [facility] CLIA [id number] [address] [place] [address] [place] MCH (RBC) [Entitic mass] 31.8 pg Normal 26.0-34.0 [facility] Comment on above: Order Comment: Speci men Type: BLOOD SPECIMEN Ordering Facility: [facility] Address: [address] [place] [address] Performed By: #### 5 195-3, 30224-3, 02793-5 #### [facility] CLIA [id number] [address] [place] [address] [place] MCHC (RBC) [Mass/Vol] 35.5 g/dL Normal 30.5-36.0 [facility] Comment on above: Order Comment: Speci men Type: BLOOD SPECIMEN Ordering Facility: [facility] Address: [address] [place] [address] Performed By: #### 5 195-3, 71831-0, 37923-8 #### [facility] CLIA [id number] [address] [place] [address] [place] MCV (RBC) [Entitic vol] 89.6 fL Normal 80.0-100.0 [facility] Comment on above: Order Comment: Speci men Type: BLOOD SPECIMEN Ordering Facility: [facility] Address: [address] [place] [address] Performed By: #### 5 195-3, 18013-7, 64667-7 #### [facility] CLIA [id number] [address] [place] [address] [place] Monocytes (Bld) [#/Vol] 0.58 10*3/uL Normal <0.87 [facility] Comment on above: Order Comment: Speci men Type: BLOOD SPECIMEN Ordering Facility: [facility] Address: [address] [place] [address] Performed By: #### 5 195-3, 08329-9, 19269-1 #### [facility] CLIA [id number] [address] [place] [address] [place] Monocytes/100 WBC (Bld) 5.6 % Normal [facility] Comment on above: Order Comment: Speci men Type: BLOOD SPECIMEN Ordering Facility: [facility] Address: [address] [place] [address] Performed By: #### 5 195-3, 40862-2, 94899-5 #### [facility] CLIA [id number] [address] [place] [address] [place] Neutrophils (Bld) [#/Vol] 8.15 10*3/uL High 1.45-7.50 [facility] Comment on above: Order Comment: Speci men Type: BLOOD SPECIMEN Ordering Facility: [facility] Address: [address] [place] [address] Performed By: #### 5 195-3, 48088-1, 00006-6 #### [facility] CLIA [id number] [address] [place] [address] [place] Neutrophils/100 WBC (Bld) 78.7 % Normal [facility] Comment on above: Order Comment: Speci men Type: BLOOD SPECIMEN Ordering Facility: [facility] Address: [address] [place] [address] Performed By: #### 5 195-3, 92920-2, 17806-6 #### [facility] CLIA [id number] [address] [place] [address] [place] Nucleated RBC (Bld) [#/Vol] 10*3/uL Normal <0.01 [facility] Comment on above: Order Comment: Speci men Type: BLOOD SPECIMEN Ordering Facility: [facility] Address: [address] [place] [address] Performed By: #### 5 195-3, 40415-8, 69039-3 #### [facility] CLIA [id number] [address] [place] [address] [place] Nucleated RBC/100 WBC (Bld) [Ratio] 0.0 /100 WBC Normal [facility] Comment on above: Order Comment: Speci men Type: BLOOD SPECIMEN Ordering Facility: [facility] Address: [address] [place] [address] Performed By: #### 5 195-3, 06037-8, 66159-2 #### [facility] CLIA [id number] [address] [place] [address] [place] Platelet mean volume (Bld) [Entitic vol] 10.7 fL Normal 9.0-12.7 [facility] Comment on above: Order Comment: Speci men Type: BLOOD SPECIMEN Ordering Facility: [facility] Address: [address] [place] [address] Performed By: #### 5 195-3, 84870-7, 22076-7 #### [facility] CLIA [id number] [address] [id number] [address] [place] Platelets (Bld) [#/Vol] 290 10*3/uL Normal 150-400 [facility] Comment on above: Order Comment: Speci men Type: BLOOD SPECIMEN Ordering Facility: [facility] Address: [address] [place] [address] Performed By: #### 5 195-3, 11602-9, 09317-0 #### [facility] CLIA [id number] [address] [place] [address] [place] RBC (Bld) [#/Vol] 4.31 10*6/uL Normal 3.90-5.20 [facility] Comment on above: Order Comment: Speci men Type: BLOOD SPECIMEN Ordering Facility: [facility] Address: [address] [place] [address] Performed By: #### 5 195-3, 02372-4, 89290-5 #### [facility] CLIA [id number] [address] [place] [address] [place] WBC (Bld) [#/Vol] 10.35 10*3/uL Normal 3.70-11.00 [facility] Comment on above: Order Comment: Speci men Type: BLOOD SPECIMEN Ordering Facility: [facility] Address: [address] [place] [address] Performed By: #### 5 195-3, 74472-4, 44855-2 #### [facility] CLIA [id number] [address] [place] [address] [place] GESTATIONAL GLUCOSE SCREEN, 1-HOUR, 50 GRAM, NON-FASTINGon 05-12-2024 Glucose [Mass/Vol] 107 mg/dL Normal 74-134 [facility] Comment on above: Order Comment: Richii men Type: BLOOD SPECIMEN Ordering Facility: [facility] Address: [address] [place] [address] Result Comment: [facility] Congress of Obstetricians and Gynecologists (Moreno/Richy) guidelines state a gestational diabetes mellitus positive screen is made, in women not previously diagnosed with overt diabetes, when the 1 hr plasma glucose level is equal to or above 140 mg/dL. [facility] [employer] and [facility] recommends a 135 mg/dL cutoff. Performed By: #### 5 195-3, 94690-6, 94363-0 #### [facility] CLIA [id number] [address] [place] [address] [place] Reagin and Treponema pallidu m IgG and IgM [Interp]on 05-12-2024 T. pallidum IgG+IgM IA Ql (S) Non-Reactive Normal Nonreactive [facility] Comment on above: Order Comment: Speci men Type: BLOOD SPECIMEN Ordering Facility: [facility] Address: [address] [place] [address] Performed By: #### 5 195-3, 09211-6, 66951-2 #### [facility] CLIA [id number] [address] [place] [address] [place] Reagin+T pallidum IgG+IgM Se rPl-Impon 05-12-2024 Reagin and Treponema pallidum IgG and IgM [Interp] Cannot exclude recent Treponemal infection if specimen collected within 7-10 days after appearance of suspect lesions or 2-3 weeks after an exposure. Clinical correlation is required. Normal [facility] Comment on above: Order Comment: Speci men Type: BLOOD SPECIMEN Ordering Facility: [facility] Address: [address] [place] [address] Performed By: #### 5 195-3, 77617-5, 76286-6 #### [facility] CLIA [id number] [address] [place] [address] [place] CBC W Auto Differential pane l (Bld)on 04-17-2024 Basophils (Bld) [#/Vol] 10*3/uL Normal <0.11 [facility] Comment on above: Order Comment: Speci men Type: BLOOD SPECIMEN Ordering Facility: [facility] Address: [address] [place] [address] Performed By: #### 5 195-3, 31063-9, 16071-1 #### [facility] CLIA [id number] [address] [place] [address] [place] Basophils/100 WBC (Bld) 0.2 % Normal [facility] Comment on above: Order Comment: Speci men Type: BLOOD SPECIMEN Ordering Facility: [facility] Address: [address] [place] [address] Performed By: #### 5 195-3, 16798-8, 32327-2 #### [facility] CLIA [id number] [address] [place] [address] [place] Differential cell count method Nom (Bld) Auto Normal [facility] Comment on above: Order Comment: Speci men Type: BLOOD SPECIMEN Ordering Facility: [facility] Address: [address] [place] [address] Performed By: #### 5 195-3, 77922-8, 46246-1 #### [facility] CLIA [id number] [address] [place] [address] [place] Eosinophils (Bld) [#/Vol] 0.10 10*3/uL Normal <0.46 [facility] Comment on above: Order Comment: Speci men Type: BLOOD SPECIMEN Ordering Facility: [facility] Address: [address] [place] [address] Performed By: #### 5 195-3, 75060-6, 79424-2 #### [facility] CLIA [id number] [address] [place] [address] [place] Eosinophils/100 WBC (Bld) 0.9 % Normal [facility] Comment on above: Order Comment: Speci men Type: BLOOD SPECIMEN Ordering Facility: [facility] Address: [address] [place] [address] Performed By: #### 5 195-3, 04974-9, 15800-9 #### [facility] CLIA [id number] [address] [place] [address] [place] Erythrocyte distribution width (RBC) [Ratio] 13.1 % Normal 11.5-15.0 [facility] Comment on above: Order Comment: Speci men Type: BLOOD SPECIMEN Ordering Facility: [facility] Address: [address] [place] [address] Performed By: #### 5 195-3, 01162-7, 86475-2 #### [facility] CLIA [id number] [address] [place] [address] [place] Hematocrit (Bld) [Volume fraction] 40.2 % Normal 36.0-46.0 [facility] Comment on above: Order Comment: Speci men Type: BLOOD SPECIMEN Ordering Facility: [facility] Address: [address] [place] [address] Performed By: #### 5 195-3, 97127-2, 39645-9 #### [facility] CLIA [id number] [address] [place] [address] [place] Hemoglobin (Bld) [Mass/Vol] 13.6 g/dL Normal 11.5-15.5 [facility] Comment on above: Order Comment: Speci men Type: BLOOD SPECIMEN Ordering Facility: [facility] Address: [address] [place] [address] Performed By: #### 5 195-3, 26734-5, 01289-1 #### [facility] CLIA [id number] [address] [place] [address] [place] Immature granulocytes (Bld) [#/Vol] 0.05 10*3/uL Normal <0.10 [facility] Comment on above: Order Comment: Speci men Type: BLOOD SPECIMEN Ordering Facility: [facility] Address: [address] [place] [address] Performed By: #### 5 195-3, 80265-5, 36460-3 #### [facility] CLIA [id number] [address] [place], [place] [address] [place] Immature granulocytes/100 WBC (Bld) 0.5 % Normal [facility] Comment on above: Order Comment: Speci men Type: BLOOD SPECIMEN Ordering Facility: [facility] Address: [address] [place] [address] Performed By: #### 5 195-3, 96976-1, 14088-2 #### [facility] CLIA [id number] [address] [place] [address] [place] Lymphocytes (Bld) [#/Vol] 1.92 10*3/uL Normal 1.00-4.00 [facility] Comment on above: Order Comment: Speci men Type: BLOOD SPECIMEN Ordering Facility: [facility] Address: [address] [place] [address] Performed By: #### 5 195-3, 42957-2, 78492-8 #### [facility] CLIA [id number] [address] [place] [address] [place] Lymphocytes/100 WBC (Bld) 17.8 % Normal [facility] Comment on above: Order Comment: Speci men Type: BLOOD SPECIMEN Ordering Facility: [facility] Address: [address] [place] [address] Performed By: #### 5 195-3, 95217-9, 35217-8 #### [facility] CLIA [id number] [address] [place] [address] [place] MCH (RBC) [Entitic mass] 31.9 pg Normal 26.0-34.0 [facility] Comment on above: Order Comment: Speci men Type: BLOOD SPECIMEN Ordering Facility: [facility] Address: [address] [place] [address] Performed By: #### 5 195-3, 61851-0, 26765-4 #### [facility] CLIA [id number] [address] [place] [address] [place] MCHC (RBC) [Mass/Vol] 33.8 g/dL Normal 30.5-36.0 [facility] Comment on above: Order Comment: Speci men Type: BLOOD SPECIMEN Ordering Facility: [facility] Address: [address] [place] [address] Performed By: #### 5 195-3, 87864-8, 44249-2 #### [facility] CLIA [id number] [address] [place] [address] [place] MCV (RBC) [Entitic vol] 94.1 fL Normal 80.0-100.0 [facility] Comment on above: Order Comment: Speci men Type: BLOOD SPECIMEN [facility]ing Facility: [facility] Address: [address] [place] [address] Performed By: #### 5 195-3, 82786-3, 83343-6 #### [facility] CLIA [id number] [address] [place] [address] [place] Monocytes (Bld) [#/Vol] 0.76 10*3/uL Normal <0.87 [facility] Comment on above: Order Comment: Speci men Type: BLOOD SPECIMEN [facility]ing Facility: [facility] Address: [address] [place] [address] Performed By: #### 5 195-3, 58518-6, 47305-2 #### [facility] CLIA [id number] [address] [place] [address] [place] Monocytes/100 WBC (Bld) 7.1 % Normal [facility] Comment on above: Order Comment: Speci men Type: BLOOD SPECIMEN [facility]ing Facility: [facility] Address: [address] [place] [address] Performed By: #### 5 195-3, 96123-2, 34308-7 #### [facility] CLIA [id number] [address] [place] [address] [place] Neutrophils (Bld) [#/Vol] 7.92 10*3/uL High 1.45-7.50 [facility] Comment on above: Order Comment: Speci men Type: BLOOD SPECIMEN Ordering Facility: [facility] Address: [address] [place] [address] Performed By: #### 5 195-3, 51120-0, 49494-1 #### [facility] CLIA [id number] [address] [place] [address] [place] Neutrophils/100 WBC (Bld) 73.5 % Normal [facility] Comment on above: Order Comment: Speci men Type: BLOOD SPECIMEN [facility]ing Facility: [facility] Address: [address] [place] [address] Performed By: #### 5 195-3, 86996-5, 21806-4 #### [facility] CLIA [id number] [address] [place] [address] [place] Nucleated RBC (Bld) [#/Vol] 10*3/uL Normal <0.01 [facility] Comment on above: Order Comment: Speci men Type: BLOOD SPECIMEN [facility]ing Facility: [facility] Address: [address] [place] [address] Performed By: #### 5 195-3, 25826-1, 25741-7 #### [facility] CLIA [id number] [address] [place] [address] [place] Nucleated RBC/100 WBC (Bld) [Ratio] 0.0 /100 WBC Normal [facility] Comment on above: Order Comment: Speci men Type: BLOOD SPECIMEN Ordering Facility: [facility] Address: [address] [place] [address] Performed By: #### 5 195-3, 84162-8, 65876-1 #### [facility] CLIA [id number] [address] [place] [address] [place] Platelet mean volume (Bld) [Entitic vol] 11.5 fL Normal 9.0-12.7 [facility] Comment on above: Order Comment: Speci men Type: BLOOD SPECIMEN Ordering Facility: [facility] Address: [address] [place] [address] Performed By: #### 5 195-3, 07122-9, 42607-5 #### [facility] CLIA [id number] [address] [place] [address] [place] Platelets (Bld) [#/Vol] 292 10*3/uL Normal 150-400 [facility] Comment on above: Order Comment: Speci men Type: BLOOD SPECIMEN Ordering Facility: [facility] Address: [address] [place] [address] Performed By: #### 5 195-3, 15922-3, 73438-0 #### [facility] CLIA [id number] [address] [place] [address] [place] RBC (Bld) [#/Vol] 4.27 10*6/uL Normal 3.90-5.20 [facility] Comment on above: Order Comment: Speci men Type: BLOOD SPECIMEN Ordering Facility: [facility] Address: [address] [place] [address] Performed By: #### 5 195-3, 43363-3, 38337-1 #### [facility] CLIA [id number] [address] [place] [address] [place] WBC (Bld) [#/Vol] 10.77 10*3/uL Normal 3.70-11.00 [facility] Comment on above: Order Comment: Speci men Type: BLOOD SPECIMEN Ordering Facility: [facility] Address: [address] [place] [address] Performed By: #### 5 195-3, 17206-1, 99541-0 #### [facility] CLIA [id number] [address] [place], [place] [address] [place] Comprehensive metabolic 2000 panelon 04-17-2024 Albumin [Mass/Vol] 3.8 g/dL Low 3.9-4.9 [facility] Comment on above: Order Comment: Speci men Type: BLOOD SPECIMEN Ordering Facility: [facility] Address: [address] [id number] Performed By: #### 2 4323-8 #### [facility] CLIA [id number] [address] [place] [address] [place] ALP [Catalytic activity/Vol] 80 U/L Normal 34-123 [facility] Comment on above: Order Comment: Speci men Type: BLOOD SPECIMEN Ordering Facility: [facility] Address: [address] [id number] Performed By: #### 2 4323-8 #### [facility] CLIA [id number] [address] [place] [address] [place] ALT [Catalytic activity/Vol] 12 U/L Normal 7-38 [facility] Comment on above: Order Comment: Speci men Type: BLOOD SPECIMEN Ordering Facility: [facility] Address: [address] [place] [address] Performed By: #### 2 4323-8 #### [facility] CLIA [id number] [address] [place] [address] [place] Anion gap [Moles/Vol] 15 mmol/L Normal 8-15 [facility] Comment on above: Order Comment: Speci men Type: BLOOD SPECIMEN Ordering Facility: [facility] Address: [address] [address] Performed By: #### 2 4323-8 #### [facility] CLIA [id number] [address] [id number] [place] AST [Catalytic activity/Vol] 15 U/L Normal 13-35 [facility] Comment on above: Order Comment: Speci men Type: BLOOD SPECIMEN Ordering Facility: [facility] Address: [address] [address] Performed By: #### 2 4323-8 #### [facility] CLIA [id number] [address] [place] [address] [place] Bilirubin [Mass/Vol] 0.2 mg/dL Normal 0.2-1.3 [facility] Comment on above: Order Comment: Speci men Type: BLOOD SPECIMEN Ordering Facility: [facility] Address: [address] [place] [address] Performed By: #### 2 4323-8 #### [facility] CLIA [id number] [address] [place] [address] [place] Calcium [Mass/Vol] 10.0 mg/dL Normal 8.5-10.2 [facility] Comment on above: Order Comment: Speci men Type: BLOOD SPECIMEN Ordering Facility: [facility] Address: [address] [place] [address] Performed By: #### 2 4323-8 #### [facility] CLIA [id number] [address] [place] [address] [place] Chloride [Moles/Vol] 103 mmol/L Normal 98-107 [facility] Comment on above: Order Comment: Speci men Type: BLOOD SPECIMEN Ordering Facility: [facility] Address: [address] [place] [address] Performed By: #### 2 4323-8 #### [facility] CLIA [id number] [address] [place] [address] [place] CO2 [Moles/Vol] 19 mmol/L Low 22-30 [facility] Comment on above: Order Comment: Speci men Type: BLOOD SPECIMEN Ordering Facility: [facility] Address: [address] [place] [address] Performed By: #### 2 4323-8 #### [facility] CLIA [id number] [address] [place] [address] [place] Creatinine [Mass/Vol] 0.66 mg/dL Normal 0.58-0.96 [facility] Comment on above: Order Comment: Speci men Type: BLOOD SPECIMEN Ordering Facility: [facility] Address: [address] [place] [address] Performed By: #### 2 4323-8 #### [facility] CLIA [id number] [address] [place] [address] [place] Creatinine and Glomerular filtration rate.predicted panel (S/P/Bld) 124 mL/min/1.73m??? Normal >=60 [facility] Comment on above: Order Comment: Tejas marquez Type: BLOOD SPECIMEN Ordering Facility: [facility] Address: [address] [place] [address] Result Comment: Suri mated Glomerular Filtration Rate [...] GFR. Performed By: #### 2 4323-8 #### [facility] CLIA [id number] [address] [place] [address] [place] Glucose [Mass/Vol] 66 mg/dL Low 74-99 [facility] Comment on above: Order Comment: Tejas marquez Type: BLOOD SPECIMEN Ordering Facility: [facility] Address: [address] [place] [address] Result Comment: The [employer] Diabetes Association (ADA) provides guidance for cutoff [...] Standards of Medical Care in Diabetes 2016, [employer]. Diabetes Care. 2016.39(Suppl 1). Performed By: #### 2 4323-8 #### [facility] CLIA [id number] [address] [place], [place] [address] [place] Potassium [Moles/Vol] 4.3 mmol/L Normal 3.7-5.1 [facility] Comment on above: Order Comment: Speci men Type: BLOOD SPECIMEN Ordering Facility: [facility] Address: [address] [place] [address] Performed By: #### 2 4323-8 #### [facility] CLIA [id number] [address] [place] [address] [place] Protein [Mass/Vol] 6.6 g/dL Normal 6.3-8.0 [facility] Comment on above: Order Comment: Speci men Type: BLOOD SPECIMEN Ordering Facility: [facility] Address: [address] [place] [address] Performed By: #### 2 4323-8 #### [facility] CLIA [id number] [address] [place] [address] [place] Sodium [Moles/Vol] 137 mmol/L Normal 136-144 [facility] Comment on above: Order Comment: Speci men Type: BLOOD SPECIMEN Ordering Facility: [facility] Address: [address] [place] [address] Performed By: #### 2 4323-8 #### [facility] CLIA [id number] [address] [place] [address] [place] Urea nitrogen [Mass/Vol] 5 mg/dL Low 7-21 [facility] Comment on above: Order Comment: Speci men Type: BLOOD SPECIMEN Ordering Facility: [facility] Address: [address] [place] [address] Performed By: #### 2 4323-8 #### [facility] CLIA [id number] [address] [place] [address] [place] Prot/Creat Uron 04-17-2024 Protein/Creatinine (U) [Mass ratio] mg/g Normal <0.15 [facility] Comment on above: Order Comment: Tejas men Type: BLOOD SPECIMEN Ordering Facility: [facility] Address: [address] [place] [address] Result Comment: Adul t Proteinuria Categories: <0.15 mg/mg is considered normal to mildly increased 0.15 - 0.50 mg/mg is considered moderately increased >0.50 mg/mg is considered severely increased KDIGO. (2013). KDIGO 2012 Clinical Practice Guideline for the Evaluation and Management of Chronic Kidney Disease. Official Journal of the International Society of Nephrology, 3(1), 1-150. Performed By: #### 5 195-3, 56697-5, 32977-2 #### [facility] CLIA [id number] [address] [place] [address] [place] Protein/Creatinine (U) [Mass ratio]on 04-17-2024 Creatinine (U) [Mass/Vol] 79.2 mg/dL Normal 20.0-300.0 [facility] Comment on above: Order Comment: Tejas men Type: BLOOD SPECIMEN Ordering Facility: [facility] Address: [address] [place] [address] Performed By: #### 5 195-3, 04922-7, 07528-6 #### [facility] CLIA [id number] [address] [place] [address] [place] Protein (U) [Mass/Vol] mg/dL Normal 0-20 [facility] Comment on above: Order Comment: Tejas men Type: BLOOD SPECIMEN Ordering Facility: [facility] Address: [address] [place] [address] Performed By: #### 5 195-3, 74053-2, 28327-8 #### [facility] CLIA [id number] [address] [place] [address] [place] Examination level ultrasound on 03-27-2024 [facility] Radiology Study observation (narrative) [facility] Thomas 03-13-2024 CNPN Telephone (OBGYWM) ---- GINGER KEN ([id number]) 1995 F Date Time Provider Department 03/13/24 KARL ROMEO During your visit today, we recorded the following information about you: Tressa Packer RN 03/13/2024 4:13 PM Signed ----- Message from Karl Romeo MD sent at 03/13/2024 3:30 PM EDT ----- Anatomy ultrasound reviewed. No abnormalities identified. F/u scan as recommended in 2-3 weeks please contact her to schedule. Please place copy in ob chart. MD Birdie Wade Jennifer, ALIYA 03/13/2024 4:14 PM Signed Left message for [...] 50 mg by mouth once daily. - Xgkpwozx-Ys-Ohi-Fe- [id number] tab Take 1 tablet by mouth once daily. Problem List As Of Date 03/13/2024 Noted Resolved Encounter for care in second trimester* 4 Use of letrozole (Femara) [Z79.811] 12/20/2023 Obesity affecting in second trimester* 4 Anxiety and depression [F41.9, F32.A] 12/20/2023 Nausea and vomiting during [O21.9] 02/13/2024 headache in second trimester [O26.892*02/13/2024 Encounter Status:Closed by TRESSA PACKER on 03/17/24 Normal [facility] BB ABO RHon 02-02-2024 ABO A Normal [facility] Comment on above: Performed By: #### 2 32677 #### [facility],[address] [place] [address] ABO and Rh group Nom (Bld) Normal [facility] Comment on above: Result Comment: BLOO D GROUP Performed By: #### 2 30249 #### [facility],[address] [place] [address] Rh Nom (Bld) Positive Normal [facility] Comment on above: Performed By: #### 2 78540 #### [facility],[address] [place] [address] CBC + DIFFon 02-02-2024 Baso # 0.03 x10EE3/UL Normal 0.00 - 0.10 [facility] Comment on above: Performed By: #### 2 10317 #### [facility],[address] [place] [address]017 Basophils/100 WBC (Bld) 0.3 % Normal 0.0 - 2.0 [facility] Comment on above: Performed By: #### 2 45008 #### [facility],[address] [place] [address] CBC + DIFF Normal [facility] Comment on above: Result Comment: CBC- COMPLETE BLOOD COUNT Performed By: #### 2 46883 #### [facility],[address] [place] [address] EO # 0.06 x10EE3/UL Normal 0.00 - 0.50 [facility] Comment on above: Performed By: #### 2 60487 #### [facility],[address] [place] [address] 88867 Eosinophils/100 WBC (Bld) 0.6 % Normal 0.0 - 7.0 [facility] Comment on above: Performed By: #### 2 64077 #### [facility],[address] [place] [address] Erythrocyte distribution width (RBC) [Ratio] 12.7 % Normal 12.0 - 15.6 [facility] Comment on above: Performed By: #### 2 33882 #### [facility],[address] [place] [address] Hematocrit (Bld) [Volume fraction] 45.9 % Normal 34.0 - 46.0 [facility] Comment on above: Performed By: #### 2 90633 #### [facility],[address] [place] [address] Hemoglobin (Bld) [Mass/Vol] 16.2 g/dL High 12.0 - 16.0 [facility] Comment on above: Performed By: #### 2 57627 #### [facility],[address] [place] [address] Lymph # 2.05 x10EE3/UL Normal 0.80 - 2.80 [facility] Comment on above: Performed By: #### 2 19676 #### [facility],[address] [place], [place] [id number] Lymphocytes/100 WBC (Bld) 20.6 % Normal 20.0 - 45.0 [facility] Comment on above: Performed By: #### 2 47752 #### [facility],[address] [place], [place] [id number] MANUAL DIFF N/A Normal [facility] Comment on above: Performed By: #### 2 01208 #### [facility],[address] [place] [address]5930 MCH (RBC) [Entitic mass] 32 pg Normal 27 - 33 [facility] Comment on above: Performed By: #### 2 56405 #### [facility],[address] [place] [address] MCHC 35 X10 3 Normal 32 - 36 [facility] Comment on above: Performed By: #### 2 26549 #### [facility],[address] [place] [address] MCV (RBC) [Entitic vol] 91 fL Normal 80 - 99 [facility] Comment on above: Performed By: #### 2 50873 #### [facility],[address] [place] [address] Benzie # 0.61 x10EE3/UL Normal 0.20 - 1.00 [facility] Comment on above: Performed By: #### 2 98093 #### [facility],[address] [place] [address] MONOS % 6.2 % Normal 0.0 - 10.0 [facility] Comment on above: Performed By: #### 2 21305 #### [facility],[address] [place] [address] Morphology Alex (Bld) [Interp] N/A Normal [facility] Comment on above: Performed By: #### 2 45794 #### [facility],[address] [place] [address] Neut # 7.21 x10EE3/UL High 1.50 - 7.10 [facility] Comment on above: Performed By: #### 2 22665 #### [facility],[address] [place] [address] Neutrophils/100 WBC (Bld) 72.3 % Normal 46.0 - 76.0 [facility] Comment on above: Performed By: #### 2 46901 #### [facility],[address] [place] [address] PLATELET 294 x10EE3/UL Normal 150 - 450 [facility] Comment on above: Performed By: #### 2 96368 #### [facility],[address] [place] [address] Platelet mean volume (Bld) [Entitic vol] 9.5 fL Normal 6.6 - 10.5 [facility] Comment on above: Result Comment: AUTO MATED DIFFERENTIAL Performed By: #### 2 73901 #### [facility],[address] [place] [address] 10427 RBC 5.06 x 10EE6/UL Normal 4.10 - 5.30 [facility] Comment on above: Performed By: #### 2 57570 #### [facility],[address] [place] [address] 76066 WBC 10.0 x 10EE3/UL Normal 4.5 - 10.8 [facility] Comment on above: Performed By: #### 2 88327 #### [facility],[address] [place], [place] [id number] CMP with eGFRon 02-02-2024 AGE 28 years Normal [facility] Comment on above: Performed By: #### 2 35465 #### [facility],[address] [place] [address] 14994 Albumin [Mass/Vol] 3.3 g/dL Low 3.4 - 5.0 [facility] Comment on above: Performed By: #### 2 20170 #### [facility],[address] [place] [address] 38288 Albumin/Globulin [Mass ratio] 0.9 {ratio} Normal 0.9 - 1.6 [facility] Comment on above: Performed By: #### 2 33579 #### [facility],[address] [place] [address] 01923 ALK PHOS 76 U/L Normal 46 - 116 [facility] Comment on above: Performed By: #### 2 17028 #### [facility],[address] [place] [address] 02179 ALT [Catalytic activity/Vol] 22 U/L Normal 16 - 63 [facility] Comment on above: Performed By: #### 2 32915 #### [facility],[address] [place] [address] 86645 Anion gap [Moles/Vol] 16 mmol/L Normal 10 - 20 [facility] Comment on above: Performed By: #### 2 12451 #### [facility],[address] [place] [address] 22784 AST [Catalytic activity/Vol] 12 U/L Low 13 - 39 [facility] Comment on above: Performed By: #### 2 76866 #### [facility],[address] [place] [address] 61768 B/C RATIO 14 ratio Normal 0 - 30 [facility] Comment on above: Performed By: #### 2 18867 #### [facility],[address] [place] [address] 13873 Bilirubin [Mass/Vol] 0.6 mg/dL Normal 0.2 - 1.0 [facility] Comment on above: Performed By: #### 2 71712 #### [facility],[address] [place] [address] 72574 Calcium [Mass/Vol] 9.3 mg/dL Normal 8.5 - 10.1 [facility] Comment on above: Performed By: #### 2 94025 #### [facility],[address] [place] [address] 59253 Chloride [Moles/Vol] 104 mmol/L Normal 98 - 107 [facility] Comment on above: Performed By: #### 2 81971 #### [facility],[address] [place] [address] 81063 CMP with eGFR Normal [facility] Comment on above: Result Comment: COMP REHENSIVE METABOLIC PANEL Performed By: #### 2 14443 #### [facility],[address] [place] [address] 32001 CO2 [Moles/Vol] 23.6 mmol/L Normal 21.0 - 32.0 [facility] Comment on above: Performed By: #### 2 80103 #### [facility],[address] [place] [address] 18688 Creatinine [Mass/Vol] 0.56 mg/dL Normal 0.55 - 1.02 [facility] Comment on above: Performed By: #### 2 77012 #### [facility],[address] [place] [address] 92224 GFR/1.73 sq M.predicted among non-blacks MDRD (S/P/Bld) [Vol rate/Area] mL/min/{1.73_m2} Normal 60 - 999 [facility] Comment on above: Performed By: #### 2 43558 #### [facility],[address] [place] [address] 26158 Result Comment: ACCO RDING TO THE NATIONAL KIDNEY DISEASE EDUCATION PROGRAM(NKDE), A NORMAL eGFR IS A VALUE GREATER THAN OR EQUAL TO 60 ML/MIN/1.73 SQ METERS. CHRONIC KIDNEY DISEASE: <60mL/MIN/1.73 SQ METERS KIDNEY FAILURE: <15mL/MIN/1.73 SQ METERS THIS TEST SHOULD ONLY BE USED FOR PATIENTS 18 YEARS OF AGE AND OLDER. Globulin (S) [Mass/Vol] 3.5 g/dL Normal 1.5 - 3.8 [facility] Comment on above: Performed By: #### 2 04378 #### [facility],[address] [place] [address] 52105 Glucose [Mass/Vol] 79 mg/dL Normal 74 - 106 [facility] Comment on above: Performed By: #### 2 41003 #### [facility],[address] [place] [address] 33299 Potassium [Moles/Vol] 3.8 mmol/L Normal 3.5 - 5.1 [facility] Comment on above: Performed By: #### 2 71942 #### [facility],[address] [place] [address] 30193 Protein [Mass/Vol] 6.8 g/dL Normal 6.4 - 8.2 [facility] Comment on above: Performed By: #### 2 29117 #### [facility],[address] [place] [address] 76554 Sodium [Moles/Vol] 140 mmol/L Normal 136 - 145 [facility] Comment on above: Performed By: #### 2 39610 #### [facility],[address] [place] [address] 74686 Urea nitrogen [Mass/Vol] 8 mg/dL Normal 7 - 18 [facility] Comment on above: Performed By: #### 2 19035 #### [facility],[address] [place] [address] 08226 PREG SERUM QUANTon 4 HCG QUANTITATIVE 15834 mIU/mL High 0 - 6 [facility] Comment on above: Result Comment: Refe rence Range: Male: <5 Female: Non: <5 1 [...] 3RD TRIMESTER 1000-50,000 Performed By: #### 2 25506 #### [facility],[address] [place] [address] 19115 URINALYSIS WITH MICROSCOPYon 02-02-2024 Amorphous NONE Normal [facility] Comment on above: Performed By: #### 2 08948 #### [facility],[address] [place] [address] 45653 Bacteria NONE Normal [facility] Comment on above: Performed By: #### 2 99521 #### [facility],[address] [place] [address] 65385 Bilirubin Ql (U) Negative Normal NORMAL: NEGATIVE [facility] Comment on above: Performed By: #### 2 11661 #### [facility],[address] [place] [address] 55171 Casts NONE Normal [facility] Comment on above: Performed By: #### 2 91862 #### [facility],[address] [place] [address] 06180 Clarity (U) clear Normal NORMAL: CLEAR [facility] Comment on above: Performed By: #### 2 65214 #### [facility],[address] [place] [address] 44603 Color (U) yellow Normal NORMAL: YELLOW [facility] Comment on above: Performed By: #### 2 54915 #### [facility],[address] [place] [address] 28651 Crystals LM Nom (Urine sed) NONE Normal [facility] Comment on above: Performed By: #### 2 48921 #### [facility],[address] [place] [address] 28760 Epi Cells FEW Normal [facility] Comment on above: Performed By: #### 2 00967 #### [facility],[address] [place] [address] 76263 Glucose Ql (U) NORM Normal NORMAL: NORMAL [facility] Comment on above: Performed By: #### 2 11437 #### [facility],[address] [place] [address] 57063 Hemoglobin Ql (U) Negative Normal NORMAL: NEGATIVE [facility] Comment on above: Performed By: #### 2 32750 #### [facility],[address] [place] [address] 87587 Ketone Negative Normal NORMAL: NEGATIVE [facility] Comment on above: Performed By: #### 2 82911 #### [facility],[address] [place] [address] 33143 Leukocytes Negative Normal NORMAL: NEGATIVE [facility] Comment on above: Result Comment: URIN E MICROSCOPIC Performed By: #### 2 79272 #### [facility],[address] [place] [address] Mucous NONE Normal [facility] Comment on above: Performed By: #### 2 68659 #### [facility],[address] [place] [address] Nitrite Ql (U) Negative Normal NORMAL: NEGATIVE [facility] Comment on above: Performed By: #### 2 69200 #### [facility],[address] [place] [address] pH (U) 6 [pH] Normal NORMAL: 5.0-8.0 [facility] Comment on above: Performed By: #### 2 19727 #### [facility],[address] [place] [address] Protein Ql (U) 15 Abnormal NORMAL: NEGATIVE [facility] Comment on above: Performed By: #### 2 74152 #### [facility],[address] [place] [address] Rbc 0-5 Normal 0-3 / hpf [facility] Comment on above: Performed By: #### 2 42046 #### [facility],[address] [place] [address] Sp [place] 1.020 Normal NORMAL: 1.010-1.030 [facility] Comment on above: Performed By: #### 2 81670 #### [facility],[address] [place] [address] Specimen Type R Normal [facility] Comment on above: Performed By: #### 2 33879 #### [facility],[address] [place] [address] URINALYSIS WITH MICROSCOPY Normal [facility] Comment on above: Result Comment: URIN ALYSIS Performed By: #### 2 22958 #### [facility],[address] [place] [address] Urobilinog NORM Normal NORMAL: NORMAL [facility] Comment on above: Performed By: #### 2 44352 #### [facility],[address] [place] [address] 65637 Wbc 1-5 Normal 0-5 / hpf [facility] Comment on above: Performed By: #### 2 12616 #### [facility],[address] [place] [address] 03078 Yeast NONE Normal [facility] Comment on above: Performed By: #### 2 17338 #### [facility],[address] [place] [address] 01073 US OB INITIAL< 14 WEEKS; 1st GESTATIONon 02-02-2024 US OB INITIAL< 14 WEEKS; 1st GESTATION [place] [address] Patient: GINGER KEN Phone#: : 1995 Age: 28 Gender: F Pt. Type: ER Account: [id number] Location: [facility] Ordering: [facility] Exam Date: 02/02/2024/19:26 Family Phys: DAYO CEBALLOS Charge Code: 388823 Physician: [place] Order #: [id number] Dose#: PROCEDURE: OB INITIAL <14 WEEKS ULTRASOUND, TRANSABDOMINAL COMPARISON: None this . INDICATIONS: Threatened AB. TECHNIQUE: Transabdominal pelvic ultrasound examinations were performed. FINDINGS: GESTATIONAL SAC: Present and normal appearing. POLE: Present and normal appearing. [place]-rump length measuring 7.0 cm, 13 weeks 1 [...] Dumont MD on 02/03/2024 at 0:52 Normal [facility] CBC panel Auto (Bld)on 01-15 Erythrocyte distribution width (RBC) [Ratio] 12.1 % Normal 11.5-15.0 [facility] Comment on above: Order Comment: Speci men Type: BLOOD SPECIMEN Ordering Facility: [facility] Address: [address] [place] [address] Performed By: #### 5 195-3, 24804-2, 11841-6 #### [facility] CLIA [id number] [address] [place] [address] [place] Hematocrit (Bld) [Volume fraction] 43.3 % Normal 36.0-46.0 [facility] Comment on above: Order Comment: Speci men Type: BLOOD SPECIMEN Ordering Facility: [facility] Address: [address] [place] [address] Performed By: #### 5 195-3, 40396-5, 20045-6 #### [facility] CLIA [id number] [address] [place] [address] [place] Hemoglobin (Bld) [Mass/Vol] 15.4 g/dL Normal 11.5-15.5 [facility] Comment on above: Order Comment: Speci men Type: BLOOD SPECIMEN Ordering Facility: [facility] Address: [address] [place] [address] Performed By: #### 5 195-3, 97337-5, 89922-1 #### [facility] CLIA [id number] [address] [place] [address] [place] MCH (RBC) [Entitic mass] 31.2 pg Normal 26.0-34.0 [facility] Comment on above: Order Comment: Speci men Type: BLOOD SPECIMEN Ordering Facility: [facility] Address: [address] [place] [address] Performed By: #### 5 195-3, 62231-3, 11010-3 #### [facility] CLIA [id number] [address] [place] [address] [place] MCHC (RBC) [Mass/Vol] 35.6 g/dL Normal 30.5-36.0 [facility] Comment on above: Order Comment: Speci men Type: BLOOD SPECIMEN Ordering Facility: [facility] Address: [address] [place] [address] Performed By: #### 5 195-3, 11896-8, 30203-7 #### [facility] CLIA [id number] [address] [place] [address] [place] MCV (RBC) [Entitic vol] 87.7 fL Normal 80.0-100.0 [facility] Comment on above: Order Comment: Speci men Type: BLOOD SPECIMEN Ordering Facility: [facility] Address: [address] [place] [address] Performed By: #### 5 195-3, 14392-3, 29887-0 #### [facility] CLIA [id number] [address] [place] [address] [place] Nucleated RBC (Bld) [#/Vol] 10*3/uL Normal <0.01 [facility] Comment on above: Order Comment: Speci men Type: BLOOD SPECIMEN Ordering Facility: [facility] Address: [address] [place] [address] Performed By: #### 5 195-3, 13304-6, 25723-2 #### [facility] CLIA [id number] [address] [place] [address] [place] Platelet mean volume (Bld) [Entitic vol] 10.8 fL Normal 9.0-12.7 [facility] Comment on above: Order Comment: Speci men Type: BLOOD SPECIMEN Ordering Facility: [facility] Address: [address] [place] [address] Performed By: #### 5 195-3, 04664-2, 83945-6 #### [facility] CLIA [id number] [address] [place] [address] [place] Platelets (Bld) [#/Vol] 334 10*3/uL Normal 150-400 [facility] Comment on above: Order Comment: Speci men Type: BLOOD SPECIMEN Ordering Facility: [facility] Address: [address] [place] [address] Performed By: #### 5 195-3, 27868-1, 40479-1 #### [facility] CLIA [id number] [address] [place] [address] [place] RBC (Bld) [#/Vol] 4.94 10*6/uL Normal 3.90-5.20 [facility] Comment on above: Order Comment: Speci men Type: BLOOD SPECIMEN Ordering Facility: [facility] Address: [address] [place] [address] Performed By: #### 5 195-3, 63057-0, 03809-2 #### [facility] CLIA [id number] [address] [place] [address] [place] WBC (Bld) [#/Vol] 6.70 10*3/uL Normal 3.70-11.00 [facility] Comment on above: Order Comment: Speci men Type: BLOOD SPECIMEN Ordering Facility: [facility] Address: [address] [place] [address] Performed By: #### 5 195-3, 63377-8, 12438-9 #### [facility] CLIA [id number] [address] [place], [place] [id number] [place] nuchal translucency me asured by USon 01-16-2024 Indication First trimester screening Obesity, BMI >30 Impression REMOTE READ 1. Single, live, intrauterine . 2. [place] rump length measurement is consistent with the [...] Read By: Natalya Louise M.D. MATERNAL MEDICINE [facility] Radiology Study observation (narrative) [facility] HBV surface Ag Ser Qlon 05-0 HBV surface Ag Ql (S) Negative Normal Negative [facility] Comment on above: Order Comment: Speci men Type: BLOOD SPECIMEN Ordering Facility: [facility] Address: [address] [place] [address] Performed By: #### 5 195-3, 83029-7, 83028-3 #### [facility] CLIA [id number] [address] [place] [address] [place] [place] HCV Ab Ser Qlon 01-16-2024 HCV Ab Ql (S) Negative Normal Negative [facility] Comment on above: Order Comment: Speci men Type: BLOOD SPECIMEN Ordering Facility: [facility] Address: [address] [place] [address] Result Comment: The result suggests no evidence of active infection with Hepatitis C virus. Should recent infection be suspected, repeat testing may be considered 4-6 weeks after this draw. Performed By: #### 5 195-3, 15435-3, 50098-9 #### [facility] CLIA [id number] [address] [place] [address] [place] HIV 1+2 Ab IA Qlon HIV 1 and 2 Ab IA.rapid Nom (S/P/Bld) Normal [facility] Comment on above: Order Comment: Speci men Type: BLOOD SPECIMEN Ordering Facility: [facility] Address: [address] [place] [address] Result Comment: Test not indicated. Performed By: #### 5 195-3, 00991-2, 10666-9 #### [facility] CLIA [id number] [address] [place] [address] [place] HIV 1+2 Ab+HIV1 p24 Ag IA Ql Non-Reactive Normal Nonreactive [facility] Comment on above: Order Comment: Speci men Type: BLOOD SPECIMEN Ordering Facility: [facility] Address: [address] [place] [address] Performed By: #### 5 195-3, 09585-0, 82518-9 #### [facility] CLIA [id number] [address] [place] [address] [place] HIV immunoassay testing algorithm interpretation (S/P/Bld) [Interp] Normal [facility] Comment on above: Order Comment: Speci men Type: BLOOD SPECIMEN Ordering Facility: [facility] Address: [address] [place] [address] Result Comment: No e vidence of HIV-1 or HIV-2 infection. Should recent infection be suspected, repeat testing may be considered 2-3 weeks after this draw. [place] Rev. Code 3701.243(E): This information has been [...] or diagnoses. Performed By: #### 5 195-3, 15764-0, 21882-3 #### [facility] CLIA [id number] [address] [place] [address] [place] HbA1c (Bld)on 01-16-2024 Average glucose Estimated from glycated hemoglobin (Bld) [Mass/Vol] 85 mg/dL Normal [facility] Comment on above: Order Comment: Speci men Type: BLOOD SPECIMEN Ordering Facility: [facility] Address: [address] [place] [address] Result Comment: eAG: (Estimated average glucose) is a calculated value from HgbA1c and is rental representative of the average blood glucose level in the last 2-3 month period. Performed By: #### 2 4323-8 #### [facility] CLIA [id number] [address] [place] [address] [place] HbA1c (Bld) [Mass fraction] 4.6 % Normal 4.3-5.6 [facility] Comment on above: Order Comment: Speci men Type: BLOOD SPECIMEN Ordering Facility: [facility] Address: [address] [place] [address] Result Comment: Amer [place] Diabetes Association guidelines indicate that patients with HgbA1c in the range 5.7-6.4% are at increased risk for development of diabetes, and intervention by lifestyle modification may be beneficial. HgbA1c greater or equal to 6.5% is considered diagnostic of diabetes. Performed By: #### 2 4323-8 #### [facility] CLIA [id number] [address] [place] [address] [place] RUBELLA IGG ANTIBODYon 01-15 RUBELLA IGG AB, QUAL Positive Normal Positive [facility] Comment on above: Order Comment: Tejas marquez Type: BLOOD SPECIMEN Ordering Facility: [facility] Address: [address] [place] [address] Result Comment: The result suggests recent or past exposure to Rubella virus or history of Rubella vaccination. Positive result may also be seen due to presence of passively-transferred antibodies. Please correlate with patient's history. Performed By: #### 5 195-3, 03676-6, 57980-4 #### [facility] CLIA [id number] [address] [place] [address] [place] Reagin and Treponema pallidu m IgG and IgM [Interp]on 01-16-2024 T. pallidum IgG+IgM IA Ql (S) Non-Reactive Normal Nonreactive [facility] Comment on above: Order Comment: Tejas marquez Type: BLOOD SPECIMEN Ordering Facility: [facility] Address: [address] [place] [address] Performed By: #### 5 195-3, 84625-8, 73479-9 #### [facility] CLIA [id number] [address] [place] [address] [place] Reagin+T pallidum IgG+IgM Se rPl-Impon 01-16-2024 Reagin and Treponema pallidum IgG and IgM [Interp] Cannot exclude recent Treponemal infection if specimen collected within 7-10 days after appearance of suspect lesions or 2-3 weeks after an exposure. Clinical correlation is required. Normal [facility] Comment on above: Order Comment: Tejas marquez Type: BLOOD SPECIMEN Ordering Facility: [facility] Address: [address] [place] [address] Performed By: #### 5 195-3, 07317-0, 20225-3 #### [facility] CLIA [id number] [address] [place] [address] [place] TYPE + SCREEN PRENATALon ABO A Normal [facility] Comment on above: Order Comment: Speci men Type: BLOOD SPECIMEN Ordering Facility: [facility] Address: [address] [place] [address] Performed By: #### 5 195-3, 40953-7, 04474-6 #### [facility] CLIA [id number] [address] [place] [address] [place] HISTORICAL AB SCR STATUS Negative Normal [facility] Comment on above: Order Comment: Speci men Type: BLOOD SPECIMEN Ordering Facility: [facility] Address: [address] [place] [address] Performed By: #### 5 195-3, 34279-8, 09451-2 #### [facility] CLIA [id number] [address] [place] [address] [place] Rh Nom (Bld) Positive Normal [facility] Comment on above: Order Comment: Speci men Type: BLOOD SPECIMEN Ordering Facility: [facility] Address: [address] [place] [address] Performed By: #### 5 195-3, 40289-0, 12914-7 #### [facility] CLIA [id number] [address] [place] [address] [place] TYPE AND SCREEN EXPIRATION 01/19/2024 23:59 Normal [facility] Comment on above: Order Comment: Speci men Type: BLOOD SPECIMEN Ordering Facility: [facility] Address: [address] [place] [address] Performed By: #### 5 195-3, 75928-6, 71425-6 #### [facility] CLIA [id number] [address] [place] [address] [place] Bacteria Ur Culton 4 Bacteria identified Cx Nom (U) ORGANISM ID: 1 <10,000 CFU/ml Normal urogenital flako Normal [facility] Comment on above: Performed By: #### 2 4323-8 #### [facility] CLIA [id number] [address] [place] [address] [place] C. trachomatis+N. gonorrhoea e DNA MAKEDA+probe Ql (Unsp spec)on 12-20-2023 C. trachomatis rRNA MAKEDA+probe Ql (Unsp spec) Negative Negative for Chlamydia trachomatis by amplificaton [facility] N. gonorrhoeae rRNA MAKEDA+probe Ql (Unsp spec) Negative Negative for Neisseria gonorrhoeae by amplification [facility] C. trachomatis rRNA MAKEDA+probe Ql (Unsp spec) Negative Normal Negative for Chlamydia trachomatis by amplificaton [facility] Comment on above: Order Comment: Speci men Type: BLOOD SPECIMEN Ordering Facility: [facility] Address: [address] [place] [address] Performed By: #### 5 195-3, 89660-6, 25625-6 #### [facility] CLIA [id number] [address] [place] [address] [place] N. gonorrhoeae rRNA MAKEDA+probe Ql (Unsp spec) Negative Normal Negative for Neisseria gonorrhoeae by amplification [facility] Comment on above: Order Comment: Speci men Type: BLOOD SPECIMEN Ordering Facility: [facility] Address: [address] [place] [address] Performed By: #### 5 195-3, 11686-0, 77395-4 #### [facility] CLIA [id number] [address] [place] [address] [place] POC BRAID MAKER ULTRASOUNDon 12-20-19 24 [facility] PROGESTERONE [CCL]on 023 Progesterone 14.7 ng/mL Normal See comment [facility] Comment on above: Result Comment: Mens trual Cycle Progesterone Reference Ranges: Follicular: <1.0 ng/mL Ovulation: <12.1 ng/mL Luteal: 1.8 to 23.9 ng/mL. Progesterone Reference Ranges vary by gestational period: First Trimester: 11.0 to 44.3 ng/mL Second Trimester: 25.4 to 83.3 ng/mL Third Trimester: 58.7 to 214 ng/mL Post menopausal Progesterone: <0.5 ng/mL Reference: 1. Progesterone (Progesterone III) [package insert V 1.0 Wolof]. [facility], [place], [place]. June [address] [address] Chalino Golden III, M.D. [id number] Performed By: #### 2 31207 #### [facility],[address] [place], [place] [address] Progest [facility] 023 Progesterone [Mass/Vol] 14.7 ng/mL Normal See comment [facility] Comment on above: Order Comment: Speci men Type: BLOOD SPECIMEN Ordering Facility: [facility] Address: [address] [place] [address] Result Comment: Mens trual Cycle Progesterone Reference Ranges: Follicular: <1.0 ng/mL Ovulation: <12.1 ng/mL Luteal: 1.8 to 23.9 ng/mL. Progesterone Reference Ranges vary by gestational period: First Trimester: 11.0 to 44.3 ng/mL Second Trimester: 25.4 to 83.3 ng/mL Third Trimester: 58.7 to 214 ng/mL Post menopausal Progesterone: <0.5 ng/mL Reference: 1. Progesterone (Progesterone III) [package insert V 1.0 Wolof]. [facility], [place], [place]. June 2015. Performed By: #### 5 195-3, 99374-4, 23799-1 #### [facility] CLIA [id number] [address] [place] [address] [place] URINEon 07-21-2023 Beta HCG ( test) Ql (U) Negative Normal NEGATIVE [facility] Comment on above: Performed By: #### 2 82592 #### [facility],[address] [place], [place] [address] EXTERNAL QC DONE? YES Normal [facility] Comment on above: Performed By: #### 2 38599 #### [facility],[address] [place], [place] [address] INTERNAL QC PASS Normal [facility] Comment on above: Performed By: #### 2 64635 #### [facility],[address] [place] [address] 52758 CBC + DIFFon 07-20-2023 Baso # 0.10 x10EE3/UL Normal 0.00 - 0.10 [facility] Comment on above: Performed By: #### 2 72537 #### [facility],[address] [place] [address] 07695 Basophils/100 WBC (Bld) 0.6 % Normal 0.0 - 2.0 [facility] Comment on above: Performed By: #### 2 03705 #### [facility],[address] [place] [address] CBC + DIFF Normal [facility] Comment on above: Result Comment: CBC- COMPLETE BLOOD COUNT Performed By: #### 2 13662 #### [facility],[address] [place] [address] EO # 0.10 x10EE3/UL Normal 0.00 - 0.50 [facility] Comment on above: Performed By: #### 2 38996 #### [facility],[address] [place] [address] 38049 Eosinophils/100 WBC (Bld) 0.9 % Normal 0.0 - 7.0 [facility] Comment on above: Performed By: #### 2 41053 #### [facility],[address] [place] [address] Erythrocyte distribution width (RBC) [Ratio] 12.4 % Normal 12.0 - 15.6 [facility] Comment on above: Performed By: #### 2 38505 #### [facility],[address] [place] [address] Hematocrit (Bld) [Volume fraction] 42.1 % Normal 34.0 - 46.0 [facility] Comment on above: Performed By: #### 2 54125 #### [facility],[address] [place], [place] [id number] Hemoglobin (Bld) [Mass/Vol] 14.5 g/dL Normal 12.0 - 16.0 [facility] Comment on above: Performed By: #### 2 93303 #### [facility],[address] [place] [address] Lymph # 2.20 x10EE3/UL Normal 0.80 - 2.80 [facility] Comment on above: Performed By: #### 2 60310 #### [facility],[address] [place] [address] Lymphocytes/100 WBC (Bld) 23.1 % Normal 20.0 - 45.0 [facility] Comment on above: Performed By: #### 2 27678 #### [facility],[address] [place] [address] MANUAL DIFF N/A Normal [facility] Comment on above: Performed By: #### 2 43874 #### [facility],[address] [place] [address] MCH (RBC) [Entitic mass] 31 pg Normal 27 - 33 [facility] Comment on above: Performed By: #### 2 65206 #### [facility],[address] [place] [address] MCHC 35 X10 3 Normal 32 - 36 [facility] Comment on above: Performed By: #### 2 32703 #### [facility],[address] [place] [address] MCV (RBC) [Entitic vol] 90 fL Normal 80 - 99 [facility] Comment on above: Performed By: #### 2 22194 #### [facility],[address] [place] [address] Benzie # 0.60 x10EE3/UL Normal 0.20 - 1.00 [facility] Comment on above: Performed By: #### 2 28701 #### [facility],[address] [place] [address] MONOS % 6.5 % Normal 0.0 - 10.0 [facility] Comment on above: Performed By: #### 2 81569 #### [facility],[address] [place] [address] 41469 Morphology Alex (Bld) [Interp] N/A Normal [facility] Comment on above: Performed By: #### 2 63089 #### [facility],[address] [place] [address] Neut # 6.50 x10EE3/UL Normal 1.50 - 7.10 [facility] Comment on above: Performed By: #### 2 76531 #### [place] [id number] Neutrophils/100 WBC (Bld) 68.9 % Normal 46.0 - 76.0 [facility] Comment on above: Performed By: #### 2 11158 #### [place] [address] PLATELET 321 x10EE3/UL Normal 150 - 450 [facility] Comment on above: Performed By: #### 2 11968 #### [place] [address] Platelet mean volume (Bld) [Entitic vol] 9.0 fL Normal 6.6 - 10.5 [facility] Comment on above: Result Comment: AUTO MATED DIFFERENTIAL Performed By: #### 2 96894 #### [facility],[address] [place], [place] [id number] RBC 4.66 x 10EE6/UL Normal 4.10 - 5.30 [facility] Comment on above: Performed By: #### 2 65108 #### [place] [id number] WBC 9.5 x 10EE3/UL Normal 4.5 - 10.[address] [facility] Comment on above: Performed By: #### 2 61075 #### [facility],[address] [place] [address] CMP with eGFRon 07-20-2023 AGE 28 years Normal [facility] Comment on above: Performed By: #### 2 14855 #### [facility],[address] [place] [address] 99153 Albumin [Mass/Vol] 3.3 g/dL Low 3.4 - 5.0 [facility] Comment on above: Performed By: #### 2 89819 #### [facility],[address] [place], [place] [id number] Albumin/Globulin [Mass ratio] 1.0 {ratio} Normal 0.9 - 1.6 [facility] Comment on above: Performed By: #### 2 44615 #### [facility],[address] [place] [address] ALK PHOS 94 U/L Normal 46 - 116 [facility] Comment on above: Performed By: #### 2 72130 #### [facility],[address] [place] [address] 19578 ALT [Catalytic activity/Vol] 37 U/L Normal 14 - 59 [facility] Comment on above: Performed By: #### 2 32906 #### [facility],[address] [place] [address] 26839 Anion gap [Moles/Vol] 10 mmol/L Normal 10 - 20 [facility] Comment on above: Performed By: #### 2 86683 #### [facility],[address] [place] [address] 35360 AST [Catalytic activity/Vol] 14 U/L Normal 13 - 39 [facility] Comment on above: Performed By: #### 2 27685 #### [facility],[address] [place] [address] 75669 B/C RATIO 6 ratio Normal 0 - 30 [facility] Comment on above: Performed By: #### 2 57063 #### [facility],[address] [place] [address] 39489 Bilirubin [Mass/Vol] 0.4 mg/dL Normal 0.2 - 1.0 [facility] Comment on above: Performed By: #### 2 17395 #### [facility],[address] [place] [address] 69572 Calcium [Mass/Vol] 8.4 mg/dL Low 8.5 - 10.1 [facility] Comment on above: Performed By: #### 2 33394 #### [facility],[address] [place], [place] [id number] Chloride [Moles/Vol] 104 mmol/L Normal 98 - 107 [facility] Comment on above: Performed By: #### 2 92946 #### [facility],[address] [place] [address] CMP with eGFR Normal [facility] Comment on above: Result Comment: COMP REHENSIVE METABOLIC PANEL Performed By: #### 2 74058 #### [facility],[address] [place], [place] [id number] CO2 [Moles/Vol] 28.7 mmol/L Normal 21.0 - 32.0 [facility] Comment on above: Performed By: #### 2 78362 #### [facility],[address] [place] [address] 41951 Creatinine [Mass/Vol] 0.68 mg/dL Normal 0.55 - 1.02 [facility] Comment on above: Performed By: #### 2 47084 #### [facility],[address] [place] [address] 85173 GFR/1.73 sq M.predicted among non-blacks MDRD (S/P/Bld) [Vol rate/Area] mL/min/{1.73_m2} Normal 60 - 999 [facility] Comment on above: Performed By: #### 2 05952 #### [facility],[address] [place] [address] Result Comment: ACCO RDING TO THE NATIONAL KIDNEY DISEASE EDUCATION PROGRAM(NKDE), A NORMAL eGFR IS A VALUE GREATER THAN OR EQUAL TO 60 ML/MIN/1.73 SQ METERS. CHRONIC KIDNEY DISEASE: <60mL/MIN/1.73 SQ METERS KIDNEY FAILURE: <15mL/MIN/1.73 SQ METERS THIS TEST SHOULD ONLY BE USED FOR PATIENTS 18 YEARS OF AGE AND OLDER. Globulin (S) [Mass/Vol] 3.3 g/dL Normal 1.5 - 3.8 [facility] Comment on above: Performed By: #### 2 04200 #### [facility],[address] [place] [address]39 Glucose [Mass/Vol] 78 mg/dL Normal 74 - 106 [facility] Comment on above: Performed By: #### 2 64689 #### [address] [address] Potassium [Moles/Vol] 3.4 mmol/L Low 3.5 - 5.1 [facility] Comment on above: Performed By: #### 2 73208 #### [facility],[address] [place] [address] 45204 Protein [Mass/Vol] 6.6 g/dL Normal 6.4 - 8.2 [facility] Comment on above: Performed By: #### 2 89879 #### [address] [address] Sodium [Moles/Vol] 139 mmol/L Normal 136 - 145 [facility] Comment on above: Performed By: #### 2 65518 #### [facility],[address] [place] [address] 96250 Urea nitrogen [Mass/Vol] 4 mg/dL Low 7 - 18 [facility] Comment on above: Performed By: #### 2 43073 #### [address] [address] CORONAVIRUS (SARS) ANTIGEN T ESTon 07-20-2023 EXTERNAL QC DONE? YES Normal [facility] Comment on above: Performed By: #### 2 04557 #### [facility],[address] [place] [address] 10826 INTERNAL CONTROL PASS Normal [facility] Comment on above: Performed By: #### 2 84073 #### [facility],[address] [place] [address] 59614 SARS ANTIGEN Negative Normal NORMAL: NEGATIVE [facility] Comment on above: Performed By: #### 2 07525 #### [facility],[address] [place] [address] 96886 SEND TO IC? NO Normal [facility] Comment on above: Result Comment: SARS -CoV-2 THIS TEST IS BEING USED UNDER THE FDA EUA PROCEDURE. THIS ASSAY HAS BEEN VALIDATED AT [facility] FOR USE WITH NASAL AND NASOPHARYNGEAL SWAB [...] PUBLIC HEALTH AUTHORITIES. Performed By: #### 2 30519 #### [facility],[address] [place] [address] ABDOMEN/PELVIS Won 2022 CT ABDOMEN/PELVIS W [address] [address] Patient: GINGER KEN Phone#: : [phone] Age: 28 Gender: F Pt. Type: ER Account: [id number] Location: 052 Ordering: MARY GARDINER Exam Date: 07/20/2023/19:35 Family Phys: DAYO CEBALLOS Charge Code: 246093 Physician: [place] Order #: [id number] Dose#: 35.20 PROCEDURE: CT ABDOMEN/PELVIS WITH CONTRAST COMPARISON: [facility], CT, ABDOMEN/PELVIS W CON, 03/05/2018, 21:04. INDICATIONS: [...] 28 Gender: F Pt. Type: ER Account: [id number] Location: [facility] Ordering: MARY GARDINER Exam Date: 07/20/2023/19:35 Family Phys: DAYO CEBALLOS Charge Code: [id number] Physician: [place] Order #: [id number] Dose#: 35.20 CONCLUSION: Right lower lobe infiltrate/pneumoni a Dictated by: Sheila Dumont MD on 07/21/2023 at 15:16 Approved by: Sheila Dumont MD on 07/21/2023 at 15:23 Normal [facility] LIPASEon 07-20-2023 Lipase [Catalytic activity/Vol] 49.0 U/L Low 73.0 - 393 [facility] Comment on above: Performed By: #### 2 09428 #### [facility],[address] [place] [address] URINALYSISon 07-20-2023 Bilirubin Ql (U) Negative Normal NORMAL: NEGATIVE [facility] Comment on above: Performed By: #### 2 58893 #### [facility],[address] [place] [address] Clarity (U) clear Normal NORMAL: CLEAR [facility] Comment on above: Performed By: #### 2 53094 #### [facility],[address] [place] [address] Color (U) yellow Normal NORMAL: YELLOW [facility] Comment on above: Performed By: #### 2 01343 #### [facility],[address] [place] [address] Glucose Ql (U) NORM Normal NORMAL: NORMAL [facility] Comment on above: Performed By: #### 2 72105 #### [facility],[address] [place], [place] [id number] Hemoglobin Ql (U) Negative Normal NORMAL: NEGATIVE [facility] Comment on above: Performed By: #### 2 36694 #### [facility],[address] [place] [address]148 Ketone Negative Normal NORMAL: NEGATIVE [facility] Comment on above: Performed By: #### 2 93208 #### [facility],[address] [place] [address]27[address] Leukocytes Negative Normal NORMAL: NEGATIVE [facility] Comment on above: Performed By: #### 2 86497 #### [facility],[address] [place] [address] Nitrite Ql (U) Negative Normal NORMAL: NEGATIVE [facility] Comment on above: Performed By: #### 2 88275 #### [facility],[address] [place] [address] pH (U) 6.5 [pH] Normal NORMAL: 5.0-8.0 [facility] Comment on above: Performed By: #### 2 82848 #### [facility],[address] [place], [place] [id number] Protein Ql (U) Negative Normal NORMAL: NEGATIVE [facility] Comment on above: Performed By: #### 2 [id number] #### [facility],[address] [place] [address] Sp [place] 1.015 Normal NORMAL: 1.010-1.030 [facility] Comment on above: Performed By: #### 2 [id number] #### [facility],[address] [place] [address] Specimen Type UNSPECIFIED Normal [facility] Comment on above: Performed By: #### 2 [id number] #### [facility],[address] [place] [address] Urinalysis dipstick W Reflex Microscopic panel (U) NOT INDICATED Normal [facility] Comment on above: Performed By: #### 2 [id number] #### [facility],[address] [place] [address] Urobilinog NORM Normal NORMAL: NORMAL [facility] Comment on above: Performed By: #### 2 [id number] #### [facility],[address] [place] [address] CNOVon 07-17-2023 CNOV Office Visit (OBGYWM) ---- GINGER KEN ([id number]) 1995 F Date Time Provider Department 07/17/23 3:10 PM JOSE RAPHAEL OBGYWM During your visit today, we recorded the following information about you: Blood pressure Weight Height Last Period 132/80 115.3 kg 1.753 m 07/05/23 Jose Raphael MD 07/17/2023 4:08 PM Signed Ginger Ken is a 28 year old [id number] female who presents for problem visit as a new patient referral from [facility]-TALENT DEVELOPMENT MANAGER for family planning discussion and care. HPI: [...] medical necessity, no hx of preeclampsia, GDM. TALENT DEVELOPMENT MANAGER History Hx of endometriosis, hx of laparoscopic DANDC x1 in 2019. Previously on Depo shot which helped w/ pain management. Currently having cycles of approx 26 days, she is bleeding for 5 days with onset of bleeding occurring one week earlier than in the past. Some menstrual pain noted. TEACHING PROVIDER (Physician/PA/MODELING DIRECTOR) NOTE OF PERSONAL INVOLVEMENT IN CARE: I have personally seen and examined the patient and performed the medical decision-making components. I have reviewed the Medical Student's documentation and verified the findings in the note as written. Any additions or changes are noted in bold/italics. 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 Normal [facility] SARS CoV 2 RNA(COVID 19[facility] SARS CoV 2 RNA NOT DETECTED Normal NOT DETECTED [facility] Comment on above: Result Comment: A Not [...] providers and patients using the following websites: https://www.[employer].com/home/Covid-19/HCP/NAAT/fact-sheet 2 https://www.[employer].NextDocs/home/Covid-19/Patients/NAAT/ fact-sheet2 This test has been authorized by the FDA under an Emergency Use Authorization (EUA) for use by authorized laboratories. Due to the current public health emergency, [facility] is receiving a high volume of samples [...] about COVID-19 can be found at the [facility] website: www.[employer].NextDocs/Covid19. Performed By: #### 3 [id number] #### [facility]-[address], [address] [place] [phone] Trade Marker: Jalen Williamson MD SARS CoV 2 RNA(COVID 19), [facility] 02-07-2020 SARS CoV 2 RNA NOT DETECTED Normal NOT DETECTED [facility] Comment on above: Result Comment: A Not [...] providers and patients using the following websites: https://www.[employer].com/home/Covid-19/HCP/NAAT/fact-sheet 2 https://www.[employer].NextDocs/home/Covid-19/Patients/NAAT/ fact-sheet2 This test has been authorized by the FDA under an Emergency Use Authorization (EUA) for use by authorized laboratories. Due to the current public health emergency, [facility] is receiving a high volume of samples [...] about COVID-19 can be found at the [facility] website: www.[employer]hip[employer].com/Covid19. Performed By: #### 3 [id number] #### [facility] [id number] [facility], [address] [place] [phone] Trade Marker: Jalen Williamson MD .GFRon 07-12-2018 GFR >60 Normal [facility] ([place]) Comment on above: Result Comment: GFR Population [...] Performed By: #### C MP, GFR, LIPID ####[place] [address] GFR Non- >60 Normal [facility] ([place] Comment on above: Result Comment: GFR Population [...] Performed By: #### C MP, GFR, LIPID ####[address] [address] CMPon 07-12-2018 Albumin/Globulin mass ratio 1.1 {ratio} Normal 0.9-1.6 [facility] ([place] Comment on above: Performed By: #### C MP, GFR, LIPID ####[address] [address] ALP enzyme act/vol 110 U/L Normal 38-126 [facility] ([place]) Comment on above: Performed By: #### C MP, GFR, LIPID ####[address] [address] ALT enzyme act/vol 34 U/L Normal 10-49 [facility] ([place] Comment on above: Performed By: #### C MP, GFR, LIPID ####[place] [address] Bili Total 0.4 mg/dL Normal 0.2-1.2 [facility] ([place]) Comment on above: Performed By: #### C MP, GFR, LIPID ####[place] [address] Creatinine mass conc 0.71 mg/dL Normal 0.50-1.20 [facility] ([place]) Comment on above: Performed By: #### C MP, GFR, LIPID ####[place] [address] Globulin Calculated mass conc (S) 3.6 G/dL Normal 1.5-3.8 [facility] ([place]) Comment on above: Performed By: #### C MP, GFR, LIPID ####[address] [address] Protein mass conc 7.7 G/dL Normal 6.0-8.5 [facility] ([place] Comment on above: Performed By: #### C MP, GFR, LIPID ####[place] [address] Urea nitrogen/Creatinine mass ratio 11.3 ratio Normal 10.0-22.0 [facility] ([place] Comment on above: Performed By: #### C MP, GFR, LIPID ####[address] [address] Albumin mass conc 4.1 G/dL Normal 3.2-4.8 [facility] ([place]) Comment on above: Performed By: #### C MP, GFR, LIPID ####[address] [address] AST enzyme act/vol 16 U/L Normal 8-34 [facility] ([place] Comment on above: Performed By: #### C MP, GFR, LIPID ####[place] [address] Calcium mass conc 9.6 mg/dL Normal 8.4-10.1 [facility] ([place]) Comment on above: Performed By: #### C MP, GFR, LIPID ####[place] [address] Chloride molar conc 108 mmol/L Normal 98-110 [facility] ([place]) Comment on above: Performed By: #### C MP, GFR, LIPID ####[place] [address] CO2 molar conc 24 mmol/L Normal 22-32 [facility] ([place]) Comment on above: Performed By: #### C MP, GFR, LIPID ####[place] [address] Electrolyte Balance 9.0 mEq/L Normal 4.0-15.0 [facility] ([place]) Comment on above: Performed By: #### C MP, GFR, LIPID ####[place] [address] Glucose mass conc 82 mg/dL Normal 70-110 [facility] ([place] Comment on above: Performed By: #### C MP, GFR, LIPID ####[place] [address] Potassium molar conc 4.2 mmol/L Normal 3.5-5.0 [facility] ([place]) Comment on above: Performed By: #### C MP, GFR, LIPID ####[place] [address] Sodium molar conc 141 mmol/L Normal 136-145 [facility] ([place] Comment on above: Performed By: #### C MP, GFR, LIPID ####[place] [address] [place] [address] Urea nitrogen mass conc 8.0 mg/dL Normal 8.0-22.0 [facility] ([place]) Comment on above: Performed By: #### C MP, GFR, LIPID ####[address] [address] LIPIDon 07-12-2018 Cholesterol in HDL mass conc 41 mg/dL Normal 40-59 [facility] ([place]) Comment on above: Order Comment: killb uck savings Result Comment: HDL Reference Interval:Less than 40 Low - high risk60 or above Optimal/lowers risk Performed By: #### C MP, GFR, LIPID ####[address] [address] Cholesterol in LDL mass conc 77 mg/dL Normal 0-129 [facility] ([place] Comment on above: Order Comment: killb uck savings Result Comment: LDL is a calculated result and requires a 12-hr fast.LDL Reference Interval:Less than 100 [id number] Near or above [id number] Borderline high [id number] High [id number] and above Very high risk Performed By: #### C MP, GFR, LIPID ####[address] [address] Cholesterol mass conc 131 mg/dL Normal 50-199 [facility] ([place] Comment on above: Order Comment: killb uck savings Result Comment: Chol esterol Reference Interval:Less than 200 [id number] Borderline high witc548 and above High risk Performed By: #### C MP, GFR, LIPID ####[place] [address] [place] [address] Triglyceride mass conc 63 mg/dL Normal 3-149 [facility] ([place] Comment on above: Order Comment: killb uck savings Result Comment: Trig lyceride Reference Interval:Less than 150 [id number] Borderline high [id number] High snkk430 or higher Very high risk Performed By: #### C MP, GFR, LIPID ####[place] [id number] [place] [address] Vital Signs Date Time Vital Sign Value Performing Clinician Facility 07-10-2024 13:48-0400 Diastolic blood pressure 83 mm[Hg] Renu Godfreyluzma MODELING DIRECTOR.CNM Work Phone: [facility] 07-10-2024 13:48-0400 Systolic blood pressure 143 mm[Hg] Renu Godfreyluzma MODELING DIRECTOR.CNM Work Phone: [facility] 07-07-2024 11:16-0400 Body mass index (BMI) [Ratio] 41.79 kg/m2 Nahomi Bellamy MODELING DIRECTOR.CNM Work Phone: [facility] 07-07-2024 11:16-0400 Body weight 128.37 kg Nahomi Bellamy MODELING DIRECTOR.CNM Work Phone: [facility] 07-07-2024 11:16-0400 Diastolic blood pressure 76 mm[Hg] Nahomi Bellamy MODELING DIRECTOR.CNM Work Phone: [facility] 07-07-2024 11:16-0400 Systolic blood pressure 124 mm[Hg] Nahomi Bellamy MODELING DIRECTOR.CNM Work Phone: [facility] 07-03-2024 15:10-0400 Body mass index (BMI) [Ratio] 42.53 kg/m2 Dori Walker MD Work Phone: [facility] 07-03-2024 15:10-0400 Body weight 130.64 kg Dori Walker MD Work Phone: [facility] 07-03-2024 15:10-0400 Diastolic blood pressure 82 mm[Hg] Dori Walker MD Work Phone: [facility] 07-03-2024 15:10-0400 Systolic blood pressure 131 mm[Hg] Dori Walker MD Work Phone: [facility] 06-30-2024 11:19-0400 Body mass index (BMI) [Ratio] 41.64 kg/m2 Catie Smith MD Work Phone: [facility] 06-30-2024 11:19-0400 Body weight 127.91 kg Catie Smith MD Work Phone: [facility] 06-30-2024 11:19-0400 Diastolic blood pressure 82 mm[Hg] Catie Smith MD Work Phone: [facility] 06-30-2024 11:19-0400 Systolic blood pressure 130 mm[Hg] Catie Smith MD Work Phone: [facility] 06-25-2024 10:47-0400 Body mass index (BMI) [Ratio] 42.12 kg/m2 Elmira Haury MODELING DIRECTOR.[employer] Work Phone: [facility] 06-25-2024 10:47-0400 Body weight 129.37 kg Elmira Haury MODELING DIRECTOR.[employer] Work Phone: [facility] 06-25-2024 10:47-0400 Diastolic blood pressure 76 mm[Hg] Elmira Haury MODELING DIRECTOR.[employer] Work Phone: [facility] 06-25-2024 10:47-0400 Systolic blood pressure 122 mm[Hg] Elmira Haury MODELING DIRECTOR.[employer] Work Phone: [facility] 06-23-2024 08:29-0400 Body mass index (BMI) [Ratio] 41.64 kg/m2 Elmira Haury MODELING DIRECTOR.[employer] Work Phone: [facility] 06-23-2024 08:29-0400 Body weight 127.91 kg Elmira Haury MODELING DIRECTOR.[employer] Work Phone: [facility] 06-23-2024 08:29-0400 Diastolic blood pressure 74 mm[Hg] Elmira Haury MODELING DIRECTOR.[employer] Work Phone: [facility] 06-23-2024 08:29-0400 Systolic blood pressure 122 mm[Hg] Elmira Haury MODELING DIRECTOR.[employer] Work Phone: [facility] 06-20-2024 16:08-0400 Body mass index (BMI) [Ratio] 41.94 kg/m2 Dori Walker MD Work Phone: [facility] 06-20-2024 16:08-0400 Body weight 128.82 kg Dori Walker MD Work Phone: [facility] 06-20-2024 16:08-0400 Diastolic blood pressure 74 mm[Hg] Dori Walker MD Work Phone: [facility] 06-20-2024 16:08-0400 Systolic blood pressure 122 mm[Hg] Dori Walker MD Work Phone: [facility] 06-18-2024 15:30-0400 Body mass index (BMI) [Ratio] 41.88 kg/m2 Tressa Le MD Work Phone: [facility] 06-18-2024 15:30-0400 Body weight 128.64 kg Tressa Le MD Work Phone: [facility] 06-18-2024 15:30-0400 Diastolic blood pressure 83 mm[Hg] Tressa Le MD Work Phone: [facility] 06-18-2024 15:30-0400 Systolic blood pressure 138 mm[Hg] Tressa Le MD Work Phone: [facility] 06-16-2024 10:38-0400 Body mass index (BMI) [Ratio] 41.64 kg/m2 Nahomi Bellamy APRN.CNM Work Phone: [facility] 06-16-2024 10:38-0400 Body weight 127.91 kg Nahomi Bellamy APRN.CNM Work Phone: [facility] 06-16-2024 10:38-0400 Diastolic blood pressure 72 mm[Hg] Nahomi Bellamy APRN.CNM Work Phone: [facility] 06-16-2024 10:38-0400 Systolic blood pressure 120 mm[Hg] Nahomi Bellamy APRN.CNM Work Phone: [facility] 06-09-2024 16:46-0400 Heart rate 96 /min Elmira Haury MODELING DIRECTOR.[employer] Work Phone: [facility] 06-09-2024 15:56-0400 Body mass index (BMI) [Ratio] 40.91 kg/m2 Elmira Scmhitz APRN.[employer] Work Phone: [facility] 06-09-2024 15:56-0400 Body temperature 98.29 [degF] Elmira Schmitz APRN.[employer] Work Phone: [facility] Comment on above: oral no tylenol/motrin with viist 06-09-2024 15:56-0400 Body weight 125.65 kg Elmira Schmitz APRN.[employer] Work Phone: [facility] 06-09-2024 15:56-0400 Diastolic blood pressure 70 mm[Hg] Elmira Schmitz APRN.[employer] Work Phone: [facility] 06-09-2024 15:56-0400 Respiratory rate 18 /min Elmira Schmitz APRN.[employer] Work Phone: [facility] 06-09-2024 15:56-0400 SaO2% (BldA) [Mass fraction] 96 % Elmira Schmitz APRN.[employer] Work Phone: [facility] 06-09-2024 15:56-0400 Systolic blood pressure 129 mm[Hg] Elmira Schmitz APRN.[employer] Work Phone: [facility] 05-26-2024 15:55-0400 Diastolic blood pressure 78 mm[Hg] Elmira Schmitz APRN.[employer] Work Phone: [facility] 05-26-2024 15:55-0400 Systolic blood pressure 124 mm[Hg] Elmira Schmitz APRN.[employer] Work Phone: [facility] 05-12-2024 13:23-0400 Body mass index (BMI) [Ratio] 40.32 kg/m2 Elmira Schmitz APRN.[employer] Work Phone: [facility] 05-12-2024 13:23-0400 Body weight 123.83 kg Elmira Schmitz APRN.[employer] Work Phone: [facility] 05-12-2024 13:23-0400 Diastolic blood pressure 66 mm[Hg] Elmira Haury MODELING DIRECTOR.[employer] Work Phone: [facility] 05-12-2024 13:23-0400 Systolic blood pressure 110 mm[Hg] Elmira Haury MODELING DIRECTOR.[employer] Work Phone: [facility] 04-15-2024 16:30-0400 Body mass index (BMI) [Ratio] 40.76 kg/m2 Karl Romeo MD Work Phone: [facility] 04-15-2024 16:30-0400 Body weight 125.19 kg Karl Romeo MD Work Phone: [facility] 04-15-2024 16:30-0400 Diastolic blood pressure 74 mm[Hg] Karl Romeo MD Work Phone: [facility] 04-15-2024 16:30-0400 Systolic blood pressure 128 mm[Hg] Karl Romeo MD Work Phone: [facility] 03-12-2024 11:28-0400 Body mass index (BMI) [Ratio] 38.84 kg/m2 Tressa Le MD Work Phone: [facility] 03-12-2024 11:28-0400 Body weight 119.3 kg Tressa Le MD Work Phone: [facility] 03-12-2024 11:28-0400 Diastolic blood pressure 74 mm[Hg] Tressa Le MD Work Phone: [facility] 03-12-2024 11:28-0400 Systolic blood pressure 124 mm[Hg] Tressa Le MD Work Phone: [facility] 02-13-2024 15:44-0400 Body mass index (BMI) [Ratio] 39.72 kg/m2 Elmira Haury MODELING DIRECTOR.[employer] Work Phone: [facility] 02-13-2024 15:44-0400 Body weight 122.02 kg Elmira Haannemarie MODELING DIRECTOR.[employer] Work Phone: [facility] 02-13-2024 15:44-0400 Diastolic blood pressure 72 mm[Hg] Elmira Haury MODELING DIRECTOR.[employer] Work Phone: [facility] 02-13-2024 15:44-0400 Systolic blood pressure 122 mm[Hg] Elmiraadam Sandersury MODELING DIRECTOR.[employer] Work Phone: [facility] 01-16-2024 09:36-0400 Body mass index (BMI) [Ratio] 38.9 kg/m2 Catie Smith MD Work Phone: [facility] 01-16-2024 09:36-0400 Body weight 119.48 kg Catie Smith MD Work Phone: [facility] 01-16-2024 09:36-0400 Diastolic blood pressure 78 mm[Hg] Catie Smith MD Work Phone: [facility] 01-16-2024 09:36-0400 Systolic blood pressure 110 mm[Hg] Catie Smith MD Work Phone: [facility] 12-20-2023 08:46-0400 Body height 175.3 cm Renu Plotts MODELING DIRECTOR.CNM Work Phone: [facility] 12-20-2023 08:46-0400 Body weight 122.92 kg Renu Plotts MODELING DIRECTOR.CNM Work Phone: [facility] 12-20-2023 08:46-0400 Diastolic blood pressure 66 mm[Hg] Renu Plotts MODELING DIRECTOR.CNM Work Phone: [facility] 12-20-2023 08:46-0400 Systolic blood pressure 118 mm[Hg] Renu Plotts MODELING DIRECTOR.CNM Work Phone: [facility] 07-17-2023 15:11-0400 Body height 175.3 cm Jose Raphael MD Work Phone: [facility] 07-17-2023 15:11-0400 Body weight 115.3 kg Jose Raphael MD Work Phone: [facility] 07-17-2023 15:040 Diastolic blood pressure 80 mm[Hg] Jose Raphael MD Work Phone: [facility] 07-17-2023 15:040 Systolic blood pressure 132 mm[Hg] Jose Raphael MD Work Phone: [facility] Encounters Encounter Date Encounter Type Care Provider Facility Start: 07-10-2024 End: 07-10-2024 Patient encounter procedure Renu Moore MODELING DIRECTOR.CNM Work Phone: OB/Gynecology Comment on above: Encounter for superv ision of high risk in third trimester, antepartum (Primary Dx); 36 weeks gestation of ; Polyhydramnios affecting in third trimester; Obesity affecting in third trimester, unspecified obesity type; Group beta Strep positive; Anxiety and depression; Swelling of lower extremity during in third trimester; Mild pre-eclampsia in third trimester Start: 07-07-2024 End: 07-07-2024 ambulatory ELMIRA SCHMITZ Facility:[facility] Start: 07-07-2024 End: 07-07-2024 Patient encounter procedure Diesel Electrician m [facility] Work Phone: Maternal Medicine Comment on above: [...] depression Start: 07-03-2024 End: 07-03-2024 ambulatory DORI WALKER Facility:[facility] Start: 07-03-2024 End: 07-03-2024 Patient encounter [...] Start: 07-03-2024 End: 07-03-2024 ambulatory DORI WALKER Facility:[facility] Start: 06-30-2024 End: 06-30-2024 ambulatory ELMIRA SCHMITZ Facility:[facility] Start: 06-30-2024 End: 06-30-2024 Patient encounter procedure Diesel Electrician [facility] Work Phone: Maternal Medicine Comment on [...] Start: 06-25-2024 End: 06-25-2024 ambulatory ELMIRA SCHMITZ Facility:[facility] Start: 06-25-2024 End: 06-25-2024 Patient encounter procedure Elmira Schmitz MODELING DIRECTOR.[employer] Work Phone: OB/Gynecology Comment on above: Encounter for superv ision of high risk in third trimester, antepartum (Primary Dx); 34 weeks gestation of ; Obesity affecting in third trimester, unspecified obesity type; Polyhydramnios affecting in third trimester Start: 06-23-2024 End: 06-23-2024 ambulatory KARL RMOEO Facility:[facility] Start: 06-23-2024 End: 06-23-2024 Patient encounter procedure Elmira Schmitz MODELING DIRECTOR.[employer] Work Phone: OB/Gynecology Comment on above: Encounter [...] Start: 06-20-2024 End: 06-20-2024 ambulatory DORI WALKER Facility:[facility] Start: 06-20-2024 End: 06-23-2024 Telephone encounter Tressa Le MD Work Phone: OB/Gynecology Comment on above: FMLA Paperwork Start: 06-18-2024 End: 06-18-2024 Patient encounter procedure Tressa Le MD Work Phone: OB/Gynecology Comment on above: 33 weeks gestation o f (Primary Dx); Obesity affecting in third trimester, unspecified obesity type Start: 06-18-2024 End: 06-18-2024 ambulatory TRESSA LE Facility:[facility] Start: 06-16-2024 End: 06-16-2024 Telephone encounter Nahomi Bellamy APRN.CNM Work Phone: OB/Gynecology Comment on above: Contractions Start: 06-16-2024 End: 06-16-2024 ambulatory NAHOMI BELLAMY Facility:[facility] Start: 06-16-2024 End: 06-16-2024 Patient encounter procedure Nahomi Bellamy APRN.CNM Work Phone: OB/Gynecology Comment on above: Encounter for superv ision of high risk in third trimester, antepartum (Primary Dx); Obesity affecting in third trimester, unspecified obesity type; 33 weeks gestation of ; Group beta Strep positive Start: 06-09-2024 End: 06-09-2024 Patient encounter procedure Elmira Schmitz APRN.[employer] Work Phone: OB/Gynecology Comment on above: Encounter for superv ision of high risk in third trimester, antepartum (Primary Dx); 32 weeks gestation of ; Obesity affecting in third trimester, unspecified obesity type; COVID-19 affecting in third trimester Start: 06-09-2024 End: 06-09-2024 ambulatory ELMIRA SCHMITZ Facility:[facility] Start: 06-09-2024 End: 06-13-2024 Telephone encounter Elmira Schmitz APRN.[employer] Work Phone: OB/Gynecology Comment on above: Appointment Start: 06-03-2024 End: 06-03-2024 ambulatory [facility] Start: 05-26-2024 End: 05-26-2024 ambulatory ELMIRA SCHMITZ Facility:[facility] Start: 05-26-2024 End: 05-26-2024 Patient encounter procedure Elmira Schmitz APRN.[employer] Work Phone: OB/Gynecology Comment on above: Encounter for superv ision of high risk in third trimester, antepartum (Primary Dx); 30 weeks gestation of ; Obesity affecting in third trimester, unspecified obesity type; Anxiety and depression; Supervision of high risk in third trimester Start: 05-12-2024 End: 05-12-2024 Patient encounter procedure Elmira Schmitz APRN.[employer] Work Phone: OB/Gynecology Comment on above: Encounter for superv ision of high risk in third trimester, antepartum (Primary Dx); 28 weeks gestation of ; Obesity affecting in third trimester, unspecified obesity type; Anxiety and depression; Need for vaccination; Supervision of high risk in third trimester Start: 05-12-2024 End: 05-12-2024 ambulatory ELMIRA SCHMITZ Facility:[facility] Start: 05-12-2024 End: 05-12-2024 ambulatory KALR ROMEO Facility:[facility] Start: 04-17-2024 End: 04-17-2024 ambulatory KARL ROMEO Facility:[facility] Start: 04-15-2024 End: 04-15-2024 ambulatory KARL ROMEO Facility:[facility] Start: 04-15-2024 End: 04-15-2024 Patient encounter procedure Karl Romeo MD Work Phone: OB/Gynecology Comment on above: Encounter for superv ision of high risk in second trimester, antepartum (Primary Dx); 24 weeks gestation of ; Obesity affecting in second trimester, unspecified obesity type; Headache in , antepartum, second trimester Start: 03-27-2024 End: 03-27-2024 ambulatory KARL ROMEO Facility:[facility] Start: 03-27-2024 End: 03-27-2024 Patient encounter procedure [employer] Start Ultrasound Work Phone: OB/Gynecology Comment on above: [...] Start: 03-12-2024 End: 03-12-2024 ambulatory CATIE SMITH Facility:[facility] Start: 03-12-2024 End: 03-12-2024 Patient encounter procedure [employer] [facility] Work Phone: OB/Gynecology Comment on above: Encounter for anatomic survey (Primary Dx); Encounter for supervision of other normal in second trimester; Obesity in Encounter for superv ision of high risk in second trimester, antepartum (Primary Dx); Nausea and vomiting during ; Obesity affecting in second trimester, unspecified obesity type; 19 weeks gestation of Start: 03-07-2024 ambulatory [facility] Start: 02-25-2024 ambulatory Jose Phelps Work Phone: OB/Gynecology Comment on above: Nausea Start: 02-13-2024 End: 02-13-2024 ambulatory ELMIRA SCHMITZ Facility:[facility] Start: 02-13-2024 End: 02-13-2024 Patient encounter procedure Elmiraadam Schmitz APRN.[employer] Work Phone: OB/Gynecology Comment on above: Encounter for superv ision of high risk in second trimester, antepartum (Primary Dx); 15 weeks gestation of ; Obesity affecting in second trimester, unspecified obesity type; headache in second trimester; Nausea and vomiting during Start: 02-02-2024 End: 02-02-2024 Emergency department patient visit [facility] Start: 01-16-2024 End: 01-16-2024 [facility] Facility:[facility] Start: 01-16-2024 End: 01-16-2024 Patient encounter [...] Dx); 11 weeks gestation of Start: 12-27-2023 [facility] Start: 12-20-2023 End: 12-20-2023 [facility] Facility:[facility] Start: 12-20-2023 End: 12-20-2023 Patient encounter procedure Renu Moore APRN.CNM Work Phone: OB/Gynecology Comment on above: 7 weeks gestation of (Primary Dx); Encounter for supervision of normal first in first trimester; Use of letrozole (Femara); with uncertain dates, antepartum; Encounter for care in first trimester of first ; Obesity affecting in first trimester, unspecified obesity type; Anxiety and depression Start: 08-21-2023 End: 08-21-2023 [facility] Start: 07-20-2023 End: 07-20-2023 Emergency department patient visit MARY GARDINER [facility] Start: 07-17-2023 End: 07-17-2023 ambulatory JOSE RAPHAEL Facility:[facility] Start: 07-17-2023 End: 07-17-2023 Patient encounter procedure Jose Raphael MD Work Phone: OB/Gynecology Comment on above: Anovulation (Primary Dx); PCOS (polycystic ovarian syndrome) Procedures Date Procedure Procedure Detail Performing Clinician Start: 07-10-2024 Urnls dip stick/tabl et rgnt non-auto w/o micrscp Renu Godfreyluzma MODELING DIRECTOR.CNM Work Phone: Start: 07-07-2024 biophysical pr ofile non-stress testing Elmira Schmitz MODELING DIRECTOR.[employer] Work Phone: Start: 07-07-2024 Urnls dip stick/tabl et rgnt non-auto w/o micrscp Nahomi Bellamy MODELING DIRECTOR.CNM Work Phone: Start: 07-03-2024 Urnls dip stick/tabl et rgnt non-auto w/o micrscp Dori Walker MD Work Phone: Start: 06-30-2024 RSV VACCINE, BIVALEN T (ABRYSVO) Catie Smith MD Work Phone: Start: 06-30-2024 biophysical pr ofile non-stress testing Elmira Schmitz MODELING DIRECTOR.[employer] Work Phone: Start: 06-30-2024 Urnls dip stick/tabl et rgnt non-auto w/o micrscp Catie Smith MD Work Phone: Start: 06-25-2024 Urnls dip stick/tabl et rgnt non-auto w/o micrscp Tressa Le MD Work Phone: Start: 06-23-2024 Us preg uterus after 1st trimest 1/ gestation Karl Romeo MD Work Phone: Start: 06-23-2024 Urnls dip stick/tabl et rgnt non-auto w/o micrscp Elmira Schmitz MODELING DIRECTOR.[employer] Work Phone: Start: 06-16-2024 Urnls dip stick/tabl et rgnt auto w/o microscopy Nahomi Bellamy MODELING DIRECTOR.CNM Work Phone: Start: 06-09-2024 Urnls dip stick/tabl et rgnt non-auto w/o micrscp Elmira Schmitz MODELING DIRECTOR.[employer] Work Phone: Start: 03-27-2024 Us preg uterus after 1st trimest 1/ gestation Karl Romeo MD Work Phone: Start: 01-16-2024 Antibody screen CATIE SMITH Comment on above: Order Comment: Speci men Type: BLOOD SPECIMEN Ordering Facility: [facility] Address: [address] [place] [address] Performed By: #### 5 [id number], [id number], [id number] #### [facility] CLIA [id number] [address] [place] [address] [place] Start: 01-16-2024 Us nuchal translucency 1st gestation Renu Donahueluzma MODELING DIRECTOR.CNM Work Phone: Start: 12-20-2023 Iadna chlamydia trachomatis amplified probe tq Renu Donahueluzma MODELING DIRECTOR.CNM Work Phone: Start: 12-20-2023 Us uterus l imited / fetuses Renu Donahueluzma MODELING DIRECTOR.CNM Work Phone: Start: 07-20-2023 Urinalysis DAYO HERNANDEZ Comment on above: Result Comment: URIN ALYSIS Performed By: #### [id number] #### [facility],[address] [place] [address] Plan of Treatment Date Care Activity Detail Author Start: 05-12-2034 Urine microalbumin profile DTaP,Tdap,Td Vaccine (8 - Td or Tdap) [facility] Start: 11-24-2030 Urine microalbumin profile DTaP,Tdap,Td Vaccine (7 - Td or Tdap) [facility] Start: 07-18-2024 End: 07-18-2024 Patient encounter procedure [facility] Comment on above: BPP OB Start: 07-17-2024 End: 07-17-2024 Patient encounter procedure 07/17/2024 2:45 PM EDT Office Visit OB/Gynecology [address] [place] [address] Renu Moore APRN.CNM [address] [place] [address] Post OB/Gynecology Comment on above: Post Start: 07-17-2024 End: 07-17-2024 Patient encounter procedure OB/Gynecology Comment on above: NST NST/OB Start: 07-16-2024 End: 07-16-2024 Patient encounter procedure [facility]aternal [facility] Comment on above: BPP GULSHAN/BPP Start: 07-14-2024 End: 07-14-2024 Patient encounter procedure 07/14/2024 11:30 AM EDT Routine Office Visit [facility] [address] [place] [address] BPP Maternal Medicine Comment on above: BPP [...] NST/OB Start: 07-03-2024 End: 10-02-2024 CREATININE BLD [facility] Comment on above: Expected: 07/03/2024 , Expires: 10/02/2024 Start: 07-03-2024 End: 10-02-2024 Hepatic function 2000 panel - Serum or Plasma [facility] Comment on above: Expected: 07/03/2024 , Expires: 10/02/2024 Start: 07-03-2024 End: 10-02-2024 Protein/Creatinine [Mass Ratio] in Urine [facility] Work Phone: Comment on above: Expected: 07/03/2024 , Expires: 10/02/2024 Start: 07-03-2024 End: 10-02-2024 Urate [Mass/volume] in Serum or Plasma [facility] Comment on above: Expected: 07/03/2024 , Expires: 10/02/2024 Start: 07-01-2024 End: 07-01-2024 Nursing evaluation of patient and report 07/01/2024 11:00 AM EDT Nurse Visit OB/Gynecology [address] [place] [id number] Wstr, Nurse Commercial Lit[employer] Associate [facility] [address] [place] [address] 2nd [facility] OB/Gynecology Comment on above: 2nd [...] Office Visit OB/Gynecology [address] [place] [address] Tressa Le MD [address] [place] [address] OB OB/Gynecology Comment on above: OB Start: 06-23-2024 End: 06-23-2024 Patient encounter procedure OB/Gynecology Comment on above: OB Growth Start: 06-18-2024 End: 06-18-2024 Patient encounter procedure OB/Gynecology Comment on above: NST OB/NST Start: 06-09-2024 End: 06-09-2024 Patient encounter procedure 06/09/2024 3:45 PM EDT Routine Office Visit OB/Gynecology [address] [place] [address] Elmira Schmitz, MODELING DIRECTOR.[employer] [address] [place] [address] OB OB/Gynecology Comment on above: OB Start: 06-07-2024 RSV Vaccine (1 - Ris k 1-dose series) RSV Vaccine (1 - Risk 1-dose series) [facility] Start: 05-26-2024 End: 05-26-2024 Patient encounter procedure 05/26/2024 3:45 PM EDT Routine Office Visit OB/Gynecology [address] [place] [address] Elmira Schmitz, MODELING DIRECTOR.[employer] [address] [place] [address] OB/$25 copay OB/Gynecology Comment on above: OB/$25 copay Start: 05-18-2024 Covid-19 Vaccine ( season) Covid-19 Vaccine ( season) [facility] Start: 05-18-2024 Covid-19 Vaccine ( season) Covid-19 Vaccine ( season) [facility] Start: 05-18-2024 Influenza vaccination Influenza Vacc ine (#1) [facility] Start: 04-15-2024 End: 07-15-2024 CBC W Auto Differential panel - Blood COMPLETE BLOOD COUNT AND DIFFERENTIAL Lab Routine 24 weeks gestation of Obesity affecting in second trimester, unspecified obesity type Encounter for supervision of high risk in second trimester, antepartum Expected: 04/15/2024, Expires: 07/15/2024 [facility] Comment on above: Expected: 04/15/2024 , Expires: 07/15/2024 Start: 04-15-2024 End: 07-15-2024 Comprehensive metabolic 2000 panel - Serum or Plasma COMPREHENSIVE METABOLIC PANEL Lab Routine 24 weeks gestation of Obesity affecting in second trimester, unspecified obesity type Headache in , antepartum, second trimester Expected: 04/15/2024, Expires: 07/15/2024 [facility] Comment on above: Expected: 04/15/2024 , Expires: 07/15/2024 Start: 04-15-2024 End: 07-15-2024 GESTATIONAL GLUCOSE SCREEN, 1-HOUR, 50 GRAM, NON-FASTING GESTATIONAL GLUCOSE SCREEN, 1-HOUR, 50 GRAM, NON-FASTING Lab Routine 24 weeks gestation of Obesity affecting in second trimester, unspecified obesity type Encounter for supervision of high risk in second trimester, antepartum Expected: 04/15/2024, Expires: 07/15/2024 [facility] Work Phone: Comment on above: Expected: 04/15/2024 , Expires: 07/15/2024 Start: 04-15-2024 End: 07-15-2024 Protein/Creatinine [Mass Ratio] in Urine PROTEIN / CREATININE RATIO Lab Routine 24 weeks gestation of Obesity affecting in second trimester, unspecified obesity type Headache in , antepartum, second trimester Expected: 04/15/2024, Expires: 07/15/2024 [facility] Comment on above: Expected: 04/15/2024 , Expires: 07/15/2024 Start: 04-15-2024 End: 07-15-2024 SYPHILIS TOTAL W/REFLEX SYPHILIS TOTAL W/REFLEX Lab Routine 24 weeks gestation of Obesity affecting in second trimester, unspecified obesity type Encounter for supervision of high risk in second trimester, antepartum Expected: 04/15/2024, Expires: 07/15/2024 [facility] Comment on above: Expected: 04/15/2024 , Expires: 07/15/2024 Start: 04-09-2024 End: 04-09-2024 Patient encounter procedure 04/09/2024 11:10 AM EDT Routine Office Visit OB/Gynecology [address] [place], [place] [id number] Karl Romeo MD [address] [place] [address] OB OB/Gynecology Comment on above: OB Start: 03-27-2024 End: 03-27-2024 Patient encounter procedure 03/27/2024 1:30 PM EDT Routine Office Visit OB/Gynecology [address] [place] [address] Anatomy f/u OB/Gynecology Comment on above: Anatomy f/u Start: 03-12-2024 End: 03-12-2025 OBSTETRIC ULTRASOUND [facility]I OBSTETRIC ULTRASOUND [facility] Anc Imaging Routine Obesity in Encounter for anatomic survey Expected: 03/12/2024, Expires: 03/12/2025 [facility] Work Phone: Comment on above: Expected: 03/12/2024 , Expires: 03/12/2025 Start: 03-12-2024 End: 03-12-2024 Patient encounter procedure OB/Gynecology Comment on above: Anatomy OB Start: 02-13-2024 End: 02-13-2024 Patient encounter procedure 02/13/2024 3:45 PM EDT Routine Office Visit OB/Gynecology [address] [place] [address] Elmira Schmitz APRN.[employer] [address] [place] [address] OB OB/Gynecology Comment on above: OB Start: 01-16-2024 End: 01-15-2025 OBSTETRIC ULTRASOUND [facility]I OBSTETRIC ULTRASOUND [facility] Anc Imaging Routine Encounter for supervision of other normal in second trimester Obesity in Expected: 01/16/2024, Expires: 01/15/2025 [facility] Work Phone: Comment on above: Expected: 01/16/2024 , Expires: 01/15/2025 Start: 12-20-2023 End: 03-20-2024 CBC panel - Blood by Automated count CBC Lab Routine 7 weeks gestation of Encounter for supervision of normal first in first trimester with uncertain dates, antepartum Encounter for care in first trimester of first Expected: 12/20/2023, Expires: 03/20/2024 [facility] Work Phone: Comment on above: Expected: 12/20/2023 , Expires: 03/20/2024 Start: 12-20-2023 End: 03-20-2024 Hemoglobin A1c in Blood HGB A1C Lab Routine 7 weeks gestation of Expected: 12/20/2023, Expires: 03/20/2024 [facility] Work Phone: Comment on above: Expected: 12/20/2023 , Expires: 03/20/2024 Start: 12-20-2023 End: 03-20-2024 Hepatitis B virus surface Ag [Presence] in Serum HEP B SURF AG SCRN Lab Routine 7 weeks gestation of Expected: 12/20/2023, Expires: 03/20/2024 [facility] Work Phone: Comment on above: Expected: 12/20/2023 , Expires: 03/20/2024 Start: 12-20-2023 End: 03-20-2024 Hepatitis C virus Ab [Presence] in Serum HEPATITIS C ANTIBODY IA WITH CONFIRMATION Lab Routine 7 weeks gestation of Expected: 12/20/2023, Expires: 03/20/2024 [facility] Work Phone: Comment on above: Expected: 12/20/2023 , Expires: 03/20/2024 Start: 12-20-2023 End: 03-20-2024 HIV 1+2 Ab [Presence] in Serum or Plasma by Immunoassay HIV 1 2 COMBO(AG/AB),WITH REFLEX TO DIFFERENTIATION Lab Routine 7 weeks gestation of Expected: 12/20/2023, Expires: 03/20/2024 [facility] Work Phone: Comment on above: Expected: 12/20/2023 , Expires: 03/20/2024 Start: 12-20-2023 End: 12-19-2024 NUCHAL TRANSLUCENCY WHI NUCHAL TRANSLUCENCY [facility] Anc Imaging Routine 7 weeks gestation of Expected: 12/20/2023, Expires: 12/19/2024 [facility] Work Phone: Comment on above: Expected: 12/20/2023 , Expires: 12/19/2024 Start: 12-20-2023 End: 12-19-2024 OBSTETRIC ULTRASOUND [facility] OBSTETRIC ULTRASOUND [facility] Anc Imaging Routine 7 weeks gestation of Expected: 12/20/2023, Expires: 12/19/2024 [facility] Work Phone: Comment on above: Expected: 12/20/2023 , Expires: 12/19/2024 Start: 12-20-2023 End: 03-20-2024 RUBELLA IGG AB RUBELLA IGG AB Lab Routine 7 weeks gestation of Expected: 12/20/2023, Expires: 03/20/2024 [facility] Work Phone: Comment on above: Expected: 12/20/2023 , Expires: 03/20/2024 Start: 12-20-2023 End: 03-20-2024 SYPHILIS TOTAL W/REFLEX SYPHILIS TOTAL W/REFLEX Lab Routine 7 weeks gestation of Expected: 12/20/2023, Expires: 03/20/2024 [facility] Work Phone: Comment on above: Expected: 12/20/2023 , Expires: 03/20/2024 Start: 12-20-2023 End: 03-20-2024 TYPE + SCREEN TYPE + SCREEN Blood Bank Routine 7 weeks gestation of Expected: 12/20/2023, Expires: 03/20/2024 [facility] Work Phone: Comment on above: Expected: 12/20/2023 , Expires: 03/20/2024 Start: 07-17-2023 End: 10-16-2023 Progesterone [Mass/volume] in Serum or Plasma PROGESTERONE BLD Lab Routine PCOS (polycystic ovarian syndrome) Anovulation Expected: 07/17/2023, Expires: 10/16/2023 [facility] Work Phone: Comment on above: Expected: 07/17/2023 , Expires: 10/16/2023 Start: 05-18-2023 Covid-19 Vaccine () Covid-19 Vaccine () [facility] Start: 05-18-2023 Influenza vaccination Influenza Vacc ine (#1) [facility] Start: 09-17-2022 Depression Assessment Depression Ass essment [facility] Start: 2018 Pap Testing Pap Testing [facility] Start: 2018 Screening for malign ant neoplasm of cervix [facility] Start: 2015 Hepatitis C Screening Hepatitis C [facility] Start: 2015 Hepatitis C screening Hepatitis C [facility] Start: 2015 HIV Screening HIV Screening [facility] Start: 2015 HIV screening HIV Screening [facility] Start: 2012 HPV Vaccine (1 - 3-d ose series) HPV Vaccine (1 - 3-dose series) [facility] Start: 2011 Peds To Adult Transition Annual Assessment Peds To Adult Transition Annual Assessment [facility] Start: 2009 Peds To Adult Transition Initial Discussion Peds To Adult Transition Initial Discussion [facility] Start: 2006 HPV Vaccine (1 - 2-d ose series) HPV Vaccine (1 - 2-dose series) [facility] Start: 1997 Covid-19 Vaccine (#1) Covid-19 Vacci ne (#1) [facility] Bacteria identified in Urine by Culture URINE CULTURE Microbiology Routine 7 weeks gestation of 12/20/2023 9:38 AM EDT [facility] Work Phone: End: 12-20-2024 BIOPHYSICAL PROFILE US [facility]I BIOPHYSICAL PROFILE US I Anc Imaging Routine Encounter for supervision of high risk in third trimester, antepartum 34 weeks gestation of Obesity affecting in third trimester, unspecified obesity type Once per week for 10 Occurrences starting 06/23/2024 until 12/20/2024 [facility] Work Phone: Comment on above: Once per week for 10 Occurrences starting 06/23/2024 until 12/20/2024 nonstress test NON-S TRESS TEST Procedures Routine Encounter for supervision of high risk in third trimester, antepartum 30 weeks gestation of Ordered: 05/26/2024 [facility] Work Phone: Comment on above: Ordered: 05/26/2024 nonstress test NON-S TRESS TEST Procedures Routine Obesity affecting in third trimester, unspecified obesity type Ordered: 06/23/2024 [facility] Comment on above: Ordered: 06/23/2024 End: 07-11-2024 OBSTETRIC ULTRASOUND [facility] OBSTETRIC ULTRASOUND [facility] Anc Imaging Routine Encounter for supervision of high risk in second trimester, antepartum Obesity affecting in second trimester, unspecified obesity type Once per month for 3 Occurrences starting 03/13/2024 until 07/11/2024 [facility] Work Phone: Comment on above: Once per month for 3 Occurrences starting 03/13/2024 until 07/11/2024 End: 04-15-2025 Polysomnogram POLYSOMNOGRAM (PSG) Procedures Routine 24 weeks gestation of Obesity affecting in second trimester, unspecified obesity type Encounter for supervision of high risk in second trimester, antepartum Headache in , antepartum, second trimester 1 Occurrences starting 04/15/2024 until 04/15/2025 [facility] Comment on above: 1 Occurrences starti ng 04/15/2024 until 04/15/2025 [facility] Immun[facility] Immunization Date Immunization Notes Care Provider Jose Armando laboy 06-30-2024 influenza, seasonal, injectable Ob Remote Work Phone: [facility] 06-30-2024 respiratory syncytia l virus (RSV) vaccine, bivalent (ABRYSVO) Ob Remote Work Phone: [facility] 05-12-2024 tetanus toxoid, redu gill diphtheria toxoid, and acellular pertussis vaccine, adsorbed Elmira Schmitz APRN.[employer] Work Phone: [facility] 08-15-2023 influenza, injectabl e, quadrivalent, preservative free Karl Romeo MD Work Phone: [facility] 08-15-2023 influenza virus vacc ine, unspecified formulation Karl Romeo MD Work Phone: [facility] 07-18-2023 influenza, injectabl e, quadrivalent, preservative free Karl Romeo MD Work Phone: [facility] 11-24-2020 tetanus toxoid, redu gill diphtheria toxoid, and acellular pertussis vaccine, adsorbed Karl Romeo MD Work Phone: [facility] 05-24-2010 tetanus toxoid, redu gill diphtheria toxoid, and acellular pertussis vaccine, adsorbed Karl Romeo MD Work Phone: [facility] 02-11-2003 poliovirus vaccine, inactivated Karl Romeo MD Work Phone: [facility] 02-10-2003 diphtheria, tetanus toxoids and acellular pertussis vaccine, unspecified formulation Karl Romeo MD Work Phone: [facility] 02-10-2003 measles, mumps and rubella virus vaccine Karl Romeo MD Work Phone: [facility] 04-04-1999 hepatitis B vaccine, pediatric or pediatric/adolescent dosage Karl Romeo MD Work Phone: [facility] 04-04-1999 measles, mumps and rubella virus vaccine Karl Romeo MD Work Phone: [facility] 01-28-1998 diphtheria, tetanus toxoids and acellular pertussis vaccine, unspecified formulation Karl Romeo MD Work Phone: [facility] 01-28-1998 haemophilus influenz ae type b vaccine, conjugate unspecified formulation Karl Romeo MD Work Phone: [facility] 1997 diphtheria, tetanus toxoids and acellular pertussis vaccine, unspecified formulation Karl Romeo MD Work Phone: [facility] 1997 haemophilus influenz ae type b vaccine, conjugate unspecified formulation Karl Romeo MD Work Phone: [facility] 1997 trivalent poliovirus vaccine, live, oral Karl Romeo MD Work Phone: [facility] 1997 diphtheria, tetanus toxoids and acellular pertussis vaccine, unspecified formulation Karl Romeo MD Work Phone: [facility] 1997 haemophilus influenz ae type b vaccine, conjugate unspecified formulation Karl Romeo MD Work Phone: [facility] 1997 trivalent poliovirus vaccine, live, oral Karl Romeo MD Work Phone: [facility] 1997 hepatitis B vaccine, pediatric or pediatric/adolescent dosage Karl Romeo MD Work Phone: [facility] 1997 hepatitis B vaccine, pediatric or pediatric/adolescent dosage Karl Romeo MD Work Phone: [facility] Payers Date Payer Category Payer Unknown [id number] 2023 Unknown [id number] 2022 Unknown [id number] 2021 Unknown [id number] 1997 Unknown [id number] 1997 Unknown [id number] 1997 Unknown [id number] 1997 Unknown [id number] 1997 Unknown [id number] 1997 Unknown [id number] Social History Date Type Detail Facility Start: [facility] Start: 07-17-2023 Tobacco use and exposure Smokeless t obacco non-user [facility] Start: 07-17-2023 Alcohol intake Current drinke r of alcohol (finding) [facility] Start: 07-17-2023 End: 07-10-2024 History of Social function [facility] Start: 07-17-2023 End: 07-10-2024 Tobacco use panel [facility] National Score (1-10 0), lower number is lower risk 80 [facility] Start: 07-17-2023 Alcohol Comment occasionally [facility] Start: 1997 Sex Assigned At Not on file [facility] Start: 12-20-2023 End: 07-10-2024 Alcohol intake Ex-drinker (finding) [facility] Start: 12-13-2023 Education 13 [facility] Start: 11-10-2023 [facility] Goals Date Patient Goal Desired Activity /State Personal health goal Clinical Notes 07-17-2023 to 07-10-2024 Renu Moore APRN.CNM - 07/10/2024 2:40 PM EDTPrenatal Quick Notes - Renu Moore APRN.CNM - 07/10/2024 2:32 PM EDTPrenatal Quick Notes - Renu Moore APRN.CNM - 07/10/2024 2:32 PM EDT Note Date & Type Note Facility 07-10-2024 History of Presen t illness Narrative NST SUMMARY PROVIDER ASSESSMENT AND INTERPRETATION Ginger Ken is a 29 year old female, , who is at 36w5d with an HARRY of 08/02/2024, Alternate HARRY Entry dating method. Indications for NST: Gestational HTN, Obesity, and Polyhydramnios Baseline: 140 Variability: Moderate Accelerations: Present 15 X 15 Decelerations: None Contractions: TOCO: Irregular Interpretation: Reactive SIGNATURE: Renu Moore APRN.CNM documented in this encounter [facility] 07-10-2024 Progress note Formatting of t his note might be different from the original. S: Ginger Ken is a 29 year old female who presents at 36 weeks gestation for a routine visit with NST. When in NST room, wearing sunglasses because she has had a headache since this morning. Thinks it may be a migraine due to some bouts of blurred vision. Seen in L&D 2 nights ago and pre eclampsia labs were normal. Blood pressures remain elevated (no severe ranges). O: See flow sheet Gen: No apparent distress Abd: Gravid, nontender BP today- 143/83 ASSESSMENT/PLAN: 1. Encounter for supervision of high risk in third trimester, antepartum - ICD9: V23.9, ICD10: O09.93 (primary diagnosis) 2. 36 weeks gestation of - ICD9: V22.2, ICD10: Z3A.36 3. Polyhydramnios affecting in third trimester - ICD9: 657.03, ICD10: O40.3XX0 4. Obesity affecting in third trimester, unspecified obesity type - ICD9: 649.13, ICD10: O99.213 5. Group beta Strep positive - ICD9: 041.02, ICD10: B95.1 6. Anxiety and depression - ICD9: 300.00, 311, ICD10: F41.9, F32.A 7. Swelling of lower extremity during in third trimester - ICD9: 646.13, ICD10: O12.03 8. Gestational hypertension 9. Mild preeclampsia - SANDERS and elevated pressures - Patient sent to L&D for induction of labor for mild preeclampsia - Dr. Romeo notified and involved in plan of care - L&D notified and orders placed - RTO 1 week for PP BP check Renu Moore APRN.CNM [facility] 07-10-2024 Miscellaneous Notes S: Ginger Ken is a 29 year old female who presents at 36 weeks gestation for a routine visit with NST. When in NST room, wearing sunglasses because she has had a headache since this morning. Thinks it may be a migraine due to some bouts of blurred vision. Seen in L&D 2 nights ago and pre eclampsia labs were normal. Blood pressures remain elevated (no severe ranges). O: See flow sheet Gen: No apparent distress Abd: Gravid, nontender BP today- 143/83 ASSESSMENT/PLAN: 1. Encounter for supervision of high risk in third trimester, antepartum - ICD9: V23.9, ICD10: O09.93 (primary diagnosis) 2. 36 weeks gestation of - ICD9: V22.2, ICD10: Z3A.36 3. Polyhydramnios affecting in third trimester - ICD9: 657.03, ICD10: O40.3XX0 4. Obesity affecting in third trimester, unspecified obesity type - ICD9: 649.13, ICD10: O99.213 5. Group beta Strep positive - ICD9: 041.02, ICD10: B95.1 6. Anxiety and depression - ICD9: 300.00, 311, ICD10: F41.9, F32.A 7. Swelling of lower extremity during in third trimester - ICD9: 646.13, ICD10: O12.03 8. Gestational hypertension 9. Mild preeclampsia - SANDERS and elevated pressures - Patient sent to L&D for induction of labor for mild preeclampsia - Dr. Romeo notified and involved in plan of care - L&D notified and orders placed - RTO 1 week for PP BP check Renu Moore APRN.CNM documented in this encounter [facility] 07-10-2024 Instructions Onel Hogan MA - 07/10/2024 1:48 PM EDT SEQUENTIAL SCREENINGS The [facility] offers sequential screenings for women who are [...] It will require an appointment with our pest technician. This is not an ultrasound performed [...] the above symptoms, contact our office at [phone] and ask to speak with a nurse. After hours, you can call doctors registry at [phone] OR call [facility] at [phone] and ask to have the doctor destination sign repairer paged. If you consider this an emergency, dial 8-2 or go to your nearest emergency department. NEED HELP? Are you dealing with a violent or abusive relationship? Are you a victim of rape or sexual assult? Call [facility] ([place]) 24 hour Crisis Hotline: 653.116.6450 or 861-947-9606. MANUAL Your Guide to a Healthy manual is now on-line. Visit [email or web address] to download your free copy documented in this encounter [facility] 07-07-2024 Note Indication Evaluation of well-being Maternal [...] movements 2: tone 2: Amniotic fluid volume 8/8 Biophysical profile score Anatomy sex: male. Performed By: Shellie Monroe, GLYNN, RVT Read By: Natalya Louise M.D. MATERNAL [...] DTR +2/4 bilateral patellar No clonus BPP 8/8, PENNIE 29 ASSESSMENT/PLAN: 1. Encounter for supervision [...] -RTO in 1 weeks Nahomi Bellamy APRN.CNM [facility] Work Phone: 07-07-2024 Instructions Onel Hogan MA - 07/07/2024 11:13 AM EDT SEQUENTIAL SCREENINGS The [facility] offers sequential screenings for women who are [...] It will require an appointment with our pest technician. This is not an ultrasound performed [...] the above symptoms, contact our office at [phone] and ask to speak with a nurse. After hours, you can call doctors registry at [phone] OR call [facility] at [phone] and ask to have the doctor destination sign repairer paged. If you consider this an emergency, dial 3-9-0 or go to your nearest emergency department. NEED HELP? Are you dealing with a violent or abusive relationship? Are you a victim of rape or sexual assult? Call [facility] 24 hour Crisis Hotline: 517.237.8554 or 030-703-0357. MANUAL Your Guide to a Healthy manual is now on-line. Visit [email or web address] to download your free copy documented in this encounter [facility] 07-07-2024 Miscellaneous Notes BROCK-S: Ginger Ken is a [...] Nahomi Bellamy APRN.CNM documented in this encounter [facility] 07-03-2024 Note HNO ID: [id number] Author: DORI WALKER MD Service: ? Author [...] Irregular Interpretation: Reactive SIGNATURE: Dori Walker DO [facility] 07-03-2024 History of Presen t illness Narrative [...] Walker DO This note was created using Soma. Subjective Ginger Ken is a 29 year old female. Review of Systems Objective BP 131/82 Wt 130.6 kg (288 lb) LMP 10/27/2023 BMI 42.53 kg/m Physical Exam Assessment and Plan documented in this encounter [facility] 07-03-2024 Note HNO ID: [id number] Author: BRIT HUMPHREY LPN Service: ? Author Type: LICENSED NURSE Type: Progress Notes Filed: 07/03/2024 17:26 Note Text: This note was created using Soma. Subjective Ginger Ken is a 29 year old female. Review of Systems Objective BP 131/82 Wt 130.6 kg (288 lb) LMP 10/27/2023 BMI 42.53 kg/m? Physical Exam Assessment and Plan [facility] 07-03-2024 Progress note Formatting of t his note might be different from the original. SW- Pt has questions about being high risk. No pain, vb, lof. +FM but difficult to feel FM. Having off and on SANDERS's. Irregular ctx's PE: Gen- NAD, well appearing [...] - RTO 1 wk Dori Walker DO [facility] 07-03-2024 Miscellaneous Notes SW- Pt has questions about being high risk. No pain, vb, lof. +FM but difficult to feel FM. Having off and on SANDERS's. Irregular ctx's PE: Gen- NAD, well appearing [...] Dori Walker DO documented in this encounter [facility] 07-03-2024 Instructions Onel Hogan MA - 07/03/2024 3:10 PM EDT SEQUENTIAL SCREENINGS The [facility] offers sequential screenings for women who are [...] It will require an appointment with our pest technician. This is not an ultrasound performed [...] the above symptoms, contact our office at [phone] and ask to speak with a nurse. After hours, you can call doctors registry at [phone] OR call [facility] at [phone] and ask to have the doctor destination sign repairer paged. If you consider this an emergency, dial 7--3 or go to your nearest emergency department. NEED HELP? Are you dealing with a violent or abusive relationship? Are you a victim of rape or sexual assult? Call [facility] ([facility]) 24 hour Crisis Hotline: 163.150.1538 or 788-257-7993. MANUAL Your Guide to a Healthy manual is now on-line. Visit [email or web address] Catie to download your free copy documented in this encounter [facility] 06-30-2024 Nurse Note Ginger Ken presents for injection of Betamethasone as ordered by Dr. Smith. GA:35w2d Betamethasone (Celestone) 12 mg second dose, given IM - see MAR. Patient tolerated well. Dr. Smith in office at time of appointment. First dose was given at [facility] 06/28/24. Jennifer Saavedra RN [facility] 06-30-2024 Nurse Note Ginger Ken presents for injection of Betamethasone as ordered by Dr. Smith. GA:35w2d Betamethasone (Celestone) 12 mg second dose, given IM - see MAR. Patient tolerated well. Dr. Smith in office at time of appointment. First dose was given at [facility] 06/28/24. Jennifer Saavedra RN documented in this encounter [facility] 06-30-2024 Note Indication Evaluation of well-being Maternal obesity, BMI >40 Impression REMOTE READ - Single, live, intrauterine . - The amniotic fluid volume is mild polyhydramnios with an MVP of 8.8 cm and an PENNIE of 28.6 cm. - The placenta is anterior, fundal. - BPP 8. Recommendations Continue planned testing Maternal Assessment Height [...] movements 2: tone 2: Amniotic fluid volume 04/24 Biophysical profile score Anatomy sex: male. Performed By: Shellie Monroe RDMS, RVT Read By: Natalya Louise M.D. [facility] 06-30-2024 Progress note Formatting of t his note might be different from the original. DM-Pt doing well. Denies vaginal Bleeding, Leaking fluid, or regular Contractions- having irregular ctx since Sunday. She was on way to [facility] due to having CTX when her [...] - BPP today 04/24 Catie Hernandez MD [facility] 06-30-2024 Miscellaneous Notes DM-Pt doing well. Denies vaginal Bleeding, Leaking fluid, or regular Contractions- having irregular ctx since Sunday. She was on way to [facility] due to having CTX when her [...] Catie Hernandez MD documented in this encounter [facility] 06-30-2024 Instructions Nicole Pastrana MA - 06/30/2024 11:01 AM EDT SEQUENTIAL SCREENINGS The [facility] offers sequential screenings for women who are [...] It will require an appointment with our pest technician. This is not an ultrasound performed [...] the above symptoms, contact our office at [phone] and ask to speak with a nurse. After hours, you can call doctors registry at [phone] OR call [facility] at [phone] and ask to have the doctor destination sign repairer paged. If you consider this an emergency, dial 8 or go to your nearest emergency department. NEED HELP? Are you dealing with a violent or abusive relationship? Are you a victim of rape or sexual assult? Call [facility] ([facility]) 24 hour Crisis Hotline: 428.245.5657 or 751-235-9600. MANUAL Your Guide to a Healthy manual is now on-line. Visit [email or web address] nancyGuide to download your free copy documented in this encounter [facility] 06-26-2024 Telephone encounter Note Patient notified. Jennifer Saavedra RN [facility] 06-26-2024 Miscellaneous Notes Patient notified. Jennifer Saavedra [...] Shellie Alcantar RN documented in this encounter [facility] 06-26-2024 Telephone encounter Note Symptoms similar to flu/virus. She was seen in office yesterday. Please continue to increase hydration, add in electrolytes. Take Tylenol Extra Strength 1000 mg every 8 hours and rest. Keep scheduled appointment. Renu Moore APRN.CNM [facility] 06-26-2024 Telephone encounter Note Patient 34w5d calling [...] in office. Please address. Shellie Alcantar RN [facility] 06-25-2024 Note HNO ID: [id number] Author: ELMIRA SCHMITZ APRN.MARIAH Service: ? Author Type: Nurse Practitioner Type: Procedures Filed: 06/25/2024 11:37 Note Text: NST SUMMARY PROVIDER ASSESSMENT AND INTERPRETATION Indications for NST: Polyhydramnios Baseline: 140 Variability: Moderate Accelerations: Present 15 X 15 Decelerations: None Interpretation: Reactive SIGNATURE: Elmira Schmitz APRN.CNP [facility] 06-25-2024 Procedure note NST SUMMARY PROVIDER ASSESSMENT AND INTERPRETATION Indications for NST: Polyhydramnios Baseline: 140 Variability: Moderate Accelerations: Present 15 X 15 Decelerations: None Interpretation: Reactive SIGNATURE: Elmira Schmitz APRN.CNP [facility] 06-25-2024 Procedure note NST SUMMARY PROVIDER ASSESSMENT AND INTERPRETATION Indications for NST: Polyhydramnios Baseline: 140 Variability: Moderate Accelerations: Present 15 X 15 Decelerations: None Interpretation: Reactive SIGNATURE: Elmira Schmitz APRN.CNP documented in this encounter [facility] 06-25-2024 Progress note Formatting of t his [...] next week as scheduled. Elmira Schmitz APRN.CNP [facility] 06-25-2024 Miscellaneous Notes EH - S: Ginger [...] RTO next week as scheduled. Elmira Schmitz APRN.[employer] documented in this encounter [facility] 06-25-2024 Instructions Sharla Lopez MA - 06/25/2024 10:45 AM EDT SEQUENTIAL SCREENINGS The [facility] offers sequential screenings for women who are [...] It will require an appointment with our pest technician. This is not an ultrasound performed [...] the above symptoms, contact our office at [phone] and ask to speak with a nurse. After hours, you can call doctors registry at [phone] OR call [facility] at [phone] and ask to have the doctor destination sign repairer paged. If you consider this an emergency, dial 9-1-9 or go to your nearest emergency department. NEED HELP? Are you dealing with a violent or abusive relationship? Are you a victim of rape or sexual assult? Call [facility] ([facility]) 24 hour Crisis Hotline: 730.950.5987 or 935-729-4471. MANUAL Your Guide to a Healthy manual is now on-line. Visit [email or web address] [email or web address] to download your free copy documented in this encounter [facility] 06-23-2024 Telephone encounter Note FMLA papers completed and picked up by patient at her appointment on 06/20. Onel Hogan MA [facility] 06-23-2024 Miscellaneous Notes FMLA papers completed and picked up by patient at her appointment on 06/20. Onel Hogan MA [facility] paperwork completed and on providers desk for signature. Onel Hogan MA Received [facility] paperwork for patients . Onel Hogan MA documented in this encounter [facility] 06-23-2024 Note Indication Evaluation of growth, Evaluation [...] movements 2: tone 2: Amniotic fluid volume 8/8 Biophysical profile score Growth Overview Exam date [...] 2 oz EFW by: Hadlock (HC-AC-FL) Extended Research Spec 7.4 mm Extremities / Bony Struc FL [...] M.D. [facility] 06-23-2024 Note HNO ID: [id number] Author: ELMIRA SCHMITZ APRN.CNP Service: ? Author Type: Nurse Practitioner Type: Procedures Filed: 06/23/2024 10:21 Note Text: NST SUMMARY PROVIDER ASSESSMENT AND INTERPRETATION Indications for NST: Polyhydramnios/ Tachycardia Baseline: 140 Variability: Moderate Accelerations: Present 15 X 15 Decelerations: None Interpretation: Reactive SIGNATURE: Elmira Schmitz APRN.CNP [facility] 06-23-2024 Procedure note NST SUMMARY PROVIDER ASSESSMENT AND INTERPRETATION Indications for NST: Polyhydramnios/ Tachycardia Baseline: 140 Variability: Moderate Accelerations: Present 15 X 15 Decelerations: None Interpretation: Reactive SIGNATURE: Elmira Schmitz APRN.CNP [facility] 06-23-2024 Procedure note NST SUMMARY PROVIDER ASSESSMENT AND INTERPRETATION Indications for NST: Polyhydramnios/ Tachycardia Baseline: 140 Variability: Moderate Accelerations: Present 15 X 15 Decelerations: None Interpretation: Reactive SIGNATURE: Elmira Schmitz APRN.[employer] documented in this encounter [facility] 06-23-2024 Progress note Formatting of t his [...] ICD10: B95.1 Noted on urine culture at [facility]. Consider positive. No need for 36 [...] reviewed. Needs twice weekly testing. Elmira Schmitz APRN.[employer] [facility] 06-23-2024 Miscellaneous Notes EH - S: Ginger [...] ICD10: B95.1 Noted on urine culture at [facility]. Consider positive. No need for 36 [...] reviewed. Needs twice weekly testing. Elmira Schmitz APRN.[employer] documented in this encounter [facility] 06-23-2024 Instructions Brandi Miller MA - 06/23/2024 8:29 AM EDT SEQUENTIAL SCREENINGS The [facility] offers sequential screenings for women who are [...] It will require an appointment with our pest technician. This is not an ultrasound performed [...] the above symptoms, contact our office at [phone] and ask to speak with a nurse. After hours, you can call doctors registry at [phone] OR call [facility] at [phone] and ask to have the doctor destination sign repairer paged. If you consider this an emergency, dial 6-0-3 or go to your nearest emergency department. NEED HELP? Are you dealing with a violent or abusive relationship? Are you a victim of rape or sexual assult? Call [facility] ([facility]) 24 hour Crisis Hotline: 809.280.1671 or 721-132-9390. MANUAL Your Guide to a Healthy manual is now on-line. Visit [email or web address] Catie to download your free copy documented in this encounter [facility] 06-20-2024 Progress note Formatting of t his [...] presence of amniotic fluid. Lab Address: Ob/gynecology [address] [place] [id number] Dept: [phone] Provider: Dori Walker DO [facility] 06-20-2024 Miscellaneous Notes SW- Add on visit [...] presence of amniotic fluid. Lab Address: Ob/gynecology [address] [place] [address] Dept: [phone] Provider: Dori Walker DO documented in this encounter [facility] 06-20-2024 Instructions Sharla Lopez MA - 06/20/2024 3:57 PM EDT SEQUENTIAL SCREENINGS The [facility] offers sequential screenings for women who are [...] It will require an appointment with our pest technician. This is not an ultrasound performed [...] the above symptoms, contact our office at [phone] and ask to speak with a nurse. After hours, you can call doctors registry at [phone] OR call [facility] at [phone] and ask to have the doctor destination sign repairer paged. If you consider this an emergency, dial 2-1-5 or go to your nearest emergency department. NEED HELP? Are you dealing with a violent or abusive relationship? Are you a victim of rape or sexual assult? Call [facility] ([facility]) 24 hour Crisis Hotline: 869.972.5682 or 209-815-8606. MANUAL Your Guide to a Healthy manual is now on-line. Visit [email or web address] to download your free copy documented in this encounter [facility] 06-20-2024 Telephone encounter Note FMLA paperwork completed and on providers desk for signature. Onel Hogan MA [facility] 06-20-2024 Telephone encounter Note Received [facility] paperwork for patients . Onel Hogan MA [facility] 06-18-2024 Progress note Formatting of t his [...] ICD10: O99.213 NST weekly Tressa Le MD [facility] 06-18-2024 Miscellaneous Notes S: Ginger Ken is [...] Tressa Le MD documented in this encounter [facility] 06-18-2024 Note HNO ID: [id number] Author: TRESSA LE MD Service: ? Author Type: Physician Type: Progress Notes Filed: 06/18/2024 21:05 Note Text: NST SUMMARY PROVIDER ASSESSMENT AND INTERPRETATION Indications for NST: Obesity Baseline: 150 Variability: Moderate Accelerations: Present 15 X 15 Decelerations: None Interpretation: Category I SIGNATURE: Tressa Le MD [facility] 06-18-2024 History of Presen t illness Narrative NST SUMMARY PROVIDER ASSESSMENT AND INTERPRETATION Indications for NST: Obesity Baseline: 150 Variability: Moderate Accelerations: Present 15 X 15 Decelerations: None Interpretation: Category I SIGNATURE: Tressa Le MD documented in this encounter [facility] 06-18-2024 Instructions Sharla Lopez MA - 06/18/2024 3:30 PM EDT SEQUENTIAL SCREENINGS The [facility] offers sequential screenings for women who are [...] It will require an appointment with our pest technician. This is not an ultrasound performed [...] the above symptoms, contact our office at [phone] and ask to speak with a nurse. After hours, you can call [facility] at [phone] OR call [facility] at [phone] and ask to have the doctor destination sign repairer paged. If you consider this an emergency, dial 9--1 or go to your nearest emergency department. NEED HELP? Are you dealing with a violent or abusive relationship? Are you a victim of rape or sexual assult? Call [facility] ([place]) 24 hour Crisis Hotline: 666.728.8961 or 169-606-8821. MANUAL Your Guide to a Healthy manual is now on-line. Visit [email or web address] [email or web address] to download your free copy documented in this encounter [facility] 06-16-2024 Telephone encounter Note 33w2d Patient calling [...] Patient and L&D notified. Jennifer Saavedra RN [facility] 06-16-2024 Miscellaneous Notes 33w2d Patient calling with [...] Jennifer Saavedra RN documented in this encounter [facility] 06-16-2024 Progress note Formatting of t his [...] and when to call Nahomi Bellamy APRN.CNM [facility] 06-16-2024 Miscellaneous Notes BROCK-S: Ginger Ken is [...] Nahomi Bellamy APRN.CNM documented in this encounter [facility] 06-16-2024 Instructions Onel Hogan MA - 06/16/2024 10:35 AM EDT SEQUENTIAL SCREENINGS The [facility] offers sequential screenings for women who are [...] It will require an appointment with our pest technician. This is not an ultrasound performed [...] the above symptoms, contact our office at [phone] and ask to speak with a nurse. After hours, you can call doctors registry at [phone] OR call [facility] at [phone] and ask to have the doctor destination sign repairer paged. If you consider this an emergency, dial 9-1-1 or go to your nearest emergency department. NEED HELP? Are you dealing with a violent or abusive relationship? Are you a victim of rape or sexual assult? Call [facility] ([facility]) 24 hour Crisis Hotline: 147.167.2042 or 159-618-1850. MANUAL Your Guide to a Healthy manual is now on-line. Visit [email or web address] to download your free copy documented in this encounter [facility] 06-13-2024 Telephone encounter Note Pt denies dysuria. Advised to go to L&D if feeling need to be seen/if feeling dehydrated from loose stools, decreased movement, if leaking fluid/vaginal bleeding. Advised to stay hydrated and rest and Pt voiced understanding. Aware of appts changed. Denies additional questions/concerns. Chuck España RN [facility] 06-13-2024 Miscellaneous Notes Pt denies dysuria. Advised [...] symptoms, will not treat at this time. [facility] C+S to Olvin Bellamy's desk Elmira Schmitz APRN.[employer] Can move OB appointment to be on [...] still having urinary symptoms. Tressa Packer RN Plain count low, is patient symptomatic with urinary symptoms? If so, recommend treatment Elmira Schmitz APRN.CNP If no availability, can schedule growth out 1-2 weeks. Recommend at least weekly NST starting at 32 weeks. Have not received C+S Elmira Schmitz APRN.CNP Urine culture results with sensitivities from [facility] to provider to review. Shellie Alcantar RN Left message for patient to call office. Jennifer Saavedra RN Patient going to L+D for further eval after appt today. Please call her tomorrow to get her scheduled for a growth and OB visit next week. Needs weekly NSTs rest of after that. Elmira Schmitz APRN.MARIAH documented in this encounter [facility] 06-13-2024 Telephone encounter Note If needs seen should go to L&D. She can try to rest & hydrate to see if symtoms improve. Jose Raphael MD [facility] 06-13-2024 Telephone encounter Note Ob patient is 32w6d and c/o lower back pain and cramping that began yesterday and started to lose mucus plug on Sunday. Lose stools began on Sunday. Baby is active. Denies Lof, no VB. Patient is at work at 4:30 pm. Can leave a detailed message. [facility] 06-13-2024 Telephone encounter Note Left message for patient to call office. See both notes below. Moved her 06/23 appt to 06/25 after her u/s. Jennifer Saavedra RN [facility] 06-13-2024 Telephone encounter Note If no urinary symptoms, will not treat at this time. [facility] C+S to Olvin Bellamy's desk Elmira Schmitz APRN.CNP [facility] 06-13-2024 Telephone encounter Note Can move OB appointment to be on 06/25 with growth Elmira Schmitz APRN.CNP [facility] 06-12-2024 Telephone encounter Note Patient returned call. Scheduled patient 06/18 for NST and OB visit. 06/25 for Growth US. Does patient need an office visit this day? She's scheduled on 06/23 already and we would just move it if needed. She is not having any urinary symptoms. Tressa Packer, RN T [facility] 06-12-2024 Telephone encounter Note Left message for patient to call the office. See messages below. If patient needs after 3:00 PM for US there is a 3:30 PM on 06/25 (placed on hold). Patient will need NST and visit next week if she can't do the US on 06/18. Please inquire if she is still having urinary symptoms. Tressa Packer, RN T [facility] 06-12-2024 Telephone encounter Note Plain count low, is patient symptomatic with urinary symptoms? If so, recommend treatment Elmira Schmitz APRN.CNP [facility] 06-12-2024 Telephone encounter Note If no availability, can schedule growth out 1-2 weeks. Recommend at least weekly NST starting at 32 weeks. Have not received C+S Elmira Schmitz APRN.CNP [facility] 06-12-2024 Telephone encounter Note Urine culture results with sensitivities from [facility] to provider to review. Shellie Alcantar RN [facility] 06-10-2024 Telephone encounter Note Left message for patient to call office. Jennifer Saavedra RN [facility] 06-09-2024 Telephone encounter Note Patient going to L+D for further eval after appt today. Please call her tomorrow to get her scheduled for a growth and OB visit next week. Needs weekly NSTs rest of after that. Elmira Schmitz APRN.CNP T [facility] 06-09-2024 Note HNO ID: [id number] Author: ELMIRA SCHMITZ APRN.CNP Service: ? Author Type: Nurse Practitioner Type: Procedures Filed: 06/09/2024 16:58 Note Text: NST SUMMARY PROVIDER ASSESSMENT AND INTERPRETATION Indications for NST: Obesity Baseline: 160 Variability: Moderate Accelerations: Present 15 X 15 Decelerations: None Interpretation: Cat 2. - sending to L+D for further eval SIGNATURE: Elmira Schmitz APRN.CNP [facility] 06-09-2024 Procedure note NST SUMMARY PROVIDER ASSESSMENT AND INTERPRETATION Indications for NST: Obesity Baseline: 160 Variability: Moderate Accelerations: Present 15 X 15 Decelerations: None Interpretation: Cat 2. - sending to L+D for further eval SIGNATURE: Elmira Schmitz APRN.CNP [facility] 06-09-2024 Procedure note NST SUMMARY PROVIDER ASSESSMENT AND INTERPRETATION Indications for NST: Obesity Baseline: 160 Variability: Moderate Accelerations: Present 15 X 15 Decelerations: None Interpretation: Cat 2. - sending to L+D for further eval SIGNATURE: Elmira Schmitz APRN.CNP documented in this encounter [facility] 06-09-2024 Miscellaneous Notes EH - S: Ginger [...] NST reveals tachycardia today. Reviewed with provider destination sign repairer, Olvin Bellamy CNM, who is sending patient to L+D for fluids and further monitoring. RTO next week for growth and OB visit. Elmira Schmitz APRN.MARIAH documented in this encounter [facility] 06-09-2024 Progress note Formatting of t his [...] NST reveals tachycardia today. Reviewed with provider destination sign repairer, Olvin Bellamy CNM, who is sending patient to L+D for fluids and further monitoring. RTO next week for growth and OB visit. Elmira Schmitz APRN.MARIAH [facility] 06-09-2024 Instructions Zahra David LPN - 06/09/2024 3:44 PM EDT SEQUENTIAL SCREENINGS The [facility] offers sequential screenings for women who are [...] It will require an appointment with our pest technician. This is not an ultrasound performed [...] the above symptoms, contact our office at [phone] and ask to speak with a nurse. After hours, you can call [employer] registry at [phone] OR call [facility] at [phone] and ask to have the doctor destination sign repairer paged. If you consider this an emergency, dial 6-3-4 or go to your nearest emergency department. NEED HELP? Are you dealing with a violent or abusive relationship? Are you a victim of rape or sexual assult? Call [facility] ([facility] 24 hour Crisis Hotline: 338.388.1954 or 126-056-8788. MANUAL Your Guide to a Healthy manual is now on-line. Visit [email or web address] Catie to download your free copy documented in this encounter [facility] 05-26-2024 Instructions Zahra David LPN - 05/26/2024 3:52 PM EDT SEQUENTIAL SCREENINGS The [facility] offers sequential screenings for women who are [...] It will require an appointment with our pest technician. This is not an ultrasound performed [...] the above symptoms, contact our office at [phone] and ask to speak with a nurse. After hours, you can call doctors registry at [phone] OR call [facility] at [phone] and ask to have the doctor destination sign repairer paged. If you consider this an emergency, dial 1-0-0 or go to your nearest emergency department. NEED HELP? Are you dealing with a violent or abusive relationship? Are you a victim of rape or sexual assult? Call [facility] ([facility]) 24 hour Crisis Hotline: 730.406.6995 or 198-001-4091. MANUAL Your Guide to a Healthy manual is now on-line. Visit [email or web address] to download your free copy documented in this encounter [facility] 05-26-2024 Miscellaneous Notes EH - S: Ginger [...] Elmira Schmitz APRN.MARIAH documented in this encounter [facility] 05-26-2024 Progress note Formatting of t his [...] weeks or sooner as needed. Elmira Schmitz APRN.[employer]ER [employer] [facility] 05-12-2024 Miscellaneous Notes EH - S: Ginger [...] Elmira Schmitz APRN.MARIAH documented in this encounter [facility] 05-12-2024 Progress note Formatting of t his [...] or sooner as needed. Elmira Schmitz APRN.CNP [facility] 05-12-2024 Note HNO ID: [id number] Author: ONEL HOGAN MA Service: ? Author Type: Rehab Technician Type: Progress Notes Filed: 05/12/2024 14:45 Note [...] severely ill: Yes Patient denies history of Guillain-[place] Syndrome (a severe paralytic illness): Yes Tdap Adacel injection was given without incident. See immunizations for details of immunizations administered today. VIS sheet provided: Yes Provider Elmira Schmitz APRN, CNP was present in office at time of injection. Onel Hogan MA [facility] 05-12-2024 History of Presen t illness Narrative [...] severely ill: Yes Patient denies history of Guillain-[place] Syndrome (a severe paralytic illness): Yes Tdap Adacel injection was given without incident. See immunizations for details of immunizations administered today. VIS sheet provided: Yes Provider Elmira Schmitz APRN, CNP was present in office at time of injection. Onel Hogan MA documented in this encounter [facility] 05-12-2024 Instructions Onel Hogan MA - 05/12/2024 1:23 PM EDT SEQUENTIAL SCREENINGS The [facility] offers sequential screenings for women who are [...] It will require an appointment with our pest technician. This is not an ultrasound performed [...] the above symptoms, contact our office at [phone] and ask to speak with a nurse. After hours, you can call doctors registry at [phone] OR call [facility] at [phone] and ask to have the doctor destination sign repairer paged. If you consider this an emergency, dial 3-1-0 or go to your nearest emergency department. NEED HELP? Are you dealing with a violent or abusive relationship? Are you a victim of rape or sexual assult? Call [facility] ([facility]) 24 hour Crisis Hotline: 354.514.9034 or 616-302-3141. MANUAL Your Guide to a Healthy manual is now on-line. Visit [email or web address] to download your free copy documented in this encounter [facility] 04-15-2024 Progress note Formatting of t his note might be different from the original. RR- VB No. LOF No. CTXS No. Movement: present. Other c/o: SANDERS intermittent. Tried dark room and reglan and helps some but still bothersome. Medication list reviewed. Physical Exam See Flow Sheet Abd: soft, nontender, gravid Ext: edema: 1+, symetrical: Yes, DTRS: 2+, clonus: Absent A/P 24w3d Estimated Date of Delivery: 08/02/24 Labs: 28 weeks next visit SANDERS, no evidence of preeclampsia clinically but check labs maternal obesity and trouble staying awake at night, trial fioricet c/o excessive sleepiness/drowsiness at work, sleeps 8+ hrs. does snore, does feel rested when she wakes up. Will order sleep study as this may be contributing to SANDERS as well f/u in 4 weeks or prn neck circumference 46 cm Karl Romeo M.D. [facility] 04-15-2024 Miscellaneous Notes RR- VB No. LOF No. CTXS No. Movement: present. Other c/o: SANDERS intermittent. Tried dark room and reglan and helps some but still bothersome. Medication list reviewed. Physical Exam See Flow Sheet Abd: soft, nontender, gravid Ext: edema: 1+, symetrical: Yes, DTRS: 2+, clonus: Absent A/P 24w3d Estimated Date of Delivery: 08/02/24 Labs: 28 weeks next visit SANDERS, no evidence of preeclampsia clinically but check labs maternal obesity and trouble staying awake at night, trial fioricet c/o excessive sleepiness/drowsiness at work, sleeps 8+ hrs. does snore, does feel rested when she wakes up. Will order sleep study as this may be contributing to SANDERS as well f/u in 4 weeks or prn neck circumference 46 cm Karl Romeo M.D. documented in this encounter [facility] 04-15-2024 Instructions Shaniqua Ferrell MA - 04/15/2024 4:30 PM EDT SEQUENTIAL SCREENINGS The [facility] offers sequential screenings for women who are [...] It will require an appointment with our pest technician. This is not an ultrasound performed [...] the above symptoms, contact our office at [phone] and ask to speak with a nurse. After hours, you can call doctors registry at [phone] OR call [facility] at [phone] and ask to have the doctor destination sign repairer paged. If you consider this an emergency, dial 8-1-0 or go to your nearest emergency department. NEED HELP? Are you dealing with a violent or abusive relationship? Are you a victim of rape or sexual assult? Call [facility] ([facility]) 24 hour Crisis Hotline: 228.114.2382 or 410-604-9887. MANUAL Your Guide to a Healthy manual is now on-line. Visit [email or web address] Catie to download your free copy documented in this encounter [facility] 03-27-2024 Note Indication Follow-up evaluation to complete [...] Patient notified. Appointment given. Tressa Packer RN [facility] 03-17-2024 Miscellaneous Notes Patient notified. Appointment given. [...] Karl Romeo MD documented in this encounter [facility] 03-13-2024 Telephone encounter Note Left message for patient to call office. Tressa Packer RN [facility] 03-13-2024 Telephone encounter Note ----- Message from Karl Romeo MD sent at 03/13/2024 3:30 PM EDT ----- Anatomy ultrasound reviewed. No abnormalities identified. F/u scan as recommended in 2-3 weeks please contact her to schedule. Please place copy in ob chart. Karl Romeo MD [facility] 03-12-2024 Progress note Formatting of t his [...] ICD9: V22.2, ICD10: Z3A.19 Tressa Le MD [facility] 03-12-2024 Miscellaneous Notes S: Ginger Ken is [...] Tressa Le MD documented in this encounter [facility] 03-12-2024 Instructions Shaniqua Ferrell MA - 03/12/2024 11:27 AM EDT SEQUENTIAL SCREENINGS The [facility] offers sequential screenings for women who are [...] It will require an appointment with our pest technician. This is not an ultrasound performed [...] the above symptoms, contact our office at [phone] and ask to speak with a nurse. After hours, you can call doctors registry at [phone] OR call [facility] at [phone] and ask to have the doctor destination sign repairer paged. If you consider this an emergency, dial 9-1-0 or go to your nearest emergency department. NEED HELP? Are you dealing with a violent or abusive relationship? Are you a victim of rape or sexual assult? Call [facility] ([facility]) 24 hour Crisis Hotline: 908.276.7193 or 624-423-8757. MANUAL Your Guide to a Healthy manual is now on-line. Visit [email or web address] Catie to download your free copy documented in this encounter [facility] 02-25-2024 Telephone encounter Note Rx sent and message sent to pt [facility] 02-25-2024 Miscellaneous Notes Rx sent and message sent to pt 17w2d documented in this encounter [facility] 02-25-2024 Telephone encounter Note 17w2d [facility] 02-13-2024 Progress note Formatting of t his [...] weeks or sooner as needed. Elmira Schmitz APRN.[employer] [facility] 02-13-2024 Miscellaneous Notes EH - S: Ginger [...] Elmira Schmitz APRN.MARIAH documented in this encounter [facility] 02-13-2024 Instructions Elmira Schmitz APRN.CNP - 02/13/2024 3:42 PM EDT MORNING SICKNESS IN by Stacey Elaine M.D. for kwiry As you may already know, morning sickness can often be more appropriately called evening sickness or rknci-sjdhto-el-the-day sickness. While there are the vianey few, [...] medication called Bendectin was available in the 1970s-1979's and was shown to be safe in [...] medication, Doxylamine, is currently marketed as an yfdt-bqb-tdbpvvd sleeping pill. Ask your practitioner if creating a vitamin B6/Doxylamine combination with yxpw-lpn-isvdlnq medications would be safe for you. Prescription [...] as Phenergan, Compazine, Reglan SEQUENTIAL SCREENINGS The [facility] offers sequential screenings for women who are [...] It will require an appointment with our pest technician. This is not an ultrasound performed [...] the above symptoms, contact our office at [phone] and ask to speak with a nurse. After hours, you can call doctors registry at [phone] OR call [facility] at [phone] and ask to have the doctor destination sign repairer paged. If you consider this an emergency, dial 05-18- or go to your nearest emergency department. NEED HELP? Are you dealing with a violent or abusive relationship? Are you a victim of rape or sexual assult? Call [facility] ([facility]) 24 hour Crisis Hotline: 854.330.6310 or 392-560-5023. MANUAL Your Guide to a Healthy manual is now on-line. Visit [email or web address] to download your free copy documented in this encounter [facility] 01-16-2024 Progress note Formatting of t his note might be different from the original. DM- Pt doing well today. Denies Vaginal Bleeding, Leaking fluid, or cramping. Pt reports nausea, no vomiting. NT today- declines screening. ASA reviewed. Pregravid BMI 40. Anatomy us ordered. NEW OB labs today. RTO 4 wks. Catie Hernandez MD [facility] 01-16-2024 Miscellaneous Notes DM- Pt doing well today. Denies Vaginal Bleeding, Leaking fluid, or cramping. Pt reports nausea, no vomiting. NT today- declines screening. ASA reviewed. Pregravid BMI 40. Anatomy us ordered. NEW OB labs today. RTO 4 wks. Catie Hernandez MD documented in this encounter [facility] 01-16-2024 Instructions Sharla Lopez MA - 01/16/2024 9:35 AM EDT SEQUENTIAL SCREENINGS The [facility] offers sequential screenings for women who are [...] It will require an appointment with our pest technician. This is not an ultrasound performed [...] the above symptoms, contact our office at [phone] and ask to speak with a nurse. After hours, you can call doctors registry at [phone] OR call [facility] at [phone] and ask to have the doctor destination sign repairer paged. If you consider this an emergency, dial 3-4-1 or go to your nearest emergency department. NEED HELP? Are you dealing with a violent or abusive relationship? Are you a victim of rape or sexual assult? Call [facility] ([facility]) 24 hour Crisis Hotline: 288.527.5725 or 221-925-6797. MANUAL Your Guide to a Healthy manual is now on-line. Visit [email or web address] Catie to download your free copy documented in this encounter [facility] 12-20-2023 Miscellaneous Notes Patient is here for NOB. TVUS confirms HARRY of 08/02/24. See progress note. Renu Moore APRN.CNM documented in this encounter [facility] 12-13-2023 Note HNO ID: [id number] Author: RENU MOORE APRN.CNM Service: ? 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 fexofenadine HCl (DEVIN ORAL) Take by mouth. Aejyhhrd-Iy-Wed-Fe-FA tab Take 1 tablet by mouth once daily. letrozole (FEMARA) 2.5 mg tablet Take 1 tablet by mouth once daily. Days 3-7 of menstrual cycle. (Patient not taking: Reported on 12/13/2023) 5 tablet 0 buPROPion XL (WELLBUTRIN XL) 300 mg 24 hr tablet Take 300 mg by mouth once daily. (Patient not taking: Reported on 12/13/2023) No current faci (more content not included)... 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 fexofenadine HCl (DEVIN ORAL) Take by mouth. Xgljbuks-So-Ujj-Fe-FA tab Take 1 tablet by mouth once [...] Your guide to a health and the Turret Lathe Set Up Operator. Discussed aneuploidy screening, nuchal translucency/first trimester early [...] provided. The patient Declines Reviewed midwifery and medical record specialist services that are available. 2) Patient offered option of Virtual Visits. Patient prefers in person visits. 3) Obesity (BMI >30), will order early glucose screen or Hemoglobin A1C. PCOS: will order early glucose screen or Hemoglobin A1C. Follow up in 4 weeks or sooner prn. Renu Moore APRN.CNM documented in this encounter [facility] 12-13-2023 Instructions Renu Moore APRN.CNM - 12/13/2023 3:26 PM EDT Pepcid 20 mg PO up to 2 x daily for acid reflux Vit. B6 and Unisom for nausea Please select the following link to access the [facility] Your Guide to a Healthy . [email or web address] Please select the following link to access the [facility] Your Guide to a Healthy . [email or web address] documented in this encounter [facility] 08-22-2023 Note HNO ID: [id number] Author: Tressa Packer RN Service: ? Author Type: Registered Nurse Type: Progress Notes Filed: 08/22/2023 4:49 PM Note Text: Please review lab results Scan on 08/22/2023 3:58 PM by Provider, External, PA-C: Miscellaneous Lab [facility] 07-17-2023 Instructions Jose Raphael MD - 07/17/2023 [...] of finishing Progesterone. documented in this encounter [facility] 07-17-2023 Note HNO ID: [id number] Author: Jose Raphael MD Service: ? Author Type: Physician Type: Progress Notes Filed: 07/17/2023 4:08 PM Note Text: Ginger Kne is a 28 year old [id number] female who presents for problem visit as a new patient referral from [facility]TALENT DEVELOPMENT MANAGER for family planning discussion and care. HPI: [...] medical necessity, no hx of preeclampsia, GDM. TALENT DEVELOPMENT MANAGER History Hx of endometriosis, hx of laparoscopic DANDC x1 in 2019. Previously on Depo shot which helped w/ pain management. Currently having cycles of approx 26 days, she is bleeding for 5 days with onset of bleeding occurring one week earlier than in the past. Some menstrual pain noted. TEACHING PROVIDER (Physician/PA/MODELING DIRECTOR) NOTE OF PERSONAL INVOLVEMENT IN CARE: I have personally seen and examined the patient and performed the medical decision-making components. I have reviewed the Medical Student's documentation and verified the findings in the note as written. Any additions or changes are noted in bold/italics. 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 History Comments: Sexual Activity: Yes; Male Contraception: None PAST MEDICAL HISTORY Diagnosis Date Anxiety and depression Endometriosis PCOS (polycystic ovarian syndrome) PAST SURGICAL HISTORY Procedure Laterality Date PAST SURGICAL HISTORY OF 2019 Laparoscopy for Endometriosis at [facility] FAMILY HISTORY Problem Relation Age of Onset [...] Level: 3 - Low Jose Raphael MD [facility] 07-17-2023 History of Presen t illness Narrative Ginger Ken is a 28 year old [id number] female who presents for problem visit as a new patient referral from [facility]ELOP[facility] for family planning discussion and care. HPI: [...] medical necessity, no hx of preeclampsia, GDM. TALENT DEVELOPMENT MANAGER History Hx of endometriosis, hx of laparoscopic D&C x1 in 2019. Previously on Depo shot which helped w/ pain management. Currently having cycles of approx 26 days, she is bleeding for 5 days with onset of bleeding occurring one week earlier than in the past. Some menstrual pain noted. TEACHING PROVIDER (Physician/PA/MODELING DIRECTOR) NOTE OF PERSONAL INVOLVEMENT IN CARE: I have personally seen and examined the patient and performed the medical decision-making components. I have reviewed the Medical Student's documentation and verified the findings in the note as written. Any additions or changes are noted in bold/italics. 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 History Comments: Sexual Activity: Yes; Male Contraception: None PAST MEDICAL HISTORY Diagnosis Date Anxiety and depression Endometriosis PCOS (polycystic ovarian syndrome) PAST SURGICAL HISTORY Procedure Laterality Date PAST SURGICAL HISTORY OF 2019 Laparoscopy for Endometriosis at [facility] FAMILY HISTORY Problem Relation Age of Onset [...] Jose Raphael MD documented in this encounter [facility] Evaluation note Diagnosis Anovulation- Primary Female infertility associated with anovulation PCOS (polycystic ovarian syndrome) Polycystic [facility]ies [facility] 7 weeks gestation of - Primary state, incidental Encounter for supervision of normal first in first trimester Supervision of normal first Use of letrozole (Femara) Use of aromatase inhibitors with uncertain dates, antepartum state, incidental Encounter for care in first trimester of first Obesity affecting in first trimester, unspecified obesity type Anxiety and depression Dysthymic disorder [facility] Diagnosis Obesity in - Primary Obesity complicating , childbirth, or the puerperium, unspecified as to episode of care or not applicable Encounter for supervision of other normal in second trimester Anxiety and depression Dysthymic disorder Encounter for care in first trimester of first 11 weeks gestation of state, incidental [facility] Encounter for (NT) nuchal translucency scan- Primary Other specified screening 11 weeks gestation of state, incidental [facility] Diagnosis Encounter for supervision of high risk in second trimester, antepartum- Primary 15 weeks gestation of state, incidental Obesity affecting in second trimester, unspecified obesity type headache in second trimester Nausea and vomiting during [facility] Diagnosis Nausea and vomiting during - Primary [facility] Diagnosis Encounter for anatomic survey- Primary Encounter for supervision of other normal in second trimester Obesity in Obesity complicating , childbirth, or the puerperium, unspecified as to episode of care or not applicable [facility] Diagnosis Encounter for supervision of high risk in second trimester, antepartum- Primary Nausea and vomiting during Obesity affecting in second trimester, unspecified obesity type 19 weeks gestation of state, incidental [facility] Diagnosis Encounter for supervision of high risk in second trimester, antepartum- Primary Obesity affecting in second trimester, unspecified obesity type [facility] Diagnosis Encounter for follow-up ultrasound of anatomy- Primary Obesity affecting in second trimester, unspecified obesity type 21 weeks gestation of state, incidental documented in this encounter [facility] note* Diagnosis Encounter for supervision of high risk in second trimester, antepartum- Primary 24 weeks gestation of state, incidental Obesity affecting in second trimester, unspecified obesity type Headache in , antepartum, second trimester [facility] Diagnosis Encounter for supervision of high risk in third trimester, antepartum- Primary 28 weeks gestation of state, incidental Obesity affecting in third trimester, unspecified obesity type Anxiety and depression Dysthymic disorder Need for vaccination Need for prophylactic vaccination and inoculation against unspecified single disease Supervision of high risk in third trimester Unspecified high-risk documented in this encounter [facility] note* Diagnosis Encounter for supervision of high risk in third trimester, antepartum- Primary 30 weeks gestation of state, incidental Obesity affecting in third trimester, unspecified obesity type Anxiety and depression Dysthymic disorder Supervision of high risk in third trimester Unspecified high-risk documented in this encounter [facility] note* Diagnosis Encounter for supervision of high risk in third trimester, antepartum- Primary 32 weeks gestation of state, incidental Obesity affecting in third trimester, unspecified obesity type COVID-19 affecting in third trimester documented in this encounter [facility] note* Diagnosis Encounter for supervision of high risk in third trimester, antepartum- Primary Obesity affecting in third trimester, unspecified obesity type 33 weeks gestation of state, incidental Group beta Strep positive documented in this encounter [facility] note* Diagnosis 33 weeks gestation of - Primary state, incidental Obesity affecting in third trimester, unspecified obesity type [facility] Diagnosis Vaginal discharge- Primary Leukorrhea, not specified as infective 33 weeks gestation of state, incidental Obesity affecting in third trimester, unspecified obesity type Encounter for supervision of high risk in third trimester, antepartum documented in this encounter [facility] note* Diagnosis Encounter for supervision of high [...] or unspecified fetus documented in this encounter [facility] note* Diagnosis Encounter for ultrasound to check growth- Primary Encounter for routine screening for malformation using ultrasonics Obesity affecting in second trimester, unspecified obesity type Polyhydramnios in third trimester complication, single or unspecified fetus documented in this encounter [facility] note* Diagnosis Encounter for supervision of high risk in third trimester, antepartum- Primary 34 weeks gestation of state, incidental Obesity affecting in third trimester, unspecified obesity type Polyhydramnios affecting in third trimester documented in this encounter [facility] note* Diagnosis Polyhydramnios in third trimester complication, [...] of state, incidental documented in this encounter [facility] note* Diagnosis Encounter for supervision of high [...] OB DIP B/O [facility] Diagnosis Encounter for supervision of high [...] beta Strep positive [facility] Diagnosis Encounter for supervision of high [...] of state, incidental documented in this encounter [facility] note* Diagnosis Encounter for supervision of high [...] depression Dysthymic disorder documented in this encounter [facility] note* Diagnosis Encounter for supervision of high [...] Strep positive Anxiety and depression Dysthymic disorder Swelling of lower extremity during in third trimester Mild pre-eclampsia in third trimester Mild or unspecified pre-eclampsia, antepartum documented in this encounter [facility] for referral (narrative)* Diagnostic Procedure Only (Routine) - Authorized Specialty Diagnoses / Procedures Referred By Neno bass Referred To Contact [facility] Diagnoses 7 weeks gestation of Procedures NUCHAL TRANSLUCENCY WHI US NUCHAL TRANSLUCENCY 1ST GESTATION Renu Moore APRN.RYAN [address] [place] [address] [facility] [address] [place] [address] Referral ID Status Reason Start Date Expiration Date Visits Requested Visits Authorized [id number] Authorized Auto-Generat ed Referral 12/20/2023 12/19/2024 1 1 * Diagnostic Procedure Only (Routine) - Pending Review Specialty Diagnoses / Procedures Referred By Contac t Referred To Contact [facility] Diagnoses 7 weeks gestation of Procedures OBSTETRIC ULTRASOUND WHI US PREG UTERUS AFTER 1ST TRIMEST GESTATION Rneu Moore APRN.CNM [address] [place] [address] [address] Referral ID Status Reason Start Date Expiration Date Visits Requested Visits Authorized [id number] Pending Review Auto-Generat ed Referral 12/20/2023 12/19/2024 1 1 [facility] for referral (narrative)* Diagnostic Procedure Only (Routine) - Authorized Specialty Diagnoses / Procedures Referred By Contac t Referred To Contact [facility] Diagnoses Encounter for supervision of other normal in second trimester Obesity in Procedures OBSTETRIC ULTRASOUND WHI US PREG UTERUS AFTER 1ST TRIMEST GESTATION Catie Munoz MD [address] [place] [address] [facility] [address] [place] [id number] Referral ID Status Reason Start Date Expiration Date Visits Requested Visits Authorized [id number] Authorized Auto-Generat ed Referral 01/16/2024 01/15/2025 1 [facility] Diagnostic Procedure Only (Routine) - Pending Review Specialty Diagnoses / Procedures Referred By Contac t Referred To Contact [facility] Diagnoses Obesity in Encounter for anatomic survey Procedures OBSTETRIC ULTRASOUND WHI US PREG UTERUS AFTER 1ST [place] [address] [place] [address] [address] Referral ID Status Reason Start Date Expiration Date Visits Requested Visits Authorized [id number] Pending Review Auto-Generat ed Referral 03/12/2024 03/12/2025 1 1 [facility] for referral (narrative)* Diagnostic Procedure Only (Routine) - Pending Review Specialty Diagnoses / Procedures Referred By Contac t Referred To Contact [facility] Diagnoses Encounter for supervision of high risk in second trimester, antepartum Obesity affecting in second trimester, unspecified obesity type Procedures OBSTETRIC ULTRASOUND WHI US PREG UTERUS AFTER 1ST TRIMEST GESTATION Karl Romeo MD [address] [place] [address] [address] Referral ID Status Reason Start Date Expiration Date Visits Requested Visits Authorized [id number] Pending Review Auto-Generat ed Referral 03/13/2024 03/13/2025 3 1 [facility] for referral (narrative)* Outpatient Procedure (Routine) - New Request Specialty Diagnoses / Procedures Referred By Contac t Referred To Contact [facility] Diagnoses Encounter for supervision of high risk in third trimester, antepartum 30 weeks gestation of Procedures NON-STRESS TEST NON-STRESS TEST Elmira Schmitz APRN.[employer] [address] [place] [address] [address] Referral ID Status Reason Start Date Expiration Date Visits Requested Visits Authorized [id number] New Request Auto-Generat ed Referral 05/26/2024 05/26/2025 1 1 [facility] for referral (narrative)* Outpatient Procedure (Routine) - Authorized Specialty Diagnoses / Procedures Referred By Contac t Referred To Contact [facility] Diagnoses Obesity affecting in third trimester, unspecified obesity type Procedures NON-STRESS TEST NON-STRESS TEST Elmira Schmitz APRN.CNP [address] [place] [address] [address] [place] [address] Referral ID Status Reason Start Date Expiration Date Visits Requested Visits Authorized [id number] Authorized Auto-Generat ed Referral 06/23/2024 06/23/2025 1 1 * Diagnostic Procedure Only (Routine) - Authorized Specialty Diagnoses / Procedures Referred By Contac t Referred To Contact [facility] Diagnoses Encounter for supervision of high risk in third trimester, antepartum 34 weeks gestation of Obesity affecting in third trimester, unspecified obesity type Procedures BIOPHYSICAL PROFILE US WHI BIOPHYSICAL PROFILE NON-STRESS TESTING Elmira Schmitz APRN.CNP [address] [place] [address] [facility] [address] [place] [address] Referral ID Status Reason Start Date Expiration Date Visits Requested Visits Authorized [id number] Authorized Auto-Generat ed Referral 06/23/2024 06/23/2025 10 1 [facility] Summary Purpose Family History No Family History Records FoundNo Family History Records FoundNo Family History Records FoundNo Family History Records Found Advance Directives No Advanced Directives Records FoundNo Advanced Directives Records FoundNo Advanced Directives Records FoundNo Advanced Directives Records Found Health Concerns Active Problems Noted Date Diagnosed Date [facility] Education - COMMON 12/13/2023 [place] - [place] 12/13/2023 Additional Source Comments INFORMATION SOURCE (unrecogn ized section and content) DATE CREATED AUTHOR 08/11/2018 [facility] ([place]) DATE CREATED AUTHOR AUTHOR'S ORGANIZ ATION 06/13/2020 [facility] DATE CREATED AUTHOR AUTHOR'S ORGANIZ ATION 06/05/2024 [facility] DATE CREATED AUTHOR AUTHOR'S ORGANIZ ATION 07/08/2024 [facility] Source Comments (unrecognize d section and content) In the event this informatio n is protected by the Federal Confidentiality of Alcohol and Drug Abuse Patient Records regulations: The Federal rules restrict any use of the information to criminally investigate or prosecute any alcohol or drug abuse patient.[facility] event this information is protected by the Federal Confidentiality of Alcohol and Drug Abuse Patient Records regulations: The Federal rules restrict any use of the information to criminally investigate or prosecute any alcohol or drug abuse patient.[facility] the event this information is protected by the Federal Confidentiality of Alcohol and Drug Abuse Patient Records regulations: The Federal rules restrict any use of the information to criminally investigate or prosecute any alcohol or drug abuse patient.[facility] the event this information is protected by the Federal Confidentiality of Alcohol and Drug Abuse Patient Records regulations: The Federal rules restrict any use of the information to criminally investigate or prosecute any alcohol or drug abuse patient.[facility] the event this information is protected by the Federal Confidentiality of Alcohol and Drug Abuse Patient Records regulations: The Federal rules restrict any use of the information to criminally investigate or prosecute any alcohol or drug abuse patient.[facility] the event this information is protected by the Federal Confidentiality of Alcohol and Drug Abuse Patient Records regulations: The Federal rules restrict any use of the information to criminally investigate or prosecute any alcohol or drug abuse patient.[facility] the event this information is protected by the Federal Confidentiality of Alcohol and Drug Abuse Patient Records regulations: The Federal rules restrict any use of the information to criminally investigate or prosecute any alcohol or drug abuse patient.[facility] the event this information is protected by the Federal Confidentiality of Alcohol and Drug Abuse Patient Records regulations: The Federal rules restrict any use of the information to criminally investigate or prosecute any alcohol or drug abuse patient.[facility] the event this information is protected by the Federal Confidentiality of Alcohol and Drug Abuse Patient Records regulations: The Federal rules restrict any use of the information to criminally investigate or prosecute any alcohol or drug abuse patient.[facility] the event this information is protected by the Federal Confidentiality of Alcohol and Drug Abuse Patient Records regulations: The Federal rules restrict any use of the information to criminally investigate or prosecute any alcohol or drug abuse patient.[facility] the event this information is protected by the Federal Confidentiality of Alcohol and Drug Abuse Patient Records regulations: The Federal rules restrict any use of the information to criminally investigate or prosecute any alcohol or drug abuse patient.[facility] the event this information is protected by the Federal Confidentiality of Alcohol and Drug Abuse Patient Records regulations: The Federal rules restrict any use of the information to criminally investigate or prosecute any alcohol or drug abuse patient.[facility] the event this information is protected by the Federal Confidentiality of Alcohol and Drug Abuse Patient Records regulations: The Federal rules restrict any use of the information to criminally investigate or prosecute any alcohol or drug abuse patient.[facility] the event this information is protected by the Federal Confidentiality of Alcohol and Drug Abuse Patient Records regulations: The Federal rules restrict any use of the information to criminally investigate or prosecute any alcohol or drug abuse patient.[facility] the event this information is protected by the Federal Confidentiality of Alcohol and Drug Abuse Patient Records regulations: The Federal rules restrict any use of the information to criminally investigate or prosecute any alcohol or drug abuse patient.[facility] the event this information is protected by the Federal Confidentiality of Alcohol and Drug Abuse Patient Records regulations: The Federal rules restrict any use of the information to criminally investigate or prosecute any alcohol or drug abuse patient.[facility] the event this information is protected by the Federal Confidentiality of Alcohol and Drug Abuse Patient Records regulations: The Federal rules restrict any use of the information to criminally investigate or prosecute any alcohol or drug abuse patient.[facility] the event this information is protected by the Federal Confidentiality of Alcohol and Drug Abuse Patient Records regulations: The Federal rules restrict any use of the information to criminally investigate or prosecute any alcohol or drug abuse patient.[facility] the event this information is protected by the Federal Confidentiality of Alcohol and Drug Abuse Patient Records regulations: The Federal rules restrict any use of the information to criminally investigate or prosecute any alcohol or drug abuse patient.[facility] the event this information is protected by the Federal Confidentiality of Alcohol and Drug Abuse Patient Records regulations: The Federal rules restrict any use of the information to criminally investigate or prosecute any alcohol or drug abuse patient.[facility] the event this information is protected by the Federal Confidentiality of Alcohol and Drug Abuse Patient Records regulations: The Federal rules restrict any use of the information to criminally investigate or prosecute any alcohol or drug abuse patient.[facility] the event this information is protected by the Federal Confidentiality of Alcohol and Drug Abuse Patient Records regulations: The Federal rules restrict any use of the information to criminally investigate or prosecute any alcohol or drug abuse patient.[facility] the event this information is protected by the Federal Confidentiality of Alcohol and Drug Abuse Patient Records regulations: The Federal rules restrict any use of the information to criminally investigate or prosecute any alcohol or drug abuse patient.[facility] the event this information is protected by the Federal Confidentiality of Alcohol and Drug Abuse Patient Records regulations: The Federal rules restrict any use of the information to criminally investigate or prosecute any alcohol or drug abuse patient.[facility] the event this information is protected by the Federal Confidentiality of Alcohol and Drug Abuse Patient Records regulations: The Federal rules restrict any use of the information to criminally investigate or prosecute any alcohol or drug abuse patient.[facility] the event this information is protected by the Federal Confidentiality of Alcohol and Drug Abuse Patient Records regulations: The Federal rules restrict any use of the information to criminally investigate or prosecute any alcohol or drug abuse patient.[facility] the event this information is protected by the Federal Confidentiality of Alcohol and Drug Abuse Patient Records regulations: The Federal rules restrict any use of the information to criminally investigate or prosecute any alcohol or drug abuse patient.[facility] the event this information is protected by the Federal Confidentiality of Alcohol and Drug Abuse Patient Records regulations: The Federal rules restrict any use of the information to criminally investigate or prosecute any alcohol or drug abuse patient.[facility] the event this information is protected by the Federal Confidentiality of Alcohol and Drug Abuse Patient Records regulations: The Federal rules restrict any use of the information to criminally investigate or prosecute any alcohol or drug abuse patient.[facility] the event this information is protected by the Federal Confidentiality of Alcohol and Drug Abuse Patient Records regulations: The Federal rules restrict any use of the information to criminally investigate or prosecute any alcohol or drug abuse patient.[facility] the event this information is protected by the Federal Confidentiality of Alcohol and Drug Abuse Patient Records regulations: The Federal rules restrict any use of the information to criminally investigate or prosecute any alcohol or drug abuse patient.[facility] Reason for Visit (unrecogniz ed section and content) Reason Onset Date Comments Care 07/10/2024 Specialty Diagnoses / Procedures Referred By Contac t Referred To Contact Commercial Litigation Associate / [employer] Diagnoses Follow-up examination OB/$25 copay Procedures OFFICE/OUTPATIENT ESTABLISHED HIGH MDM 40 MIN OFFICE/OUTPATIENT EST PT MAY NOT REQ PHYS/QHP EST WHI OB Self HaElmira santillan, MODELING DIRECTOR.[employer] [address] [place] [address] Referral ID Status Reason Start Date Expiration Date V isits Requested Visits Authorized [id number] Authorized 05/26/2024 09/16/2024 99 99 Reason Onset Date Comments Care 07/07/2024 Specialty Diagnoses / Procedures Referred By Contac t Referred To Contact Commercial Litigation Associate / [employer] Diagnoses Follow-up examination OB/$25 copay Procedures OFFICE/OUTPATIENT ESTABLISHED HIGH MDM 40 MIN OFFICE/OUTPATIENT EST PT MAY NOT REQ PHYS/QHP EST WHI OB Self Elmira Schmitz, MODELING DIRECTOR.[employer] [address] [place] [address] Referral ID Status Reason Start Date Expiration Date V isits Requested Visits Authorized [id number] Authorized 05/26/2024 09/16/2024 99 99 Reason Onset Date Comments Care 07/03/2024 Reason Onset Date Comments Care 06/30/2024 Immunizations 06/30/2024 Flu vaccination Reason Onset Date Comments Care 06/25/2024 Reason Onset Date Comments Care 06/23/2024 Specialty Diagnoses / Procedures Referred By Contac t Referred To Contact Commercial Litigation Associate / [employer] Diagnoses Follow-up examination OB/$25 copay Procedures OFFICE/OUTPATIENT ESTABLISHED HIGH MDM 40 MIN OFFICE/OUTPATIENT EST PT MAY NOT REQ PHYS/QHP EST WHI OB Self Nadir Elmira, MODELING DIRECTOR.[employer] [address] [place] [address] Reason Onset Date Comments Care 06/20/2024 Specialty Diagnoses / Procedures Referred By Contac t Referred To Contact Commercial Litigation Associate / [employer] Diagnoses Encounter for supervision of high risk in third trimester, antepartum Obesity affecting in third trimester, unspecified obesity type 33 weeks gestation of Group beta Strep positive OB-Repeat urine culture Procedures OFFICE/OUTPATIENT EST PT MAY NOT REQ PHYS/QHP OFFICE/OUTPATIENT ESTABLISHED HIGH MDM 40 MIN EST WHI OB Self Nahomi Bellamy, MODELING DIRECTOR.CNM [address] [place] [address] Referral ID Status Reason Start Date Expiration Date V isits Requested Visits Authorized [id number] Authorized 06/16/2024 09/16/2024 99 99 Reason Onset Date Comments Care 06/18/2024 Reason Comments Discussion Family Planning Reason Comments Initial OB Visit Reason Onset Date Comments Care 01/16/2024 Reason Comments US Specialty Diagnoses / Procedures Referred By Contac t Referred To Contact [facility] Diagnoses 7 weeks gestation of Procedures NUCHAL TRANSLUCENCY WHI US NUCHAL TRANSLUCENCY 1ST GESTATION Renu Moore, MODELING DIRECTOR.CNM [address] [place] [address] [facility] [address] [place] [address] Referral ID Status Reason Start Date Expiration Date V isits Requested Visits Authorized [id number] Closed Auto-Generate d Referral 12/20/2023 12/19/2024 1 1 Reason Onset Date Comments Care 02/13/2024 Reason Comments US Specialty Diagnoses / Procedures Referred By Contac t Referred To Contact [facility] Diagnoses Encounter for supervision of other normal in second trimester Obesity in Procedures OBSTETRIC ULTRASOUND WHI US PREG UTERUS AFTER 1ST TRIMEST GESTATION Catie Munoz MD [address] [place] [address] [facility] [address] [place] [address] Referral ID Status Reason Start Date Expiration Date V isits Requested Visits Authorized [id number] Closed Auto-Generate d Referral 01/16/2024 01/15/2025 1 1 Reason Onset Date Comments Care 03/12/2024 Reason Comments Future Appointment Results Specialty Diagnoses / Procedures Referred By Contac t Referred To Contact [facility] Diagnoses Encounter for supervision of high risk in second trimester, antepartum Obesity affecting in second trimester, unspecified obesity type Procedures OBSTETRIC ULTRASOUND WHI US PREG UTERUS AFTER 1ST TRIMEST GESTATION Karl Romeo MD [address] [place] [address] [facility] [address] [place] [address] Referral ID Status Reason Start Date Expiration Date V isits Requested Visits Authorized [id number] Closed Auto-Generate d Referral 03/13/2024 03/13/2025 3 1 Reason Onset Date Comments Care 04/15/2024 Specialty Diagnoses / Procedures Referred By Contac t Referred To Contact Commercial Litigation Associate / MARINE MAMMAL TRAINER Diagnoses Anovulation OB Procedures OFFICE/OUTPATIENT ESTABLISHED HIGH MDM 40 MIN OFFICE/OUTPATIENT EST PT MAY NOT REQ PHYS/QHP EST WHI OB Self Karl Romeo MD [address] [place] [address] Referral ID Status Reason Start Date Expiration Date V isits Requested Visits Authorized [id number] Denied Patient Cleared - Admin/Chairm an/Director advise to proceed or did not respond 04/09/2024 07/08/2024 1 1 Reason Onset Date Comments Care 05/12/2024 Reason Onset Date Comments Care 05/26/2024 Reason Onset Date Comments Care 06/09/2024 Reason Comments Appointment Reason Onset Date Comments Care 06/16/2024 Reason Comments Contractions Referral ID Status Reason Start Date Expiration Date Visits Requested Visits Authorized [id number] Authorized Auto-Generat ed Referral 06/17/2024 09/16/2024 20 20 Reason Comments FMLA Paperwork Reason Comments ob concerns Specialty Diagnoses / Procedures Referred By Contac t Referred To Contact [facility] Diagnoses Encounter for supervision of high risk in third trimester, antepartum 34 weeks gestation of Obesity affecting in third trimester, unspecified obesity type Procedures BIOPHYSICAL PROFILE US WHI BIOPHYSICAL PROFILE NON-STRESS TESTING Elmira Schmitz APRN.[employer]ER [employer] [address] [place] [address] [facility] [address] [place] [address] Referral ID Status Reason Start Date Expiration Date V isits Requested Visits Authorized [id number] Closed Auto-Generate d Referral 06/23/2024 06/23/2025 10 1 Reason Onset Date Comments Care 07/10/2024 FOR RECORDS PERTAINING TO PATIENTS WHO ARE [...] BE BASED ON THE PRIMARY CLINICAL RECORDS. [employer] provides no warranty or guarantee of the accuracy or completeness of information in this document.
[2024-07-11] MEDS: Acetaminophen 500 MG Tablet 1000 MG PO ×4 (03:57→21:17)
[2024-07-11] MEDS: Ketorolac 30 MG/ML Syringe IV ×3 (05:40→17:58)
[2024-07-11] MEDS: 0.9% Saline Lock 10 ML Syringe IV ×4 (05:40→17:58)
--- NOTE | 2024-07-11 07:17 | PN.OBGYN_ITS ---
Subjective Subjective Patient seen at bedside. Denies headache, vision changes, SOB or CP. Has only stood at bedside. No ambulation to this point. Denies any pain. via hand expression to spoon. Objective Data Objective Data Vital Signs: Vital Signs Temp Pulse Resp BP Pulse Ox O2 Del Method 97.8 F 88 17 113/64 96 Room Air 07/11/24 01:07 07/11/24 06:30 07/11/24 06:30 07/11/24 06:30 07/11/24 06:30 07/11/24 06:30 Oxygen Delivery Method Room Air Weight: 283 lb Body Mass Index (BMI) 41.8 Intake & Output: Intake and Output for Last 24 Hours 07/09/24 07/10/24 07/11/24 23:59 23:59 23:59 Intake Total 225.83 / 225.83 681.67 / 681.67 Output Total 700 / 700 500 / 500 Balance -474.17 / -474.17 181.67 / 181.67 Lab / Micro Data Attestation: I reviewed the patient's lab results. 07/10/24 19:50 Labs: Laboratory Results - last 24 hr 07/10/24 19:50: WBC 12.6 H, RBC 4.25, Hgb 13.3, Hct 37.9, MCV 89.2, MCH 31.3, MCHC 35.1, RDW Std Deviation 41.1, RDW Coeff of Valeri 12.7, Plt Count 339, MPV 11.2, Immature Gran % (Auto) 0.400, Neut % (Auto) 77.8 H, Lymph % (Auto) 15.2 L, Scott % (Auto) 6.0, Eos % (Auto) 0.4, Baso % (Auto) 0.2, Absolute Neuts (auto) 9.8 H, Absolute Lymphs (auto) 1.91, Nucleated RBC % 0, Syphilis Total Ab Non- reactive, Blood Type A POSITIVE, Antibody Screen NEGATIVE ROS Eyes Eyes: Denies blurry vision, spots in vision or tunnel vision ENT HEENT: Denies dizziness or headache(s) Cardiovascular Cardiovascular: Reports systems reviewed and no addt'l complaints, except as documented, dizziness and dyspnea Respiratory/Chest Respiratory/Chest: Reports systems reviewed and no addt'l complaints, except as documented Gastrointestinal Gastrointestinal: Reports systems reviewed and no addt'l complaints, except as documented Genitourinary Genitourinary: Reports systems reviewed and no addt'l complaints, except as documented Neurologic Neurologic: Denies abnormal speech, dizziness, headache(s), syncope or vertigo Psychiatric Psychiatric: Reports systems reviewed and no addt'l complaints, except as documented Physical Exam Const alert and no apparent distress General Appearance: cooperative Orientation / Consciousness: awake, oriented to person and oriented to place Exam Limitations: no limitations HEENT normocephalic Eyes General Eye: normal appearance of both eyes Neck full ROM Chest Chest: symmetrical chest wall rise Resp normal respiratory effort, normal air movement and clear to auscultation bilaterally Auscultation: clear to auscultation bilaterally Cardio regular rate and regular rhythm GI normal to inspection, nondistended, normoactive bowel sounds Uterus Palpation: uterus fundus firm Extremity full ROM and no calf tenderness Skin no rashes or lesions noted Neuro oriented x3 Psych mental status grossly normal and activity/motor behavior normal Assessment & Plan (1) Gestational hypertension: (2) Mild preeclampsia: (3) Anxiety: (4) Status post primary low transverse section: PLAN: Plan POD 1 Primary C/S Pain control Increase ambulation today support Continue to monitor BP which are normal to low today
[2024-07-11 07:39] LABS: Hematocrit 33.5 % (37-47); Hemoglobin 11.2 g/dL (12.0-15.0); Mean Corp Hgb Conc 33.4 g/dL (32-36); Mean Corpuscular Hgb 30.5 pg (27.0-32.0); Mean Corpuscular Volume 91.3 fL (81-99); Platelet Count 265 K/mm3 (150-450); RBC Distribution Width CV 12.8 % (11.6-14.6); RBC Distribution Width SD 41.7 fl (35.1-43.9); Red Blood Count 3.67 M/mm3 (4.2-5.4); White Blood Count 11.5 K/mm3 (4.4-11.0)
[2024-07-11] MEDS: Sertraline 50 MG Tablet PO (09:16)
[2024-07-11] MEDS: Senna/Docusate Sodium 1 Tablet PO (09:17)
[2024-07-11] MEDS: Enoxaparin 40 MG/0.4 ML Syringe SC ×2 (09:17→21:17)
[2024-07-11] MEDS: SimETHICONE 80 MG Chewable Tablet PO (21:21)
[2024-07-11] MEDS: Ibuprofen 600 MG Tablet PO (22:17)
[2024-07-11] MEDS: oxyCODONE 5 MG Tablet PO (22:17)
[2024-07-12 01:19] VITALS: BP 125/58; PULSE 98; RESP 16; TEMP 36.9; O2SAT 96
[2024-07-12] MEDS: Ibuprofen 600 MG Tablet PO ×2 (04:18→11:22)
[2024-07-12] MEDS: Acetaminophen 500 MG Tablet 1000 MG PO ×2 (04:19→11:23)
--- NOTE | 2024-07-12 07:20 | PCM.DC.SUM ---
Providers Date of Admission: 07/10/24 Primary Care Physician: Tressa Shannon PA-C Reason For Visit: PRIMARY C SECTION Diagnosis Discharge Diagnosis (1) Gestational hypertension: Status: Acute Code(s): O13.9 - Gestational [-induced] hypertension without significant proteinuria, unspecified trimester (2) Mild preeclampsia: Status: Acute Code(s): O14.00 - Mild to moderate pre-eclampsia, unspecified trimester (3) Anxiety: Status: Acute Code(s): F41.9 - Anxiety disorder, unspecified (4) Status post primary low transverse section: Status: Acute Code(s): Z98.891 - History of uterine scar from previous surgery Plan POD 2 Primary C/S Pain control No elevated blood pressures support D/C home with follow up in office this week Medications at Discharge Home Medications vit no.116-iron 28 mg-folic acid 800 mcg-dha 200 mg capsule 1 tab PO DAILY Check with primary doctor 09/30/20 sertraline 50 mg tablet 50 mg PO DAILY 05/04/24 acetaminophen 500 mg tablet 1,000 mg (2 x 500 mg) PO Q6H #0 tabs 07/12/24 ibuprofen 600 mg tablet 600 mg PO Q6H #0 tabs 07/12/24 sennosides 8.6 mg-docusate sodium 50 mg tablet (Stimulant Laxative Plus) 1 - 2 tab PO DAILY #0 tabs 07/12/24 Hospital Course Operations section Procedures None Summary of Care Provided Minutes Spent on Discharge: 15 Hospital Course: Patient had section. Hospital course was uneventful. Physical Exam Narrative Patient seen at bedside. Ambulating and voiding without difficulty. Denies headache dizziness, SOB, CP or RUQ pain. Passing flatus. Desires discharge home. Const alert and no apparent distress General Appearance: cooperative and comfortable Exam Limitations: no limitations HEENT normocephalic Eyes General Eye: normal appearance of both eyes Neck full ROM General: normal visual inspection Chest Chest: symmetrical chest wall rise Resp normal respiratory effort and normal air movement Effort and Inspection: symmetric chest movement Auscultation: clear to auscultation bilaterally Cardio regular rate and regular rhythm GI normal to inspection, nondistended, normoactive bowel sounds Back/Spine normal ROM Extremity full ROM and no calf tenderness General Extremity: normal exam except as noted Skin no rashes or lesions noted Wound Narrative: Dressing is dry and intact. Neuro CN's II-XII intact bilaterally Psych mental status grossly normal Weight / BMI Weight Weight: 283 lb Body Mass Index (BMI) 41.8 ABG / Lab / Microbiology Data 07/11/24 07:30 Laboratory: Laboratory Results - last 24 hr 07/11/24 07:30: WBC 11.5 H, RBC 3.67 L, Hgb 11.2 L, Hct 33.5 L, MCV 91.3, MCH 30.5, MCHC 33.4, RDW Std Deviation 41.7, RDW Coeff of Valeri 12.8, Plt Count 265, MPV 11.0 D/C Instructions Discharge Diet: No restrictions Discharge Activity: May Drive (2 weeks) and May Shower May resume sexual activity in: 6-8 weeks Weight Bearing Status: Weight bearing as tolerated Lifting Restricted to (Lbs): 25 Call your doctor if your incision/area has: Continuous Slow Oozing, Sudden Increased Bleeding, Increased Pain/ Swelling, Increased Redness, Foul Smelling Discharge and Swelling at the incision site Call your doctor if you observe: Fever of 101 or Higher, Numbness or Tingling, Using more than 1 pad per hour, Shortness of breath, Dizziness, Swelling in the ankles, Chest pain, Calf discomfort and Uncontrolled pain Suture Line Care: Avoid Pulling/Pushing Remove Dressing in: 5 days (Remove yourself or call office and schedule appointment for dressing removal.) When: 5 days for dressing removal or 2 weeks for post appointment. Meaningful Use Info Meaningful Use Meaningful Use Diagnoses (Choose all that apply): None applicable Ischemic Stroke Statin Dosing Therapy Reference: STATIN DOSE THERAPY REFERENCE: * Patients > 75 years receive moderate or high dose statin therapy. * Patients 75 years or YOUNGER should receive HIGH intensity statin dose unless contraindicated. You will be required to document reason for non-treatment if statin daily dose does not meet guidelines. HIGH DOSE STATIN THERAPY DAILY Atorvastatin > than or = to 40 mg Rosuvastatin > than or = to 20 mg Amlodipine + Atorvastatin > than or = to 2.5/40 mg Ezetimibe + Simvastatin 10/80 mg Simvastatin 80mg Discharge Plan Admission Admit Date/Time: 07/10/24 19:25 Primary Reason for Your Visit: Labor and Delivery Attending Provider: Renu Moore Primary Care Provider: Tressa Shannon Discharge Orders/Prescriptions Prescriptions: New sennosides-docusate sodium [Stimulant Laxative Plus] 8.6-50 mg Tablet 1 - 2 tab PO DAILY Qty: 0 0RF acetaminophen 500 mg Tablet 1,000 mg PO Q6H Qty: 0 0RF ibuprofen 600 mg Tablet 600 mg PO Q6H Qty: 0 0RF Continued [id number] 1 EACH capsule 1 tab PO DAILY sertraline 50 mg tablet 50 mg PO DAILY Patient Comments: TAKE 1 TABLET BY MOUTH ONCE DAILY Discontinued famotidine [Acid Controller] 20 mg tablet 20 mg PO DAILY metoclopramide HCl [Reglan] 5 mg tablet 5 mg PO DAILY Referrals / Follow Up: Renu Moore CNM [Med Staff - Adv Practice Prof] - Tressa Shannon PA-C [Primary Care Provider] - Disposition Disposition (needs filled in before D/C Order can be placed): Home, Self Care
[2024-07-12 08:45] VITALS: BP 112/53; PULSE 86; RESP 14; TEMP 36.6; O2SAT 98
[2024-07-12] MEDS: Senna/Docusate Sodium 1 Tablet PO (11:19)
[2024-07-12] MEDS: Enoxaparin 40 MG/0.4 ML Syringe SC (11:19)
[2024-07-12 15:00] VITALS: BP 120/65; PULSE 93; RESP 14; TEMP 36.6; O2SAT 97
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
== END 2024-07-12 16:45 | disposition home or self-care (01) | DRG 788 ==
PROVIDERS: Obstetrics & Gynecology; Admitting Provider Advanced Practice Midwife; PCP Family Medicine; Referring Provider Advanced Practice Midwife; Visit Provider Advanced Practice Midwife
DX: O76 Abnormality in fetal heart rate and rhythm complicating labor and delivery (principal); O14.04 Mild to moderate pre-eclampsia, complicating childbirth; O99.214 Obesity complicating childbirth; F41.9 Anxiety disorder, unspecified; O40.3XX0 Polyhydramnios, third trimester, not applicable or unspecified; O32.3XX0 Maternal care for face, brow and chin presentation, not applicable or unspecified; O77.0 Labor and delivery complicated by meconium in amniotic fluid; Z37.0 Single live birth; O99.344 Other mental disorders complicating childbirth; O99.824 Streptococcus B carrier state complicating childbirth; Z3A.36 36 weeks gestation of pregnancy; Z79.899 Other long term (current) drug therapy; Z86.16 Personal history of COVID-19
CPT/HCPCS: 36415; 59050; 85025; 85027; 86780; 86850; 86900; 86901; 88307; 99221; J7120; A4216; G0378; J2405